=== PATIENT | male | born 1950 | race Caucasian/White ===

== ENCOUNTER → 2017-11-10 10:47 | Outpatient (CLI) | payer MEDICARE, MEDICAID, SELFPAY ==
--- NOTE | 2017-11-10 | DI.RAD.S_ITS ---
PROCEDURE: XR CHEST 2V INDICATIONS: DYSPNEA ON EXERTION TECHNIQUE: 2 views of the chest were acquired. COMPARISON: Merged With [facility], , CHEST 2 VIEW, 03/18/2010, 17:07. FINDINGS: Surgical changes and devices: None. Lungs and pleura: No right pleural effusions, no pneumothorax. Mild accentuation of interstitial markings bilaterally. There is a mass in the superior segment left lower lobe measuring 4.6 x 6.2 x 4.7 cm. Probable small left pleural effusion. Mediastinum: Mediastinal contours are normal. Heart size is normal. Aortic calcifications. Bones and chest wall: No suspicious bony abnormalities. Soft tissues appear unremarkable. IMPRESSION: 1. Large mass left lower lobe, suspect for malignancy. Probable small left pleural effusion. Recommend contrast enhanced CT chest. 2. Mild, chronic interstitial lung disease. Dictated by: Vitaly Key M.D. on 11/10/2017 at 11:36 Approved by: Vitaly Key M.D. on 11/10/2017 at 11:39
== END ==
PROVIDERS: PCP Family Medicine; Visit Provider Family Medicine
DX: R06.09 Other forms of dyspnea (principal); R91.8 Other nonspecific abnormal finding of lung field; J84.9 Interstitial pulmonary disease, unspecified
CPT/HCPCS: 71046

== ENCOUNTER → 2017-11-15 11:09 | Outpatient (CLI) | payer MEDICARE, MEDICAID, SELFPAY ==
--- NOTE | 2017-11-15 | DI.CT.S_ITS ---
PROCEDURE: CT CHEST W CON INDICATIONS: LEFT LOWER LUNG MASS TECHNIQUE: After the administration of intravenous contrast, 5 mm thick sections acquired from the pulmonary apices to the posterior costophrenic angles. 7 mm thick coronal and sagittal MIP reformats were acquired. For radiation dose reduction, the following was used: automated exposure control, adjustment of mA and/or kV according to patient size. COMPARISON: [facility], CT, KIDNEY/ URETER/BLADDER, 09/03/2005, 8:22. [facility], CR, CHEST 2 VIEW, 03/18/2010, 17:07. [facility], CR, XR CHEST 2V, 11/10/2017, 10:36. FINDINGS: Image quality: Excellent. Lungs and pleura: There is a spiculated 5.6 x 4.6 x 5.2 cm mass within the left lower lobe. Multiple satellite pulmonary nodules are present surrounding this lesion. There is a small left low-density pleural effusion. Compressive atelectasis is present at the left lung base. Mediastinum: Heart size is normal. No pericardial effusion. No mediastinal or hilar adenopathy by size criteria. Thoracic aorta and central pulmonary arteries are normal in size. Scattered atheromatous calcifications are present within the aortic arch. Esophagus is normal in caliber. No hiatal hernia. Bones and chest wall: No suspicious bony lesions there is moderate anterior wedging at T12. No recent priors are available to determine the acuity of this finding. No axillary or supraclavicular adenopathy by size criteria. Thyroid gland is unremarkable. Abdomen: Visualized upper abdominal solid organs appear normal. Upper abdominal bowel loops are normal in caliber. IMPRESSION: 1. Large left lower lobe pulmonary mass which corresponds with the plain film findings on the study dated 11/10/17. Differential considerations include neoplasm and pneumonia. If clinically indicated, this lesion may be amenable to percutaneous CT-guided biopsy; however given the deep location, this lesion is high risk for pneumothorax or hemoptysis. 2. Small low density left pleural effusion. 3. No mediastinal or hilar adenopathy to suggest teetee metastasis. Dictated by: Cassandra Zelaya M.D. on 11/15/2017 at 14:40 Approved by: Cassandra Zelaya M.D. on 11/15/2017 at 14:48
== END ==
PROVIDERS: PCP Family Medicine; Visit Provider Family Medicine
DX: R91.8 Other nonspecific abnormal finding of lung field (principal); J90 Pleural effusion, not elsewhere classified
CPT/HCPCS: 36415; 71260; 82565; 84520; Q9967

== ENCOUNTER → 2017-11-15 11:26 | Outpatient (CLI) | payer MEDICARE, MEDICAID, SELFPAY ==
[2017-11-15 11:56] LABS: BUN Creatinine Ratio 26.3 (6-22); Blood Urea Nitrogen 21 mg/dL (9-20); Estimated Glomerular Filt Rate > 60.0 mL/min (>60)
== END ==
PROVIDERS: PCP Family Medicine; Visit Provider Family Medicine
DX: R22.2 Localized swelling, mass and lump, trunk (principal)
CPT/HCPCS: 36415; 82565; 84520

== ENCOUNTER → 2017-11-22 08:01 | Outpatient (CLI) | payer MEDICARE, MEDICAID, SELFPAY ==
--- NOTE | 2017-11-22 | DI.US.S_ITS ---
PROCEDURE: US ABD AORTA ANEURYSM SCREEN INDICATIONS: SCREENING TECHNIQUE: Real time scanning was performed of the aorta and iliac arteries, with image documentation. COMPARISON: None. FINDINGS: Aorta: Proximal aortic diameter measures 1.5 cm. Mid-aorta measures 1.4 cm. Distal aortic diameter is 1.1 cm. Iliac arteries: Right common iliac artery measures 0.9 cm. Left common iliac artery measures 0.8 cm. IMPRESSION: No aortic aneurysm Dictated by: Vitaly Key M.D. on 11/22/2017 at 9:38 Approved by: Vitaly Key M.D. on 11/22/2017 at 9:39
[2017-11-22 08:25] LABS: Platelet Count 226 X10^3/uL (150-400)
[2017-11-22 08:32] LABS: INR 1.2 (0.9-1.3)
[2017-11-22 08:37] LABS: BUN Creatinine Ratio 17.8 (6-22); Blood Urea Nitrogen 16 mg/dL (9-20); Estimated Glomerular Filt Rate > 60.0 mL/min (>60)
== END ==
PROVIDERS: PCP Family Medicine; Visit Provider Family Medicine
DX: Z13.6 Encounter for screening for cardiovascular disorders (principal); R91.8 Other nonspecific abnormal finding of lung field
CPT/HCPCS: 36415; 76706; 82565; 84520; 85049; 85610

== ENCOUNTER 2017-11-29 10:18 | Day surgery (SDC) | payer MEDICARE, MEDICAID, SELFPAY ==
[2017-11-29] VITALS (12 sets, daily range): BP systolic 111–188; BP diastolic 66–99; PULSE 92–107; RESP 16–20; TEMP 36.3–37; O2SAT 94–99; BMI 33.2
--- NOTE | 2017-11-29 | DI.CT.S_ITS ---
PROCEDURE: CT BIOPSY LUNG LT Sedation analgesia for 20 minutes. INDICATIONS: LUNG MASS TECHNIQUE: The indications, alternatives, benefits, risks, and possible complications of the procedure were communicated to the patient. Informed written consent from the patient was obtained and placed in the chart. Continuous EKG and hemodynamic monitoring was started by trained personnel. The patient was brought to the CT suite and boiler shop mechanic spiral CT imaging was performed with localization grid. The appropriate site for percutaneous access to the biopsy target was marked, was prepped and draped sterilely, and was infused with local anaesthesia. Under CT guidance, a core biopsy trocar and needle set was advanced to the biopsy target, and specimen(s) were obtained. The trocar and needle were then removed, and the patient was sent for post-procedure monitoring. COMPARISON: None. FINDINGS: Biopsy site: Left lower lobe mass Needle: 20 gauge biopsy needle with introducer trocar. Number of passes: 6 for cytology; one for C and S Medications: 1% lidocaine for local anaesthesia. 50 mcg IV Fentanyl and 1.0 mg Versed for conscious sedation for 20 minutes (see nursing record). Complications: None. IMPRESSION: Successful CT-guided biopsy of left lower lobe mass. Histopathology and culture and sensitivity pending. No immediate pneumothorax by postbiopsy CT imaging. Two-hour chest x-ray pending. Dictated by: Vitaly Key M.D. on 11/29/2017 at 12:19 Approved by: Vitaly Key M.D. on 11/29/2017 at 12:23
--- NOTE | 2017-11-29 | PATH_ITS ---
[facility] Accession Number: [id number] . 01 Material submitted: . L LUNG TISS . 01 Clinical history: . NEEDLE BX, PROB 1 DEGREE LUNG CA . 02 Diagnosis: Left Lung, Needle Core Biopsies: Squamous cell carcinoma, moderately differentiated. MRV/12/01/2017 . 02 Comment: PD-L1 immunohistochemical studies will be ordered, and results issued in an addendum. . As part of routine clinical quality manager, Dr. Payan has reviewed this case and agrees with the above diagnosis. The finding of squamous cell carcinoma was discussed with Dr. Mora by Dr. Luke Ramos on 12/01/2017 at 3:40 p.m. . 02 Electronically signed: . Luke Ramos MD, PhD, Pathologist NPI- [id number] . 01 Gross description: . Received one formalin-filled container labeled with the patient's name and designated lung tissue L needle core are multiple 0.1 cm in diameter burris-brown cylindrical shaped portions of tissue, which range in length from 0.1 to 0.4 cm. Contents of container are filtered, wrapped and entirely submitted in one cassette. ([facility]:[id number]) /[facility] . 02 Pathologist provided ICD-10: C34.92 . 02 CPT . 370392 Performed at: 01 [facility] [address], [place], [place] [id number] MD Milton Roland MD Phone: [phone] Performed at: 02 [facility] [address] [place], [place] [id number] MD Flavio Meza MD Phone: [phone]
--- NOTE | 2017-11-29 13:06 | SUR.PHASEII ---
Pt denies pain or sob. Resting calmly in bed, call light within reach.
--- NOTE | 2017-11-29 13:28 | SUR.PHASEII ---
PT C/O 4/10 PAIN AT INSERTION SITE AT 1315. BANDAID OBSERVED TO BE C/D/I. PT DENIED ANY SOB. PT VITAL SIGNS STABLE, O2 SAT 95%. BILATERAL LUNGS AUSCULATED TO BE CLEAR. REPOSITIONED PT FROM LAYING SUPINE TO SITTING UP. RECHECKED WITH PT AT THIS TIME AND PT STATES PAIN IS NOW ONLY A DULL ACHE AT INSERTION SITE AND RATING IT 2/10 AT INSERTION SITE. PT ALERT AND TALKING TO RN AT THIS TIME. CALL LIGHT GIVEN TO PT AND BED IN LOWEST POSITION.
--- NOTE | 2017-11-29 13:37 | SUR.PHASEII ---
NOTIFIED DR. MAE, RADIOLOGIST OF PT RECENT C/O PAIN AT INSERTION SITE. PER RADIOLOGIST, THIS COMPLAINT IS NORMAL AND WILL BE SORE AT INSERTION SITE FOR THE NEXT FEW DAYS. NO NEW ORDERS RECEIVED.
--- NOTE | 2017-11-29 14:00 | DI.RAD.S_ITS ---
PROCEDURE: XR CHEST 1V INDICATIONS: POSTR LUNG BIOPSY TECHNIQUE: One view of the chest was acquired. COMPARISON: [facility], CR, XR CHEST 2V, 11/10/2017, 10:36. FINDINGS: Surgical changes and devices: None. Lungs and pleura: No pleural effusions or pneumothorax. Mass in the left midlung field appears unchanged. Left pleural effusion is smaller. No pneumothorax post lung biopsy. Mediastinum: Mediastinal contours appear normal. Heart size is normal. Bones and chest wall: No suspicious bony lesions. Overlying soft tissues appear unremarkable. IMPRESSION: No change in size or appearance of the left lung mass post needle core biopsy. No pneumothorax. Dictated by: Vitaly Key M.D. on 11/29/2017 at 14:41 Approved by: Vitaly Key M.D. on 11/29/2017 at 14:42
[2017-11-29] MEDS: fentaNYL 100 MCG/2 ML INJ 50 MCG IV (15:53)
[2017-11-29] MEDS: MIDAZOLAM 5 MG/ML VIAL 1 MG IV (15:53)
== END 2017-11-29 14:17 | disposition home or self-care (01) ==
PROVIDERS: PCP Family Medicine; Visit Provider Family Medicine
PROC: BB24ZZZ Computerized Tomography (CT Scan) of Bilateral Lungs (ICD-10-PCS; CPT 32408; principal; 2017-11-29 11:00)
DX: C34.92 Malignant neoplasm of unspecified part of left bronchus or lung (principal)
CPT/HCPCS: 32405; 71045; 77012; 87070; 87075; 87205; 88305; J2250; J3010

== ENCOUNTER 2017-12-06 15:01 | Day surgery (SDC) | payer MEDICARE, MEDICAID, SELFPAY ==
--- NOTE | 2017-12-06 | PATH_ITS ---
[facility] Accession Number: [id number] . 01 Material submitted: . PART A: COLON POLYP AT 20 CM PART B: COLON POLYP AT 25 CM PART C: COLON POLYP AT 35 CM PART D: COLON POLYP AT 120 CM PART E: COLON POLYP AT 130 PER VIAL PART F: COLON POLYP AT 160 CM PART G: COLON POLYP AT 80 CM PART H: COLON POLYP AT 50 CM PART I: PRIMARY RECTAL MASS 16-10 CM . 02 Diagnosis: A. Colon, Polyp at 20 cm, Biopsy: Tubulovillous adenoma. No evidence of malignancy or high grade dysplasia. . B. Colon, Polyp at 25 cm, Biopsy: High-grade dysplasia arising in a background of tubulovillous adenoma. No definite evidence of malignancy. . C. Colon, Polyp at 35 cm, Biopsy: Multiple fragments of tubular adenoma. . D. Colon, Polyp at 120 cm, Biopsy: Tubular adenoma. . E. Colon, Polyp at 130 cm, Biopsy: Tubulovillous adenoma. No evidence of malignancy or high-grade dysplasia. . F. Colon, Polyp at 160 cm, Biopsy: Tubular adenomas. . G. Colon, Polyp at 80 cm, Biopsy: Tubular adenoma. . H. Colon, Polyp at 50 cm, Biopsy: Tubular adenoma. . I. Rectum, Mass at 16-10 cm, Biopsy: Invasive adenocarcinoma, moderately differentiated, arising in a background of high-grade dysplasia. No loss of mismatch repair protein expression. See comment. JRL/12/10/2017 . 02 Comment: B,I. As part of routine machined parts quality inspector, Dr. Ramos also reviewed parts B and I and agrees with the diagnoses. Dr. Payan called Dr. Head to discuss the results on 12/10/2017. . 02 Electronically signed: . Arely Payan MD, Pathologist NPI- [id number] . 01 Gross description: . Received nine formalin-filled containers each labeled with the patient's name. . A. In a container labeled polyp at 20 cm are three 0.3 to 1.0 cm portions of tissue. The two largest fragments are sectioned, and all fragments are totally submitted in cassettes A1 and A2. B. In a container labeled colon polyp at 25 cm are multiple less than 0.1 to 0.6 cm portions of tissue, which are filtered, wrapped and entirely submitted in cassette B. C. In a container labeled colon polyp at 35 cm are four fragments of tissue and/or debris, which range in size from less than 0.1 cm to 0.6 cm. The specimen is filtered and entirely submitted in cassette C. D. In a container labeled polyp at 120 cm, the specimen consists of two less than 0.1 to 0.4 cm portions of tissue. Entirely submitted in cassette D. E. In a container labeled polyp at 130 cm, source confirmed per client, are two 0.2 to 0.5 cm portions of tissue. The largest fragment is bisected and all fragments are totally submitted in cassette E. F. In a container labeled colon polyp at 160 cm are three fragments of tissue and/or debris, which range in size from 0.4 to 0.6 cm. The two largest fragments are bisected and all fragments are totally submitted in cassette F. G. In a container labeled colon polyps at 80 cm, the specimen consists of a 0.5 cm portion of tissue, which is entirely submitted in cassette G. H. In a container labeled polyp at 50 cm, the specimen consists of a 0.2 cm portion of tissue. Entirely submitted in cassette H. I. In a container labeled primary rectal mass 16-10 cm are four 0.2 to 0.4 cm portions of tissue. Entirely submitted in cassette I. ([facility]:[id number]) /[facility] . 02 Microscopic: . IMMUNOHISTOCHEMISTRY TESTING FOR MISMATCH REPAIR PROTEINS: . MLH1: Intact nuclear expression. MSH2: Intact nuclear expression. MSH6: Intact nuclear expression. PMS2: Intact nuclear expression. Background nonneoplastic tissue/internal control with intact nuclear expression. . . INTERPRETATION: No loss of nuclear expression of MMR proteins: low probability of microsatellite instability-high (MSI-H)* . . * There are exceptions to the above IHC interpretations. These results should not be considered in isolation, and clinical correlation with genetic counseling is recommended to assess the need for germline testing. . . * This test was developed and its performance characteristics determined by [facility]. It has not been cleared or approved by the U.S. Food and Drug Administration. The FDA has determined that such clearance or approval is not necessary. This test is used for clinical purposes. It should not be regarded as investigational or for research. . 02 Pathologist provided ICD-10: C20, D12.6 . 02 CPT . 659324, 561539, 322644, 566393, 824017, 164261, 661154, 756599, 372439, R74676, F91552 Performed at: 01 [facility] [address] [id number] MD Milton Roland MD Phone: [phone] Performed at: 02 [facility] [address] [place], [place] [id number] MD Flavio Meza MD Phone: [phone]
--- NOTE | 2017-12-06 12:11 | PM.PREOP ---
Pre-operative Note Interval Note Pre-op Check: Yes History & Physical Reviewed by Physician and Yes Exam Performed Changes: No H&P completed within 30 days and has changed as indicated here:: Patient is a very pleasant 67-year-old male who reports bloating and gas for several months. When he has a bad day he goes to the bathroom 6-7 times when he has a good day he has 1 or 2 normal bowel movements in general he complains of some fatigue and weakness with slight weight change but he denies fever chills or sweats or loss of appetite he does have some shortness of breath with exertion and better at rest but this isn't does not new. The patient reports he has explosive diarrhea then it goes to a normal most normal stool. He drinks tap water and has not been drinking water from streams or lakes or any untreated well water. He reports he had a case of what he considers food poisoning approximately 2-3 months ago with severe cramping and diarrhea and that is when all of these symptoms started. He has not had a stool sample yet sent and has never had a colonoscopy and reports his physician has recommended a colonoscopy. ASA Class (for procedural sedation): II
--- NOTE | 2017-12-06 12:12 | P.OP.ENDO_ITS ---
Operative Date/Time/Diagnoses Date of procedure: 12/06/17 Time of procedure: 15:47 Pre-op diagnosis: Diarrhea and screening colonoscopy-no prior history of colonoscopy Post-op diagnosis: other (1. Rectal mass from 10-16cm from anal verge. 2. Colon polyps at multiple sites ( 20,25,35,120,130,160,80,50 cm) 3. Ascending/sigmoid diverticulosis. ) Procedure & Clinicians Indications: Diarrhea and blood in stool Lung mass c/w squamous cell cancer, moderately differentiated. Surgeon: Shant Head Procedure Notes SCOAP/Timeout: yes Procedure in detail: PLEASE NOTE THIS IS A -22 MODIFIER CASE DUE TO OVER 1 hour 48 MINUTES PROCEDURE TIME, OVER 8 POLYPS SNARED and LARGE CIRCUMFERENTIAL RECTAL MASS REQUIRING MULTIPLE SPECIMEN BIOPSIES. %100 more complex than standard colonoscopy with snare biopsy. After informed consent was obtained including the risks of infection bleeding perforation missed lesion and the signs and symptoms of perforation including increasing abdominal pain malaise nausea vomiting fever chills patient was taken to the endoscopy suite and given fentanyl and Versed. Safety time-out was completed. After adequate sedation rectal exam was performed showing no obvious mass lesion and a well lubricated colonoscope was placed into the anus and at approximately 8-10 cm I was met immediately with a circumferential fungating mass. The mass showed some evidence of bleeding and she go gentle insufflation showed there was in fact approximately a 20% area to 2 at transverse the mass which I was able to easily pass the scope beyond the the mass. Due to the ability to pass easily pass the scope I continued and was then immediately met with several approximately 1 cm pedunculated polyps., these polyps were found at multiple locations which we listed in the specimen list. Hot snare was utilized to remove polyps at 20 cm, 25 cm, 35 cm. I then advanced the scope and found extensive diverticulosis at approximately 50-70 cm in the ascending and sigmoid colon. I was then met with pedunculated polyps at 120 cm, and 130 cm, 160 cm and these were removed. The cecum was identified with the Crohn's foot and ileocecal valve. Pictures were taken of most of the polyps as well as the pros foot of the cecum. The prep was poor due to the partial obstructing nature of the rectal mass. I then spent over 50 min on withdrawal irrigating removing irrigation with a total of 3 L of irrigation and removal of stool total of which was 1 L of stool in 2 L of irrigation. Further specimens were removed at 80 cm and 50 cm with snare and either Jumbo forceps. Continued removal showed multiple smaller polyps some of which were added to the prior specimen areas as they were also found at the same exact levels and adding further specimen levels offered no further clinical significance. All snare areas showed mild bleeding which halted and no further hemorrhage was seen. We then pulled back to the rectal region where the primary rectal mass could be seen using the Jumbo forceps 3 large specimens were removed using multiple bites of the Jumbo forceps with each pass and these were all placed in the single jar 9. Specimen. There was no significant bleeding seen the scope could easily be passed through the the mass. Retroflexion showed no evidence of rectal mass below the primary tumor. I then removed the scope and completed the colonoscopy. Scope withdrawal time: 50 minutes Sedation 108 min Findings: diverticulosis, polyp and possible cancer (Circumferential rectal lesion, fungating at 10-16cm from anal verge and multiple polyps) Complications: none Recommendations: Other recommendation (Await pathology, full plan with discussion with oncologist. May not be surgical candidate if responds to chemo/ xrt. ) Plan for aftercare: Follow up with me in 1-2 weeks Follow up with Dr. Mora Follow up with Oncology for full plan. May need neoadjuavant chemo/XRT then restaging and full treatment options depending on his prognosis of his lung mass. Full staging of his rectal mass has not yet been peformed and pathology is needed. If he is not a CHEMO/XRT candidate then laparoscopic colostomy is an option or metal stenting can be performed. CEA levels. Disposition: PACU
[2017-12-06 15:30] VITALS: BP 160/78; PULSE 107; RESP 12; TEMP 36.3; O2SAT 94; BMI 33.9
[2017-12-06] MEDS: MIDAZOLAM 5 MG/5 ML VIAL 14 MG IV (16:30)
[2017-12-06] MEDS: fentaNYL 250 MCG/5 ML INJ 300 MCG IV (16:30)
[2017-12-06] MEDS: LACTATED RINGERS 1,000 ML 42 ML IV (16:42)
--- NOTE | 2017-12-06 16:53 | SUR.OPER ---
Patient increasingly agitated and diaphoretic with progress of colonoscopy, vitals within levels of baseline. Requested anesthesia care. Dr. Valenzuela arrived at 1640, IV came out (intact) of right hand with patient agitation and diaphoresis, restarted within 3 minutes into right hand. See anesthesia record for further care.
[2017-12-06 17:50] VITALS: BP 144/63; PULSE 96; RESP 18; TEMP 36.7; O2SAT 98
[2017-12-06 17:55] VITALS: BP 168/79; PULSE 93; RESP 20; O2SAT 96
[2017-12-06 18:00] VITALS: PULSE 92; RESP 20; O2SAT 96
[2017-12-06 18:05] VITALS: BP 167/74; PULSE 92; RESP 20; TEMP 36.3; O2SAT 95
[2017-12-06 18:15] VITALS: BP 157/80; PULSE 90; RESP 20; O2SAT 96
--- NOTE | 2017-12-06 18:29 | SUR.PHASEII ---
Patient gave okay to talk to son and girl friend post operatively. Dr alonso did come to the bedside and took a good amount of time to discuss findings and possible treatments prior to leaving the department.
== END 2017-12-06 18:50 | disposition home or self-care (01) ==
PROVIDERS: PCP Family Medicine; Visit Provider Surgery
PROC: 0DJD8ZZ Inspection of Lower Intestinal Tract, Via Natural or Artificial Opening Endoscopic (ICD-10-PCS; CPT 45378; principal; 2017-12-06 16:00)
DX: C20 Malignant neoplasm of rectum (principal); K57.30 Diverticulosis of large intestine without perforation or abscess without bleeding; C34.92 Malignant neoplasm of unspecified part of left bronchus or lung; I10 Essential (primary) hypertension; F17.210 Nicotine dependence, cigarettes, uncomplicated; D12.6 Benign neoplasm of colon, unspecified
CPT/HCPCS: 45385; 45380; 99152; 99153; J2250; J2704; J3010

== ENCOUNTER → 2017-12-14 14:49 | Outpatient (CLI) | payer MEDICARE, MEDICAID, SELFPAY ==
[2017-12-14 15:13] LABS: Add Manual Diff / Slide Review NO; Basophils Percent Auto 1.2 % (0-2); Eosinophils Percent Auto 1.2 % (2-4); Hematocrit 43.9 % (41-53); Hemoglobin 14.9 g/dL (13.5-17.5); Lymphocytes Percent Auto 15.2 % (25-40); Mean Corpuscular Hemoglobin 26.3 PG (26-34); Mean Corpuscular Volume 77.4 fL (80-100); Monocytes Percent Auto 5.4 % (3-14); Neutrophils Absolute Auto 9400 /uL (3000-5900); Platelet Count 260 X10^3/uL (150-400); Red Blood Cell Count 5.67 X10^6/uL (4.5-5.9); White Blood Cell Count 12.2 X10^3/uL (4.5-11.0)
[2017-12-14 15:31] LABS: Alanine Aminotransferase 17 IU/L (21-72); Albumin 4.2 g/dL (3.5-5.0); Albumin Globulin Ratio 1.5 (1.0-2.8); Alkaline Phosphatase 103 U/L (38-126); Aspartate Aminotransferase 16 IU/L (17-59); Blood Urea Nitrogen 17 mg/dL (9-20); Calcium 9.3 mg/dL (8.4-10.2); Carbon Dioxide 30 mmol/L (22-32); Chloride 97 mmol/L (98-107); Estimated Glomerular Filt Rate > 60.0 mL/min (>60); Globulin 2.8 g/dL (1.7-4.1); Glucose 167 mg/dL (80-110); HEMOLYSIS < 15 (0-50); Potassium 4.2 mmol/L (3.4-5.1); Sodium 140 mmol/L (137-145)
[2017-12-14 16:02] LABS: Carcinoembryonic Antigen 10.4 ng/mL (0.1-3.0)
== END ==
PROVIDERS: PCP Family Medicine; Visit Provider Internal Medicine Hematology & Oncology
DX: R91.8 Other nonspecific abnormal finding of lung field (principal)
CPT/HCPCS: 36415; 80053; 82378; 85025

== ENCOUNTER → 2017-12-15 11:19 | Outpatient (CLI) | payer MEDICARE, MEDICAID, SELFPAY ==
--- NOTE | 2017-12-15 11:22 | DI.MRI.S_ITS ---
PROCEDURE: MR HEAD/BRAIN WO/W CON INDICATIONS: LUNG MASS/COLON MASS TECHNIQUE: Noncontrast axial T1 spin echo, axial T2 fast spin echo, sagittal and axial FLAIR, coronal T2 fast spin echo, axial gradient echo, axial diffusion and ADC through the brain. After the administration of contrast, axial and coronal 3D VIBE or T1 spin echo with fat saturation through the brain. COMPARISON: None. FINDINGS: Image quality: Excellent. CSF Spaces: Basal cisterns are patent. No extra-axial fluid collections. Ventricles are normal in size and shape. Brain: No midline shift. No intracranial bleeds or masses. No abnormal intracranial enhancement. The brainstem appears normal. Diffusion-weighted images demonstrate no acute ischemic insults. Minimal foci of increased T2 signal in the subcortical and periventricular white matter. Normal intravascular flow voids are present. Skull and face: Calvarial marrow is normal in signal. Orbits appear normal. Sinuses: Sinuses and mastoids appear clear. IMPRESSION: No MRI evidence of metastatic disease. Minimal chronic benign ischemic change. Dictated by: Corky Greco M.D. on 12/15/2017 at 15:47 Approved by: Corky Greco M.D. on 12/15/2017 at 15:52
== END ==
PROVIDERS: PCP Family Medicine; Visit Provider Internal Medicine Hematology & Oncology
DX: R91.8 Other nonspecific abnormal finding of lung field (principal); K63.9 Disease of intestine, unspecified; C34.90 Malignant neoplasm of unspecified part of unspecified bronchus or lung
CPT/HCPCS: 70553; A9579

== ENCOUNTER → 2017-12-16 10:28 | Outpatient (CLI) | payer MEDICARE, MEDICAID, SELFPAY | PROVIDERS: PCP Family Medicine; Visit Provider Family Medicine | DX: C20 Malignant neoplasm of rectum (principal); Z53.9 Procedure and treatment not carried out, unspecified reason ==

== ENCOUNTER → 2017-12-23 11:13 | Outpatient (CLI) | payer MEDICARE, MEDICAID, SELFPAY ==
--- NOTE | 2017-12-23 | DI.CT.S_ITS ---
PROCEDURE: CT ABDOMEN PELVIS W CON INDICATIONS: RECTAL CANCER. Lung mass TECHNIQUE: After the administration of oral and intravenous contrast, 5 mm thick sections acquired from the diaphragms to the symphysis. 5 mm thick coronal and sagittal reformats were performed. For radiation dose reduction, the following was used: automated exposure control, adjustment of mA and/or kV according to patient size. COMPARISON: [facility], [place], US ABD AORTA ANEURYSM SCREEN, 11/22/2017, 8:42. [facility], CT, KIDNEY/ URETER/BLADDER, 09/03/2005, 8:22. [facility], [place], PET NECK TO MID THIGH, 12/22/2017, 14:04. FINDINGS: Image quality: Excellent. ABDOMEN: Lung bases: Trace effusion is present in the left base. Solid organs: Liver is normal in size. Hepatic steatosis is present. There is a 6 mm low attenuation focus within the mid right hepatic lobe on series 2 image 14. No hypermetabolic activity is identified on current PET scan. Gallbladder is unremarkable. Biliary system is non-dilated. Pancreas enhances normally. Spleen is normal in size and enhancement. Bilateral adrenal gland thickening and nodularity are present without hypermetabolic activity.. Kidneys are normal in size and enhancement, without hydronephrosis. Low attenuation bilateral renal foci are present consistent with cysts. Punctate nonobstructing inferior left renal pole calculus is noted. Peritoneum and bowel: Stomach, small bowel, and colon loops are normal in caliber and wall thickness. Scattered diverticula are present without associated inflammatory change. It is noted that there was increased metabolic activity within the cecum on PET scan. No discrete masses identified. It does appear to correspond to a nonspecific area of thickening. No free fluid or air. There is asymmetric thickening at the rectum, consistent with known neoplasm. No perirectal adenopathy is identified. Nodes and vessels: No retroperitoneal or mesenteric adenopathy. Aorta and inferior vena cava are normal in caliber. Miscellaneous: No ventral hernias. Hiatal hernia is present. PELVIS: Genitourinary: Bladder wall thickness is normal. Miscellaneous: No inguinal hernias or adenopathy. Bones: No suspicious bony lesions. No vertebral body compression fractures. IMPRESSION: 1. Hypermetabolic activity and asymmetric thickening of the rectum consistent with known neoplasm. 2. No discrete masses identified within the cecum corresponding to area of hypermetabolic activity. However, it does appear to correspond to a nonspecific area of thickening. Colonoscopy is recommended for further evaluation, as etiologies considered indeterminate on the basis of this exam and neoplasm cannot be excluded. 3. Subcentimeter focus of low attenuation within the liver as above. No hypermetabolic activity is identified on PET. This could represent a small cyst. Continued interval followup of this region is recommended to to small size and possible low sensitivity of detection on PET. 4. Bilateral adrenal gland nodularity as above without hypermetabolic activity. Dictated by: Jaz Sarmiento M.D. on 12/23/2017 at 16:03 Approved by: Jaz Sarmiento M.D. on 12/23/2017 at 16:16
== END ==
PROVIDERS: PCP Family Medicine; Visit Provider Family Medicine
DX: C20 Malignant neoplasm of rectum (principal); R91.1 Solitary pulmonary nodule; K76.0 Fatty (change of) liver, not elsewhere classified
CPT/HCPCS: 74177

== ENCOUNTER 2017-12-24 11:48 | Day surgery (SDC) | payer MEDICARE, MEDICAID, SELFPAY ==
[2017-12-15 07:27] VITALS: BMI 33.7
[2017-12-24] VITALS (11 sets, daily range): BP systolic 119–152; BP diastolic 66–77; PULSE 95–103; RESP 15–21; TEMP 36.1–36.8; O2SAT 93–97; BMI 32.5
--- NOTE | 2017-12-24 | DI.RAD.S_ITS ---
PROCEDURE: XR CHEST 1V INDICATIONS: Port placement, possible pneumothorax TECHNIQUE: One view of the chest was acquired. COMPARISON: Located Within [facility], CR, XR CHEST 1V, 11/29/2017, 13:24. Located Within [facility], CR, XR CHEST 2V, 11/10/2017, 10:36. Located Within [facility], CR, CHEST 2 VIEW, 03/18/2010, 17:07. FINDINGS: Surgical changes and devices: Port-A-Cath placed from a right-sided approach, with tip in normal position and no sign of pneumothorax. Lungs and pleura: No pleural effusions. Lungs are abnormal with a chronic interstitial prominence and a lung mass at the left lower lobe, superimposed on the middle third of the lung parenchyma on the frontal projection.. Mediastinum: Mediastinal contours appear normal. Heart size is normal. Bones and chest wall: No suspicious bony lesions. Overlying soft tissues appear unremarkable. IMPRESSION: No pneumothorax after Port-A-Cath placement from right sided approach, with tip in the distal SVC. Stable appearance of left lung mass. Chronic interstitial prominence likely reflects prior smoking history. Dictated by: Trace Medrano M.D. on 12/24/2017 at 15:51 Approved by: Trace Medrano M.D. on 12/24/2017 at 15:52
[2017-12-24] MEDS: LACTATED RINGERS 1,000 ML 42 ML IV (12:36)
--- NOTE | 2017-12-24 12:55 | PM.HP.1 ---
History of Present Illness Date Patient Seen: 12/24/17 Time Patient Seen: 12:55 Chief complaint: [id number] PORTACATH PLACEMENT Narrative: 67-year-old male recently diagnosed with concurrent primary tumors including squamous cell carcinoma of the lung and adenocarcinoma of the rectum who presents now requiring long-term IV access to facilitate chemotherapy. Currently he denies any significant chest pain or shortness of breath. No significant rectal bleeding. Bowel habits remains stable. He has been seen by both the radiation oncology and medical oncology services with plans for the above interventions. Patient History Medical History Hx of nephrolithotomy with removal of calculi (Acute) Fatigue (Acute) Hypertension (Acute) Obesity (Acute) Rectal adenocarcinoma (Acute) Rectal mass (Acute) Sleep apnea (Acute) 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) Weakness (Acute) Surgical History Hx of colonoscopy with polypectomy (Acute) Family & Social History Family History: Reviewed 12/24/17 by Ector Dominguez MD Social History: household members significant other Tobacco & Substance use: Smoking Status Current every day smoker alcohol intake current Meds Home Medications Medication Instructions Recorded Confirmed Type inhaler,assist devices,access MISC 12/09/17 12/09/17 History lisinopril 10 1 tab PO DAILY 12/09/17 12/24/17 History mg-hydrochlorothiazide 12.5 mg tablet Allergies Allergy/AdvReac Type Severity Reaction Status Date / Time Iodinated Contrast- Oral and Allergy Severe hives, Verified 12/15/17 07:47 IV Dye difficultly breathing Review of Systems Review of Systems All systems reviewed & are unremarkable except as noted in HPI and below Exam Vital Signs (past 8 hours): - 12/24/17 12:25 Temperature 98.3 F Pulse Rate 103 H Respiratory Rate 20 Blood Pressure 152/71 H Pulse Oximetry 97 Oxygen Delivery Method Room Air Narrative Exam Narrative: Well-nourished well-developed mildly obese male in no acute distress. Alert oriented x3. Sclera nonicteric Neck is supple Regular rate and rhythm. No wheezes Abdomen is soft, nondistended, nontender, no masses Extremities show no clubbing, cyanosis, or edema Rectal examination is deferred in light of recent endoscopy Objective Labs Labs: Patient has had full metastatic evaluation with normal MRI of the brain. PET scan shows mild hypermetabolic activity of the adrenal glands and activity in the cecum of unclear etiology. No obvious skeletal metastases. Assessment & Plan Plan: Assessment/Plan Narrative: 67-year-old male with rectal cancer and squamous cell carcinoma of the lung requiring long-term IV access to facilitate neoadjuvant chemotherapy. I have discussed placement of a tunneled Port-A-Cath device. Technical details of the procedure were explained. Risks, benefits, alternatives were discussed. Risks including but not limited to anesthesia, bleeding, hematoma, seroma, infection, pain, scar, pneumothorax, hemothorax, need for chest tube, poor wound healing, catheter malfunction, catheter embolization, catheter thrombosis, need for revision, or need for further surgery were explained in detail. All questions were answered to his satisfaction, and he voiced understanding. Consent was placed on the chart. We will proceed as above.
--- NOTE | 2017-12-24 12:59 | PM.PREOP ---
Pre-operative Note Interval Note Pre-op Check: Yes History & Physical Reviewed by Physician, Yes Exam Performed and Yes History & Physical exam performed today by Physician Changes: No H&P completed within 30 days and has changed as indicated here:: Patient seen and examined today. History physical examination documented and placed on the chart. Proceed with Port-A-Cath insertion today as planned.
[2017-12-24] MEDS: ALBUTEROL 2.5 MG/3 ML NEB (ADULT) INH (13:04)
[2017-12-24] MEDS: CEFAZOLIN 2 GM/100 ML FROZ.PIGGY IV (13:38)
[2017-12-24] MEDS: SODIUM CHLORIDE 0.9% FLUSH 10 ML IV (14:10)
[2017-12-24] MEDS: LIDOCAINE 1% 30 ML INJ INJ (14:12)
[2017-12-24] MEDS: LACTATED RINGERS 1,000 ML 100 ML IV (14:24)
--- NOTE | 2017-12-24 15:11 | P.OP_ITS ---
Operative Date/Time/Diagnoses Date of procedure: 12/24/17 Time of procedure: 15:03 Pre-op diagnosis: Squamous cell carcinoma of the left lung and adenocarcinoma of the rectum requiring long-term IV access for neoadjuvant chemotherapy Post-op diagnosis: same Procedure & Clinicians Procedure: Placement of right subclavian vein tunneled 8 [place]orean central venous catheter port device Same procedure as scheduled: Yes Indications: 67-year-old male recently diagnosed with concurrent squamous cell carcinoma of the left lung and adenocarcinoma of the rectum requiring neoadjuvant chemotherapy. Long-term IV access is necessary to facilitate treatment. Port-A-Cath placement is recommended. Surgeon: Ector Dominguez Click Yes if Unassisted: Yes Anesthesia Type: General Operative Notes Findings: 1. Right subclavian vein tunneled 8 Ecu[place]orean port device with tip in distal superior vena cava by fluoroscopic examination 2. No evidence of leakage with aspiration and flushing of the port device 3. Catheter easily aspirated and flushed with both saline and heparin at the conclusion of the case Closure Type: primary Specimen(s): none sent Implants & Drains: Eight Ecuadorean central venous per our port device placed via right subclavian approach Applied: implant(s) (Port device as above) Estimated Blood Loss (mL): 10 Blood products transfused: none Procedure in detail: After obtaining informed consent the patient was brought to the operating room placed supine on the table. After satisfactory induction of anesthesia the chest and neck were prepped and draped in usual sterile fashion. Arms were tucked to the side and all pressure points were padded appropriately. A shoulder roll was also placed. A SCOAP time-out was performed per standard protocol. Patient was placed in Trendelenburg position. Local anesthesia was achieved with 1% plain lidocaine in the right infraclavicular region. Introducer needle was placed deep to the right clavicle percutaneously in the right subclavian vein accessed on the 2nd attempt. Guidewire was threaded distally. Fluoroscopic examination showed the guidewire to be in good position in the right heart. Needle was removed. Patient was returned to supine position. Stab incision was created with 15 scalpel blade at the guidewire insertion site. Transverse skin incision was created with 15 scalpel blade several cm below the guidewire insertion site for distance of approximately 3 cm. Bovie was used to achieve hemostasis and carried the dissection down through the subcutaneous tissue to the anterior chest wall along the pectoralis fascia. Blunt dissection using the surgeon's finger was employed to create a subcutaneous pocket just large enough to accommodate the port device. Catheter was attached to the port using the locking mechanism and noted to flush with saline easily. Port was accessed with a Harris needle. Port was placed in the subcutaneous pocket and secured with interrupted 2 0 Prolene suture to the pectoralis fascia. Catheter was brought through the subcutaneous tissue using the tunneling device to exit at the guidewire insertion site. Under fluoroscopic examination the catheter was brought into position and length was estimated. Catheter was cut at approximately 20 cm length. Under direct fluoroscopic visualization the venous dilator and sheath were placed via sterile Seldinger technique over the guidewire into the central venous system. Dilator and wire were removed as a single unit. Catheter was then thread distally through the sheath and the sheath was removed. Catheter tip initially showed a kink in the proximal superior vena cava. After some manipulation and flushing with saline the catheter was noted to take a normal gentle curving course from the port into the distal superior vena cava just above the atrial junction. Catheter was noted to aspirate and flush easily after accessing it with the Harris needle. Wound was irrigated with copious amounts of sterile saline solution and hemostasis verified. Subcutaneous tissue was reapproximated with interrupted 3 0 Vicryl suture. Skin was closed with 4 0 Monocryl running subcuticular stitch. Dermal adhesive was placed on the skin for dressing. Anesthesia was reversed and patient extubated in the operating room. He was taken recovery in stable condition. Postoperative chest x -ray showed the catheter to be in excellent position with no evidence of pneumothorax. Complications: none Condition: stable Disposition: PACU Plan for aftercare: 1. Discharge home 2. Follow up with Oncology as scheduled to begin therapy 3. Follow up in surgery clinic in 1 month
[2017-12-24] MEDS: fentaNYL 100 MCG/2 ML INJ 50 MCG IV ×2 (15:15→15:22)
[2017-12-24] MEDS: OXYCODONE/ACETAMINOPHEN 5/325 TABLET 2 TAB PO (15:32)
== END 2017-12-24 16:35 | disposition home or self-care (01) ==
PROVIDERS: Surgery; PCP Family Medicine; Visit Provider Surgery
PROC: (CPT 36561; principal; 2017-12-24 14:00)
DX: C20 Malignant neoplasm of rectum (principal); C34.90 Malignant neoplasm of unspecified part of unspecified bronchus or lung; Z45.2 Encounter for adjustment and management of vascular access device; I10 Essential (primary) hypertension; E66.9 Obesity, unspecified; G47.33 Obstructive sleep apnea (adult) (pediatric); F17.210 Nicotine dependence, cigarettes, uncomplicated
CPT/HCPCS: 36561; 71045; C1788; J0690; J1100; J1644; J2250; J2405; J2704; J3010; J7613

== ENCOUNTER → 2018-01-07 08:47 | Outpatient (CLI) | payer MEDICARE, MEDICAID, SELFPAY ==
--- NOTE | 2018-01-14 10:29 | PM.PFT.1 ---
Pulmonary Function Test Referral & Results Date Patient Seen: 01/07/18 Requesting provider: Dudley Mora Indication: Dyspnea Results: The spirometry demonstrates an FVC of 2.50 L which is 59% of predicted. The FEV1 was measured at 1.29 L which is 41% of predicted. The FEV1/FVC ratio was 52 which is 69% of predicted. Following the administration of bronchodilator there was 20% improvement in FEV1 and a 66% improvement in FEF 25-75%. Lung volumes show an SVC of 2.85 L which is 66% of predicted. The diffusing capacity was measured at 20.02 which is 67% of predicted. No hemoglobin value was provided, so no correction for potential anemia could be made, if appropriate. The maximum voluntary ventilation was reduced Interpretation: This study demonstrates moderately severe obstructive lung disease with evidence of benefit following bronchodilator specially in small airway flow based on improvement in FEF 25-75% as well as the improvement in FEV1 There is also moderate restrictive lung disease There is reduction in diffusing capacity suggesting an element of disease at the capillary alveolar level as well This is altogether consistent with diagnosis of COPD Clinical correlation suggested
== END ==
PROVIDERS: PCP Family Medicine; Visit Provider Family Medicine
DX: C34.92 Malignant neoplasm of unspecified part of left bronchus or lung (principal); J44.9 Chronic obstructive pulmonary disease, unspecified; R06.00 Dyspnea, unspecified
CPT/HCPCS: 94010; 94060; 94726; 94729

== ENCOUNTER 2018-03-12 20:40 | Inpatient (IN) | payer MEDICARE, MEDICAID, SELFPAY ==
--- NOTE | 2018-03-12 20:45 | ED.OVERDOSE ---
HPI - Overdose General Chief Complaint: Chest Pain Stated Complaint: Dizzy, Chest Pain, ETOH Time Seen by Provider: 03/12/18 20:44 Source: patient, EMS and police Limitations: no limitations History of Present Illness HPI Narrative: 67-year-old male Former smoker and daily drinker, presents has involuntary patient with [employer] police for evaluation of psychiatric disease. This 67-year-old male has terminal lung cancer and recently had a partial lobectomy at an outside hospital. His health has been in decline and he is been told moving forward his cancer is not treatable. The the precipitating event today occurred when his girlfriend called his ex- and told her she wished his son would kill himself a so her son could come back. It should be known that his girlfriend's son just committed suicide about 2 weeks ago. This made him quite upset and when he confronted her there was an altercation and police were involved. He became quite upset and apparently trash the house, in doing so he exacerbated his chronic pain in his left lateral flank and anterior chest. He has had this pain for quite some time but it is usually under control, his thoracic surgeons tell him that it is nerve pain associated with his underlying cancer. He told [place] police that he wished to and that he had consumed about a 0.5 gal of liquor on top of multiple pills, he does not necessarily know the pills but thinks they were Ativan. He states he did this in an attempt to kill himself. He was not suicidal prior to his cancer diagnosis. He does not have access to a firearm. He has never been depressed before. He does not have a therapist her psychologist. He denies any prior psychiatric admissions Related Data Home Medications Medication Instructions Recorded Confirmed inhaler,assist devices,access MISC 12/09/17 12/09/17 lisinopril 10 1 tab PO DAILY 12/09/17 12/27/17 mg-hydrochlorothiazide 12.5 mg tablet lorazepam [Ativan] 1 mg PO BEDTIME PRN 01/06/18 03/13/18 albuterol sulfate [Ventolin HFA] 1 puff INHALATION Q4-6H 02/24/18 02/24/18 docusate sodium 100 mg PO BID 02/24/18 03/13/18 gabapentin 100 mg PO TID 02/24/18 02/24/18 hydrochlorothiazide 25 mg PO DAILY 03/13/18 03/13/18 lisinopril 10 mg PO DAILY 03/13/18 03/13/18 ondansetron 4 mg PO QID PRN 03/13/18 03/13/18 oxycodone 2.5 - 10 ml PO Q4HR PRN 03/13/18 03/13/18 Previous Rx's Medication Instructions Recorded oxycodone 10 mg PO Q4-6H PRN #60 tab 02/24/18 zolpidem [Ambien] 5 mg PO BEDTIME PRN #14 tab 02/24/18 Allergies Allergy/AdvReac Type Severity Reaction Status Date / Time Iodinated Contrast- Oral and Allergy Severe hives, Verified 12/15/17 07:47 IV Dye difficultly breathing Review of Systems Review of Systems All systems reviewed & are unremarkable except as noted in HPI and below Constitutional Denies chills, Denies fever(s), Denies lethargy and Denies weakness Eyes Denies change in vision, Denies eye discharge, Denies irritation and Denies loss of vision ENT Ears, Nose, Mouth, and Throat: Denies change in voice, Denies neck pain and Denies sore throat Cardiovascular Reports chest pain, Denies irregular heart rhythm, Denies lightheadedness, Denies palpitations, Denies dyspnea, Denies dyspnea on exertion and Denies orthopnea Respiratory Denies cough, Denies dyspnea, Denies dyspnea on exertion and Denies wheezing Gastrointestinal Gastrointestinal: Denies abdominal pain, Denies change in bowel habits, Denies diarrhea, Denies nausea and Denies vomiting Genitourinary Denies hematuria, Denies flank pain, Denies urinary incontinence and Denies urinary urgency Musculoskeletal Denies neck pain Integumentary/Breasts Denies pruritus, Denies erythema, Denies rash and Denies wounds Neurologic Denies confusion, Denies loss of vision and Denies weakness Psychiatric Reports anxiety, Denies confusion, Denies depression, Denies homicidal ideation and Reports suicidal ideation Endocrine Denies palpitations Hematologic/Lymphatic Denies easy bruising Allergic/Immunologic Denies wheezing PFSH Medical History Hx of nephrolithotomy with removal of calculi (Acute) Fatigue (Acute) Hypertension (Acute) Obesity (Acute) Rectal adenocarcinoma (Acute) Rectal mass (Acute) Sleep apnea (Acute) 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) Weakness (Acute) Surgical History Hx of colonoscopy with polypectomy (Acute) Family History Brother Cancer Social History marital status: unmarried,living together household members: significant other Smoking Status: Former smoker alcohol intake: current Exam Narrative Exam Narrative: GENERAL: 67-year-old male is in significant distress, visibly upset, and in pain complaining of left anterior chest pain HEAD: Atraumatic. Normocephalic. No temporal or scalp tenderness. EYES: Pupils equal round and reactive. Extraocular motions intact. No scleral icterus. No injection or drainage. ENT: Nose without bleeding, purulent drainage or septal hematoma. Throat without erythema, tonsillar hypertrophy or exudate. Uvula midline. Airway patent. NECK: Trachea midline. No JVD or lymphadenopathy. Supple, nontender, no meningeal signs. CARDIOVASCULAR: Regular rate and rhythm without murmurs, gallops, or rubs. Reproducible left anterior chest pain. Incisions from lobectomy are scabbed over appearing to be healing well, clean, dry and intact RESPIRATORY: Clear to auscultation. Breath sounds equal bilaterally. No wheezes, rales, or rhonchi. GASTROINTESTINAL: Abdomen soft, non-tender, nondistended. No hepato-splenomegaly, or palpable masses. No guarding. EXTREMITIES: No clubbing, cyanosis, or edema. No joint tenderness, effusion, or edema noted. BACK: Nontender without deformity or crepitance. No flank tenderness. NEURO: AOx3. SKIN: No rash or erythema. PSYCH: tearful, upset, states he wants to because of his terrible life ahead of him Initial Vital Signs Initial Vital Signs: Vital Signs Temperature 98.9 F 03/12/18 21:00 Pulse Rate 91 H 03/12/18 21:00 Respiratory Rate 18 03/12/18 21:00 Blood Pressure 147/54 H 03/12/18 21:00 Pulse Oximetry 100 03/12/18 21:00 Course Orders Ordered: ED Orders 03/12/18 20:44 Urine Drug Screen, Rapid Stat 03/12/18 21:15 Acetaminophen Stat Complete Blood Count AUTO DIFF Stat Comprehensive Metabolic Panel Stat Ethanol (ETOH) Stat Salicylate Stat Thyroid Stimulating Hormone Stat 03/12/18 22:02 CT head/brain wo con Stat 03/12/18 23:41 CT chest abd pel w con Stat Ondansetron HCl (Zofran) 4 mg IV Q4HR PRN PRN Reason: Nausea And Vomiting Last Admin: 03/13/18 00:01 Dose: 4 mg Discontinued Medications Diphenhydramine HCl (Benadryl) 25 mg IV NOW ONE Stop: 03/13/18 00:25 Last Admin: 03/13/18 00:41 Dose: 25 mg Hydromorphone HCl (Dilaudid) 1 mg IV NOW ONE Stop: 03/12/18 23:42 Last Admin: 03/12/18 23:59 Dose: 1 mg Famotidine (Pepcid) 20 mg in 50 mls @ 200 mls/hr IV NOW ONE Stop: 03/13/18 00:38 Last Infusion: 03/13/18 01:02 Dose: 0 mls/hr Admin: 03/13/18 00:41 Dose: 200 mls/hr Sodium Chloride (Normal Saline 0.9%) 1,000 mls @ 1,000 mls/hr IV BOLUS ONE Stop: 03/13/18 02:53 Last Admin: 03/13/18 01:55 Dose: 1,000 mls/hr Methylprednisolone (Solu-Medrol 125 Mg Vial) 125 mg IV NOW ONE Stop: 03/13/18 00:25 Last Admin: 03/13/18 00:41 Dose: 125 mg Vital Signs - 8 hr 03/12/18 21:00 03/12/18 22:30 03/13/18 01:26 Temperature 98.9 F Pulse Rate 91 H 91 H 76 Respiratory Rate 18 16 15 Blood Pressure 147/54 H Blood Pressure [Right Arm] 148/57 H 122/45 L Pulse Oximetry 100 100 99 03/13/18 03:30 Temperature Pulse Rate 82 Respiratory Rate Blood Pressure Blood Pressure [Right Arm] 112/44 L Pulse Oximetry 100 MDM - Overdose Lab Data Attestation: I reviewed the patient's lab results. Result diagrams: 03/12/18 21:15 03/12/18 21:15 Lab Results 03/12/18 03/12/18 03/12/18 Range/Units 21:15 21:15 21:15 WBC 10.7 (4.5-11.0) X10^3/uL RBC 4.85 (4.5-5.9) X10^6/uL Hgb 12.7 L (13.5-17.5) g/dL Hct 37.9 L (41-53) % MCV 78.1 L (80-100) fL MCH 26.1 (26-34) PG MCHC 33.4 (30-36) % RDW 14.2 (11.6-14.8) % Plt Count 284 (150-400) X10^3/uL Neut % (Auto) 76.2 H (50-75) % Lymph % (Auto) 16.5 L (25-40) % [place] % (Auto) 6.0 (3-14) % Eos % (Auto) 0.6 L (2-4) % Baso % (Auto) 0.7 (0-2) % Neut # (Auto) 8100 H (2402-0730) /uL Sodium 140 (137-145) mmol/L Potassium 4.4 (3.4-5.1) mmol/L Chloride 97 L (98-107) mmol/L Carbon Dioxide 30 (22-32) mmol/L BUN 16 (9-20) mg/dL Creatinine 0.80 (0.66-1.25) mg/dL Estimated GFR > 60.0 (>60) mL/min BUN/Creatinine Ratio 20.0 (6-22) Glucose 120 H (80-110) mg/dL Calcium 9.6 (8.4-10.2) mg/dL Total Bilirubin 0.8 (0.2-1.3) mg/dL AST 20 (17-59) IU/L ALT 29 (21-72) IU/L Alkaline Phosphatase 120 (38-126) U/L Total Protein 7.1 (6.3-8.2) g/dL Albumin 4.2 (3.5-5.0) g/dL Globulin 2.9 (1.7-4.1) g/dL Albumin/Globulin Ratio 1.4 (1.0-2.8) TSH 3.05 (0.47-4.68) uIU/mL Salicylates < 1.0 (<20) mg/dL Acetaminophen < 10 L (10-30) ug/mL Ethyl Alcohol < 10 mg/dL Point of Care Testing Glucose POC 104 ABG Data Attestation: I personally reviewed and interpreted this ABG as follows: ECG Data Attestation: I personally reviewed and interpreted this ECG as follows: MDM Narrative Medical decision making narrative: 67-year-old male with terminal cancer diagnosis presents with suicidal ideation. Patient had after [place] by local police for evaluation by mental health but he cannot be medically cleared in the emergency department given the presence of a small pneumothorax noted on imaging though this is likely an expected sequela of his lobectomy he needs hospitalization to trend his pneumothorax prior to being medically cleared.. He is not hypoxic and has no shortness of breath. Discharge Plan Departure Patient Disposition: Admitted As Inpatient Clinical Impression: Suicidal ideation, Rectal cancer, Cancer of left lung, Pneumothorax Admit Date/Time: 03/13/18 03:44 Admit Provider: Maegan So
[2018-03-12 21:00] VITALS: BP 147/54; PULSE 91; RESP 18; TEMP 37.2; O2SAT 100; BMI 30.4
[2018-03-12 21:26] LABS: Add Manual Diff / Slide Review NO; Basophils Percent Auto 0.7 % (0-2); Eosinophils Percent Auto 0.6 % (2-4); Hematocrit 37.9 % (41-53); Hemoglobin 12.7 g/dL (13.5-17.5); Lymphocytes Percent Auto 16.5 % (25-40); Mean Corpuscular HGB Conc 33.4 % (30-36); Mean Corpuscular Hemoglobin 26.1 PG (26-34); Mean Corpuscular Volume 78.1 fL (80-100); Neutrophils Absolute Auto 8100 /uL (3000-5900); Neutrophils Percent Auto 76.2 % (50-75); Platelet Count 284 X10^3/uL (150-400); Red Blood Cell Count 4.85 X10^6/uL (4.5-5.9); Red Cell Distribution Width 14.2 % (11.6-14.8); White Blood Cell Count 10.7 X10^3/uL (4.5-11.0)
[2018-03-12 21:30] LABS: Acetaminophen < 10 ug/mL (10-30); Alanine Aminotransferase 29 IU/L (21-72); Albumin 4.2 g/dL (3.5-5.0); Albumin Globulin Ratio 1.4 (1.0-2.8); Alkaline Phosphatase 120 U/L (38-126); Aspartate Aminotransferase 20 IU/L (17-59); Bilirubin Total 0.8 mg/dL (0.2-1.3); Blood Urea Nitrogen 16 mg/dL (9-20); Calcium 9.6 mg/dL (8.4-10.2); Carbon Dioxide 30 mmol/L (22-32); Chloride 97 mmol/L (98-107); Estimated Glomerular Filt Rate > 60.0 mL/min (>60); Ethanol (ETOH) < 10 mg/dL; Globulin 2.9 g/dL (1.7-4.1); Glucose 120 mg/dL (80-110); HEMOLYSIS < 15 (0-50); Potassium 4.4 mmol/L (3.4-5.1); Sodium 140 mmol/L (137-145); Total Protein 7.1 g/dL (6.3-8.2)
[2018-03-12 21:31] LABS: Salicylate < 1.0 mg/dL (<20)
--- NOTE | 2018-03-12 22:02 | DI.CT.S_ITS ---
PROCEDURE: CT HEAD/BRAIN WO CON INDICATIONS: trauma TECHNIQUE: Noncontrast 4.5 mm thick angled axial sections acquired from the foramen magnum to the vertex, with coronal and sagittal reformats. For radiation dose reduction, the following was used: automated exposure control, adjustment of mA and/or kV according to patient size. COMPARISON: [facility], MR, MR HEAD/BRAIN WO/W CON, 12/15/2017, 11:33. FINDINGS: Image quality: Excellent. CSF spaces: Basal cisterns are patent. No extra-axial fluid collections. The ventricles are symmetric in size and shape. Brain: No intracranial bleeds or masses. There is cerebral volume loss for age, with resultant ventricular and sulcal prominence. There are periventricular and deep white matter chronic small vessel ischemic changes. There is intracranial internal carotid artery atherosclerosis. There is incidental note of low-lying cerebellar tonsils, consistent with congenital variation. Skull and face: Calvarium and visualized facial bones appear intact, without suspicious lesions. Sinuses: Visualized sinuses demonstrate mild scattered pansinus mucosal thickening. IMPRESSION: 1. No acute intracranial process. 2. Mild atrophy and chronic microvascular ischemic changes. Dictated by: Jaz Sarmiento M.D. on 03/13/2018 at 7:49 Approved by: Jaz Sarmiento M.D. on 03/13/2018 at 7:52
[2018-03-12 22:06] LABS: Thyroid Stimulating Hormone 3.05 uIU/mL (0.47-4.68)
[2018-03-12 22:30] VITALS: BP 148/57; PULSE 91; RESP 16; O2SAT 100
--- NOTE | 2018-03-12 23:37 | PC.NURSE ---
Hx of lung cancer and colorectal cancer. Pt states he is terminal. Recently had half of his left lung removed surgically. States he has severe nerve pain in the left rib area since the surgery.
--- NOTE | 2018-03-12 23:41 | DI.CT.S_ITS ---
PROCEDURE: CT CHEST ABD PEL W CON INDICATIONS: severe L chest/abdomen pain, recent lobectomy TECHNIQUE: After the administration of intravenous contrast, 5 mm thick sections acquired from the lung apices to the symphysis. 2.5 mm thick coronal and sagittal reformats were acquired. Additional 7 mm thick coronal maximum intensity projection (MIP) reformats acquired through the lungs. Optional 10-minute delayed imaging may be performed from the kidneys to the bladder. For radiation dose reduction, the following was used: automated exposure control, adjustment of mA and/or kV according to patient size. COMPARISON: [facility], [place], PET NECK TO MID THIGH, 12/22/2017, 14:04. [facility], CT, KIDNEY/ URETER/BLADDER, 09/03/2005, 8:22. [facility], CR, XR CHEST 1V, 03/13/2018, 6:04. [facility], CT, CT ABDOMEN PELVIS W CON, 12/23/2017, 12:58. FINDINGS: Image quality: Motion is present, limiting areas of fine detail evaluation. CHEST: Lungs: Postsurgical left hemithorax partial lobectomy changes are present. Minimal anterior left pneumothorax. Minimal dependent changes and pleural thickening are noted within the left base. Mediastinum: No mediastinal hematomas. Heart size is normal. No pericardial effusion. Thoracic aorta and pulmonary arteries demonstrate normal size and enhancement. No mediastinal or hilar adenopathy. Esophagus is normal in caliber. Mild hiatal hernia. Chest wall: No rib fractures. No subcutaneous emphysema. No axillary or supraclavicular adenopathy. Thyroid gland is unremarkable. ABDOMEN: Solid organs: Liver and spleen are mildly enlarged. Hepatic steatosis is present. Hepatic cyst is unchanged. Gallbladder is unremarkable. Biliary system is non-dilated. Pancreas enhances normally. No adrenal masses. Both kidneys enhance normally, without hydronephrosis. Bilateral low attenuation renal foci are present. The largest is identified on the right measuring 21 mm with a small focus of rim calcification. This is unchanged compared to 12/23/17. There is no hypermetabolic activity on PET scan on 12/22/17. Peritoneum and bowel: No free fluid or air. Unenhanced bowel loops demonstrate normal wall thickness and caliber. Scattered colonic diverticula are present. Nodes and vessels: No retroperitoneal or mesenteric adenopathy. Aorta and inferior vena cava are normal in size and enhancement. Miscellaneous: Fat-containing ventral hernia is stable. PELVIS: Genitourinary: Bladder wall thickness is normal. Miscellaneous: No inguinal hernias or adenopathy. Bones: Pelvic ring and hip joints appear intact. Old T12 compression deformity is present. IMPRESSION: 1. Postsurgical left lobectomy changes with minimal anterior left pneumothorax is noted. No midline shift. 2. Dependent changes and trace effusion within the left base. 3. Mild hepatosplenomegaly. 4. Diverticulosis. . Dictated by: Jaz Sarmiento M.D. on 03/13/2018 at 7:58 Approved by: Jaz Sarmiento M.D. on 03/13/2018 at 8:08
[2018-03-12] MEDS: HYDROMORPHONE 1 MG INJ IV (23:59)
[2018-03-13] VITALS (7 sets, daily range): BP systolic 112–127; BP diastolic 44–63; PULSE 76–95; RESP 14–20; TEMP 36.1–36.9; O2SAT 93–100; BMI 30.4
[2018-03-13] MEDS: ONDANSETRON 4 MG/2 ML INJ IV (00:01)
[2018-03-13] MEDS: methylPREDNISolone 125 MG/2 ML VIAL IV (00:41)
[2018-03-13] MEDS: diphenhydrAMINE 50 MG/ML VIAL 25 MG IV (00:41)
[2018-03-13] MEDS: FAMOTIDINE 20 MG/50 ML PIGGYBACK 200 MG IV (00:41)
[2018-03-13] MEDS: SODIUM CHLORIDE 0.9% 1,000 ML 1000 ML IV (01:55)
[2018-03-13 04:42] LABS: Bacteria Urine Many (>30); Culture Indicated Urine Specimen Cultured; RBC Urine 1-5/HPF (0-5/HPF); WBC Urine 1-5/HPF (0-5/HPF)
--- NOTE | 2018-03-13 06:17 | PC.NURSE ---
Modeling And Simulation Analyst Note: 0500: Arrived from ER via stretcher, to room 106. Pt is drowsy, arousable and alert when awake. Saline lock in place in rt AC. Pt has poor balance but is able to stand with one person assist. He was able to get up from stretcher and sit on bed. He has healing scar on lt back/flank from Thoracotomy about one month ago. He states he feels pain in the lt lower chest where the lobectomy was performed. Pt has a powerport in rt upper chest that is not accessed. He gives accurate information on his history, becomes easily emotional and sad, and cries.
[2018-03-13] MEDS: SODIUM CHLORIDE 0.9% 1,000 ML 125 ML IV (06:30)
[2018-03-13] MEDS: HYDROMORPHONE 2 MG INJ 1 MG IV ×2 (07:37→20:11)
[2018-03-13 09:28] LABS: Add Manual Diff / Slide Review NO; Basophils Percent Auto 0.4 % (0-2); Eosinophils Percent Auto 0.1 % (2-4); Hematocrit 37.8 % (41-53); Hemoglobin 12.4 g/dL (13.5-17.5); Mean Corpuscular HGB Conc 32.8 % (30-36); Mean Corpuscular Hemoglobin 25.6 PG (26-34); Mean Corpuscular Volume 77.9 fL (80-100); Neutrophils Absolute Auto 5300 /uL (3000-5900); Neutrophils Percent Auto 87.5 % (50-75); Platelet Count 264 X10^3/uL (150-400); Red Blood Cell Count 4.85 X10^6/uL (4.5-5.9); Red Cell Distribution Width 14.1 % (11.6-14.8)
[2018-03-13 09:39] LABS: Alanine Aminotransferase 25 IU/L (21-72); Albumin 3.8 g/dL (3.5-5.0); Albumin Globulin Ratio 1.4 (1.0-2.8); Alkaline Phosphatase 108 U/L (38-126); Aspartate Aminotransferase 17 IU/L (17-59); Bilirubin Total 0.7 mg/dL (0.2-1.3); Blood Urea Nitrogen 14 mg/dL (9-20); Carbon Dioxide 31 mmol/L (22-32); Chloride 97 mmol/L (98-107); Estimated Glomerular Filt Rate > 60.0 mL/min (>60); Globulin 2.8 g/dL (1.7-4.1); Glucose 158 mg/dL (80-110); HEMOLYSIS < 15 (0-50); Potassium 4.8 mmol/L (3.4-5.1); Sodium 138 mmol/L (137-145); Total Protein 6.6 g/dL (6.3-8.2)
--- NOTE | 2018-03-13 10:00 | DI.RAD.S_ITS ---
PROCEDURE: XR CHEST 1V INDICATIONS: recheck PTX TECHNIQUE: One view of the chest was acquired. COMPARISON: [facility], CR, XR CHEST 1V, 12/24/2017, 15:08. [facility], CT, CT CHEST ABD PEL W CON, 03/13/2018, 1:26. FINDINGS: Surgical changes and devices: Right Port-A-Cath is present with distal tip projecting over the mid SVC. Lungs and pleura: There is increased pulmonary vascularity. Trace left effusion is present. Previous trace left apical pneumothorax is not well-visualized. Mediastinum: Mediastinal contours appear normal. Heart size is normal. Bones and chest wall: No suspicious bony lesions. Overlying soft tissues appear unremarkable. IMPRESSION: Increased vascularity and mild left effusion suggestive of edema. Previous trace left apical pneumothorax is not well-visualized. Dictated by: Jaz Sarmiento M.D. on 03/13/2018 at 8:21 Approved by: Jaz Sarmiento M.D. on 03/13/2018 at 8:23
--- NOTE | 2018-03-13 13:57 | PC.NURSE ---
pt alert and oriented- has ivf infusing per right peripheral iv which is now ordered to be saline locked- medicated x 1 for pain with iv dilaudid. Have checked with pt prior to allowing any visitors or info given- he made a code with his son, Eliezer and explicitly declined to have any information given to or see MUNDO OCHOA -this was relayed to this person upon her arrival to ICU- tolerating regular diet, intermittently tearful- voiding only once per shift
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
[2018-03-13 14:15] LABS: Urine Amphetamines Positive (Negative); Urine Barbiturates Negative (Negative); Urine Benzodiazepines Positive (Negative); Urine Cocaine Negative (Negative); Urine MDMA Negative (Negative); Urine Methadone Negative (Negative); Urine Methamphetamines Positive (Negative); Urine Morphine/Opi cutoff 2000 Negative (Negative); Urine Oxycodone Positive (Negative); Urine Phencyclidine Negative (Negative); Urine Tetrahydrocannabinol Negative (Negative); Urine Tricyclic Antidepressant Negative (Negative)
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
[2018-03-14] VITALS (7 sets, daily range): BP systolic 116–144; BP diastolic 44–68; PULSE 75–87; RESP 16–18; TEMP 35.8–36.9; O2SAT 93–98
[2018-03-14] MEDS: HYDROMORPHONE 2 MG INJ 1 MG IV ×2 (01:22→05:26)
[2018-03-14] MEDS: SODIUM CHLORIDE 0.9% FLUSH 10 ML IV ×2 (01:24→08:29)
[2018-03-14 05:34] LABS: Add Manual Diff / Slide Review NO; Basophils Percent Auto 0.7 % (0-2); Eosinophils Percent Auto 0.3 % (2-4); Hematocrit 37.6 % (41-53); Hemoglobin 12.1 g/dL (13.5-17.5); Lymphocytes Percent Auto 18.5 % (25-40); Mean Corpuscular HGB Conc 32.3 % (30-36); Mean Corpuscular Hemoglobin 25.4 PG (26-34); Mean Corpuscular Volume 78.8 fL (80-100); Monocytes Percent Auto 5.5 % (3-14); Neutrophils Absolute Auto 7200 /uL (3000-5900); Platelet Count 252 X10^3/uL (150-400); Red Blood Cell Count 4.77 X10^6/uL (4.5-5.9); Red Cell Distribution Width 14.2 % (11.6-14.8); White Blood Cell Count 9.6 X10^3/uL (4.5-11.0)
[2018-03-14 05:37] LABS: Ammonia (NH3) < 9.0 umol/L (9-30)
[2018-03-14 05:40] LABS: Alanine Aminotransferase 19 IU/L (21-72); Albumin 3.7 g/dL (3.5-5.0); Albumin Globulin Ratio 1.4 (1.0-2.8); Alkaline Phosphatase 93 U/L (38-126); Aspartate Aminotransferase 15 IU/L (17-59); Bilirubin Total 0.6 mg/dL (0.2-1.3); Blood Urea Nitrogen 21 mg/dL (9-20); Calcium 9.2 mg/dL (8.4-10.2); Carbon Dioxide 28 mmol/L (22-32); Chloride 99 mmol/L (98-107); Estimated Glomerular Filt Rate > 60.0 mL/min (>60); Globulin 2.7 g/dL (1.7-4.1); Glucose 141 mg/dL (80-110); HEMOLYSIS < 15 (0-50); Potassium 4.4 mmol/L (3.4-5.1); Sodium 138 mmol/L (137-145); Total Protein 6.4 g/dL (6.3-8.2)
[2018-03-14] MEDS: PANTOPRAZOLE 40 MG VIAL IV (08:27)
[2018-03-14] MEDS: LISINOPRIL 10 MG TABLET PO (08:27)
[2018-03-14] MEDS: OXYCODONE IR 5 MG TABLET PO ×4 (08:28→23:26)
--- NOTE | 2018-03-14 10:51 | CM.DPC ---
SNOW REMOVAL/PLOWING Note: Reviewed chart. Patient admitted to [facility] on 03-13-18 for psychiatric evaluation. Per previous notes patient with suicidal ideation upon arrival. Patient newly diagnosed this year with renal and lung CA. Patient appears to be having difficulty coping with diagnosis. Patient has active substance abuse history specifically (methamphetamine). Patient also with alcohol history and reports that he drinks 1 shot per night to go to bed. SNOW REMOVAL/PLOWING met with patient this AM. [facility] [place] without psychiatric coverage. Therefore, SNOW REMOVAL/PLOWING discussed next safest plan for patient. Patient alert and oriented during interview. Patient confirms that he still feels like hurting myself but does not specify plan. Patient became emotional during interview. Patient reports feeling overwhelmed with all that has happened to him in the last year. Patient reports that he does believe that he carries diagnosis of mental illness specifically PTSD but has never been treated for it or any other mental illness. Patient in agreement that short stay at inpatient psychiatric/behavioral health facility will be helpful. Patient hopes to clear my mind. Patient provided SNOW REMOVAL/PLOWING with permission to contact inpatient facilities to check on bed availability. Patient alert, oriented, and cooperative with care. Placed call to [email or web address] # [phone] spoke with Randi. She requests that records be faxed to [phone]. Requested information faxed. P: Anticipate d/c to inpatient psychiatric facility for medication management and stabilization. SUSIE Angel Discharge Planning/Care Management CM Discharge Assessment Start: 03/13/18 14:46 Freq: Status: Active Protocol: Document 03/13/18 14:47 GAVIN (Rec: 03/13/18 14:50 GAVIN [id number]) Discharge Planning Assessment Assigned Global Vp Creative + Content Marketing SUSIE Mancuso DPREJI/Assigned Designee Name Ronald Gonzales, son and pt's request for primary contact Contact Information [phone] Advance Directives? No History Provided By Patient Prior Living Arrangements Apartment/Condo Household Members significant other Type of transporation used prior to Relies on Others admit Comment Inpt MH unit if it can be secured. If not, safe outpt plan. Barriers to Discharge Yes Review Status In Process Document 03/14/18 10:40 KJS (Rec: 03/14/18 10:40 KJS [id number]) Discharge Planning Assessment Assigned Global Vp Creative + Content Marketing SUSIE Mancuso DPOA/Assigned Designee Name Ronald Gonzales, son and pt's request for primary contact Contact Information [phone] Advance Directives? No History Provided By Patient Prior Living Arrangements Apartment/Condo Household Members significant other Type of transporation used prior to Relies on Others admit Comment Inpt MH unit if it can be secured. If not, safe outpt plan. Barriers to Discharge Yes Review Status In Process Document 03/14/18 10:51 KJS (Rec: 03/14/18 10:51 KJS [id number]) Discharge Planning Assessment Assigned Global Vp Creative [employer] Content Marketing SUSIE Mancuso DPOA/Assigned Designee Name Ronald Gonzales, son and pt's request for primary contact Contact Information [phone] Advance Directives? No History Provided By Patient Prior Living Arrangements Apartment/Condo Household Members significant other Type of transporation used prior to Relies on Others admit Comment Inpt MH unit if it can be secured. If not, safe outpt plan. Barriers to Discharge Yes Review Status In Process
[2018-03-14] MEDS: MAGNESIUM HYDROXIDE 30 ML UDC PO (12:21)
--- NOTE | 2018-03-14 14:29 | CM.DPC ---
DCP/continued: Reviewed chart. WEB MACHINE TENDER met with patient this AM patient continues to report suicidal ideation. Placed call back to [facility] to check on whether or not they have reviewed referral. They report that they are very busy and have not gotten to it yet. Therefore, WEB MACHINE TENDER placed call to [facility] to check on voluntary male beds in area. Facilities with beds include 1)[facility] [place] 2)[facility] 3)[facility]. WEB MACHINE TENDER has called and faxed to all three facilities. Awaiting response. RN and patient updated. P: Pending. Faxed clinical to all 3 facilities, awaiting response. SUSIE Angel Discharge Planning/Care Management CM Discharge Assessment Start: 03/13/18 14:46 Freq: Status: Active Protocol: Document 03/13/18 14:47 JW (Rec: 03/13/18 14:50 JW [id number]) Discharge Planning Assessment Assigned Broadband Installer SUSIE Mancuso DPOA/Assigned Designee Name aneesh Bashir and pt's request for primary contact Contact Information [phone] Advance Directives? No History Provided By Patient Prior Living Arrangements Apartment/Condo Household Members significant other Type of transporation used prior to Relies on Others admit Comment Inpt MH unit if it can be secured. If not, safe outpt plan. Barriers to Discharge Yes Review Status In Process Document 03/14/18 10:40 KJS (Rec: 03/14/18 10:40 KJS [id number]) Discharge Planning Assessment Assigned Broadband InstallerSUSIE Redd DPOA/Assigned Designee Name aneesh Bashir and pt's request for primary contact Contact Information [phone] Advance Directives? No History Provided By Patient Prior Living Arrangements Apartment/Condo Household Members significant other Type of transporation used prior to Relies on Others admit Comment Inpt MH unit if it can be secured. If not, safe outpt plan. Barriers to Discharge Yes Review Status In Process Document 03/14/18 10:51 KJS (Rec: 03/14/18 10:51 KJS [id number]) Discharge Planning Assessment Assigned Broadband InstallerSUSIE Redd DPOA/Assigned Designee Name aneesh Bashir and pt's request for primary contact Contact Information [phone] Advance Directives? No History Provided By Patient Prior Living Arrangements Apartment/Condo Household Members significant other Type of transporation used prior to Relies on Others admit Comment Inpt MH unit if it can be secured. If not, safe outpt plan. Barriers to Discharge Yes Review Status In Process
--- NOTE | 2018-03-14 14:59 | PC.NURSE ---
pt intermittently tearful with staff about his current situation- oxycodone 5mg po given x 2 this shift for c/o generalized discomfort r/t recent lung surgery- he has been cooperative with care and no attempts to hurt himself or others
--- NOTE | 2018-03-14 15:24 | CM.DPC ---
DCP/continued: Received return phone call from [facility]. They report that they are unable to accommodate this patient's needs. Per [facility] given patient's medical history they are unable to meet patient's mental health needs. [facility] and [facility] also reviewing for admit. RN updated. P:Pending. SUSIE Angel
--- NOTE | 2018-03-14 17:39 | P.PN_ITS ---
Subjective Date Patient Seen: 03/14/18 Time Patient Seen: 08:00 Interval history: Met with patient twice today early this morning at 8:00 a.m. and then again At 5:30 p.m.. Patient is feeling better today he feels he has found some positivity though he still is not sure if he is safe. He still feels that his emotions are unpredictable and he is struggling with dealing with his ex- and his current girlfriend who he does not feel are mentally stable nor always having his best interest in mind. He still is unable to contract to safety with me. He does think that he probably wants to try to treat the cancer. He still is having a significant cough with some shortness of breath that is stable on room air. He is not having fevers he has not had any rashes. He feels that his urine is now less discolored. It is more clear. He is having normal bowel movements. He does state that he did use methamphetamines on the day prior to coming in and does use it on a daily basis and he previously said he had stopped but he says he just does 1 snort every morning. Again he states that he drank alcohol but his serum blood alcohol level was negative. Twelve point review of systems is negative other than above He denies any dysuria He has been urinating more frequently She does have urgency and stool which she relates to his rectal cancer He denies chest pain His left anterior chest pain related from the lobectomy is well controlled Exam Vital Signs (past 8 hours): - 03/14/18 12:00 03/14/18 16:30 Temperature 98.3 F 98.0 F Pulse Rate 79 81 Respiratory Rate 16 16 Blood Pressure 135/58 L 135/55 L Pulse Oximetry 94 95 Oxygen Delivery Method Room Air Oxygen Flow Rate 3 Narrative Exam Narrative: Alert and oriented x3 in no apparent distress. He is sitting in the hospital bed and eating without difficulty Neck: Supple without adenopathy or thyromegaly Chest: He has decreased breath sounds left base he has diffuse rhonchi and scattered wheeze and no crackles\ No increased work of breathing. Stable on room air Cor: Regular rate and rhythm with distant S1 and S2 Extremities: No edema, pulses intact Objective Labs Result Diagrams: 03/14/18 05:16 03/14/18 05:16 Labs: Laboratory Results - last 24 hr 03/14/18 03/14/18 03/14/18 05:16 05:16 05:16 WBC 9.6 D RBC 4.77 Hgb 12.1 L Hct 37.6 L MCV 78.8 L MCH 25.4 L MCHC 32.3 RDW 14.2 Plt Count 252 Neut % (Auto) 75.0 Lymph % (Auto) 18.5 L Mobile % (Auto) 5.5 Eos % (Auto) 0.3 L Baso % (Auto) 0.7 Neut # (Auto) 7200 H Sodium 138 Potassium 4.4 Chloride 99 Carbon Dioxide 28 BUN 21 H Creatinine 0.70 Estimated GFR > 60.0 BUN/Creatinine Ratio 30.0 H Glucose 141 H Calcium 9.2 Total Bilirubin 0.6 AST 15 L ALT 19 L Alkaline Phosphatase 93 Ammonia < 9.0 L Total Protein 6.4 Albumin 3.7 Globulin 2.7 Albumin/Globulin Ratio 1.4 Assessment & Plan Plan: Assessment/Plan Narrative: 67-year-old male admitted for suicidal ideation. He does seem improved however he still is unable to contract to safety. It is unclear his underlying diagnosis but I do worry about chronic drug effect on his brain. He certainly has market situational stressors currently on going which she is struggling with coping. Plan: Social service will work at [facility] to evaluate him and will look for placement for inpatient treatment at least temporarily. I feel his behavior was erratic and I do not feel it is safe to send him home. He does not have a trustworthy support system. I worry about him continuing to use drugs as well and how this will affect of mentally as well as physically. Unfortunately our local psychiatrist is out of the office for the next week. He is currently unmedicated for psychiatric illness but is more positive today. We will continue to monitor. Assessment 2. Urine culture showing gram-negative bacilli Plan: Will treat him with Septra double strength 1 p.o. b.i.d. for 7 days. Discussed side effects and signs symptoms of concern. We will await urine cultures. Assessment 3. Squamous cell carcinoma of the lung with possible COPD exacerbation Plan: Will have RT consult. Will do incentive spirometry. He seems to be healing well from the surgery. Assessment 4. Adenocarcinoma of the rectum Plan: Will follow up with Oncology as an outpatient. Will monitor stooling related to the pain medication Assessment 5. Postoperative pain versus pain related to lung cancer stable. Plan: Will discharge continue IV Dilaudid and put him on p.o. oxycodone
--- NOTE | 2018-03-14 21:46 | PC.NURSE ---
sofía note pt with 1:1 sitter for safety. Pt less angry today, more tearful. Had several visitors and several phone calls from girlfriend Yesenia. Pt states he is trying to be more positive in his attitude. No talk of suicide today.
[2018-03-14] MEDS: TRIMETH/SULFA 160/800 (DS) TABLET 1 TAB PO (21:53)
[2018-03-15 02:49] VITALS: BP 138/58; PULSE 75; RESP 16; TEMP 36.8; O2SAT 96
[2018-03-15] MEDS: OXYCODONE IR 5 MG TABLET PO ×3 (04:32→13:15)
[2018-03-15 08:09] VITALS: BP 143/69; PULSE 85; RESP 20; TEMP 36.5; O2SAT 93
[2018-03-15] MEDS: LISINOPRIL 10 MG TABLET PO (09:02)
[2018-03-15] MEDS: TRIMETH/SULFA 160/800 (DS) TABLET 1 TAB PO (09:02)
[2018-03-15] MEDS: PANTOPRAZOLE 40 MG VIAL IV (09:02)
[2018-03-15] MEDS: SODIUM CHLORIDE 0.9% FLUSH 10 ML IV (09:02)
--- NOTE | 2018-03-15 09:31 | PM.DS.1 ---
History of Present Illness Date Patient Seen: 03/15/18 Time Patient Seen: 09:32 Chief complaint: Dizzy, Chest Pain, ETOH Narrative: See H&P Discharge Providers Date of admission: 03/13/18 03:44 Primary care physician: Dudley Mora MD Consults: 03/13/18 05:16 Consult to Entry Level Staff Accountant Routine Comment: suicidal ideation 03/13/18 13:49 Consult to Physician Routine Comment: Consulting Provider: Estrella Mcnulty Reason for consultation: suicidal ideation; lung cancer; ptsd; methamphetamine abuse Has provider been notified: No 03/13/18 17:12 Consult to Entry Level Staff Accountant Routine Comment: Discharge provider: Dudley Mora MD Discharge Date: 03/15/18 Summary Discharge Diagnosis: Suicidal ideation Rectal carcinoma Lung carcinoma History of drug abuse Hospital Course: Admitted after taking quantity of pills and alcohol in an attempt to commit suicide. He had had a hard couple of days with his significant other at home that on top of his dealing with his recent diagnosis of 2 different cancers and pending treatment. Had some treatment was done on his left chest which left some pain. All of this seemed to gather up and he tried to do himself in. Since admission he has monitored closely in the ICU remaining medically stable. Had continued to have some sense of self harm yesterday but today he insists that he no longer has those feelings and feels that he could be discharged home safely, but would be willing to spend some time in a psychiatric facility as needed prior to going home. He says he is working out with his significant other, hopes to get that a little more clear, also has his ex- who has committed a space in her home should he need it. Also has a supportive son and other family members. He has says that they have all visited at least a few times though feels well supported. Status at Discharge Cognitive/behavioral status at discharge: Improved, my sense is he is safe at this time. Still multiple situational issues however. Functional status at discharge: independent ambulation Overall status at discharge: patient is back to baseline Time Spent with Patient Greater than 30 minutes Exam Vital Signs (past 8 hours): - 03/15/18 02:49 03/15/18 08:09 Temperature 98.2 F 97.7 F Pulse Rate 75 85 Respiratory Rate 16 20 Blood Pressure 138/58 L 143/69 H Pulse Oximetry 96 93 Oxygen Delivery Method Room Air Oxygen Flow Rate 3 Narrative Exam Narrative: Healthy appearing, smiling, no acute distress provides an excellent history. HEENT unremarkable neck is benign chest is clear although distant Heart regular without murmur abdomen soft nontender nondistended normoactive bowel tones no organomegaly or mass extremities benign neurologically nonfocal. Psychologically seems stable incompetent. Objective Labs Result Diagrams: 03/14/18 05:16 03/14/18 05:16 Discharge Plan Discharge Plan Patient Disposition: Xfer Psychiatric Hosp Other facility: [facility] Transportation: [facility] Discharge Med Rec/Prescriptions Prescriptions: New sulfamethoxazole-trimethoprim 800-160 mg Tablet 1 tab PO BID Qty: 10 RF: 0 oxycodone 5 mg Tablet 5 mg PO Q4HR PRN (Reason: Pain, Moderate (4-6)) Qty: 30 RF: 0 Continue lorazepam [Ativan] 1 mg Tablet 1 mg PO BEDTIME PRN (Reason: Anxiety) RF: 0 docusate sodium 100 mg Capsule 100 mg PO BID RF: 0 albuterol sulfate [Ventolin HFA] 90 mcg/actuation Hfa Aerosol Inhaler 1 puff INHALATION Q4-6H RF: 0 zolpidem [Ambien] 5 mg Tablet 5 mg PO BEDTIME PRN (Reason: Insomnia) Qty: 14 RF: 0 oxycodone 5 mg Tablet 10 mg PO Q4-6H PRN (Reason: Pain (Scale Score 1-3)) Qty: 60 RF: 0 ondansetron 4 mg Tablet,Disintegrating 4 mg PO QID PRN (Reason: Nausea) RF: 0 lisinopril 10 mg Tablet 10 mg PO DAILY RF: 0 hydrochlorothiazide 25 mg Tablet 25 mg PO DAILY RF: 0 Follow up/Referrals: Dudley Moar MD [Primary Care Provider] - Discharge Orders: Discharge (Order); Ordered 03/15/18 Ordered By: Dudley Mora Discharge Health Status Brief summary of current health status: preparing for treatment of 2 cancers. stable otherwise Precautions: [place] Provider Discharge Instructions Diet: Diet as Tolerated Activity: as tolerated Discharge Data Primary Care Provider: Dudley Mora Attending Provider: Maegan So Admit Date/Time: 03/13/18 03:44
--- NOTE | 2018-03-15 12:37 | PC.NURSE ---
Addendum entered by Nikko Means R.N. 03/15/18 13:33: Pt transferred from bed to stretcher independently and left with [facility] staff in no acute distress. 1334. All belongings gathered and sent with patient. Transfer packet given to [facility] staff. Original Note: Addendum entered by Nikko Means R.N. 03/15/18 13:08: Received call from Davonte at [facility]. He states that pt's use of oxycodone restricts him from going to [facility] but he can offer the same services on [facility]. Called [phone] and gave report to ASIA Amato receiving patient. Original Note: Pt has remained AO x3 and pleasant. Denies SI at this time and reports feeling hopeful. He is interested in receiving treatment inpatient. Arrangements have been made to trx to [facility] in [place], [place]. Transportation set up by coordinator with ETA of 1330. Report called to nurse Roca at [facility] ([phone]). PIV removed with cath tip intact.
--- NOTE | 2018-03-15 15:05 | CM.DPNOTE ---
DCP/Continued: Reviewed chart. Received notification from MD/Dr. Mora that patient is medically stable to d/c today. PROCESS ARTIST received call from Gerda at [facility]. She was inquiring on whether or not mental health bed still needed? Notified Gerda that it was. Gerda requesting updated clinical be faxed. Faxed to [facility]. Received return phone call from Gerda indicating that they can accept. Accepting MD is Dr. Ariza. Dr. Mora aware. Non-BLS transport required because of suicidal thoughts. Met with patient and significant other/Yesenia all aware and agreeable to plan. P: Patient to transfer to [facility] [place] [id number] [facility] [place]. [id number]. SUSIE Angel
== END 2018-03-15 13:35 | DRG 880 ==
LOC: ED 03-13 03:29 → ICU 03-13 11:57
PROVIDERS: Admitting Provider Family Medicine; Emergency Provider Emergency Medicine; PCP Family Medicine; Visit Provider Family Medicine
DX: R45.851 Suicidal ideations (principal); J95.811 Postprocedural pneumothorax; C34.32 Malignant neoplasm of lower lobe, left bronchus or lung; C19 Malignant neoplasm of rectosigmoid junction; I10 Essential (primary) hypertension; F43.10 Post-traumatic stress disorder, unspecified; G89.3 Neoplasm related pain (acute) (chronic)
CPT/HCPCS: 36415; 70450; 71045; 71260; 74177; 80053; 80305; 80320; 80329; 81003; 81015; 82140; 82962; 84443; 85025; 87077; 87086; 87186; 93005; 96361; 96365; 96375; 99283; 99285; C9113; G0480; J1170; J1200; J2405; J2930; Q9967

== ENCOUNTER → 2018-08-23 08:45 | Outpatient (CLI) | payer MEDICARE, MEDICAID, SELFPAY ==
[2018-03-13 14:14] VITALS: BMI 30.4
--- NOTE | 2018-08-23 08:46 | DI.RAD.S_ITS ---
PROCEDURE: FL CATHETER PATENCY COMPARISON: None. INDICATIONS: Unable to obtain blood return. FINDINGS: The tunneled right port device is visualized with the distal tip noted in the mid superior vena cava. Contrast was able to be administered without difficulty through a syringe using hand injection by the radiologist. During real-time fluoroscopy, contrast is noted to flow readily away from the distal tip of the catheter but appears to opacify a short segment of the superior vena cava proximal to the tip and slightly distal to the tip. There are thin, curvilinear filling defects visualized during contrast administration near the tip of the catheter, suggesting presence of fibrin sheath formation. Contrast clears rapidly after injection. IMPRESSION: Patent right tunneled port catheter device with suggestion of surrounding fibrin sheath formation. Contrast clears rapidly after injection of contrast. Dictated by: Raymond García M.D. on 08/23/2018 at 10:20 Approved by: Raymond García M.D. on 08/23/2018 at 10:28
== END ==
PROVIDERS: Family Provider Family Medicine; PCP Family Medicine; Visit Provider Internal Medicine Hematology & Oncology
DX: Z45.2 Encounter for adjustment and management of vascular access device (principal); T82.898A Other specified complication of vascular prosthetic devices, implants and grafts, initial encounter; C20 Malignant neoplasm of rectum
CPT/HCPCS: 76000

== ENCOUNTER → 2018-08-25 12:42 | Outpatient (CLI) | payer MEDICARE, MEDICAID, SELFPAY ==
[2018-03-13 14:14] VITALS: BMI 30.4
--- NOTE | 2018-08-25 12:43 | DI.US.S_ITS ---
PROCEDURE: US PERIPH VENOUS UP EXTREM MANUEL INDICATIONS: r/o clot TECHNIQUE: Real-time imaging, as well as color and pulse Doppler interrogation, was performed of both upper extremity deep veins from the inferior neck to the antecubital fossa. COMPARISON: None. FINDINGS: Right: The internal jugular veins, visualized portions of the subclavian veins, axillary veins, and brachial veins are free of intraluminal thrombus. Where physically possible, the veins are normally compressible. Color and pulse Doppler demonstrate normal intraluminal flow, with expected phasicity and pulsatility. Additional scanning of the cephalic and basilic veins of the superficial system demonstrate normal compressibility, without thrombus. Left: The internal jugular veins, visualized portions of the subclavian veins, axillary veins, and brachial veins are free of intraluminal thrombus. Where physically possible, the veins are normally compressible. Color and pulse Doppler demonstrate normal intraluminal flow, with expected phasicity and pulsatility. Additional scanning of the cephalic and basilic veins of the superficial system demonstrate normal compressibility, without thrombus. IMPRESSION: No evidence of deep venous thrombosis bilaterally. Dictated by: Nikko Patrick M.D. on 08/25/2018 at 16:17 Approved by: Nikko Patrick M.D. on 08/25/2018 at 16:18
== END ==
PROVIDERS: Family Provider Family Medicine; PCP Family Medicine; Visit Provider Surgery
DX: C20 Malignant neoplasm of rectum (principal)
CPT/HCPCS: 93970

== ENCOUNTER 2018-08-27 22:01 | Emergency (ER) | payer MEDICARE, MEDICAID, SELFPAY ==
[2018-03-13 14:14] VITALS: BMI 30.4
[2018-08-27 22:02] VITALS: BP 128/54; PULSE 99; RESP 22; TEMP 36.9; O2SAT 97; BMI 30.4
--- NOTE | 2018-08-27 23:05 | ED.RECABL ---
HPI - Recheck/Abnormal Lab/Rx General Chief Complaint: Recheck/Abnormal Lab/Rx Stated Complaint: cancer patient, needs pain control Time Seen by Provider: 08/27/18 22:20 Source: patient Mode of arrival: ambulatory Limitations: no limitations History of Present Illness HPI narrative: Patient is a 68-year-old male. Has a history of lung cancer and also history of rectal cancer. Is not currently undergoing radiation but has so recently. Is a follow-up on Wednesday with his primary oncologist. He is here for lower extremity pain and tingling and tingling in his hands. The symptoms are not new however he ran out of his pain medication today. He was also home alone at the time when the symptoms seemed to get worse and he states he became anxious about this. Related Data Home Medications Medication Instructions Recorded Confirmed albuterol sulfate [Ventolin HFA] 1 puff INHALATION Q4-6H 02/24/18 08/24/18 docusate sodium 100 mg PO BID PRN 02/24/18 08/22/18 lisinopril 10 mg PO DAILY 03/13/18 08/24/18 prednisone 20 mg PO PRN PRN 04/15/18 08/24/18 Previous Rx's Medication Instructions Recorded menthol-zinc oxide [Calmoseptine] 1 applic TOPICAL TID-QID PRN #60 g 05/02/18 escitalopram 10 mg tablet 20 mg PO DAILY #60 tab 07/09/18 lorazepam [Ativan] 0.5 mg PO Q6H PRN #30 tab 08/15/18 oxycodone 20 mg PO Q4-6H PRN #90 tab 08/15/18 alprazolam [Xanax] 0.5 mg PO BID-TID PRN #30 tab 08/22/18 oxycodone 20 mg PO Q4-6H PRN #20 tab 08/27/18 Allergies Allergy/AdvReac Type Severity Reaction Status Date / Time Iodinated Contrast- Oral and Allergy Severe hives, Verified 08/27/18 22:02 IV Dye difficultly breathing Review of Systems Constitutional Denies fever(s) ENT Ears, Nose, Mouth, and Throat: Denies vertigo and Denies dizziness Cardiovascular Denies chest pain and Denies dyspnea Respiratory Denies dyspnea Musculoskeletal Reports myalgias, Denies arthralgias and Reports tingling Integumentary/Breasts Denies rash Neurologic Denies vertigo, Denies dizziness and Reports tingling Hematologic/Lymphatic Denies easy bleeding and Denies easy bruising [facility] Medical History Hx of nephrolithotomy with removal of calculi (Acute) COPD (chronic obstructive pulmonary disease) (Acute) Fatigue (Acute) Hypertension (Acute) Obesity (Acute) Port-A-Cath in place (Acute) Rectal adenocarcinoma (Acute) Rectal mass (Acute) Sleep apnea (Acute) 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) Weakness (Acute) Surgical History (Updated 08/25/18 @ 15:31 by Maggie Barakat RN) History of bronchoscopy (Acute 02/03/18) History of lung biopsy (Acute 11/29/17) Hx of colonoscopy with polypectomy (Acute) Family History Brother Cancer Social History marital status: unmarried,living together household members: significant other housing: house education level: high school Smoking Status: Former smoker alcohol intake: former substance use type: does not use Social History marital status: unmarried,living together household members: significant other housing: house education level: high school Smoking Status: Former smoker alcohol intake: former substance use type: does not use Exam Initial Vital Signs Initial Vital Signs: Vital Signs Temperature 98.4 F 08/27/18 22:02 Pulse Rate 99 H 08/27/18 22:02 Respiratory Rate 22 08/27/18 22:02 Blood Pressure 128/54 L 08/27/18 22:02 Pulse Oximetry 97 08/27/18 22:02 Resp Effort & Inspection: normal respiratory effort Cardio Rate: regular rate Skin Lesions: no lesions Rashes: no rashes Neuro General: alert, awake and oriented x3 Cognition: normal cognition Speech: speech normal Extrem General: capillary refill normal Psych Appearance: grossly normal and well kempt Course Vital Signs - 8 hr 08/27/18 22:02 08/27/18 23:11 Temperature 98.4 F Pulse Rate 99 H 94 H Respiratory Rate 22 Blood Pressure 128/54 L Pulse Oximetry 97 96 MDM - Recheck/Abnormal Lab/Rx MDM Narrative Medical decision making narrative: Had a long discussion with the patient and the family regarding his symptoms. It appears that none of his symptoms that he presents with today are new it is just that he was home alone when his symptoms seemed to spike and he became very anxious about them. He does not have any pain medication. He has a follow-up tomorrow with his oncologist. After this discussion we all decided not to pursue lab work or x-rays. Will refill his pain medication. He was given return precautions. He expressed understanding and agreement plan. Discharge Plan Departure Patient Disposition: Home Clinical Impression: Cancer related pain Discharge Date/Time: 08/27/18 23:26 Interventions: ED Discharge Assessment Last Done: 08/27/18 23:21 Instructions: Coping With Pain Related to Cancer and Chemotherapy Activity Restrictions/Additional Instructions: I will refill your pain medication today however you do need to keep your follow-up appointment on Wednesday with your oncologist. Return to the emergency department for any new or worsening symptoms Prescriptions: New oxycodone 20 mg tablet 20 mg PO Q4-6H PRN (Reason: pain) Qty: 20 RF: 0 No Action escitalopram oxalate 10 mg tablet 20 mg PO DAILY Qty: 60 RF: 2 docusate sodium 100 mg Capsule 100 mg PO BID PRN (Reason: Constipation) RF: 0 albuterol sulfate [Ventolin HFA] 90 mcg/actuation Hfa Aerosol Inhaler 1 puff INHALATION Q4-6H RF: 0 prednisone 20 mg Tablet 20 mg PO PRN PRN (Reason: Scans/Iodine intolerance) RF: 0 Calmoseptine 0.44-20.6 % Ointment 1 applic TOPICAL TID-QID PRN (Reason: hemarrhoid) Qty: 60 RF: 0 lorazepam [Ativan] 0.5 mg Tablet 0.5 mg PO Q6H PRN (Reason: Nausea And Vomiting) Qty: 30 RF: 0 oxycodone 20 mg Tablet 20 mg PO Q4-6H PRN (Reason: Pain, Severe) Qty: 90 RF: 0 alprazolam [Xanax] 0.25 mg Tablet 0.5 mg PO BID-TID PRN (Reason: anxiety and depression) Qty: 30 RF: 0 lisinopril 10 mg Tablet 10 mg PO DAILY RF: 0 Referrals: Dudley Mora MD [Primary Care Provider] -
[2018-08-27 23:11] VITALS: PULSE 94; O2SAT 96
== END 2018-08-27 23:26 | disposition home or self-care (01) ==
PROVIDERS: Emergency Provider Emergency Medicine; Family Provider Family Medicine; PCP Family Medicine
DX: G89.3 Neoplasm related pain (acute) (chronic) (principal); F45.42 Pain disorder with related psychological factors
CPT/HCPCS: 99282; 99283

== ENCOUNTER 2018-08-30 10:57 | Day surgery (SDC) | payer MEDICARE, MEDICAID, SELFPAY ==
[2018-03-13 14:14] VITALS: BMI 30.4
[2018-08-25 15:15] VITALS: BMI 31.9
[2018-08-30] VITALS (10 sets, daily range): BP systolic 102–139; BP diastolic 49–72; PULSE 88–99; RESP 11–24; TEMP 36.3–37.3; O2SAT 94–100; BMI 31.9
--- NOTE | 2018-08-30 06:00 | DI.RAD.S_ITS ---
PROCEDURE: XR CHEST 1V INDICATIONS: PORT PLACEMENT TECHNIQUE: One view of the chest was acquired. COMPARISON: [facility], , XR CHEST 1V, 03/13/2018, 6:04. FINDINGS: Surgical changes and devices: Right chest port with the tip projecting in the upper SVC. Lungs and pleura: No new consolidation. No pneumothorax. Trace left pleural effusion with adjacent atelectasis. Diffuse chronic interstitial disease/scarring Mediastinum: Mediastinal contours appear normal. Heart size is normal. Bones and chest wall: No suspicious bony lesions. Overlying soft tissues appear unremarkable. IMPRESSION: Right chest port with the tip projecting in the upper SVC. No pneumothorax. Dictated by: Nikko Patrick M.D. on 08/30/2018 at 14:32 Approved by: Nikko Patrick M.D. on 08/30/2018 at 14:34
[2018-08-30] MEDS: LACTATED RINGERS 1,000 ML 84 ML IV ×2 (11:15→13:43)
[2018-08-30] MEDS: fentaNYL 100 MCG/2 ML INJ 50 MCG IV ×4 (12:15→14:13)
--- NOTE | 2018-08-30 12:28 | PM.PREOP ---
Pre-operative Note Interval Note History & Physical reviewed/Exam performed by Physician: Yes Changes to H&P: No
[2018-08-30] MEDS: CEFAZOLIN 2 GM/100 ML FROZ.PIGGY IV (12:50)
[2018-08-30] MEDS: LIDOCAINE 1% 30 ML INJ INJ (13:15)
[2018-08-30] MEDS: BUPIVACAINE 0.25% W/ EPI (PF) 10 ML VIAL INJ (13:16)
--- NOTE | 2018-08-30 13:56 | SUR.PHASEI ---
awake and responding, dentures returned to patient.
--- NOTE | 2018-08-30 14:14 | PM.OP.1 ---
Operative Date/Time/Diagnoses Date of procedure: 08/30/18 Time of procedure: 14:14 Pre-op diagnosis: Malfunctioning port; lung and rectal cancers Post-op diagnosis: same Procedure & Clinicians Procedure: 1. Removal of port 2. Port-a-cath placement using fluoroscopic guidance 3. Ultrasound guided access of right internal jugular vein Same procedure as scheduled: Yes Indications: 68yo M with lung and rectal cancers and need for chemotherapy. He had a port placed but it is not drawing blood back. Imaging suggests a fibrin capsule; no DVT found. Benefits, alternatives, and risks including bleeding, infection, damage to nearby structures, failure of procedure, and need for other procedures including chest tubes were discussed with the patient. Patient voiced understanding and wish to proceed. This procedure has been fully reviewed with the patient and written informed consent has been obtained. Surgeon: Andreia Parekhr Click Yes if Unassisted: Yes Anesthesia Type: General Operative Notes Findings: flushes and draws readily Closure Type: primary Specimen(s): none sent Prosthetic devices, grafts, tissues, transplants, or devices: power port Estimated Blood Loss (mL): 10 Blood products transfused: none Procedure in detail: The patient was taken to the operating room and placed in the on the operating table in supine position. Anesthesia was induced without complications. The right neck and chest was prepped and draped in the usual sterile fashion. Local anesthesia was infiltrated over the existing scar. An incision was made with a 15 blade scalpel and this was carried down to the port using electrocautery. The fibrous capsule was incised and opened. The old suture were removed. Once the port and catheter were free, the port was removed and a wire passed through the catheter. This went fairly readily and was in good position on fluoro. The old catheter was removed and the dilating sheath passed. This did not pass readily at first and seemed to catch under the clavicle. It did eventually pass with gentle pressure and was passed under fluoro, making a turn down towards the heart. Once the wire and inner cannula were removed, the flushed catheter was passed and went easily but the final path was not in line with the superior vena cava and instead began to cross midline. It went easily but there is now concern for a false path in the subcutaneous tissue. The catheter and sheath were removed noting no large volume bleeding nor hematoma. Given the previous scar tissue and now aberrant path, I moved the access point to the internal jugular vein. Using ultrasound guidance, the right was accessed with an 18 gauge access needle. The guidewire was then placed through the needle and advanced under fluoroscopic guidance. Using an 11 blade scalpel, a small incision was made in the skin over the needle and the needle was removed. The catheter was then attached to the tunneling device and this was tunneled from the existing port site to the access site. The tunneling device was removed. The sheath and inner dilator were placed over the guidewire and advanced under fluoroscopic guidance. The wire was removed. The catheter was then placed in the sheath and advanced under fluoroscopic guidance until it appeared to sit near the atriocaval junction. The sheath was then removed. The catheter was then attached to the port and secured into place. Two 0-Ethibond sutures were placed through the deep subcutaneous tissues and the port sat nicely in place in the subcutaneous pocket. One last picture was taken with fluoroscopy which showed the catheter to be in good position above the atriocaval junction. The catheter was checked to ensure that it flushes and draws readily. It is heparin-locked. 3-0 vicryl was used to reapproximate the deep subcutaneous tissues in an interrupted fashion. The skin was closed using 4-0 monocryl in a running subcuticular fashion. The area was cleaned and dried. Skin glue was placed over the incision and the access site. The patient tolerated the procedure well. The patient was awakened and extubated and taken to the PACU in stable condition. All counts were correct at the end of the procedure. Complications: none Condition: stable Disposition: PACU Plan for aftercare: CXR prior to discharge.
== END 2018-08-30 14:45 | disposition home or self-care (01) ==
PROVIDERS: Family Provider Family Medicine; PCP Family Medicine; Visit Provider Surgery
PROC: (CPT 36561; principal; 2018-08-30 12:45)
DX: Z45.2 Encounter for adjustment and management of vascular access device (principal); C20 Malignant neoplasm of rectum; I10 Essential (primary) hypertension; E66.9 Obesity, unspecified; G47.30 Sleep apnea, unspecified
CPT/HCPCS: 36561; 36590; 71045; 76000; C1788; J0690; J1100; J1642; J2704; J3010

== ENCOUNTER 2018-10-12 12:21 | Emergency (ER) | payer MEDICARE, MEDICAID, SELFPAY ==
[2018-03-13 14:14] VITALS: BMI 30.4
[2018-10-12 12:28] VITALS: BP 164/58; PULSE 105; RESP 18; TEMP 36.8; O2SAT 97
--- NOTE | 2018-10-12 12:41 | ED_ITS ---
HPI - Male Genitourinary <Nicolle Gaines, DRAPERY MAKER-BC - Last Filed: 10/12/18 16:20> General Chief complaint: Urogenital-Male Stated complaint: has cancer, blood in urine Time Seen by Provider: 10/12/18 12:26 Source: patient and family Mode of arrival: ambulatory Limitations: no limitations History of Present Illness HPI Narrative: The patient is a 68-year-old male former smoker presents with his for chief complaint of hematuria that started at 6:00 a.m.. The patient is in treatment at this point time for lung cancer and rectal cancer. He complains of dysuria but no urgency or frequency. He states his urine is bright red with some bloody clots. Denies any fevers nausea vomiting diarrhea. He states he has some suprapubic cramping, which is normal for him at this point time. He s tates he was supposed to have chemo earlier this week, but it was held due to a low white blood cell count. Patient states that the blood is coming from his penis, and is not rectal Related Data Home Medications Medication Instructions Recorded Confirmed albuterol sulfate [Ventolin HFA] 1 puff INHALATION Q4-6H 02/24/18 10/12/18 docusate sodium 100 mg PO BID PRN 02/24/18 08/30/18 lisinopril 10 mg PO DAILY 03/13/18 10/12/18 prednisone 20 mg PO PRN PRN 04/15/18 08/24/18 ondansetron 4 mg PO Q8H PRN 10/10/18 10/12/18 doxepin 25 mg PO BEDTIME 10/12/18 10/12/18 lorazepam 0.5 mg PO BID PRN 10/12/18 10/12/18 Previous Rx's Medication Instructions Recorded Calmoseptine 1 applic TOPICAL TID-QID PRN #60 g 05/02/18 escitalopram 10 mg tablet 20 mg PO DAILY #60 tab 07/09/18 alprazolam [Xanax] 0.5 mg PO BID-TID PRN #30 tab 08/22/18 lidocaine-prilocaine 2.5 g TOPICAL PRN PRN #30 g 09/22/18 oxycodone 20 mg PO Q3H PRN #112 tab 10/03/18 prochlorperazine maleate 10 mg PO Q6H PRN #120 tab 10/10/18 Allergies Allergy/AdvReac Type Severity Reaction Status Date / Time Iodinated Contrast- Oral and Allergy Severe hives, Verified 10/12/18 12:31 IV Dye difficultly breathing paclitaxel Allergy Severe Difficulty Verified 10/12/18 12:31 Breathing Review of Systems <NISHANT Griffin - Last Filed: 10/12/18 16:20> Review of Systems GENERAL: Denies chills, fatigue, malaise, fever, sweats. HEENT: Denies sinus pain, ear pain, sore throat, difficulty swallowing, dizziness. RESPIRATORY: Denies dyspnea, cough, wheezing, hemoptysis, sputum. CARDIOVASCULAR: Denies chest pain, palpitations, orthopnea, edema, GASTROINTESTINAL: Denies nausea, vomiting, abdominal pain, diarrhea, constipation, melena. : See HPI MUSCULOSKELETAL: denies weakness, joint pain, or bony pain SKIN: Denies rash, skin lesions, or other NEUROLOGIC: Denies weakness, headache, numbness, change in speech, confusion, seizures, incoordination. PSYCHIATRIC: No concerning psychosocial issues. 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) Weakness (Acute) Surgical History (Updated 10/10/18 @ 09:43 by Mary Rust MD) History of bronchoscopy (Acute 02/03/18) History of lung biopsy (Acute 11/29/17) Hx of colonoscopy with polypectomy (Acute) Family History Brother Cancer Social History marital status: unmarried,living together household members: significant other housing: house education level: high school Smoking Status: Former smoker alcohol intake: former substance use type: does not use Social History marital status: unmarried,living together household members: significant other housing: house education level: high school Smoking Status: Former smoker alcohol intake: former substance use type: does not use Exam <MEI GriffinP-BC - Last Filed: 10/12/18 16:20> Narrative Exam Narrative: GENERAL: Chronically ill-appearing elderly male in no acute distress HEAD: Atraumatic. Normocephalic. No temporal or scalp tenderness. EYES: Pupils equal round and reactive. Extraocular motions intact. No scleral icterus. No injection or drainage. ENT: Nose without bleeding, purulent drainage or septal hematoma. Throat without erythema, tonsillar hypertrophy or exudate. Uvula midline. Airway patent. NECK: Trachea midline. No JVD or lymphadenopathy. Supple, nontender, no meningeal signs. CARDIOVASCULAR: Regular rate and rhythm RESPIRATORY: Clear to auscultation. Breath sounds equal bilaterally. No wheezes, rales, or rhonchi. No cough. No increased respiratory effort. No accessory muscle use. GASTROINTESTINAL: Abdomen soft, non-tender, nondistended. No hepato- splenomegaly, or palpable masses. No guarding. Active bowel sounds all 4 quadrants. EXTREMITIES: No clubbing, cyanosis, or edema. No joint tenderness, effusion, or edema noted. BACK: Nontender without deformity or crepitance. No flank tenderness. NEURO: AOx3. Stable gait. Using all extremities equally. SKIN: No rash or erythema. Initial Vital Signs Initial Vital Signs: Vital Signs Temperature 98.2 F 10/12/18 12:28 Pulse Rate 105 H 10/12/18 12:28 Respiratory Rate 18 10/12/18 12:28 Blood Pressure 164/58 H 10/12/18 12:28 Pulse Oximetry 97 10/12/18 12:28 <Dora Sauer DO - Last Filed: 10/13/18 08:08> Initial Vital Signs Initial Vital Signs: Vital Signs Temperature 98.2 F 10/12/18 12:28 Pulse Rate 105 H 10/12/18 12:28 Respiratory Rate 18 10/12/18 12:28 Blood Pressure 164/58 H 10/12/18 12:28 Pulse Oximetry 97 10/12/18 12:28 Course <NISHANT Griffin - Last Filed: 10/12/18 16:20> Orders Ordered: Discontinued Medications Sodium Chloride (Normal Saline 0.9%) 1,000 mls @ 250 mls/hr IV BOLUS ONE Stop: 10/12/18 17:01 Last Infusion: 10/12/18 16:15 Dose: 0 mls/hr Admin: 10/12/18 13:25 Dose: 250 mls/hr Vital Signs - 8 hr 10/12/18 12:28 10/12/18 13:00 10/12/18 13:30 Temperature 98.2 F Pulse Rate 105 H 86 79 Respiratory Rate 18 Blood Pressure 164/58 H Blood Pressure [Right Arm] 135/56 L 128/54 L Pulse Oximetry 97 94 94 10/12/18 16:09 Temperature Pulse Rate Respiratory Rate Blood Pressure Blood Pressure [Right Arm] 136/56 L Pulse Oximetry <Dora Sauer DO - Last Filed: 10/13/18 08:08> Orders Ordered: Discontinued Medications Sodium Chloride (Normal Saline 0.9%) 1,000 mls @ 250 mls/hr IV BOLUS ONE Stop: 10/12/18 17:01 Last Infusion: 10/12/18 16:15 Dose: 0 mls/hr Admin: 10/12/18 13:25 Dose: 250 mls/hr Vital Signs - 8 hr 10/12/18 12:28 10/12/18 13:00 10/12/18 13:30 Temperature 98.2 F Pulse Rate 105 H 86 79 Respiratory Rate 18 Blood Pressure 164/58 H Blood Pressure [Right Arm] 135/56 L 128/54 L Pulse Oximetry 97 94 94 10/12/18 16:09 Temperature Pulse Rate Respiratory Rate Blood Pressure Blood Pressure [Right Arm] 136/56 L Pulse Oximetry MDM - Male Genitourinary <NISHANT Griffin - Last Filed: 10/12/18 16:20> Lab Data Result diagrams: 10/12/18 12:55 10/12/18 12:55 Lab Results 10/12/18 10/12/18 10/12/18 Range/Units 12:55 12:55 12:55 WBC 1.5 L* (4.5-11.0) X10^3/uL RBC 2.84 L (4.5-5.9) X10^6/uL Hgb 8.2 L (13.5-17.5) g/dL Hct 23.2 L (41-53) % MCV 81.7 (80-100) fL MCH 28.9 (26-34) PG MCHC 35.4 (30-36) % RDW 14.6 (11.6-14.8) % Plt Count 61 L (150-400) X10^3/uL Neut % (Auto) Not Reportable Lymph % (Auto) Not Reportable [place] % (Auto) Not Reportable Eos % (Auto) Not Reportable Baso % (Auto) Not Reportable Lymph # (Auto) Not Reportable [place] # (Auto) Not Reportable Baso # (Auto) Not Reportable Total Counted 50 Seg Neutrophils % 58.0 (38-70) % Band Neutrophils % 2.0 L (3-7) % Lymphocytes % (Manual) 32.0 (25-45) % Atypical Lymphs % 6.0 H ( - 0) % Eosinophils % (Manual) 2.0 (2-4) % Neutrophils # (Manual) 900 L (9777-3386) /uL RBC Morphology Normal morphology Sodium 132 L (137-145) mmol/L Potassium 4.2 (3.4-5.1) mmol/L Chloride 97 L (98-107) mmol/L Carbon Dioxide 29 (22-32) mmol/L BUN 15 (9-20) mg/dL Creatinine 0.60 L (0.66-1.25) mg/dL Estimated GFR > 60.0 (>60) mL/min BUN/Creatinine Ratio 25.0 H (6-22) Glucose 134 H (80-110) mg/dL Lactate (0.7-2.1) mmol/L Calcium 8.7 (8.4-10.2) mg/dL Total Bilirubin 1.0 (0.2-1.3) mg/dL AST 20 (17-59) IU/L ALT 29 (21-72) IU/L Alkaline Phosphatase 124 (38-126) U/L Total Protein 6.3 (6.3-8.2) g/dL Albumin 3.7 (3.5-5.0) g/dL Globulin 2.6 (1.7-4.1) g/dL Albumin/Globulin Ratio 1.4 (1.0-2.8) Procalcitonin 0.08 (<0.5) ng/mL Urine Color Urine Appearance Urine pH (4.5-8.0) Ur Specific [place] (1.000-1.035) Urine Protein (Negative) Urine Glucose (UA) (Negative) g/dL Urine Ketones (NEGATIVE) Urine Occult Blood (Negative) Urine Nitrate (Negative) Urine Bilirubin (NEGATIVE) Urine Urobilinogen (0.2) E.U./dL Ur Leukocyte Esterase (NEGATIVE) Urine RBC (0-5/HPF) Urine WBC (0-5/HPF) Urine Bacteria (None) Ur Culture Indicated? Blood Type Antibody Screen 10/12/18 10/12/18 10/12/18 Range/Units 12:55 12:55 14:58 WBC (4.5-11.0) X10^3/uL RBC (4.5-5.9) X10^6/uL Hgb (13.5-17.5) g/dL Hct (41-53) % MCV (80-100) fL MCH (26-34) PG MCHC (30-36) % RDW (11.6-14.8) % Plt Count (150-400) X10^3/uL Neut % (Auto) Lymph % (Auto) [place] % (Auto) Eos % (Auto) Baso % (Auto) Lymph # (Auto) [place] # (Auto) Baso # (Auto) Total Counted Seg Neutrophils % (38-70) % Band Neutrophils % (3-7) % Lymphocytes % (Manual) (25-45) % Atypical Lymphs % ( - 0) % Eosinophils % (Manual) (2-4) % Neutrophils # (Manual) (1247-0279) /uL RBC Morphology Sodium (137-145) mmol/L Potassium (3.4-5.1) mmol/L Chloride (98-107) mmol/L Carbon Dioxide (22-32) mmol/L BUN (9-20) mg/dL Creatinine (0.66-1.25) mg/dL Estimated GFR (>60) mL/min BUN/Creatinine Ratio (6-22) Glucose (80-110) mg/dL Lactate 1.2 (0.7-2.1) mmol/L Calcium (8.4-10.2) mg/dL Total Bilirubin (0.2-1.3) mg/dL AST (17-59) IU/L ALT (21-72) IU/L Alkaline Phosphatase (38-126) U/L Total Protein (6.3-8.2) g/dL Albumin (3.5-5.0) g/dL Globulin (1.7-4.1) g/dL Albumin/Globulin Ratio (1.0-2.8) Procalcitonin (<0.5) ng/mL Urine Color Yellow Urine Appearance Clear Urine pH 6.5 (4.5-8.0) Ur Specific [place] 1.010 (1.000-1.035) Urine Protein Negative (Negative) Urine Glucose (UA) Negative (Negative) g/dL Urine Ketones Negative (NEGATIVE) Urine Occult Blood 1+ H (Negative) Urine Nitrate Negative (Negative) Urine Bilirubin Negative (NEGATIVE) Urine Urobilinogen 1.0 (0.2) E.U./dL Ur Leukocyte Esterase Negative (NEGATIVE) Urine RBC None seen (0-5/HPF) Urine WBC None seen (0-5/HPF) Urine Bacteria None seen (None) Ur Culture Indicated? Culture not indicate Blood Type B Positive Antibody Screen Negative MDM Narrative Medical decision making narrative: The patient is a 68-year-old male with cancer diagnosis who presents with a chief complaint of hematuria. His kidney function labs are within normal limits, his WBC is low, correlating with his lab work 2 days ago. Of note is platelets have decreased significantly to 61. This could b e a cause of his hematuria at home. On his urinalysis here in the emergency department he only had 1+ blood which was microscopic. He does not have any abnormal symptoms at this point time. He states his hematuria is much improved since earlier today. I did speak with the patient's heme Onc physician, Dr Rust who does not request any further evaluation at this point time. I discussed the patient's lab work, as well as his drop in platelets. We discussed his symptoms and his urinalysis results. Given the patient's immunocompromised status, I did order blood cultures as well as urine cultures. He remained afebrile and hemodynamically stable throughout his stay in the emergency department. Dr. Rust would like the patient to follow up in his clinic tomorrow for repeat lab work. Dr Rust discussed that the patient should be evaluated emergency department if he notes a sudden increase/recurrence in bleeding and that the patient should go to emergency department with platelets available. I discussed this at length with the patient and his . They are accordance with plan of care. They have no questions or concerns upon discharge and state understanding of all return precautions including acute concerns such as fever, recurrent significant hematuria etc. They plan on outpatient follow-up tomorrow <Dora Sauer, DO - Last Filed: 10/13/18 08:08> Lab Data Lab Results 10/12/18 10/12/18 10/12/18 Range/Units 12:55 12:55 12:55 WBC 1.5 L* (4.5-11.0) X10^3/uL RBC 2.84 L (4.5-5.9) X10^6/uL Hgb 8.2 L (13.5-17.5) g/dL Hct 23.2 L (41-53) % MCV 81.7 (80-100) fL MCH 28.9 (26-34) PG MCHC 35.4 (30-36) % RDW 14.6 (11.6-14.8) % Plt Count 61 L (150-400) X10^3/uL Neut % (Auto) Not Reportable Lymph % (Auto) Not Reportable [place] % (Auto) Not Reportable Eos % (Auto) Not Reportable Baso % (Auto) Not Reportable Lymph # (Auto) Not Reportable [place] # (Auto) Not Reportable Baso # (Auto) Not Reportable Total Counted 50 Seg Neutrophils % 58.0 (38-70) % Band Neutrophils % 2.0 L (3-7) % Lymphocytes % (Manual) 32.0 (25-45) % Atypical Lymphs % 6.0 H ( - 0) % Eosinophils % (Manual) 2.0 (2-4) % Neutrophils # (Manual) 900 L (1202-5096) /uL RBC Morphology Normal morphology Sodium 132 L (137-145) mmol/L Potassium 4.2 (3.4-5.1) mmol/L Chloride 97 L (98-107) mmol/L Carbon Dioxide 29 (22-32) mmol/L BUN 15 (9-20) mg/dL Creatinine 0.60 L (0.66-1.25) mg/dL Estimated GFR > 60.0 (>60) mL/min BUN/Creatinine Ratio 25.0 H (6-22) Glucose 134 H (80-110) mg/dL Lactate (0.7-2.1) mmol/L Calcium 8.7 (8.4-10.2) mg/dL Total Bilirubin 1.0 (0.2-1.3) mg/dL AST 20 (17-59) IU/L ALT 29 (21-72) IU/L Alkaline Phosphatase 124 (38-126) U/L Total Protein 6.3 (6.3-8.2) g/dL Albumin 3.7 (3.5-5.0) g/dL Globulin 2.6 (1.7-4.1) g/dL Albumin/Globulin Ratio 1.4 (1.0-2.8) Procalcitonin 0.08 (<0.5) ng/mL Urine Color Urine Appearance Urine pH (4.5-8.0) Ur Specific [place] (1.000-1.035) Urine Protein (Negative) Urine Glucose (UA) (Negative) g/dL Urine Ketones (NEGATIVE) Urine Occult Blood (Negative) Urine Nitrate (Negative) Urine Bilirubin (NEGATIVE) Urine Urobilinogen (0.2) E.U./dL Ur Leukocyte Esterase (NEGATIVE) Urine RBC (0-5/HPF) Urine WBC (0-5/HPF) Urine Bacteria (None) Ur Culture Indicated? Blood Type Antibody Screen 10/12/18 10/12/18 10/12/18 Range/Units 12:55 12:55 14:58 WBC (4.5-11.0) X10^3/uL RBC (4.5-5.9) X10^6/uL Hgb (13.5-17.5) g/dL Hct (41-53) % MCV (80-100) fL MCH (26-34) PG MCHC (30-36) % RDW (11.6-14.8) % Plt Count (150-400) X10^3/uL Neut % (Auto) Lymph % (Auto) [place] % (Auto) Eos % (Auto) Baso % (Auto) Lymph # (Auto) [place] # (Auto) Baso # (Auto) Total Counted Seg Neutrophils % (38-70) % Band Neutrophils % (3-7) % Lymphocytes % (Manual) (25-45) % Atypical Lymphs % ( - 0) % Eosinophils % (Manual) (2-4) % Neutrophils # (Manual) (7804-4106) /uL RBC Morphology Sodium (137-145) mmol/L Potassium (3.4-5.1) mmol/L Chloride (98-107) mmol/L Carbon Dioxide (22-32) mmol/L BUN (9-20) mg/dL Creatinine (0.66-1.25) mg/dL Estimated GFR (>60) mL/min BUN/Creatinine Ratio (6-22) Glucose (80-110) mg/dL Lactate 1.2 (0.7-2.1) mmol/L Calcium (8.4-10.2) mg/dL Total Bilirubin (0.2-1.3) mg/dL AST (17-59) IU/L ALT (21-72) IU/L Alkaline Phosphatase (38-126) U/L Total Protein (6.3-8.2) g/dL Albumin (3.5-5.0) g/dL Globulin (1.7-4.1) g/dL Albumin/Globulin Ratio (1.0-2.8) Procalcitonin (<0.5) ng/mL Urine Color Yellow Urine Appearance Clear Urine pH 6.5 (4.5-8.0) Ur Specific [place] 1.010 (1.000-1.035) Urine Protein Negative (Negative) Urine Glucose (UA) Negative (Negative) g/dL Urine Ketones Negative (NEGATIVE) Urine Occult Blood 1+ H (Negative) Urine Nitrate Negative (Negative) Urine Bilirubin Negative (NEGATIVE) Urine Urobilinogen 1.0 (0.2) E.U./dL Ur Leukocyte Esterase Negative (NEGATIVE) Urine RBC None seen (0-5/HPF) Urine WBC None seen (0-5/HPF) Urine Bacteria None seen (None) Ur Culture Indicated? Culture not indicate Blood Type B Positive Antibody Screen Negative Discharge Plan Departure Patient Disposition: Home Clinical Impression: Hematuria Qualifiers: Hematuria type: asymptomatic microscopic Qualified Code(s): R31.21 - Asymptomatic microscopic hematuria Anemia Qualifiers: Anemia type: unspecified type Qualified Code(s): D64.9 - Anemia, unspecified Discharge Date/Time: 10/12/18 16:19 Interventions: ED Discharge Assessment Last Done: 10/12/18 16:19 Instructions: DI for Hematuria Activity Restrictions/Additional Instructions: I spoke with Dr. Rust today regarding your symptoms and lab work. It is likely that your bleeding is due to her low platelet count. Please follow up with him tomorrow. Please monitor for recurrent bleeding, dizziness lightheadedness or any acute concerns. Please come back to the emergency department or be seen at an emergency department for any acute concerns. Prescriptions: No Action escitalopram oxalate 10 mg tablet 20 mg PO DAILY Qty: 60 RF: 2 doxepin 25 mg capsule 25 mg PO BEDTIME RF: 0 lorazepam 0.5 mg tablet 0.5 mg PO BID PRN (Reason: Nausea And Vomiting) RF: 0 docusate sodium 100 mg Capsule 100 mg PO BID PRN (Reason: Constipation) RF: 0 albuterol sulfate [Ventolin HFA] 90 mcg/actuation Hfa Aerosol Inhaler 1 puff INHALATION Q4-6H RF: 0 prednisone 20 mg Tablet 20 mg PO PRN PRN (Reason: Scans/Iodine intolerance) RF: 0 Calmoseptine 0.44-20.6 % Ointment 1 applic TOPICAL TID-QID PRN (Reason: hemarrhoid) Qty: 60 RF: 0 alprazolam [Xanax] 0.25 mg Tablet 0.5 mg PO BID-TID PRN (Reason: anxiety and depression) Qty: 30 RF: 0 lidocaine-prilocaine 2.5-2.5 % Cream 2.5 g topical PRN PRN (Reason: lung cancer, rectal cancer) Qty: 30 RF: 1 oxycodone 20 mg Tablet 20 mg PO Q3H PRN (Reason: RECTAL CANCER) Qty: 112 RF: 0 ondansetron 4 mg Tablet,Disintegrating 4 mg PO Q8H PRN (Reason: Nausea) RF: 0 prochlorperazine maleate 10 mg Tablet 10 mg PO Q6H PRN (Reason: nausea vomiting) Qty: 120 RF: 0 lisinopril 10 mg Tablet 10 mg PO DAILY RF: 0 Referrals: Dudley Mora MD [Primary Care Provider] - <Dora Sauer DO - Last Filed: 10/13/18 08:08> Cosign ED Attending Saulature Attestation: I was immediately available in the department for consultation. Documentation has been reviewed. I agree with assessment and plan.
[2018-10-12 13:00] VITALS: BP 135/56; PULSE 86; O2SAT 94
--- NOTE | 2018-10-12 13:12 | PC.NURSE ---
Spoke with pt's earlier this morning, approx 9am. Pt's reports pt is having bright, red blood in his urine and passing clots. Pt's reports a significant amount. Pt does not have a previous hx of hematuria. Pt is not running a fever. Reports increased pain and cramping to abdominal area. Instructed pt to been evaluated in ER r/t to new finding. Pt's verbalizes understanding and agreeable.
[2018-10-12 13:15] LABS: Hematocrit 23.2 % (41-53); Hemoglobin 8.2 g/dL (13.5-17.5); Mean Corpuscular HGB Conc 35.4 % (30-36); Mean Corpuscular Hemoglobin 28.9 PG (26-34); Mean Corpuscular Volume 81.7 fL (80-100); Platelet Count 61 X10^3/uL (150-400); Red Blood Cell Count 2.84 X10^6/uL (4.5-5.9); Red Cell Distribution Width 14.6 % (11.6-14.8)
[2018-10-12 13:17] LABS: Add Manual Diff / Slide Review YES; White Blood Cell Count 1.5 X10^3/uL (4.5-11.0)
[2018-10-12 13:18] LABS: Lactate (Lactic Acid) 1.2 mmol/L (0.7-2.1)
[2018-10-12 13:19] LABS: Alanine Aminotransferase 29 IU/L (21-72); Albumin 3.7 g/dL (3.5-5.0); Albumin Globulin Ratio 1.4 (1.0-2.8); Alkaline Phosphatase 124 U/L (38-126); Aspartate Aminotransferase 20 IU/L (17-59); Blood Urea Nitrogen 15 mg/dL (9-20); Calcium 8.7 mg/dL (8.4-10.2); Carbon Dioxide 29 mmol/L (22-32); Chloride 97 mmol/L (98-107); Estimated Glomerular Filt Rate > 60.0 mL/min (>60); Globulin 2.6 g/dL (1.7-4.1); Glucose 134 mg/dL (80-110); HEMOLYSIS < 15 (0-50); Potassium 4.2 mmol/L (3.4-5.1); Sodium 132 mmol/L (137-145); Total Protein 6.3 g/dL (6.3-8.2)
[2018-10-12] MEDS: SODIUM CHLORIDE 0.9% 1,000 ML 250 ML IV (13:25)
[2018-10-12 13:30] VITALS: BP 128/54; PULSE 79; O2SAT 94
[2018-10-12 13:48] LABS: Procalcitonin 0.08 ng/mL (<0.5)
[2018-10-12 14:25] LABS: Neutrophils Absolute Manual 900 /uL (3000-5900); Total Cells Counted 50
[2018-10-12 14:28] LABS: RBC Morphology Normal Morphology
[2018-10-12 15:04] LABS: Bacteria Urine None Seen; RBC Urine None Seen (0-5/HPF); WBC Urine None Seen (0-5/HPF)
[2018-10-12 15:07] LABS: Appearance Urine UA CLEAR; Bilirubin Urine UA NEGATIVE (NEGATIVE); Color Urine UA YELLOW; Glucose Urine UA NEGATIVE (Negative); Ketones Urine UA NEGATIVE (NEGATIVE); Leukocyte Esterase Urine UA NEGATIVE (NEGATIVE); Nitrite Urine UA NEGATIVE (Negative); Occult Blood Urine UA 1+ (Negative); Protein Urine UA NEGATIVE (Negative); pH Urine UA 6.5 (4.5-8.0)
[2018-10-12 16:09] VITALS: BP 136/56
== END 2018-10-12 16:19 | disposition home or self-care (01) ==
PROVIDERS: Emergency Provider Nurse Practitioner Family; Family Provider Family Medicine; PCP Family Medicine
DX: R31.21 Asymptomatic microscopic hematuria (principal); D64.9 Anemia, unspecified; C34.92 Malignant neoplasm of unspecified part of left bronchus or lung; C20 Malignant neoplasm of rectum
CPT/HCPCS: 36415; 36591; 51798; 80053; 81001; 83605; 84145; 85025; 86850; 86900; 86901; 87040; 96360; 96361; 99283

== ENCOUNTER → 2018-11-09 11:07 | Outpatient (CLI) | payer MEDICARE, MEDICAID, SELFPAY ==
[2018-03-13 14:14] VITALS: BMI 30.4
--- NOTE | 2018-11-09 | DI.RAD.S_ITS ---
PROCEDURE: XR KUB INDICATIONS: HEMATURIA/HX OF KIDNEY STONES TECHNIQUE: One view of the abdomen acquired. COMPARISON: [facility], CT, CT CHEST ABD PEL W CON, 03/13/2018, 1:26. FINDINGS: Surgical changes and devices: None. Bowel: Bowel gas pattern is normal. Soft tissues: No definite abdominal calcifications visualized to suggest renal or ureteral calculi. Bones: No suspicious bony lesions. IMPRESSION: No acute intra-abdominal findings. No suspicious calcifications to suggest nephrolithiasis or ureterolithiasis. Dictated by: Cassandra Zelaya M.D. on 11/09/2018 at 14:31 Approved by: Cassandra Zelaya M.D. on 11/09/2018 at 14:33
== END ==
PROVIDERS: PCP Student in an Organized Health Care Education/Training Program; Visit Provider Student in an Organized Health Care Education/Training Program
DX: R31.9 Hematuria, unspecified (principal); Z87.442 Personal history of urinary calculi
CPT/HCPCS: 74018

== ENCOUNTER → 2018-12-16 10:48 | Outpatient (CLI) | payer MEDICARE, MEDICAID, SELFPAY ==
[2018-03-13 14:14] VITALS: BMI 30.4
--- NOTE | 2018-12-16 | DI.CT.S_ITS ---
PROCEDURE: CT ABDOMEN PELVIS WO/W CON INDICATIONS: Gross hematuria TECHNIQUE: Optional 5 mm thick noncontrast images acquired from the diaphragm to the symphysis pubis. After the administration of intravenous contrast, 5 mm thick images acquired from the diaphragm to the symphysis pubis after a 10-minute delay. 2 mm thick coronal and sagittal reformats were then performed of the kidneys and ureters. For radiation dose reduction, the following was used: automated exposure control, adjustment of mA and/or kV according to patient size. COMPARISON: [facility], CT, CT CHEST ABDOMEN PELVIS WITH CONTRAST, 12/05/2018, 14:10. FINDINGS: Image quality: Excellent. Lung bases: Lung bases are clear. Heart size is normal. Urinary system: Both kidneys are normal in size, without hydronephrosis or nephrolithiasis on pre-contrast images. No perinephric fat stranding. There is normal bilateral renal enhancement. Renal calyces appear normal in morphology when filled with contrast. Opacified portions of both ureters demonstrate normal caliber. Bladder wall thickness is normal. No calcified bladder stones. Other solid organs: Liver is normal in size and enhancement. Gallbladder appears normal. Biliary system is non dilated. Pancreas enhances normally. Spleen is normal in size and enhancement. No adrenal nodules. Peritoneum and bowel: Bowel loops demonstrate normal wall thickness and caliber. No free fluid or air. There is generalized colonic obstipation. Nodes and vessels: No retroperitoneal or mesenteric adenopathy by size criteria. Aorta and inferior vena cava are normal in size. Abdominal wall: No ventral hernias. Pelvis: No pathologic free pelvic fluid. No inguinal hernias or adenopathy. Bones: No suspicious bony lesions. No vertebral body compression fractures. IMPRESSION: Generalize colonic obstipation. No urinary tract stone or mass lesion is identified. A source of hematuria is not found. Dictated by: Trace Medrano M.D. on 12/16/2018 at 14:28 Approved by: Trace Medrano M.D. on 12/16/2018 at 14:35
[2018-12-16 11:41] LABS: BUN Creatinine Ratio 25.7 (6-22); Blood Urea Nitrogen 18 mg/dL (9-20); Estimated Glomerular Filt Rate > 60.0 mL/min (>60)
== END ==
PROVIDERS: Family Provider Student in an Organized Health Care Education/Training Program; PCP Student in an Organized Health Care Education/Training Program; Visit Provider Physician Assistant
DX: R31.0 Gross hematuria (principal); K59.00 Constipation, unspecified
CPT/HCPCS: 36415; 74178; 82565; 84520; Q9967

== ENCOUNTER 2019-04-06 20:50 | Emergency (ER) | payer MEDICARE, MEDICAID, SELFPAY ==
[2018-03-13 14:14] VITALS: BMI 30.4
[2019-04-06 20:55] VITALS: BP 153/66; PULSE 90; RESP 15; TEMP 37; O2SAT 97; BMI 33.7
[2019-04-06] MEDS: LIDOCAINE 1% (PF) 2 ML (21:31)
[2019-04-06 21:40] LABS: Add Manual Diff / Slide Review NO; Basophils Absolute Auto 0 /uL (0-100); Basophils Percent Auto 0.8 % (0-2); Eosinophils Absolute Auto 0 /uL (0-450); Eosinophils Percent Auto 0.8 % (2-4); Hematocrit 37.1 % (41-53); Hemoglobin 12.5 g/dL (13.5-17.5); Lymphocytes Absolute Auto 1000 /uL (1100-4500); Lymphocytes Percent Auto 18.3 % (25-40); Mean Corpuscular HGB Conc 33.8 % (30-36); Mean Corpuscular Hemoglobin 28.4 PG (26-34); Mean Corpuscular Volume 83.9 fL (80-100); Monocytes Absolute Auto 400 /uL (0-900); Monocytes Percent Auto 6.7 % (3-14); Neutrophils Absolute Auto 3900 /uL (1500-7000); Neutrophils Percent Auto 73.4 % (50-75); Platelet Count 188 X10^3/uL (150-400); Red Blood Cell Count 4.42 X10^6/uL (4.5-5.9); Red Cell Distribution Width 15.3 % (11.6-14.8); White Blood Cell Count 5.3 X10^3/uL (4.5-11.0)
[2019-04-06 21:43] LABS: Prothrombin Time 11.4 SECONDS (10.1-12.7)
[2019-04-06 21:47] LABS: Alanine Aminotransferase 18 IU/L (<50); Albumin 4.1 g/dL (3.5-5.0); Albumin Globulin Ratio 1.7 (1.0-2.8); Alkaline Phosphatase 115 U/L (38-126); Aspartate Aminotransferase 19 IU/L (17-59); Bilirubin Total 0.8 mg/dL (0.2-1.3); Blood Urea Nitrogen 21 mg/dL (9-20); Calcium 8.9 mg/dL (8.4-10.2); Carbon Dioxide 28 mmol/L (22-32); Chloride 103 mmol/L (98-107); Estimated Glomerular Filt Rate > 60.0 mL/min (>60); Globulin 2.4 g/dL (1.7-4.1); Glucose 109 mg/dL (80-110); HEMOLYSIS < 15 (0-50); Potassium 4.2 mmol/L (3.4-5.1); Sodium 138 mmol/L (137-145); Total Protein 6.5 g/dL (6.3-8.2)
[2019-04-06 21:58] LABS: PTT Partial Thromboplastin Tim 80 SECONDS (26.4-36.2)
--- NOTE | 2019-04-06 22:18 | PC.NURSE ---
Pt reports having colostomy placed about 1 month ago, has diagnosis of rectal cancer. starting today having increased in pain in rectum and a new aching pain in area between testicles and anus. reports having multiple episodes of bowel movements from rectum mostly consisting of blood in small amounts each episode, reports frequency increasing. reports increase in dizziness.
--- NOTE | 2019-04-06 22:42 | ED.GIBLEED ---
HPI - GI Bleed General Chief complaint: GI Bleed Stated complaint: rectal bleeding Time Seen by Provider: 04/06/19 21:27 Source: patient Mode of arrival: Ambulatory Limitations: no limitations History of Present Illness HPI Narrative: 68-year-old male with a history of lung cancer. Also has a history of colon cancer. Has a colostomy in place. Has not currently undergoing any chemotherapy radiation. He has done this in completed. He is waiting for follow-up visit with the surgeons to discuss removal of the tumor down near his rectum. The colostomy was placed but greater than 1 month ago. He states that over the past 24 hours or so he has had some pain in his rectum. He states he feels like he needs to go and have a bowel movement. He has not passed anything through his rectum since his colostomy was placed. Has not passed even any mucus through his rectum. He states that he gets quite a bit of discomfort. Feels like he has to have a bowel movement. Goes and strains has a lot of discomfort in that has passed some blood clots. He called his oncologist who told him to come to the emergency department for evaluation. Related Data Home Medications Medication Instructions Recorded Confirmed albuterol sulfate [Ventolin HFA] 1 puff INHALATION Q4-6H 02/24/18 02/13/19 docusate sodium 100 mg PO BID PRN 02/24/18 02/13/19 lisinopril 10 mg PO DAILY 03/13/18 02/13/19 prednisone 20 mg PO PRN PRN 04/15/18 02/13/19 doxepin 25 mg PO BEDTIME 10/12/18 02/13/19 Previous Rx's Medication Instructions Recorded Calmoseptine 1 applic TOPICAL TID-QID PRN #60 g 05/02/18 alprazolam [Xanax] 0.5 mg PO BID-TID PRN #30 tab 08/22/18 lidocaine-prilocaine 2.5 g TOPICAL PRN PRN #30 g 09/22/18 prochlorperazine maleate 10 mg PO Q6H PRN #120 tab 10/10/18 levofloxacin [Levaquin] 500 mg PO DAILY #10 tab 10/17/18 escitalopram oxalate 10 mg tablet 20 mg PO DAILY #60 tab 12/09/18 lorazepam 0.5 mg PO BID PRN #60 tab 03/20/19 oxycodone-acetaminophen [Endocet] 1 tab PO Q6H PRN 30 Days tab 04/03/19 Allergies Allergy/AdvReac Type Severity Reaction Status Date / Time Iodinated Contrast Media Allergy Severe hives, Verified 04/06/19 20:55 [Iodinated Contrast- Oral difficultly and IV Dye] breathing paclitaxel Allergy Severe Difficulty Verified 04/06/19 20:55 Breathing Review of Systems Constitutional Constitutional: Denies fever(s) Cardiovascular Cardiovascular: Denies chest pain and Denies dyspnea Respiratory Respiratory: Denies dyspnea Gastrointestinal Gastrointestinal: Denies abdominal pain Comments: Rectal bleeding Genitourinary Genitourinary: Denies dysuria Musculoskeletal Musculoskeletal: Denies myalgias and Denies arthralgias Integumentary/Breasts Skin/Breast: Denies rash Neurologic Neurologic: Denies behavioral changes Psychiatric Psychiatric: Denies behavioral changes Hematologic/Lymphatic Hematologic/Lymphatic: Denies easy bleeding and Denies easy bruising 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) Weakness (Acute) Surgical History (Updated 11/21/18 @ 14:47 by Mary Rust MD) History of bronchoscopy (Acute 02/03/18) History of lung biopsy (Acute 11/29/17) Hx of colonoscopy with polypectomy (Acute) Social History marital status: unmarried,living together household members: significant other housing: house education level: high school Smoking Status: Former smoker alcohol intake: former substance use type: does not use Smoking Status: Former smoker alcohol intake frequency: holidays/special occasions only Substance Use Type: does not use Exam Initial Vital Signs Initial Vital Signs: Vital Signs Temperature 98.6 F 04/06/19 20:55 Pulse Rate 90 04/06/19 20:55 Respiratory Rate 15 04/06/19 20:55 Blood Pressure 153/66 H 04/06/19 20:55 Pulse Oximetry 97 04/06/19 20:55 Const General: cooperative, comfortable, well developed and well groomed Orientation: alert and awake HENMT Head: normal to inspection and normocephalic Resp Effort & Inspection: normal respiratory effort Cardio Rate: regular rate GI Inspection: non-distended Palpation: soft Other: Colostomy in place. On rectal exam there is no hemorrhoids both internal external felt. Was grossly heme-positive. Skin Lesions: no lesions Rashes: no rashes Neuro General: alert and awake Cognition: normal cognition Speech: speech normal Extrem General: normal to inspection and capillary refill normal Course Orders Ordered: ED Orders 04/06/19 21:12 Complete Blood Count AUTO DIFF Stat Comprehensive Metabolic Panel Stat Partial Thromboplastin Time Stat Prothrombin Time INR Stat 04/06/19 21:17 EKG-12 Lead Stat 04/06/19 23:10 EKG-12 Lead Stat Discontinued Medications Lidocaine HCl (Xylocaine 1%) 1 ml SUBCUT NOW ONE Stop: 04/06/19 21:13 Last Admin: 04/06/19 21:31 Dose: Not Given Documented by: LEONORA Oxycodone/Acetaminophen (Endocet 5/325 Prepack) 1 bottle MISC SEEINSTR ONE Stop: 04/06/19 23:25 Last Admin: 04/06/19 23:34 Dose: 1 bottle Documented by: YVONNE Vital Signs Vital signs: Vital Signs - 8 hr 04/06/19 20:55 04/06/19 23:09 Temperature 98.6 F Pulse Rate 90 90 Respiratory Rate 15 Blood Pressure 153/66 H Blood Pressure [Right Arm] 179/69 H Pulse Oximetry 97 96 MDM - GI Bleed Lab Data Attestation: I reviewed the patient's lab results. Result diagrams: 04/06/19 21:12 04/06/19 21:12 Labs: Lab Results 04/06/19 04/06/19 04/06/19 Range/Units 21:12 21:12 21:12 WBC 5.3 (4.5-11.0) X10^3/uL RBC 4.42 L (4.5-5.9) X10^6/uL Hgb 12.5 L (13.5-17.5) g/dL Hct 37.1 L (41-53) % MCV 83.9 (80-100) fL MCH 28.4 (26-34) PG MCHC 33.8 (30-36) % RDW 15.3 H (11.6-14.8) % Plt Count 188 (150-400) X10^3/uL Neut % (Auto) 73.4 (50-75) % Lymph % (Auto) 18.3 L (25-40) % [place] % (Auto) 6.7 (3-14) % Eos % (Auto) 0.8 L (2-4) % Baso % (Auto) 0.8 (0-2) % Neut # (Auto) 3900 (3728-9984) /uL Lymph # (Auto) 1000 L (8953-4823) /uL [place] # (Auto) 400 (0-900) /uL Eos # (Auto) 0 (0-450) /uL Baso # (Auto) 0 (0-100) /uL PT 11.4 (10.1-12.7) SECONDS INR 1.0 (0.9-1.3) APTT 80 H* (26.4-36.2) SECONDS Sodium 138 (137-145) mmol/L Potassium 4.2 (3.4-5.1) mmol/L Chloride 103 (98-107) mmol/L Carbon Dioxide 28 (22-32) mmol/L BUN 21 H (9-20) mg/dL Creatinine 0.70 (0.66-1.25) mg/dL Estimated GFR > 60.0 (>60) mL/min BUN/Creatinine Ratio 30.0 H (6-22) Glucose 109 (80-110) mg/dL Calcium 8.9 (8.4-10.2) mg/dL Total Bilirubin 0.8 (0.2-1.3) mg/dL AST 19 (17-59) IU/L ALT 18 (<50) IU/L Alkaline Phosphatase 115 (38-126) U/L Total Protein 6.5 (6.3-8.2) g/dL Albumin 4.1 (3.5-5.0) g/dL Globulin 2.4 (1.7-4.1) g/dL Albumin/Globulin Ratio 1.7 (1.0-2.8) Point of Care Testing Stool Occult Blood Positive ECG Data Attestation: I personally reviewed and interpreted this ECG as follows: Prior ECG tracings: not available for review Interpretation: Sinus rhythm Normal axis Normal QRS Normal QTC No ST T wave changes Repeat EKG Unchanged from prior Sinus rhythm Ventricular rate 87 Normal QRS Normal QTC No ST T wave changes MDM Narrative Medical decision making narrative: Patient's vital signs are unremarkable. Labs unremarkable. No need for transfusion. No hemorrhoids noted on the exam. Does have grossly positive blood on rectal exam. I do suspect that the bleeding is secondary from the tumor that is in this area. He is not having any bleeding from the stoma of his colostomy. EKG was unremarkable. After discussion with the patient decision be to send home without any further imaging studies. After the patient was discharged he felt like he needed to have a bowel movement. He states that he went to the restroom and was straining quite a bit and had quite a bit of discomfort. When he stood up he became very lightheaded. Became unsteady on his feet. He was brought back in the exam room or repeat EKG was performed. This was unremarkable. IA again had another long discussion with the patient and his who is at bedside regarding his symptoms. I feel that obtaining a CT scan today for further evaluation would not yield any new information that would change our ultimate disposition. I informed him that even if it did show that the tumor was enlarging the surgeons would most likely stated to have him contact the office tomorrow for a follow-up as an outpatient. I do suspect that he became lightheaded and dizzy because of the straining. He is not currently on any pain medication. He states that he does have a new prescription however they cannot fill it until Wednesday. Will send home with a prepack. He was informed that he needs to use these medications sparingly. He expressed understanding and agreement. We discussed return precautions. Discharge Plan Departure Patient Disposition: Home Clinical Impression: Rectal cancer, Rectal bleed Discharge Date/Time: 04/06/19 23:42 Activity Restrictions/Additional Instructions: I recommend that tomorrow you contact your surgeon to discuss the symptoms that you are having. Continue all of your medications as directed. Return to the emergency department for any new or worsening symptoms Prescriptions: No Action escitalopram oxalate 10 mg tablet 20 mg PO DAILY Qty: 60 RF: 2 doxepin 25 mg capsule 25 mg PO BEDTIME RF: 0 docusate sodium 100 mg Capsule 100 mg PO BID PRN (Reason: Constipation) RF: 0 albuterol sulfate [Ventolin HFA] 90 mcg/actuation Hfa Aerosol Inhaler 1 puff INHALATION Q4-6H RF: 0 prednisone 20 mg Tablet 20 mg PO PRN PRN (Reason: Scans/Iodine intolerance) RF: 0 Calmoseptine 0.44-20.6 % Ointment 1 applic TOPICAL TID-QID PRN (Reason: hemarrhoid) Qty: 60 RF: 0 alprazolam [Xanax] 0.25 mg Tablet 0.5 mg PO BID-TID PRN (Reason: anxiety and depression) Qty: 30 RF: 0 lidocaine-prilocaine 2.5-2.5 % Cream 2.5 g topical PRN PRN (Reason: lung cancer, rectal cancer) Qty: 30 RF: 1 prochlorperazine maleate 10 mg Tablet 10 mg PO Q6H PRN (Reason: nausea vomiting) Qty: 120 RF: 0 levofloxacin [Levaquin] 500 mg Tablet 500 mg PO DAILY Qty: 10 RF: 0 lorazepam 0.5 mg tablet 0.5 mg PO BID PRN (Reason: Nausea And Vomiting) Qty: 60 RF: 0 oxycodone-acetaminophen [Endocet] 10-325 mg Tablet 1 tab PO Q6H PRN (Reason: rectal pain) 30 Days RF: 0 lisinopril 10 mg Tablet 10 mg PO DAILY RF: 0 Referrals: Judith Eagle MD [Primary Care Provider] -
--- NOTE | 2019-04-06 23:08 | PC.NURSE ---
Had discussed d/c paperwork with pt. Pt then ambulated to bathroom, in bathroom for about 5 minutes, when came out, was increasingly dizzy and stated felt had large amount of blood. Rechecked by BP and was elevated, Getting repeat ekg at this time. Pt was diaphoretic at this time.
[2019-04-06 23:09] VITALS: BP 179/69; PULSE 90; O2SAT 96
[2019-04-06] MEDS: OXYCODONE/APAP 5/325 PREPACK 1 BOTTLE MISC (23:34)
== END 2019-04-06 23:42 | disposition home or self-care (01) ==
PROVIDERS: Emergency Provider Emergency Medicine; Family Provider Student in an Organized Health Care Education/Training Program; PCP Student in an Organized Health Care Education/Training Program
DX: C20 Malignant neoplasm of rectum (principal); K62.5 Hemorrhage of anus and rectum; I10 Essential (primary) hypertension
CPT/HCPCS: 36415; 80053; 82272; 85025; 85610; 85730; 93005; 93010; 99284; J1642

== ENCOUNTER → 2019-04-17 10:13 | Outpatient (CLI) | payer MEDICARE, MEDICAID, SELFPAY ==
[2018-03-13 14:14] VITALS: BMI 30.4
--- NOTE | 2019-04-17 10:23 | DIET.PN ---
Dietary Progress Note Assessment: 68y M c recal cancer here as surgeon will not perform surgery to remove tumor unless pt loses wt. Pt had colostomy placed 01/24/19 instead of tumor removal r/t too much stool in colon- takes miralax and drinks water-bms are thicker than peanut butter still. HT: 5'8 WT: 225# UBW: 250s prior to lung procedure, in 30s and 40s 180# BMI: 34.2 obese Pt is motivated to lose weight in order to have surgery as would like colostomy reversed. Pt is a grazer and does not have a set routine as he is retired and suffers from some depression r/t dx, admits to eating out of boredom. Pt intake is high in refined carbs (crackers, pretzels) and simple sugars (cola, juice, candy) and lacks regular physical activity as he does not leave the home often. Pt has partial, needs dentures so does not eat tough meats. Affordable meals are important- $300 in EBT benefits for food budget. Usual day: wakes 4-6am takes meds c water grabs pretzels, chips (salty/crunchy) or banana goes back to sleep until around noon 1 cup coffee c sugar, V8 juice, apple juice/cranberry juice, 1-2 Cokes per day grazes Sn: crackers c cream cheese and olives, hot dogs, candy-lemon heads, Dinner: meat c vegetable as a meal, pasta, chicken, hamburger, rice Physical Activity: walks with a cane r/t balance is off went on one walk this week, is trying to start routine. Nutrition Diagnosis: overweight r/t undesirable food choices aeb pt consumes mostly refined carbohydrates in form of chips, crackers, juice and cola, BMI 34.2, relies on frequent snacking instead of composing meals. Interventions: 1. To increase motivation for change, pt and spouse will post inspirational quotes around house, namely on vanity, refrigerator, kitchen cupboards, and front door to the effect of, This work is getting me closer to getting off this colostomy bag. 2. To reduce calories and added sugar, pt will eliminate juice and full calorie susie, using sugar-free flavor drops in water instead. To stay compliant in this large change, pt allowed sugar in 1 cup coffee and a few lemon drops each day. 3. To accelerate weight loss and support overall health, pt will take 10 minute walk or stationary bike ride after each eating occasion, this may have added benefit of reducing mindless snacking. 4. To ensure adequate protein and a balanced plate, pt will eat peanut butter, eggs, or canned tuna with any carbohydrate foods (pretzel/cracker). These are cost effective and healthier protein options than currently consuming (hot dogs, cheese). 5. Pt is free to eat as many fruits and vegetables as he wants throughout the day as long as they have no added sugar. EER: 2,000 kcal, 80g PRO, 2L fluids Monitoring/Evaluations: pt will schedule f/u if need of additional support
== END ==
PROVIDERS: PCP Student in an Organized Health Care Education/Training Program; Visit Provider Student in an Organized Health Care Education/Training Program
DX: C20 Malignant neoplasm of rectum (principal); E66.9 Obesity, unspecified; Z68.34 Body mass index [BMI] 34.0-34.9, adult; Z71.3 Dietary counseling and surveillance
CPT/HCPCS: 97802

== ENCOUNTER 2019-05-01 11:37 | Emergency (ER) | payer MEDICARE, MEDICAID, SELFPAY ==
[2018-03-13 14:14] VITALS: BMI 30.4
[2019-05-01 12:02] VITALS: BP 150/67; PULSE 68; RESP 16; TEMP 36.7; O2SAT 97
--- NOTE | 2019-05-01 12:27 | ED.ABDPAIN ---
HPI - Abdominal Pain General Chief Complaint: Abdominal Pain Stated Complaint: Rectal Bleeding Time Seen by Provider: 05/01/19 12:09 Source: patient Mode of arrival: Ambulatory Limitations: no limitations History of Present Illness HPI narrative: Patient is a 68-year-old male with known lung cancer and rectal cancer presenting with rectal bleeding. He actually has a colostomy which has formed stool in it and no blood however he states that he passes 6-7 bright red clots per rectum ongoing since at least April 06. He says it has progressively gotten worse over the past few days. He says that he does have pain into his rectum. Apparently he is supposed to have a tumor removed at [facility] however they will not do this until he loses weight. Gets dizzy lightheaded and short of breath with walking. However this does not seem to be knee will it might be a little bit worse. He says due to the cancers is he often feels weak tired and short of breath with exertion. He denies any chest pain. Related Data Home Medications Medication Instructions Recorded Confirmed albuterol sulfate [Ventolin HFA] 1 - 2 puff INHALATION Q4-6H 02/24/18 05/01/19 docusate sodium 100 mg PO BID PRN 02/24/18 02/13/19 lisinopril 10 mg PO DAILY 03/13/18 02/13/19 prednisone 20 mg PO PRN PRN 04/15/18 05/01/19 doxepin 25 mg PO BEDTIME 10/12/18 02/13/19 escitalopram oxalate 20 mg PO DAILY 05/01/19 05/01/19 Previous Rx's Medication Instructions Recorded Calmoseptine 1 applic TOPICAL TID-QID PRN #60 g 05/02/18 alprazolam [Xanax] 0.5 mg PO BID-TID PRN #30 tab 08/22/18 lidocaine-prilocaine 2.5 g TOPICAL PRN PRN #30 g 09/22/18 prochlorperazine maleate 10 mg PO Q6H PRN #120 tab 10/10/18 lorazepam 0.5 mg PO BID PRN #60 tab 03/20/19 oxycodone-acetaminophen [Endocet] 1 tab PO Q6H PRN 30 Days tab 04/03/19 Allergies Allergy/AdvReac Type Severity Reaction Status Date / Time Iodinated Contrast Media Allergy Severe hives, Verified 04/06/19 20:55 [Iodinated Contrast- Oral difficultly and IV Dye] breathing paclitaxel Allergy Severe Difficulty Verified 04/06/19 20:55 Breathing Review of Systems Review of Systems ROS Unobtainable: All systems reviewed & are unremarkable except as noted in HPI and below Constitutional Constitutional: Denies chills, Denies fever(s), Denies lethargy and Denies weakness Cardiovascular Cardiovascular: Denies chest pain, Denies chest pain at rest and Reports dyspnea on exertion Respiratory Respiratory: Denies cough, Reports dyspnea on exertion and Denies wheezing Gastrointestinal Gastrointestinal: Reports as per HPI Genitourinary Genitourinary: Denies hematuria, Denies flank pain, Denies urinary incontinence and Denies urinary urgency Musculoskeletal Musculoskeletal: Denies back pain, Denies muscle weakness, Denies numbness and Denies tingling Integumentary/Breasts Skin/Breast: Denies pruritus, Denies erythema, Denies rash and Denies wounds Neurologic Neurologic: Denies confusion, Denies numbness, Denies tingling and Denies weakness Psychiatric Psychiatric: Denies anxiety, Denies confusion, Denies depression, Denies homicidal ideation and Denies suicidal ideation Allergic/Immunologic Allergic/Immunologic: Denies wheezing 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) Weakness (Acute) Surgical History History of bronchoscopy (Acute 02/03/18) History of lung biopsy (Acute 11/29/17) Hx of colonoscopy with polypectomy (Acute) Family History Brother Cancer Social History marital status: unmarried,living together household members: significant other housing: house education level: high school Smoking Status: Former smoker alcohol intake: former substance use type: does not use Smoking Status: Former smoker alcohol intake frequency: holidays/special occasions only Substance Use Type: does not use Exam Initial Vital Signs Initial Vital Signs: Vital Signs Temperature 98.1 F 05/01/19 12:02 Pulse Rate 68 05/01/19 12:02 Respiratory Rate 16 05/01/19 12:02 Blood Pressure 150/67 H 05/01/19 12:02 Pulse Oximetry 97 05/01/19 12:02 GENERAL: Alert well-appearing male HEENT: Head atraumatic,EOMI, pupils reactive, face symmetric, moist mucous membranes CARDIOVASCULAR: Regular rate and rhythm without murmurs, rubs or gallops. Port noted in right upper chest RESPIRATORY: Breath sounds equal bilaterally, no wheezes rales or rhonchi. Speaks full sentences without difficulty ABDOMEN: Soft, nontender. Normoactive bowel sounds all 4 quadrants. No guarding or rebound. They brought an samples of the blood clots. EXTREMITIES: Normal range of motion, no clubbing or edema. Neurovascularly intact NEUROLOGICAL: Alert and oriented x4.Normal gait and speech. Cranial nerves II through XII grossly intact. SKIN: Warm, dry, no laceration, no petechiae, no rashes or lesions. Course Orders Ordered: ED Orders 05/01/19 13:18 CT abdomen pelvis w con Stat 05/01/19 13:30 Complete Blood Count AUTO DIFF Stat Comprehensive Metabolic Panel Stat Partial Thromboplastin Time Stat Prothrombin Time INR Stat Type and Screen Stat Discontinued Medications Diphenhydramine HCl (Benadryl) 25 mg IV NOW ONE Stop: 05/01/19 14:00 Last Admin: 05/01/19 14:07 Dose: 25 mg Documented by: XANDERONELara Heparin Sodium (Porcine) (Heparin Flush (Port)) 500 unit IV PRN PRN PRN Reason: Flush Heparin Sodium (Porcine) (Heparin Flush (Port)) 500 unit IV PRN PRN PRN Reason: Flush Last Admin: 05/01/19 17:11 Dose: 500 unit Documented by: LAINA Sodium Chloride (Normal Saline 0.9%) 1,000 mls @ 150 mls/hr IV CONT KISHORE Last Infusion: 05/01/19 17:16 Dose: 0 mls/hr Documented by: Admin: 01/13/20 13:20 Dose: 150 mls/hr Documented by: LYNDSEY Methylprednisolone (Solu-Medrol 125 Mg Vial) 125 mg IV NOW ONE Stop: 05/01/19 14:00 Last Admin: 05/01/19 14:07 Dose: 125 mg Documented by: JENNI Consultations Consultation #1: Dr. Colvin at [facility] updated patient's symptoms test results has reviewed CT himself. At this time bleeding is likely from tumor or radiation. Time: 16:39 Vital Signs Vital signs: Vital Signs - 8 hr 05/01/19 12:02 05/01/19 13:00 05/01/19 14:04 Temperature 98.1 F Pulse Rate 68 82 76 Respiratory Rate 16 16 17 Blood Pressure 150/67 H Blood Pressure [Left Arm] 154/62 H 134/53 L Pulse Oximetry 97 96 95 05/01/19 16:05 Temperature Pulse Rate 85 Respiratory Rate 19 Blood Pressure Blood Pressure [Left Arm] 137/70 Pulse Oximetry 93 MDM - Abdominal Pain Lab Data Attestation: I reviewed the patient's lab results. Result diagrams: 05/01/19 13:30 05/01/19 13:30 Labs: Lab Results 05/01/19 05/01/19 05/01/19 Range/Units 13:30 13:30 13:30 WBC 6.0 (4.5-11.0) X10^3/uL RBC 4.93 (4.5-5.9) X10^6/uL Hgb 14.0 (13.5-17.5) g/dL Hct 41.5 (41-53) % MCV 84.2 (80-100) fL MCH 28.4 (26-34) PG MCHC 33.7 (30-36) % RDW 14.5 (11.6-14.8) % Plt Count 192 (150-400) X10^3/uL Neut % (Auto) 75.1 H (50-75) % Lymph % (Auto) 17.4 L (25-40) % [place] % (Auto) 6.6 (3-14) % Eos % (Auto) 0.5 L (2-4) % Baso % (Auto) 0.4 (0-2) % Neut # (Auto) 4500 (0803-1324) /uL Lymph # (Auto) 1000 L (5192-2285) /uL [place] # (Auto) 400 (0-900) /uL Eos # (Auto) 0 (0-450) /uL Baso # (Auto) 0 (0-100) /uL PT 11.3 (10.1-12.7) SECONDS INR 1.0 (0.9-1.3) APTT 32 D (26.4-36.2) SECONDS Sodium 138 (137-145) mmol/L Potassium 5.0 (3.4-5.1) mmol/L Chloride 99 (98-107) mmol/L Carbon Dioxide 31 (22-32) mmol/L BUN 17 (9-20) mg/dL Creatinine 0.70 (0.66-1.25) mg/dL Estimated GFR > 60.0 (>60) mL/min BUN/Creatinine Ratio 24.3 H (6-22) Glucose 101 (80-110) mg/dL Calcium 9.4 (8.4-10.2) mg/dL Total Bilirubin 0.8 (0.2-1.3) mg/dL AST 23 (17-59) IU/L ALT 20 (<50) IU/L Alkaline Phosphatase 129 H (38-126) U/L Total Protein 7.1 (6.3-8.2) g/dL Albumin 4.4 (3.5-5.0) g/dL Globulin 2.7 (1.7-4.1) g/dL Albumin/Globulin Ratio 1.6 (1.0-2.8) Blood Type Antibody Screen 05/01/19 Range/Units 13:30 WBC (4.5-11.0) X10^3/uL RBC (4.5-5.9) X10^6/uL Hgb (13.5-17.5) g/dL Hct (41-53) % MCV (80-100) fL MCH (26-34) PG MCHC (30-36) % RDW (11.6-14.8) % Plt Count (150-400) X10^3/uL Neut % (Auto) (50-75) % Lymph % (Auto) (25-40) % [place] % (Auto) (3-14) % Eos % (Auto) (2-4) % Baso % (Auto) (0-2) % Neut # (Auto) (4731-6709) /uL Lymph # (Auto) (2820-1541) /uL [place] # (Auto) (0-900) /uL Eos # (Auto) (0-450) /uL Baso # (Auto) (0-100) /uL PT (10.1-12.7) SECONDS INR (0.9-1.3) APTT (26.4-36.2) SECONDS Sodium (137-145) mmol/L Potassium (3.4-5.1) mmol/L Chloride (98-107) mmol/L Carbon Dioxide (22-32) mmol/L BUN (9-20) mg/dL Creatinine (0.66-1.25) mg/dL Estimated GFR (>60) mL/min BUN/Creatinine Ratio (6-22) Glucose (80-110) mg/dL Calcium (8.4-10.2) mg/dL Total Bilirubin (0.2-1.3) mg/dL AST (17-59) IU/L ALT (<50) IU/L Alkaline Phosphatase (38-126) U/L Total Protein (6.3-8.2) g/dL Albumin (3.5-5.0) g/dL Globulin (1.7-4.1) g/dL Albumin/Globulin Ratio (1.0-2.8) Blood Type B Positive Antibody Screen Negative Imaging Data CT scan - abdomen/pelvis: Radiologist's Impression: PROCEDURE: CT ABDOMEN PELVIS W CON INDICATIONS: rectal bleeding with known rectal cancer and colostomy TECHNIQUE: After the administration of intravenous contrast, 5 mm thick sections acquired from the diaphragm to the symphysis. 5 mm coronal and sagittal reformats were acquired. For radiation dose reduction, the following was used: automated exposure control, adjustment of mA and/or kV according to patient size. COMPARISON: [facility], [place], PET NECK TO MID THIGH, 12/22/2017, 14:04. [facility], CT, CT CHEST ABD PEL W CON, 03/13/2018, 1:26. [facility], CT, CT PELVIS WITH CONTRAST, 05/13/2018, 12:52. Outside Film, CT, CT CHEST ABDOMEN PELVIS WITH CONTRAST, 08/01/2018, 14:08. [facility], CT, CT ABDOMEN PELVIS WO/W CON, 12/16/2018, 12:25. [facility], CT, CT ABDOMEN PELVIS W CON, 12/23/2017, 12:58. Outside Film, CT, CT CHEST ABDOMEN PELVIS WITH CONTRAST, 12/05/2018, 14:10. FINDINGS: Image quality: Excellent. ABDOMEN: Lung bases: There is left lower lobectomy. Lung bases are clear. Heart size is normal. There is a small hiatal hernia. Mild concentric thickening at gastroesophageal junction. Solid organs: Liver is normal in size and enhancement. Gallbladder is normal. Biliary system is non dilated. Pancreas enhances normally. Spleen is mildly enlarged measuring 13.8 cm in length. No adrenal nodules. Kidneys demonstrate normal size and enhancement, without hydronephrosis. Peritoneum and bowel: There is mild eccentric thickening in the right anterolateral rectal wall. There is a colostomy. There are scattered colonic diverticula. No CT findings to suggest acute diverticulitis. Bowel loops demonstrate normal wall thickness and caliber. No free fluid or air. Nodes and vessels: No retroperitoneal or mesenteric adenopathy by size criteria. Aorta and inferior vena cava are normal in size. Moderate atherosclerosis. Miscellaneous: Small fat-containing umbilical hernia. PELVIS: Genitourinary: Bladder wall thickness is normal. Miscellaneous: No inguinal hernias or adenopathy. Bones: No suspicious bony lesions. No vertebral body compression fractures. IMPRESSION: 1. Mild residual eccentric thickening in the rectal wall. 2. Diverticulosis without diverticulitis. 3. There is a colostomy. No evidence for colonic or small bowel obstruction. 4. Hepatic steatosis. 5. Mild splenomegaly. 6. Mild concentric thickening of the GE junction. Dictated by: Meenakshi Perdomo M.D. on 05/01/2019 at 15:11 MDM Narrative Medical decision making narrative: Patient is hemodynamically stable hemoglobin hematocrit within normal limits he has had no excessive rectal bleeding while in the emergency department after speaking with surgery who is very familiar with him he is expected to have some blood clots he will follow up outpatient, he is expected to have surgery on the of this month. Discharge Plan Departure Patient Disposition: Home Clinical Impression: Rectal cancer Discharge Date/Time: 05/01/19 17:16 Instructions: DI for Rectal Bleeding Activity Restrictions/Additional Instructions: *You have been diagnosed with rectal bleeding *What to do: Bleeding is likely from tumor or radiation. Her doctor at [facility] has been notified of your symptoms. At this time they will contact you to schedule follow-up appointment. Blood work is overall reassuring *Continue to take medications as directed *Follow up with your primary care provider in 2-3 days *Return to ER if you should have increasing dizziness lightheadedness passing out or any new, worsening or concerning symptoms Prescriptions: No Action doxepin 25 mg capsule 25 mg PO BEDTIME RF: 0 docusate sodium 100 mg Capsule 100 mg PO BID PRN (Reason: Constipation) RF: 0 albuterol sulfate [Ventolin HFA] 90 mcg/actuation Hfa Aerosol Inhaler 1 - 2 puff INHALATION Q4-6H RF: 0 prednisone 20 mg Tablet 20 mg PO PRN PRN (Reason: Scans/Iodine intolerance) RF: 0 Calmoseptine 0.44-20.6 % Ointment 1 applic TOPICAL TID-QID PRN (Reason: hemarrhoid) Qty: 60 RF: 0 alprazolam [Xanax] 0.25 mg Tablet 0.5 mg PO BID-TID PRN (Reason: anxiety and depression) Qty: 30 RF: 0 lidocaine-prilocaine 2.5-2.5 % Cream 2.5 g topical PRN PRN (Reason: lung cancer, rectal cancer) Qty: 30 RF: 1 prochlorperazine maleate 10 mg Tablet 10 mg PO Q6H PRN (Reason: nausea vomiting) Qty: 120 RF: 0 lorazepam 0.5 mg tablet 0.5 mg PO BID PRN (Reason: Nausea And Vomiting) Qty: 60 RF: 0 oxycodone-acetaminophen [Endocet] 10-325 mg Tablet 1 tab PO Q6H PRN (Reason: rectal pain) 30 Days RF: 0 lisinopril 10 mg Tablet 10 mg PO DAILY RF: 0 escitalopram oxalate 10 mg tablet 20 mg PO DAILY RF: 0 Referrals: Judith Eagle MD [Primary Care Provider] -
[2019-05-01 13:00] VITALS: BP 154/62; PULSE 82; RESP 16; O2SAT 96
--- NOTE | 2019-05-01 13:18 | DI.CT.S_ITS ---
PROCEDURE: CT ABDOMEN PELVIS W CON INDICATIONS: rectal bleeding with known rectal cancer and colostomy TECHNIQUE: After the administration of intravenous contrast, 5 mm thick sections acquired from the diaphragm to the symphysis. 5 mm coronal and sagittal reformats were acquired. For radiation dose reduction, the following was used: automated exposure control, adjustment of mA and/or kV according to patient size. COMPARISON: [facility], [place], PET NECK TO MID THIGH, 12/22/2017, 14:04. [facility], CT, CT CHEST ABD PEL W CON, 03/13/2018, 1:26. [facility], CT, CT PELVIS WITH CONTRAST, 05/13/2018, 12:52. Outside Film, CT, CT CHEST ABDOMEN PELVIS WITH CONTRAST, 08/01/2018, 14:08. [facility], CT, CT ABDOMEN PELVIS WO/W CON, 12/16/2018, 12:25. [facility], CT, CT ABDOMEN PELVIS W CON, 12/23/2017, 12:58. Outside Film, CT, CT CHEST ABDOMEN PELVIS WITH CONTRAST, 12/05/2018, 14:10. FINDINGS: Image quality: Excellent. ABDOMEN: Lung bases: There is left lower lobectomy. Lung bases are clear. Heart size is normal. There is a small hiatal hernia. Mild concentric thickening at gastroesophageal junction. Solid organs: Liver is normal in size and enhancement. Gallbladder is normal. Biliary system is non dilated. Pancreas enhances normally. Spleen is mildly enlarged measuring 13.8 cm in length. No adrenal nodules. Kidneys demonstrate normal size and enhancement, without hydronephrosis. Peritoneum and bowel: There is mild eccentric thickening in the right anterolateral rectal wall. There is a colostomy. There are scattered colonic diverticula. No CT findings to suggest acute diverticulitis. Bowel loops demonstrate normal wall thickness and caliber. No free fluid or air. Nodes and vessels: No retroperitoneal or mesenteric adenopathy by size criteria. Aorta and inferior vena cava are normal in size. Moderate atherosclerosis. Miscellaneous: Small fat-containing umbilical hernia. PELVIS: Genitourinary: Bladder wall thickness is normal. Miscellaneous: No inguinal hernias or adenopathy. Bones: No suspicious bony lesions. No vertebral body compression fractures. IMPRESSION: 1. Mild residual eccentric thickening in the rectal wall. 2. Diverticulosis without diverticulitis. 3. There is a colostomy. No evidence for colonic or small bowel obstruction. 4. Hepatic steatosis. 5. Mild splenomegaly. 6. Mild concentric thickening of the GE junction. Dictated by: Meenakshi Perdomo M.D. on 05/01/2019 at 15:11 Approved by: Meenakshi Perdomo M.D. on 05/01/2019 at 15:34
[2019-05-01] MEDS: SODIUM CHLORIDE 0.9% 1,000 ML 150 ML IV (13:20)
[2019-05-01 13:45] LABS: Add Manual Diff / Slide Review NO; Basophils Absolute Auto 0 /uL (0-100); Basophils Percent Auto 0.4 % (0-2); Eosinophils Absolute Auto 0 /uL (0-450); Eosinophils Percent Auto 0.5 % (2-4); Hematocrit 41.5 % (41-53); Lymphocytes Absolute Auto 1000 /uL (1100-4500); Lymphocytes Percent Auto 17.4 % (25-40); Mean Corpuscular HGB Conc 33.7 % (30-36); Mean Corpuscular Hemoglobin 28.4 PG (26-34); Mean Corpuscular Volume 84.2 fL (80-100); Monocytes Absolute Auto 400 /uL (0-900); Monocytes Percent Auto 6.6 % (3-14); Neutrophils Absolute Auto 4500 /uL (1500-7000); Neutrophils Percent Auto 75.1 % (50-75); Platelet Count 192 X10^3/uL (150-400); Prothrombin Time 11.3 SECONDS (10.1-12.7); Red Blood Cell Count 4.93 X10^6/uL (4.5-5.9); Red Cell Distribution Width 14.5 % (11.6-14.8)
[2019-05-01 13:48] LABS: PTT Partial Thromboplastin Tim 32 SECONDS (26.4-36.2)
[2019-05-01 13:51] LABS: Alanine Aminotransferase 20 IU/L (<50); Albumin 4.4 g/dL (3.5-5.0); Albumin Globulin Ratio 1.6 (1.0-2.8); Alkaline Phosphatase 129 U/L (38-126); Aspartate Aminotransferase 23 IU/L (17-59); BUN Creatinine Ratio 24.3 (6-22); Bilirubin Total 0.8 mg/dL (0.2-1.3); Blood Urea Nitrogen 17 mg/dL (9-20); Calcium 9.4 mg/dL (8.4-10.2); Carbon Dioxide 31 mmol/L (22-32); Chloride 99 mmol/L (98-107); Estimated Glomerular Filt Rate > 60.0 mL/min (>60); Globulin 2.7 g/dL (1.7-4.1); Glucose 101 mg/dL (80-110); HEMOLYSIS < 15 (0-50); Sodium 138 mmol/L (137-145); Total Protein 7.1 g/dL (6.3-8.2)
[2019-05-01 14:04] VITALS: BP 134/53; PULSE 76; RESP 17; O2SAT 95
[2019-05-01] MEDS: methylPREDNISolone 125 MG/2 ML VIAL IV (14:07)
[2019-05-01] MEDS: diphenhydrAMINE 50 MG/ML VIAL 25 MG IV (14:07)
[2019-05-01 16:05] VITALS: BP 137/70; PULSE 85; RESP 19; O2SAT 93
== END 2019-05-01 17:16 | disposition home or self-care (01) ==
PROVIDERS: Emergency Provider Emergency Medicine; Family Provider Student in an Organized Health Care Education/Training Program; PCP Student in an Organized Health Care Education/Training Program
DX: K62.5 Hemorrhage of anus and rectum (principal); C20 Malignant neoplasm of rectum; R06.00 Dyspnea, unspecified
CPT/HCPCS: 36415; 74177; 80053; 85025; 85610; 85730; 86850; 86900; 86901; 96361; 96374; 96375; 99284; J1200; J1642; J2930; Q9967

== ENCOUNTER → 2019-05-25 12:55 | Outpatient (CLI) | payer MEDICARE, MEDICAID, SELFPAY ==
[2018-03-13 14:14] VITALS: BMI 30.4
--- NOTE | 2019-05-25 12:57 | DI.CT.S_ITS ---
PROCEDURE: CT CHEST WO CON INDICATIONS: LUNG CANCER, NOW HEMOPTYSIS TECHNIQUE: Noncontrast 5 mm thick sections acquired from the pulmonary apices to the posterior costophrenic angles. 1 mm lung window, 5 mm thick coronal and sagittal and 7 mm axial MIP reformats were then acquired. For radiation dose reduction, the following was used: automated exposure control, adjustment of mA and/or kV according to patient size. COMPARISON: [facility], CT, CT ABDOMEN PELVIS W CON, 05/01/2019, 14:48. [facility], CT, CT ABDOMEN PELVIS WO/W CON, 12/16/2018, 12:25. [facility], CT, CT CHEST ABD PEL W CON, 03/13/2018, 1:26. Outside Film, CT, CT CHEST ABDOMEN PELVIS WITH CONTRAST, 08/01/2018, 14:08. Outside Film, CT, CT CHEST ABDOMEN PELVIS WITH CONTRAST, 12/05/2018, 14:10. FINDINGS: Image quality: Excellent. Lungs and pleura: Postsurgical changes related to prior left lower lobectomy. Associated scarring calcification present in the medial left hemithorax image 41/4. No acute consolidation. Upper lobe predominant centrilobular emphysema No pleural effusions or pneumothorax. 3 mm right upper lobe pulmonary nodule seen on image 109/3 may be new, technically indeterminate. 1 mm pulmonary nodule seen on image 139 series 3 appears unchanged Airway thickening in keeping with nonspecific bronchitis and/or reactive airways disease. Mediastinum: Heart size is normal. Coronary artery calcifications are present. No pericardial effusion. No mediastinal adenopathy by size criteria. Thoracic aorta and central pulmonary arteries are normal in size. Esophagus is normal in caliber. No hiatal hernia. Bones and chest wall: No suspicious bony lesions. No vertebral body compression fractures. No axillary or supraclavicular adenopathy by size criteria. Thyroid gland negative. Abdomen: Visualized upper abdominal solid organs and bowel loops appear normal in the absence of contrast. Diffuse osteopenia, spondylosis and possible multilevel thoracic endplate syndesmophyte formation. Unchanged mild anterior wedging of T12. IMPRESSION: Nonspecific 3 mm right upper lobe pulmonary nodule. This finding may be new, although slice registration artifact is a consideration. Recommend continued surveillance to this finding on subsequent studies. Elsewhere, no specific evidence for active metastatic disease Additional chronic and incidental findings as above. Dictated by: Nikko Patrick M.D. on 05/25/2019 at 14:02 Approved by: Nikko Patrick M.D. on 05/25/2019 at 14:31
== END ==
PROVIDERS: Family Provider Student in an Organized Health Care Education/Training Program; PCP Student in an Organized Health Care Education/Training Program; Referring Provider Internal Medicine Hematology & Oncology; Visit Provider Internal Medicine Hematology & Oncology
DX: C34.92 Malignant neoplasm of unspecified part of left bronchus or lung (principal); C20 Malignant neoplasm of rectum; R04.2 Hemoptysis; R91.1 Solitary pulmonary nodule; J43.2 Centrilobular emphysema; I25.10 Atherosclerotic heart disease of native coronary artery without angina pectoris
CPT/HCPCS: 71250

== ENCOUNTER 2019-06-07 15:27 | Observation (INO) | payer MEDICARE, MEDICAID, SELFPAY ==
[2018-03-13 14:14] VITALS: BMI 30.4
[2019-06-07] VITALS (9 sets, daily range): BP systolic 136–219; BP diastolic 54–100; PULSE 77–97; RESP 12–20; TEMP 36.9–37.1; O2SAT 88–100; BMI 34.3
--- NOTE | 2019-06-07 15:43 | DI.CT.S_ITS ---
PROCEDURE: CT HEAD/BRAIN WO CON INDICATIONS: severe dizziness, vomiting, metstatic lung CA, met? TECHNIQUE: Noncontrast 4.5 mm thick angled axial sections acquired from the foramen magnum to the vertex, with coronal and sagittal reformats. For radiation dose reduction, the following was used: automated exposure control, adjustment of mA and/or kV according to patient size. COMPARISON: [facility], CT, CT HEAD/BRAIN WO CON, 03/12/2018, 22:08. FINDINGS: Image quality: Excellent. CSF spaces: Basal cisterns are patent. No extra-axial fluid collections. The ventricles are symmetric in size and shape. Brain: No intracranial bleeds or masses. There is cerebral volume loss for age, with resultant ventricular and sulcal prominence. There are periventricular and deep white matter chronic small vessel ischemic changes. There is intracranial internal carotid artery and vertebral artery atherosclerosis. Skull and face: Calvarium and visualized facial bones appear intact, without suspicious lesions. Sinuses: Visualized sinuses and mastoids are clear. IMPRESSION: No acute intracranial disease process. Dictated by: Kendy Shipley MD, PhD on 06/07/2019 at 16:07 Approved by: Kendy Shipley MD, PhD on 06/07/2019 at 16:10
[2019-06-07] MEDS: LIDOCAINE 1% (PF) 2 ML (15:48)
--- NOTE | 2019-06-07 15:51 | ED.DIZZY ---
HPI - Dizziness <Andrew Hunter - Last Filed: 06/08/19 08:54> General Chief Complaint: Dizziness Stated Complaint: vertigo, n/v Time Seen by Provider: 06/07/19 15:30 Source: EMS Mode of arrival: EMS Limitations: no limitations History of Present Illness HPI Narrative: 68 former smoker with history of metastatic colorectal and lung cancer (currently not taking any chemo or radiation) presents with a chief complaint of approximately 12 hours of rather sudden onset profound dizziness with any change in position or motion of his head. He has had vomiting with these intense episodes. He denies any focal neurologic findings such as numbness, tingling or weakness. He denies any recent falls or injuries. He has had no recent illness including runny nose, nasal congestion, sneezing or cough. He denies any ear pain or drainage. He is very unsteady on his feet. His dizziness improves with eyes closed. MD complaint: dizziness Onset (ago): hour(s) Timing: sudden onset Description: room spinning, off-balance and difficulty walking History of similar episodes: No History of trauma: No Severity: moderate Relieving factors: remaining still Exacerbating factors: movement Associated symptoms: ataxia Related Data Home Medications Medication Instructions Recorded Confirmed albuterol sulfate [Ventolin HFA] 1 - 2 puff INHALATION Q4-6H 02/24/18 06/07/19 docusate sodium 100 mg PO BID PRN 02/24/18 06/07/19 lisinopril 10 mg PO DAILY 03/13/18 06/07/19 polyethylene glycol 3350 [Miralax] 17 g PO BID 06/07/19 06/07/19 Previous Rx's Medication Instructions Recorded prochlorperazine maleate 10 mg PO Q6H PRN #120 tab 10/10/18 lorazepam 0.5 mg PO BID PRN #60 tab 05/04/19 oxycodone 10 mg PO Q6H PRN #120 tab 05/22/19 escitalopram oxalate 20 mg tablet 20 mg PO DAILY #30 tab 06/06/19 trazodone 50 mg tablet See Rx Instructions PO BEDTIME PRN 06/06/19 #30 tab Allergies Allergy/AdvReac Type Severity Reaction Status Date / Time Iodinated Contrast Media Allergy Severe hives, Verified 06/07/19 15:44 [Iodinated Contrast- Oral difficultly and IV Dye] breathing paclitaxel Allergy Severe Difficulty Verified 06/07/19 15:44 Breathing Review of Systems <Andrew Hunter DO - Last Filed: 06/08/19 08:54> Constitutional Constitutional: Denies chills, Denies fatigue, Denies fever(s), Denies frequent falls, Denies lethargy and Denies weakness Eyes Eyes: Denies change in vision, Denies eye discharge, Denies irritation and Denies loss of vision ENT Ears, Nose, Mouth, and Throat: Denies change in voice, Reports dizziness, Denies neck pain, Denies sore throat and Denies throat swelling Cardiovascular Cardiovascular: Denies chest pain, Denies irregular heart rhythm, Denies lightheadedness, Denies palpitations, Denies dyspnea, Denies dyspnea on exertion and Denies orthopnea Respiratory Respiratory: Denies cough, Denies dyspnea, Denies dyspnea on exertion and Denies wheezing Gastrointestinal Gastrointestinal: Denies abdominal pain, Denies change in bowel habits, Denies diarrhea, Reports nausea and Reports vomiting Genitourinary Genitourinary: Denies hematuria, Denies flank pain, Denies urinary incontinence and Denies urinary urgency Musculoskeletal Musculoskeletal: Denies back pain, Denies muscle weakness, Denies neck pain, Denies numbness and Denies tingling Integumentary/Breasts Skin/Breast: Denies pruritus, Denies erythema, Denies rash and Denies wounds Neurologic Neurologic: Denies behavioral changes, Denies confusion, Reports dizziness, Denies frequent falls, Denies loss of vision, Denies numbness, Denies tingling and Denies weakness Psychiatric Psychiatric: Denies anxiety, Denies behavioral changes, Denies confusion, Denies depression, Denies homicidal ideation and Denies suicidal ideation Endocrine Endocrine: Denies fatigue, Denies flushing and Denies palpitations Hematologic/Lymphatic Hematologic/Lymphatic: Denies easy bruising Allergic/Immunologic Allergic/Immunologic: Denies urticaria, Denies throat swelling and Denies wheezing Patient History <Andrew Hunter DO - Last Filed: 06/08/19 08:54> Medical History COPD (chronic obstructive pulmonary disease) (Acute) Fatigue (Acute) Hx of nephrolithotomy with removal of calculi (Acute) Hypertension (Acute) Obesity (Acute) Port-A-Cath in place (Acute) Rectal adenocarcinoma (Acute) Rectal mass (Acute) Sleep apnea (Acute) 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) Weakness (Acute) Surgical History History of bronchoscopy (Acute 02/03/18) History of lung biopsy (Acute 11/29/17) Hx of colonoscopy with polypectomy (Acute) Family History Brother Cancer Social History marital status: unmarried,living together household members: significant other and caregiver housing: house education level: high school Smoking Status: Former smoker alcohol intake: former substance use type: does not use Smoking Status: Former smoker alcohol intake frequency: holidays/special occasions only Substance Use Type: does not use Exam <Andrew Hunter DO - Last Filed: 06/08/19 08:54> Narrative Exam Narrative: GENERAL: [] year old patient appears stated age. Well-nourished, well-developed patient, in mild distress. HEAD: Atraumatic. Normocephalic. EYES: Pupils equal round and reactive. Extraocular motions intact. No scleral icterus. No injection or drainage. ENT: Nose without bleeding, purulent drainage. Throat without erythema, tonsillar hypertrophy or exudate. Airway patent. NECK: Trachea midline. Non tender CARDIOVASCULAR: Regular rate and rhythm without murmurs, gallops, or rubs. RESPIRATORY: Clear to auscultation. Breath sounds equal bilaterally. No wheezes, rales, or rhonchi. GASTROINTESTINAL: Abdomen soft, non-tender, nondistended. EXTREMITIES: No edema or joint tenderness. BACK: Nontender without deformity or crepitance. No flank tenderness. NEURO: AOx3. SKIN: No rash or erythema of visible areas Initial Vital Signs Initial Vital Signs: Vital Signs Temperature 98.4 F 06/07/19 15:25 Pulse Rate 97 H 06/07/19 15:25 Respiratory Rate 18 06/07/19 15:25 Blood Pressure 219/100 H 06/07/19 15:25 Pulse Oximetry 100 06/07/19 15:25 <Garry Marcial DO - Last Filed: 06/07/19 22:42> Initial Vital Signs Initial Vital Signs: Vital Signs Temperature 98.4 F 06/07/19 15:25 Pulse Rate 97 H 06/07/19 15:25 Respiratory Rate 18 06/07/19 15:25 Blood Pressure 219/100 H 06/07/19 15:25 Pulse Oximetry 100 06/07/19 15:25 Course <Andrew AdameDO estrada - Last Filed: 06/08/19 08:54> Course Course Narrative: patient now here and states that he had R sided stroke symptoms 2-3 days ago. Orders Ordered: ED Orders 06/08/19 06:28 Basic Metabolic Panel Stat Complete Blood Count AUTO DIFF Stat Morphine Sulfate (Morphine) 1 mg IV Q2HR PRN PRN Reason: Pain, Moderate (4-6) Morphine Sulfate (Morphine) 2 mg IV Q2HR PRN PRN Reason: Pain, Moderate (4-6) Ondansetron HCl (Zofran) 4 mg IV Q4HR PRN PRN Reason: Nausea And Vomiting Oxycodone HCl (Percolone) 10 mg PO Q4HR PRN PRN Reason: Pain, Severe (7-10) Last Admin: 06/08/19 00:57 Dose: 10 mg Documented by: MARLON Trazodone HCl (Desyrel) 0 mg PO BEDTIME PRN PRN Reason: sleep Last Admin: 06/08/19 00:58 Dose: 50 mg Documented by: MARLON Discontinued Medications Diphenhydramine HCl (Benadryl) 25 mg IV NOW ONE Stop: 06/07/19 19:34 Last Admin: 06/07/19 19:52 Dose: 25 mg Documented by: MMCFARL Sodium Chloride (Normal Saline 0.9%) 500 mls @ 1,000 mls/hr IV BOLUS ONE Stop: 06/07/19 16:12 Last Infusion: 06/07/19 17:19 Dose: 0 mls/hr Documented by: Admin: 06/07/19 15:59 Dose: 500 mls/hr Documented by: LYNDSYE Sodium Chloride (Normal Saline 0.9%) 1,000 mls @ 100 mls/hr IV BOLUS ONE Stop: 06/08/19 04:18 Last Infusion: 06/07/19 21:30 Dose: 100 mls/hr Documented by: Admin: 06/07/19 18:25 Dose: 100 mls/hr Documented by: LYNDSEY Lorazepam (Ativan) 0.5 mg IV NOW ONE Stop: 06/07/19 18:20 Last Admin: 06/07/19 18:54 Dose: 0.5 mg Documented by: LYNDSEY Meclizine HCl (Antivert) 25 mg PO NOW ONE Stop: 06/07/19 15:47 Last Admin: 06/07/19 15:59 Dose: 25 mg Documented by: LYNDSEY Methylprednisolone (Solu-Medrol 125 Mg Vial) 125 mg IV NOW ONE Stop: 06/07/19 19:34 Last Admin: 06/07/19 19:52 Dose: 125 mg Documented by: MADDIE Ondansetron HCl (Zofran) 4 mg IV NOW ONE Stop: 06/07/19 16:26 Last Admin: 06/07/19 16:31 Dose: Not Given Documented by: LYNDSEY Ondansetron HCl (Zofran) 4 mg IV Q4HR PRN PRN Reason: Nausea And Vomiting Last Admin: 06/07/19 16:30 Dose: 4 mg Documented by: LYNDSEY Vital Signs Vital signs: Vital Signs - 8 hr 06/07/19 15:25 06/07/19 15:50 06/07/19 16:13 Temperature 98.4 F Pulse Rate 88 77 Pulse Rate [Left] 97 H Respiratory Rate 18 18 18 Blood Pressure [Left Arm] 219/100 H 179/87 H Pulse Oximetry 100 99 88 L 06/07/19 17:19 06/07/19 18:49 06/07/19 19:37 Temperature Pulse Rate 78 85 81 Pulse Rate [Left] Respiratory Rate 18 16 12 Blood Pressure [Left Arm] 151/69 H 161/72 H 161/71 H Pulse Oximetry 99 96 96 06/07/19 21:00 Temperature Pulse Rate 85 Pulse Rate [Left] Respiratory Rate 16 Blood Pressure [Left Arm] 176/76 H Pulse Oximetry 96 <Garry Marcial DO - Last Filed: 06/07/19 22:42> Orders Ordered: ED Orders 06/08/19 06:28 Basic Metabolic Panel Stat Complete Blood Count AUTO DIFF Stat Morphine Sulfate (Morphine) 1 mg IV Q2HR PRN PRN Reason: Pain, Moderate (4-6) Morphine Sulfate (Morphine) 2 mg IV Q2HR PRN PRN Reason: Pain, Moderate (4-6) Ondansetron HCl (Zofran) 4 mg IV Q4HR PRN PRN Reason: Nausea And Vomiting Oxycodone HCl (Percolone) 10 mg PO Q4HR PRN PRN Reason: Pain, Severe (7-10) Last Admin: 06/08/19 00:57 Dose: 10 mg Documented by: MARLON Trazodone HCl (Desyrel) 0 mg PO BEDTIME PRN PRN Reason: sleep Last Admin: 06/08/19 00:58 Dose: 50 mg Documented by: MARLON Discontinued Medications Diphenhydramine HCl (Benadryl) 25 mg IV NOW ONE Stop: 06/07/19 19:34 Last Admin: 06/07/19 19:52 Dose: 25 mg Documented by: MADDIE Sodium Chloride (Normal Saline 0.9%) 500 mls @ 1,000 mls/hr IV BOLUS ONE Stop: 06/07/19 16:12 Last Infusion: 06/07/19 17:19 Dose: 0 mls/hr Documented by: Admin: 06/07/19 15:59 Dose: 500 mls/hr Documented by: LYNDSEY Sodium Chloride (Normal Saline 0.9%) 1,000 mls @ 100 mls/hr IV BOLUS ONE Stop: 06/08/19 04:18 Last Infusion: 06/07/19 21:30 Dose: 100 mls/hr Documented by: Admin: 06/07/19 18:25 Dose: 100 mls/hr Documented by: LYNDSEY Lorazepam (Ativan) 0.5 mg IV NOW ONE Stop: 06/07/19 18:20 Last Admin: 06/07/19 18:54 Dose: 0.5 mg Documented by: LYNDSEY Meclizine HCl (Antivert) 25 mg PO NOW ONE Stop: 06/07/19 15:47 Last Admin: 06/07/19 15:59 Dose: 25 mg Documented by: LYNDSEY Methylprednisolone (Solu-Medrol 125 Mg Vial) 125 mg IV NOW ONE Stop: 06/07/19 19:34 Last Admin: 06/07/19 19:52 Dose: 125 mg Documented by: MADDIE Ondansetron HCl (Zofran) 4 mg IV NOW ONE Stop: 06/07/19 16:26 Last Admin: 06/07/19 16:31 Dose: Not Given Documented by: LYNDSEY Ondansetron HCl (Zofran) 4 mg IV Q4HR PRN PRN Reason: Nausea And Vomiting Last Admin: 06/07/19 16:30 Dose: 4 mg Documented by: LYNDSEY Vital Signs Vital signs: Vital Signs - 8 hr 06/07/19 15:25 06/07/19 15:50 06/07/19 16:13 Temperature 98.4 F Pulse Rate 88 77 Pulse Rate [Left] 97 H Respiratory Rate 18 18 18 Blood Pressure [Left Arm] 219/100 H 179/87 H Pulse Oximetry 100 99 88 L 06/07/19 17:19 06/07/19 18:49 06/07/19 19:37 Temperature Pulse Rate 78 85 81 Pulse Rate [Left] Respiratory Rate 18 16 12 Blood Pressure [Left Arm] 151/69 H 161/72 H 161/71 H Pulse Oximetry 99 96 96 06/07/19 21:00 Temperature Pulse Rate 85 Pulse Rate [Left] Respiratory Rate 16 Blood Pressure [Left Arm] 176/76 H Pulse Oximetry 96 MDM - Dizziness <Andrew Hunter, - Last Filed: 06/08/19 08:54> Lab Data Result diagrams: 06/08/19 06:28 06/08/19 06:28 Labs: Lab Results 06/07/19 06/07/19 Range/Units 16:10 16:10 WBC 6.8 (4.5-11.0) X10^3/uL RBC 4.77 (4.5-5.9) X10^6/uL Hgb 13.7 (13.5-17.5) g/dL Hct 39.7 L (41-53) % MCV 83.1 (80-100) fL MCH 28.6 (26-34) PG MCHC 34.5 (30-36) % RDW 13.5 (11.6-14.8) % Plt Count 161 (150-400) X10^3/uL Neut % (Auto) 88.3 H (50-75) % Lymph % (Auto) 7.2 L (25-40) % [place] % (Auto) 4.0 (3-14) % Eos % (Auto) 0.2 L (2-4) % Baso % (Auto) 0.3 (0-2) % Neut # (Auto) 6000 (1206-8855) /uL Lymph # (Auto) 500 L (2855-2080) /uL [place] # (Auto) 300 (0-900) /uL Eos # (Auto) 0 (0-450) /uL Baso # (Auto) 0 (0-100) /uL Sodium 134 L (137-145) mmol/L Potassium 4.2 (3.4-5.1) mmol/L Chloride 100 (98-107) mmol/L Carbon Dioxide 24 (22-32) mmol/L BUN 17 (9-20) mg/dL Creatinine 0.60 L (0.66-1.25) mg/dL Estimated GFR > 60.0 (>60) mL/min BUN/Creatinine Ratio 28.3 H (6-22) Glucose 148 H (80-110) mg/dL Calcium 9.1 (8.4-10.2) mg/dL <Garry Marcial, DO - Last Filed: 06/07/19 22:42> Lab Data Labs: Lab Results 06/07/19 06/07/19 Range/Units 16:10 16:10 WBC 6.8 (4.5-11.0) X10^3/uL RBC 4.77 (4.5-5.9) X10^6/uL Hgb 13.7 (13.5-17.5) g/dL Hct 39.7 L (41-53) % MCV 83.1 (80-100) fL MCH 28.6 (26-34) PG MCHC 34.5 (30-36) % RDW 13.5 (11.6-14.8) % Plt Count 161 (150-400) X10^3/uL Neut % (Auto) 88.3 H (50-75) % Lymph % (Auto) 7.2 L (25-40) % [place] % (Auto) 4.0 (3-14) % Eos % (Auto) 0.2 L (2-4) % Baso % (Auto) 0.3 (0-2) % Neut # (Auto) 6000 (9120-1852) /uL Lymph # (Auto) 500 L (1040-8421) /uL [place] # (Auto) 300 (0-900) /uL Eos # (Auto) 0 (0-450) /uL Baso # (Auto) 0 (0-100) /uL Sodium 134 L (137-145) mmol/L Potassium 4.2 (3.4-5.1) mmol/L Chloride 100 (98-107) mmol/L Carbon Dioxide 24 (22-32) mmol/L BUN 17 (9-20) mg/dL Creatinine 0.60 L (0.66-1.25) mg/dL Estimated GFR > 60.0 (>60) mL/min BUN/Creatinine Ratio 28.3 H (6-22) Glucose 148 H (80-110) mg/dL Calcium 9.1 (8.4-10.2) mg/dL Imaging Data CTA - brain/neck: Radiologist's Impression: [address] [address] [address] Scan Report Signed Patient: Eric Gonzales OMR#: [id number] : [id number]:[id number] Age/Sex: 68 / MDate of Service: 06/07/19 Loc: ED Accession Number: [id number] Procedure: CT angio head and neck Ordering Provider: Andrew Hunter D.O. PROCEDURE: CT ANGIO HEAD AND NECK INDICATIONS: dizzy, vomiting TECHNIQUE: Pre-contrast 4.5 mm thick sections acquired from the foramen magnum to the vertex. After the administration of intravenous contrast, 1 mm thick sections acquired from the aortic arch through the [place] of [place]. Post-contrast 4.5 mm thick sections then re-acquired from the foramen magnum to the vertex. 3-dimensional tqtfcft-dhihybvib-gijpeibegc (MIP) and/or volume rendering reformats were acquired of the central intracranial vasculature and neck separately. COMPARISON: [facility], CT, CT HEAD/BRAIN WO CON, 06/07/2019, 15:43. FINDINGS: Image quality: Excellent. BRAIN: CSF spaces: Ventricles are normal in size and shape. Basal cisterns are patent. No extra-axial fluid collections. Brain: No midline shift. No intracranial bleeds or masses. Srivastava-white matter interface appears intact. Age related volume loss and mild small vessel ischemic change. Skull and face: Calvarium and facial bones appear intact, without suspicious lesions. Orbits appear normal. Sinuses: Sinuses and mastoids are clear. HEAD CT ANGIOGRAPHY: Anterior circulation: Intracranial internal carotid arteries are normal in size and flow. The flow within the paired anterior cerebral arteries is normal and symmetric. The flow within the middle cerebral arteries is normal and symmetric. The anterior communicating artery is seen. No aneurysms are seen. Posterior circulation: Visualized portions of the vertebral arteries demonstrate normal caliber, and join to form a normal appearing basilar artery. Flow within the posterior cerebral arteries is normal and symmetric. No aneurysms are seen. NECK CT ANGIOGRAPHY: Carotid system: The great vessels demonstrate a normal variant anatomy as they arise from the aortic arch, in which the left vertebral artery arises as a vessel off the aortic arch.. The origins of the common carotid arteries appear patent. The common carotid arteries demonstrate normal caliber and courses. The bifurcation regions are both widely patent. The internal carotid arteries demonstrate normal calibers and courses. Posterior circulation: The origins of the vertebral arteries both appear widely patent. The more superior extracranial portions of both vertebral arteries also demonstrate normal courses and calibers. They join to form a normal appearing basilar artery. Soft tissues: Visualized neck soft tissues demonstrate no suspicious abnormalities. Bones: No suspicious bony lesions. Visualized cervical spine appears normally aligned. IMPRESSION: 1. Age related volume loss and mild small vessel ischemic change. 2. No evidence acute stroke, hemorrhage, or mass. 3. Unremarkable CT head. No evidence of stenosis, occlusion, aneurysm, or focal filling defect. 4. Left vertebral artery arises off the aortic arch. 5. Otherwise unremarkable CT and neck. No significant internal carotid artery stenotic disease. Any quantitative measurements of stenosis were performed using NASCET criteria. Dictated by: Hossein Stewart M.D. on 06/07/2019 at 20:37 Approved by: Hossein Stewart M.D. on 06/07/2019 at 20:4 MDM Narrative Medical decision making narrative: Dr marcial: Received turned over from Dr. Hunter. Patient's history and physical. CTA of the head neck shows no acute pathology. Dr. Hunter already discussed the case with Dr. So who is on-call for the patient's primary provider about admitting. The plan was to obtain the CTA and if there were no acute issues to admit the patient for further evaluation and treatment. I did discuss the case with Dr. So who will admit. Holding orders placed. The Care transition to admitting team at time of admission. I did discuss the CT result with the patient. He is still having vertigo symptoms with movement. We will proceed with admission. Discharge Plan Departure Patient Disposition: Admitted as Observation Clinical Impression: Transient ischemic attack, acute, Dizziness Discharge Date/Time: 06/07/19 21:32 Referrals: Judith Eagle MD [Primary Care Provider] - Admit Date/Time: 06/07/19 21:16 Admit Provider: Judith Eagle
[2019-06-07] MEDS: MECLIZINE HCL 12.5 MG TABLET 25 MG PO (15:59)
[2019-06-07] MEDS: SODIUM CHLORIDE 0.9% 500 ML IV (15:59)
[2019-06-07 16:15] LABS: Add Manual Diff / Slide Review NO; Basophils Absolute Auto 0 /uL (0-100); Basophils Percent Auto 0.3 % (0-2); Eosinophils Absolute Auto 0 /uL (0-450); Eosinophils Percent Auto 0.2 % (2-4); Hematocrit 39.7 % (41-53); Hemoglobin 13.7 g/dL (13.5-17.5); Lymphocytes Absolute Auto 500 /uL (1100-4500); Lymphocytes Percent Auto 7.2 % (25-40); Mean Corpuscular HGB Conc 34.5 % (30-36); Mean Corpuscular Hemoglobin 28.6 PG (26-34); Mean Corpuscular Volume 83.1 fL (80-100); Monocytes Absolute Auto 300 /uL (0-900); Neutrophils Absolute Auto 6000 /uL (1500-7000); Neutrophils Percent Auto 88.3 % (50-75); Platelet Count 161 X10^3/uL (150-400); Red Blood Cell Count 4.77 X10^6/uL (4.5-5.9); Red Cell Distribution Width 13.5 % (11.6-14.8); White Blood Cell Count 6.8 X10^3/uL (4.5-11.0)
[2019-06-07 16:28] LABS: BUN Creatinine Ratio 28.3 (6-22); Blood Urea Nitrogen 17 mg/dL (9-20); Calcium 9.1 mg/dL (8.4-10.2); Carbon Dioxide 24 mmol/L (22-32); Chloride 100 mmol/L (98-107); Estimated Glomerular Filt Rate > 60.0 mL/min (>60); Glucose 148 mg/dL (80-110); HEMOLYSIS < 15 (0-50); Potassium 4.2 mmol/L (3.4-5.1); Sodium 134 mmol/L (137-145)
[2019-06-07] MEDS: ONDANSETRON 4 MG/2 ML INJ IV (16:30)
[2019-06-07] MEDS: SODIUM CHLORIDE 0.9% 1,000 ML 100 ML IV (18:25)
[2019-06-07] MEDS: LORazepam 2 MG/ML INJ 0.5 MG IV (18:54)
--- NOTE | 2019-06-07 19:49 | DI.CT.S_ITS ---
PROCEDURE: CT ANGIO HEAD AND NECK INDICATIONS: dizzy, vomiting TECHNIQUE: Pre-contrast 4.5 mm thick sections acquired from the foramen magnum to the vertex. After the administration of intravenous contrast, 1 mm thick sections acquired from the aortic arch through the [place] of [place]. Post-contrast 4.5 mm thick sections then re-acquired from the foramen magnum to the vertex. 3-dimensional pedrgbw-etvdiauox-cugudnspqk (MIP) and/or volume rendering reformats were acquired of the central intracranial vasculature and neck separately. COMPARISON: [facility], CT, CT HEAD/BRAIN WO CON, 06/07/2019, 15:43. FINDINGS: Image quality: Excellent. BRAIN: CSF spaces: Ventricles are normal in size and shape. Basal cisterns are patent. No extra-axial fluid collections. Brain: No midline shift. No intracranial bleeds or masses. Srivastava-white matter interface appears intact. Age related volume loss and mild small vessel ischemic change. Skull and face: Calvarium and facial bones appear intact, without suspicious lesions. Orbits appear normal. Sinuses: Sinuses and mastoids are clear. HEAD CT ANGIOGRAPHY: Anterior circulation: Intracranial internal carotid arteries are normal in size and flow. The flow within the paired anterior cerebral arteries is normal and symmetric. The flow within the middle cerebral arteries is normal and symmetric. The anterior communicating artery is seen. No aneurysms are seen. Posterior circulation: Visualized portions of the vertebral arteries demonstrate normal caliber, and join to form a normal appearing basilar artery. Flow within the posterior cerebral arteries is normal and symmetric. No aneurysms are seen. NECK CT ANGIOGRAPHY: Carotid system: The great vessels demonstrate a normal variant anatomy as they arise from the aortic arch, in which the left vertebral artery arises as a vessel off the aortic arch.. The origins of the common carotid arteries appear patent. The common carotid arteries demonstrate normal caliber and courses. The bifurcation regions are both widely patent. The internal carotid arteries demonstrate normal calibers and courses. Posterior circulation: The origins of the vertebral arteries both appear widely patent. The more superior extracranial portions of both vertebral arteries also demonstrate normal courses and calibers. They join to form a normal appearing basilar artery. Soft tissues: Visualized neck soft tissues demonstrate no suspicious abnormalities. Bones: No suspicious bony lesions. Visualized cervical spine appears normally aligned. IMPRESSION: 1. Age related volume loss and mild small vessel ischemic change. 2. No evidence acute stroke, hemorrhage, or mass. 3. Unremarkable CT head. No evidence of stenosis, occlusion, aneurysm, or focal filling defect. 4. Left vertebral artery arises off the aortic arch. 5. Otherwise unremarkable CT and neck. No significant internal carotid artery stenotic disease. Any quantitative measurements of stenosis were performed using NASCET criteria. Dictated by: Hossein Stewart M.D. on 06/07/2019 at 20:37 Approved by: Hossein Stewart M.D. on 06/07/2019 at 20:43
[2019-06-07] MEDS: diphenhydrAMINE 50 MG/ML VIAL 25 MG IV (19:52)
[2019-06-07] MEDS: methylPREDNISolone 125 MG/2 ML VIAL IV (19:52)
--- NOTE | 2019-06-07 22:01 | PC.ADMIT ---
[email or web address] [address] [place] [address] Admission Note: The patient,Eric Gonzales,68 y/o, was given written information regarding hospital policies, unit procedures and contact persons. Patient's smoking status: Former smoker. Vital Signs - 8 hr 06/07/19 15:25 06/07/19 15:50 06/07/19 16:13 Temperature 98.4 F Pulse Rate 88 77 Pulse Rate [Left] 97 H Respiratory Rate 18 18 18 Blood Pressure Blood Pressure [Left Arm] 219/100 H 179/87 H Pulse Oximetry 100 99 88 L 06/07/19 17:19 06/07/19 18:49 06/07/19 19:37 Temperature Pulse Rate 78 85 81 Pulse Rate [Left] Respiratory Rate 18 16 12 Blood Pressure Blood Pressure [Left Arm] 151/69 H 161/72 H 161/71 H Pulse Oximetry 99 96 96 06/07/19 21:00 06/07/19 21:52 Temperature 98.7 F Pulse Rate 85 95 H Pulse Rate [Left] Respiratory Rate 16 20 Blood Pressure 160/80 H Blood Pressure [Left Arm] 176/76 H Pulse Oximetry 96 96 Patient up from ED via stretcher. Patient was able to get off the stretcher and ambulate to bed. Port access in ED. Patient A&O, calm and cooperative.
--- NOTE | 2019-06-08 | DI.US.S_ITS ---
PROCEDURE: US CAROTID DOPPLER BI INDICATIONS: TIA TECHNIQUE: Color and pulse Doppler interrogation was performed of both carotid systems, with image documentation and velocity measurements. COMPARISON: [facility], MR, MR HEAD/BRAIN WO/W CON, 12/15/2017, 11:33. FINDINGS: Stenosis calculations are based on SRU (Society of Radiologists in Ultrasound) criteria. Right side: Brachial blood pressure: n.a. Common carotid artery peak systolic velocity: 67 cm/sec. Internal carotid artery peak systolic velocity: 90 cm/sec. Internal carotid artery end diastolic velocity: 20 cm/sec. External carotid artery peak systolic velocity: 168 cm/sec. ICA/CCA peak systolic ratio: 1.4. Srivastava scale imaging description: Mild [place] Percent internal carotid artery stenosis: Less than 50%. Vertebral artery: Flow direction is antegrade. Left side: Brachial blood pressure: n.a. Common carotid artery peak systolic velocity: 89 cm/sec. Internal carotid artery peak systolic velocity: 98 cm/sec. Internal carotid artery end diastolic velocity: 27 cm/sec. External carotid artery peak systolic velocity: 126 cm/sec. ICA/CCA peak systolic ratio: 1.0. Srivastava scale imaging description: Moderate [place] Percent internal carotid artery stenosis: Less than 50%. Vertebral artery: Flow direction is antegrade. IMPRESSION: Less than 50% internal carotid artery stenosis bilaterally. Dictated by: Meenakshi Perdomo M.D. on 06/08/2019 at 14:33 Approved by: Meenakshi Perdomo M.D. on 06/08/2019 at 14:36
[2019-06-08] MEDS: OXYCODONE IR 10 MG TABLET PO ×4 (00:57→22:36)
[2019-06-08] MEDS: TRAZODONE 50 MG TABLET PO (00:58)
[2019-06-08 05:35] VITALS: BP 140/73; PULSE 102; RESP 15; TEMP 36.3; O2SAT 92
--- NOTE | 2019-06-08 06:07 | PC.NURSE ---
102 weight is a verbal ER weight
[2019-06-08 06:57] LABS: Add Manual Diff / Slide Review NO; Basophils Absolute Auto 0 /uL (0-100); Basophils Percent Auto 0.2 % (0-2); Eosinophils Absolute Auto 0 /uL (0-450); Eosinophils Percent Auto 0.1 % (2-4); Hematocrit 42.9 % (41-53); Hemoglobin 14.3 g/dL (13.5-17.5); Lymphocytes Absolute Auto 300 /uL (1100-4500); Lymphocytes Percent Auto 5.1 % (25-40); Mean Corpuscular HGB Conc 33.3 % (30-36); Mean Corpuscular Hemoglobin 28.1 PG (26-34); Mean Corpuscular Volume 84.5 fL (80-100); Monocytes Absolute Auto 0 /uL (0-900); Monocytes Percent Auto 0.7 % (3-14); Neutrophils Absolute Auto 5800 /uL (1500-7000); Neutrophils Percent Auto 93.9 % (50-75); Platelet Count 193 X10^3/uL (150-400); Red Blood Cell Count 5.08 X10^6/uL (4.5-5.9); Red Cell Distribution Width 13.6 % (11.6-14.8); White Blood Cell Count 6.2 X10^3/uL (4.5-11.0)
[2019-06-08 07:08] LABS: Blood Urea Nitrogen 14 mg/dL (9-20); Calcium 9.3 mg/dL (8.4-10.2); Carbon Dioxide 27 mmol/L (22-32); Chloride 103 mmol/L (98-107); Estimated Glomerular Filt Rate > 60.0 mL/min (>60); Glucose 179 mg/dL (80-110); HEMOLYSIS < 15 (0-50); Potassium 4.4 mmol/L (3.4-5.1); Sodium 138 mmol/L (137-145)
[2019-06-08 08:00] VITALS: BP 131/80; PULSE 99; RESP 18; TEMP 36.9; O2SAT 94
--- NOTE | 2019-06-08 08:17 | PM.HP.1 ---
History of Present Illness History of Present Illness Date Patient Seen: 06/08/19 Time Patient Seen: 08:17 Chief complaint: vertigo, n/v Narrative: 68 year old male with rectal cancer and squamous cell carcinoma of the left lung is admitted for observation from the ED secondary to profound dizziness x 12 hours, sudden onset. Symptoms started while he was standing in his kitchen. Prior to that, he had right-sided numbness x3 days. Was feeling unsteady on his feet. Numbness has since resolved. Associated left sided headache and vomiting. Denies weakness. No recent falls or injuries. No recent illnesses. Dizziness improves when his eyes are closed. Reports similar episode approximately 18 months ago after he was first diagnosed with rectal cancer. Vital signs admission to the ED included temperature of 98.4?, pulse 97, respirations 18, blood pressure 219/100 O2 saturation 100% on air. Repeat blood pressure 176/76. Lab including BMP and CBC significant for slightly low hematocrit 39.7 and a slightly low sodium at 1:[address] head and CTA head/neck was negative. 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. 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) Weakness (Acute) Surgical History History of bronchoscopy (Acute 02/03/18) History of lung biopsy (Acute 11/29/17) Hx of colonoscopy with polypectomy (Acute) Family & Social History Family History Brother Cancer Social History: household members significant other,caregiver Prior Living Arrangements House Safety & Behavioral: Feels Safe in Current Yes Environment Been Physically Hurt or No Threatened By a Person Suicidal Ideation Description None Suicide Plan Description No Plan Tobacco & Substance use: Smoking Status Former smoker alcohol intake former alcohol intake frequency holiday/special occasion Substance Use Type does not use Meds Home Medications and Allergies Home Medications Medication Instructions Recorded Confirmed Type albuterol sulfate [Ventolin HFA] 1 - 2 puff INHALATION Q4-6H 02/24/18 06/07/19 History docusate sodium 100 mg PO BID PRN 02/24/18 06/07/19 History lisinopril 10 mg PO DAILY 03/13/18 06/07/19 History prochlorperazine maleate 10 mg PO Q6H PRN #120 tab 10/10/18 06/07/19 Rx lorazepam 0.5 mg PO BID PRN #60 tab 05/04/19 06/07/19 Rx oxycodone 10 mg PO Q6H PRN #120 tab 05/22/19 06/07/19 Rx escitalopram oxalate 20 mg tablet 20 mg PO DAILY #30 tab 06/06/19 06/07/19 Rx trazodone 50 mg tablet See Rx Instructions PO BEDTIME PRN 06/06/19 06/07/19 Rx #30 tab polyethylene glycol 3350 [Miralax] 17 g PO BID 06/07/19 06/07/19 History Allergies Allergy/AdvReac Type Severity Reaction Status Date / Time Iodinated Contrast Media Allergy Severe hives, Verified 06/07/19 15:44 [Iodinated Contrast- Oral difficultly and IV Dye] breathing paclitaxel Allergy Severe Difficulty Verified 06/07/19 15:44 Breathing Review of Systems Review of Systems ROS: Yes All systems reviewed with the patient and are negative except as otherwise documented Exam Vital Signs (past 8 hours): - 06/08/19 05:35 Temperature 97.4 F L Pulse Rate 102 H Respiratory Rate 15 Blood Pressure 140/73 Pulse Oximetry 92 Oxygen Delivery Method Room Air Oxygen Flow Rate 0 Narrative Exam Narrative: GENERAL: Alert and oriented, appearing stated age and in no acute distress. HEENT: Head normocephalic/atraumatic. Pupils equal, round, and reactive to light and accomodation. Extraocular muscles intact. Tympanic membranes clear. Nasal mucosa moist, septum midline. Oral mucosa moist, no lesions. Neck soft and supple, no lymphadenopathy. LUNGS: Clear to ausculation bilaterally, no wheezes, rhonchi or rales. CV: Normal S1 and S2 with regular rate and rhythm, no audible murmurs, rubs or gallops. ABDOMEN: Soft, non-tender, non-distended, no organomegaly. Colostomy bag in place, clean, dry and intact. Positive bowel sounds. EXTREMITIES: No clubbing, cyanosis, or edema. NEURO: Cranial nerves II through XII grossly intact, no focal deficits. PSYCH: Alert and oriented x 3. SKIN: No concerning lesions. Port in place, right upper chest. Objective Labs Result Diagrams: 06/08/19 06:28 06/08/19 06:28 Labs: Laboratory Results - last 24 hr 06/07/19 06/07/19 06/08/19 16:10 16:10 06:28 WBC 6.8 6.2 RBC 4.77 5.08 Hgb 13.7 14.3 Hct 39.7 L 42.9 MCV 83.1 84.5 MCH 28.6 28.1 MCHC 34.5 33.3 RDW 13.5 13.6 Plt Count 161 193 Neut % (Auto) 88.3 H 93.9 H Lymph % (Auto) 7.2 L 5.1 L [place] % (Auto) 4.0 0.7 L Eos % (Auto) 0.2 L 0.1 L Baso % (Auto) 0.3 0.2 Neut # (Auto) 6000 5800 Lymph # (Auto) 500 L 300 L [place] # (Auto) 300 0 Eos # (Auto) 0 0 Baso # (Auto) 0 0 Sodium 134 L Potassium 4.2 Chloride 100 Carbon Dioxide 24 BUN 17 Creatinine 0.60 L Estimated GFR > 60.0 BUN/Creatinine Ratio 28.3 H Glucose 148 H Calcium 9.1 06/08/19 06:28 WBC RBC Hgb Hct MCV MCH MCHC RDW Plt Count Neut % (Auto) Lymph % (Auto) [place] % (Auto) Eos % (Auto) Baso % (Auto) Neut # (Auto) Lymph # (Auto) [place] # (Auto) Eos # (Auto) Baso # (Auto) Sodium 138 Potassium 4.4 Chloride 103 Carbon Dioxide 27 BUN 14 Creatinine 0.70 Estimated GFR > 60.0 BUN/Creatinine Ratio 20.0 Glucose 179 H Calcium 9.3 Assessment & Plan Assessment & Plan narrative: Assessment 1: Transient ischemic attack, initial CT head and CTA brain/neck reassuring. High risk secondary to current rectal and lung cancers. ABDCD2 score = 6, high risk for stroke in the next 48 hours. Plan: Will continue to observe patient closely. Will complete neurovascular imaging with MR stroke protocol and carotid doppler to rule out large artery etiology. Will also get an echo to identify cardioembolic sources. Will update lipid panel as it is out of date on this patient. He is not on a statin, will start atorvastatin 20 mg PO qhs, possible increase depending on lipid panel. Will screen for diabetes. Will also start aspirin 325 mg PO qd while awaiting remainder of workup. Continue telemtry. PT/OT/ST consult. Lovenox. Telemetry. Assessment 2: Hyperlipidemia, chronic. Plan: Please see #1. Assessment 3: Hypertension, essential, chronic. Plan: Improved since admission, will continue home medications of lisinopril 10 mg p.o. q.day. Assessment 4: Chronic pelvic pain, secondary to his rectal cancer treatments. Plan: Will continue home oxycodone as needed with home bowel protocol. Assessment 5: Anxiety with depression, chronic. Plan: Will continue home escitalopram 5 mg p.o. q.day, and lorezapam 0.5 mg p.o. every 12 hours as needed for anxiety. Assessment 6: Insomnia, chronic. Plan: Will continue home trazodone. Assessment 7: Rectal cancer and squamous cell carcinoma left lung, present on admission Plan: Oncology consult in the outpatient setting. Scheduled for what sounds like a small bowel capsule endoscopy and lung biopsies next week. Will coordinate care with oncology regarding this inpatient stay. Assessment 8: Gross hematuria, history of, secondary to kidney stones. Plan: Urology consulting in the outpatient setting. Assessment 9: Obesity, BMI 34.3 Plan: Nutrition consult to discuss achieving ideal body weight. Assessment 10: History of smoking with chronic dyspnea. Plan: Continue albuterol as needed. DVT prophylaxis: Lovenox. Code: Full Quality VTE Deep Vein Thrombosis/Pulmonary Embolism Present on Admission: No
--- NOTE | 2019-06-08 09:16 | PC.NURSE ---
Addendum entered by Mag Dove R.N. 06/08/19 15:18: NEURO - pt able to sit up in dangle position w/o nausea or dizziness for mri, tsf to wc. Addendum entered by Mag Dove R.N. 06/08/19 13:13: MS/NEURO /GI - pt denies nausea, states his vision isn't as bad as yesterday, speech clear, phys therapy in and pt willing to have vestibular eval testing at bedside. Addendum entered by Mag Dove R.N. 06/08/19 10:14: NEURO/PAIN/GI - when pt awake, states able to eat some breakfast, piece gilmore, fruit, coffee, denies nausea now, colostomy with formed stool palpated, active bt, states rectal pain 7 on scale 0/10 and given 10mg po oxycodone with jello, pt raises himself up in bed and reports continued sensation of room spinning, pupils are equal but when asked if vision blurry, states no but he does see double images, such as across from bed the tv has a double image. Pt speech is clear and responses appropriate, no deficits ue/le. Original Note: AM NOTE - pt is asleep during bedside shift report, later awakens briefly for vitals, no complaints, would like to return sleep.
--- NOTE | 2019-06-08 10:13 | DI.ECHO.S_ITS ---
[facility]---------+ [facility] +---------+ : : [address] : : : : [id number] : : : : Phone: [phone]+ Echocardiogram Report + + :Name: MICHAEL RAMSEY Study Date: 06/08/2019 Height: 68 in : :[facility] Weight: 210 lb : : Gender: Male BSA: 2.1 m2 : :: 1950 Age: 68 yrs BP: 140/73 mmHg: :Reason For Study: TIA : :Ordering Physician: Samira : :Hospitalist Performed By: Abigail Jasso : :Referring: RACHID EAGLE : + + Interpretation Summary There is an echogenic structure which is elongated but tip appears to be somewhat rounded with some calcification seen attached to the ventricular surface of anterior mitral leaflets. It is small in size. It does not has independent movement. Does not appears to be typical vegetation or thrombus. However cannot rule out possibility of fibroelastoma or calcified chordae.No significant mitral valve stenosis or mitral regurgitation. Correlate clinically. There is discrete nodular thickening of the non- coronary cusp. Consider BART for further evaluation. The left ventricle is normal in size. The left ventricle is hyperdynamic. The ejection fraction is estimated to be 70-75%. The left ventricular outflow velocity with valsalva is 3.11m/s. 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 The echo findings are consistent with mild dynamic left ventricular intracavitary obstruction. The right ventricle is normal in size and function. Findings were discussed with Dr. Eagle. Procedure: A two-dimensional transthoracic echocardiogram with color flow and Doppler was performed. The study quality was technically adequate. There is no prior echocardiogram noted for this patient. The patient was in normal sinus rhythm during the exam. The heart rate ranged between 93-97 bpm during the study. Left Ventricle: The LVOT velocity is 1.46 m/s. The left ventricular outflow velocity with valsalva is 3.11m/s. The left ventricle is normal in size. There is mild concentric left ventricular hypertrophy. 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 The echo findings are consistent with mild dynamic left ventricular intracavitary obstruction. There is no thrombus. The ejection fraction is estimated to be 70-75%. The left ventricle is hyperdynamic. There are no focal wall motion abnormalities. Diastolic parameters suggest a relaxation abnormality of the left ventricle, consistent with probable normal filling pressures. Right Ventricle: The right ventricle is normal in size and function. Atria: Both atria are normal in size. There is no Doppler evidence for an interatrial shunt. Mitral Valve: There is mild mitral annular calcification. There is an echogenic structure which is elongated but tip appears to be somewhat rounded with some calcification seen attached to the ventricular surface of anterior mitral leaflets. It is small size. It does not has independent movement. Does not appears to be typical vegetation or thrombus. However cannot rule out possibility of fibroelastoma or calcified chordae. No significant mitral valve stenosis. There is trace mitral regurgitation. Aortic Valve: The aortic valve is trileaflet. The aortic valve opens well. The aortic valve is mildly calcified. There is discrete nodular thickening of the non- coronary cusp. There is no aortic valve stenosis. No aortic regurgitation is present. Tricuspid Valve: The tricuspid valve is normal in structure and function. There is a trace or physiologic amount of tricuspid regurgitation. Pulmonary artery pressures cannot be estimated because of the lack of a measurable TR jet velocity. Pulmonic Valve: The pulmonic valve is not well seen, but is grossly normal. There is trace pulmonic regurgitation. Great Vessels: The aortic root is normal size. The ascending aorta is normal in size. The IVC is of normal diameter and collapses greater than 50% with a sniff. This suggests a low right atrial pressure of 3 mm Hg. Pericardium/ Pleura There is no pericardial effusion. MMode/2D Measurements & Calculations LVIDd: 4.7 cm LVOT diam: 2.0 cm LVIDs: 2.8 cm Ao root diam: 3.1 cm FS: 40.3 % asc Aorta Diam: 2.7 cm IVSd: 1.1 cm Ao Arch Diam (Prox Trans): 2.8 cm LVPWd: 1.2 cm LV red. diameter/BSA (cm/m^2): 2.2 LV sys. diameter/BSA (cm/m^2): 1.3 LA A2 area: 15.9 cm2 RA long axis: 4.5 cm LA A4 area: 15.4 cm2 RA area: 13.7 cm2 LA length (vol): 4.5 cm RA vol: 35.3 ml LA vol: 46.5 ml RA : 16.9 ml/m2 LA vol index: 22.3 ml/m2 IVC diam: 1.2 cm RVD1 (basal): 3.7 cm RVD2 (mid): 3.1 cm TAPSE: 1.9 cm Doppler Measurements & Calculations Ao V2 max: 156.5 cm/sec LVOT Max James: 144.0 cm/sec Ao V2 mean: 111.0 cm/sec LV V1 max P.3 mmHg Ao max P.8 mmHg LV V1 VTI: 29.7 cm Ao mean P.5 mmHg PHUC(I,D): 2.8 cm2 Ao V2 VTI: 33.4 cm PHUC(V,D): 2.9 cm2 sev ratio: 0.89 PHUC indexed to BSA (cm^2/m^2): 1.3 MV E max james: 66.2 cm/sec PA V2 max: 98.0 cm/sec MV A max james: 126.0 cm/sec PA V2 mean: 72.4 cm/sec MV E/A: 0.53 PA mean P.3 mmHg Med Peak E' James: 6.2 cm/sec PA pr(Accel): 46.3 mmHg E/E' med: 10.7 PA Accel Time: 0.07 sec Lat Peak E' James: 8.5 cm/sec E/E' lat: 7.8 E/e' average: 9.2 SV(LVOT): 94.0 ml Reading Physician:03:55 PM
--- NOTE | 2019-06-08 10:44 | CM.DANOTE ---
DCP: Case received, EMR reviewed and met with patient. Introduced self and role. Was able to meet with patient and obtain information regarding baseline health, activity level, and living situation. DCP assessment completed with information currently available. Patient is a 68 year old male who admitted yesterday evening to the care of the hospitalist team. PCP: Dr. Eagle. Oncologist: Dr. Rust. Payer: confirmed: Medicare/Medicaid. Patient came to the hospital via ambulance secondary to having dizziness, to the point that it was difficult for patient to walk. Patient has historyof colorectal cancer, he has an ostomy. He also has history of lung cancer, and has had part of his lung removed. Patient has gone to various providers, [facility], as well as [facility], secondary to his complications of cancer, and surgeries. Met with patient in his room. Pleasant. Confirmed that he resides here in [place] with his life partner, Yesenia Connelly, who is also his caregiver. Patient stated that he does not drive. He does use a cane as well as walker at home. He has been able to manage his ostomy, with no problems. Patient stated that he has used [facility] in the past, and is planning on using them again after he gets out of [facility]. He mentioned that he is supposed to go to [facility] to have a biopsy done of his lungs. Patient currently sees Dr. Rust, and is familiar with SUSIE Perales. He mentioned that he would like to talk to her, for he has some information for her. Let him know that this case sealer would attempt to reach her. Left a message on Angella's phone, over at oncology. Patient is to be having echo today. Will see if he has any P.T. orders. P: DCP will continue to follow closely and be available for any resources needed before he goes home. Racheal Romero RN/[employer]
--- NOTE | 2019-06-08 10:59 | DI.MRI.S_ITS ---
PROCEDURE: MR STROKE Pre- and post-contrast brain MRI, non-contrast brain MR angiogram, pre- and postcontrast neck MR angiogram INDICATIONS: TIA TECHNIQUE: Brain: Noncontrast axial T1 spin echo, axial T2 fast spin echo, sagittal and axial FLAIR, coronal T2 fast spin echo, axial gradient echo, axial diffusion and ADC through the brain. After the administration of contrast, axial 3D VIBE of the cranial vasculature and brain. Brain MRA: Non-contrast 3-D time of flight MR angiogram, with multiple zorycmm-dqztfmsew-yonojogqfg (MIP) reformats performed. Neck MRA: Axial and sagittal TruFISP through the neck. Coronal dynamic MR angiogram during administration of contrast in the arterial and venous phases, with 3-dimenstional ftbnxvg-ugiqtsedg-gsbzvxrind (MIP) reformats constructed from subtraction images. COMPARISON: None. FINDINGS: Image quality: Excellent. BRAIN: CSF spaces: Ventricles are normal in size and shape. Basal cisterns are patent. No extra-axial fluid collections. Brain: No intracranial bleeds or mass effects. Srivastava-white matter interface is normal. Diffusion weighted images show no acute ischemic insults. Brainstem appears normal. Normal intravascular flow voids are present. No abnormal intracranial enhancement. Skull and face: Calvarial marrow signal is normal. Orbits appear normal. Sinuses: Sinuses and mastoids are clear. BRAIN MR ANGIOGRAM: Anterior circulation: Intracranial internal carotid arteries are normal in size and enhancement. The flow within the paired anterior cerebral arteries is normal and symmetric. The flow within the middle cerebral arteries is normal and symmetric. The anterior communicating artery is seen. No stenoses, occlusions, or aneurysms. Posterior circulation: The visualized portions of the vertebral arteries demonstrate normal caliber, and join to form a normal appearing basilar artery. The flow within the posterior cerebral arteries is normal and symmetric. No stenoses, occlusions, or aneurysms. NECK MR ANGIOGRAM: Carotids: Great vessels demonstrate a conventional anatomy as they arise from the aortic arch. The origins of the common carotid arteries appear patent. The calibers and courses of both common carotid arteries are normal. The bifurcation regions appear normal bilaterally. The internal carotid arteries demonstrate normal course and caliber. Posterior circulation: The origins of the vertebral arteries appear patent. More superior portions of both vertebral arteries demonstrate normal course and caliber, and join to form a normal appearing basilar artery. Miscellaneous: Subclavian arteries appear patent. Pre-contrast images through the neck show no soft tissue abnormalities. IMPRESSION: BRAIN MRI: Mild microvascular atherosclerotic change in the deep white matter of each hemisphere. No sign of acute or subacute stroke or prior stroke from the distant past. Posterior fossa structures appear normal in this patient with new onset vertigo. No skull base mass is identified. BRAIN MR ANGIOGRAM: Normal intracranial MR angiogram. NECK MR ANGIOGRAM: Normal cervical MR angiogram. Dictated by: Trace Medrano M.D. on 06/08/2019 at 16:15 Approved by: Trace Medrano M.D. on 06/08/2019 at 16:18
[2019-06-08 11:25] LABS: Cholesterol 208 mg/dL (140-199); HDL Cholesterol 33 mg/dL (40-60); LDL Cholesterol Calculated 134 mg/dL (<100); Triglycerides 204 mg/dL (35-150)
[2019-06-08 11:33] LABS: Hemoglobin A1C% w Est Avg Glu 6.1 % (4.0-6.0)
[2019-06-08] MEDS: DEXTROSE 5%-0.45% NS 1,000 ML 100 ML IV ×2 (11:49→22:35)
[2019-06-08] MEDS: ENOXAPARIN 40 MG/0.4 ML SYRINGE SUBCUT (11:56)
[2019-06-08] MEDS: ASPIRIN EC 325 MG TABLET PO (11:56)
[2019-06-08 12:00] VITALS: BP 154/75; PULSE 90; RESP 18; TEMP 36.7; O2SAT 93
[2019-06-08 12:25] LABS: Prothrombin Time 11.8 SECONDS (10.1-12.7)
[2019-06-08] MEDS: lisinopriL 10 MG TABLET PO (12:47)
--- NOTE | 2019-06-08 13:14 | SLP.IPNOTE ---
Speech therapy orders received. Attempted to see patient twice, but unable due to MD in room and later working with PT. Spoke with nursing who reports patient is not having difficulty with swallowing or speech. Will re-attempt eval tomorrow.
--- NOTE | 2019-06-08 14:09 | P.DS_ITS ---
History of Present Illness History of Present Illness Chief complaint: vertigo, n/v Narrative: 68 year old male with rectal cancer and squamous cell carcinoma of the left lung is admitted for observation from the ED secondary to profound dizziness x 12 hours, sudden onset. Symptoms started while he was standing in his kitchen. Prior to that, he had right-sided numbness x3 days. Was feeling unsteady on his feet. Numbness has since resolved. Associated left sided headache and vomiting. Denies weakness. No recent falls or injuries. No recent illnesses. Dizziness improves when his eyes are closed. Reports similar episode approximately 18 months ago after he was first diagnosed with rectal cancer. Vital signs admission to the ED included temperature of 98.4?, pulse 97, respirations 18, blood pressure 219/100 O2 saturation 100% on air. Repeat blood pressure 176/76. Lab including BMP and CBC significant for slightly low hematocrit 39.7 and a slightly low sodium at 1:[address] head and CTA h ead/neck was negative. 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 Discharge Providers Provider Date of admission: 06/07/19 21:16 Discharge Date: 06/08/19 Primary care physician: Judith Eagle MD Consults: 06/07/19 21:11 Consult to Physician Stat Comment: Consulting Provider: Judith Eagle Reason for consultation: Admission Has provider been notified: No Consult to Physician Urgent Comment: Consulting Provider: Maegan So Reason for consultation: Admission Has provider been notified: Yes 06/08/19 10:17 Consult to Occupational Therapy Evaluate & Treat Comment: Physician Instructions: Evaluate and treat Consult to Physical Therapy Evaluate & Treat Comment: Physician Instructions: Evaluate and Treat Consult to Speech Therapy Evaluate & Treat Comment: Physician Instructions: Evaluate and treat 06/08/19 10:21 Consult to Discharge Planning Routine Comment: Discharge provider: Judith Eagle MD Exam Vital Signs (past 8 hours): - 06/08/19 08:00 06/08/19 12:00 Temperature 98.5 F 98.1 F Pulse Rate 99 H 90 Respiratory Rate 18 18 Blood Pressure 131/80 154/75 H Pulse Oximetry 94 93 Oxygen Delivery Method Room Air Oxygen Flow Rate 0 Objective Labs Result Diagrams: 06/08/19 06:28 06/08/19 06:28 Labs: Laboratory Results - last 24 hr 06/07/19 06/07/19 06/08/19 16:10 16:10 06:28 WBC 6.8 6.2 RBC 4.77 5.08 Hgb 13.7 14.3 Hct 39.7 L 42.9 MCV 83.1 84.5 MCH 28.6 28.1 MCHC 34.5 33.3 RDW 13.5 13.6 Plt Count 161 193 Neut % (Auto) 88.3 H 93.9 H Lymph % (Auto) 7.2 L 5.1 L [place] % (Auto) 4.0 0.7 L Eos % (Auto) 0.2 L 0.1 L Baso % (Auto) 0.3 0.2 Neut # (Auto) 6000 5800 Lymph # (Auto) 500 L 300 L [place] # (Auto) 300 0 Eos # (Auto) 0 0 Baso # (Auto) 0 0 PT INR Sodium 134 L Potassium 4.2 Chloride 100 Carbon Dioxide 24 BUN 17 Creatinine 0.60 L Estimated GFR > 60.0 BUN/Creatinine Ratio 28.3 H Glucose 148 H Hemoglobin A1c Calcium 9.1 Triglycerides Cholesterol LDL Cholesterol, Calc HDL Cholesterol 06/08/19 06/08/19 06/08/19 06:28 06:28 06:28 WBC RBC Hgb Hct MCV MCH MCHC RDW Plt Count Neut % (Auto) Lymph % (Auto) [place] % (Auto) Eos % (Auto) Baso % (Auto) Neut # (Auto) Lymph # (Auto) [place] # (Auto) Eos # (Auto) Baso # (Auto) PT INR Sodium 138 Potassium 4.4 Chloride 103 Carbon Dioxide 27 BUN 14 Creatinine 0.70 Estimated GFR > 60.0 BUN/Creatinine Ratio 20.0 Glucose 179 H Hemoglobin A1c 6.1 H Calcium 9.3 Triglycerides 204 H Cholesterol 208 H LDL Cholesterol, Calc 134 H HDL Cholesterol 33 L 06/08/19 11:20 WBC RBC Hgb Hct MCV MCH MCHC RDW Plt Count Neut % (Auto) Lymph % (Auto) [place] % (Auto) Eos % (Auto) Baso % (Auto) Neut # (Auto) Lymph # (Auto) [place] # (Auto) Eos # (Auto) Baso # (Auto) PT 11.8 INR 1.0 Sodium Potassium Chloride Carbon Dioxide BUN Creatinine Estimated GFR BUN/Creatinine Ratio Glucose Hemoglobin A1c Calcium Triglycerides Cholesterol LDL Cholesterol, Calc HDL Cholesterol Discharge Plan Discharge orders & Medications Prescriptions: No Action trazodone 50 mg tablet See Rx Instructions PO BEDTIME PRN (Reason: sleep) Qty: 30 RF: 2 escitalopram oxalate 20 mg tablet 20 mg PO DAILY Qty: 30 RF: 1 polyethylene glycol 3350 [Miralax] 17 gram Powder In Packet 17 g PO BID RF: 0 docusate sodium 100 mg Capsule 100 mg PO BID PRN (Reason: Constipation) RF: 0 albuterol sulfate [Ventolin HFA] 90 mcg/actuation Hfa Aerosol Inhaler 1 - 2 puff INHALATION Q4-6H RF: 0 prochlorperazine maleate 10 mg Tablet 10 mg PO Q6H PRN (Reason: nausea vomiting) Qty: 120 RF: 0 lorazepam 0.5 mg tablet 0.5 mg PO BID PRN (Reason: Nausea And Vomiting) Qty: 60 RF: 0 oxycodone 10 mg Tablet 10 mg PO Q6H PRN (Reason: prn, rectal pain) Qty: 120 RF: 0 lisinopril 10 mg Tablet 10 mg PO DAILY RF: 0 Follow up/Referrals: Judith Eagle MD [Primary Care Provider] - Discharge Data Primary Care Provider: Judith Eagle Attending Provider: Judith Eagle Admit Date/Time: 06/07/19 21:16 Quality VTE Deep Vein Thrombosis/Pulmonary Embolism Present on Admission: No
--- NOTE | 2019-06-08 14:47 | PT.IIE ---
Surgical History (Last Reviewed 06/07/19 @ 19:19 by Andrew Hunter DO) History of bronchoscopy (Acute 02/03/18) History of lung biopsy (Acute 11/29/17) Hx of colonoscopy with polypectomy (Acute) Medical History (Last Reviewed 06/07/19 @ 19:19 by Andrew Hunter DO) COPD (chronic obstructive pulmonary disease) (Acute) Fatigue (Acute) Hx of nephrolithotomy with removal of calculi (Acute) Hypertension (Acute) Obesity (Acute) Port-A-Cath in place (Acute) Rectal adenocarcinoma (Acute) Rectal mass (Acute) Sleep apnea (Acute) 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) Weakness (Acute) Physical Therapy Inpatient Evaluation/Re-Eval M1 PT/OT-IP Prior Functional Status Start: 06/08/19 14:19 Freq: NEEDED Status: Active Protocol: Document 06/08/19 13:00 MB (Rec: 06/08/19 14:47 MB [id number]) Medical Review Prior Functional Status Medical History Reviewed Yes Communication Normal, pleasantly hyperverbal , occ trouble staying on task, answering direct questions Mobility and Gait Pt has colostomy, currently being treated for rectal cancer, per his report. He has a history of lung and skin cancer as well. Used a walker DISK RECORDIST, lives with girlfriend, he denies falls Activities of Daily Living and IADL's Assist as needed from girlfriend Social History Household Members significant other,caregiver Living Arrangements House Additional Social History Comment Difficult for pt to stay on task for answering questions, he reports he has all needs at home, will go ahead and make a stair goal d/t multiple trips to various facilities M2 PT-IP Current Condition Start: 06/08/19 14:19 Freq: NEEDED Status: Active Protocol: Document 06/08/19 13:00 MB (Rec: 06/08/19 14:47 MB [id number]) Physical Therapy Current Condition Current Condition Evaluation Date 06/08/19 Treatment Diagnosis Vertigo and spontaneous nystagmus, current CA Precautions Other Precautions Fall risk, pt wears glasses and has colostomy M3 PT-IP Subjective Start: 06/08/19 14:19 Freq: NEEDED Status: Active Protocol: Document 06/08/19 13:00 MB (Rec: 06/08/19 14:47 MB [id number]) Subjective Physical Therapy Visit Type Type Initial Evaluation Visit Start Time 13:00 Visit Stop Time 13:41 Total Visit Minutes 41 Number of DISK RECORDIST Visits 0 Physical Therapy Visit Comments Patient Comments Pt is in good spirits, talks about his upcoming cancer treatment for rectal cancer. Patient Goals To get his cancer treatments done Therapy Pain Assessment Pain When Pain Assessed At Rest Pain Present Pain Present Denied Pain M4 PT-IP Mobility and Gait Start: 06/08/19 14:19 Freq: NEEDED Status: Active Protocol: Document 06/08/19 13:00 MB (Rec: 06/08/19 14:47 MB [id number]) PT-Bed Mobility Assessment Rolling Type of Rolling Roll to Right,Roll to Left Supine to Sit Supine to Sit Contact Guard Assistance Sit to Supine Sit to Supine Contact Guard Assistance Scooting Scooting to Edge of Bed Minimal Assistance PT-Transfer Assessment Sit to and From Stand Sit to and from Stand Minimal Assistance Equipment Transfer Assistive Device Gait Belt Transfer Ability Level of Assist Minimal Assistance Comments Mobility Comments PT sitting in front of pt. Pt holds on to PT's thighs to stand so that PT can assess for dysmetria and ataxia. He uses PT's shoulders for support in standing. He occ has head list to the left, oscillopsia. Gait Assessment Gait Gait Assistance Required: Minimum Assistance Distance (Feet) 2 Assistive Devices Assistive Device Gait Belt Gait Deviations General Gait Pattern Ataxic Factors Limiting Gait Function Factors Limiting Gait Function Poor Balance Comments Gait Comments 2 steps forward and back x2 so that PT can assess balance, gait and ataxia. He presents with dysmetria right foot/ ataxic-type movement. PT in front of pt and pt placing his hands on PT's shoulders, PT light support at gait belt. Returned to bed to prepare for MRI. PT-Balance Assessment Sitting Balance and Reactions Static Sitting Balance Ability Fair Dynamic Sitting Balance Ability Poor Standing Balance and Reactions Static Standing Balance Ability Poor Dynamic Standing Balance Ability Poor Comments Other Balance Tests/Deviations/Treatment Pt uses feet on floor and PT's : thighs to steady himself in dynamic to static sitting. He requires B UE support on PT's shoulders for static standing. M5 PT-IP Objective Assessments Start: 06/08/19 14:19 Freq: NEEDED Status: Active Protocol: Document 06/08/19 13:00 MB (Rec: 06/08/19 14:47 MB [id number]) Orientation Orientation/Cognition Level of Alertness Alert Orientation Name,Age,Birthday,Month,Date, Year,Place,Situation Language Function Ability No Deficits Noted Safety Awareness Understands Safety Issues Comments Pt is pleasant, agreeable to many vestibular tests, occ hyperverbal and difficult to answer direct questions, talks about CA frequently, expresses hopefulness Gross Range of Motion Upper Extremity ROM Assessment Within Functional Limits Lower Extremity ROM Assessment Within Functional Limits Strength Upper Extremity Strength Assessment Right Impaired Shoulder Right Abduction 4/5 Elbow Right Flexion 4/5 Hand Right Health It Specialist weaker than the left Lower Extremity Strength Assessment Within Functional Limits Comments Strength Comments R shoulder, elbow and ent nurse is weaker than the left. Pt is right hand dominant Coordination Assessment Gross Coordination Gross Coordination Impaired Assessment Finger to Nose Test Moderate Impairment Pronation/Supination Test Minimal Impairment Foot Tapping Test Moderate Impairment Coordination Comments L sided normal. 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 Pt cannot report if he has a hearing change that is acute. He reports this is the second episode that he has had in the last month. M7 PT-IP Assessment and Plan Start: 06/08/19 14:19 Freq: NEEDED Status: Active Protocol: Document 06/08/19 13:00 MB (Rec: 06/08/19 14:47 MB [id number]) PT Summary Assessment and Plan Potential Rehabilitation Potential Fair Status of Condition at Evaluation Evolving Summary Impairments Strength,Balance,Coordination, Bed Mobility,Transfers,Gait, Activity Tolerance Assessment Summary Pt is a 74 y/o male presenting with spontaneous nystagmus that does not change direction (always right beating with torsional component) that changes speed with right and left gaze, faster with right gaze. His Head Impulse test is positive for left VOR hypofunction (and this does follow the nystagmus pattern type). Test of Skew is negative (negative central finding) and he cannot reliably report hearing change . His HINTS exam does point to peripheral dizziness; however , he does present with right- sided weakness, dysmetria, dysdiadochokinesia right hand and foot and ataxic stepping on the right foot. These findings are concerning for central problem. He also has the history of cancer in multiple locations. Pt is going for a brain MRI this afternoon. Pt will benefit from PT for balance, mobility and gait training. Prognosis is guarded given his overall medical status. Goals Bed Mobility Goal Independent Transfer Goal Independent Gait Goal Independent Gait Distance 100 Other Goals Use of RW for gait Pt will ascend and descend 3 steps with rail and superv. Days to Meet Goals 10 Frequency of Treatment Frequency Of Treatment Once a Day Treatment Plan Physical Therapy Treatment Plan Bed Mobility Training,Transfer Training,Gait Training, Therapeutic Exercise,Balance Retraining,Neuromuscular Re-ed ,Coordination Retraining Other Recommendations and Next Treatment Further balance exercises and Focus training, further gait Recommendations To Nursing Amount of Assist Needed 1 Person Assist Discharge Recommendations Other Discharge Recommendations 24 hour asst and PT at d/c. Medical presentation not yet known, waiting on MRI and he also has further CA treatment. Transportation Needs at Discharge Private Vehicle
--- NOTE | 2019-06-08 15:09 | OT.IP.TRT ---
Occupational Therapy Administrative Note M3 OT- IP Subjective and Pain Start: 06/08/19 15:04 Freq: Status: Active Protocol: Document 06/08/19 15:09 PIPER (Rec: 06/08/19 15:10 PIPER [id number]) OT- Subjective Occupational Therapy Visit Type Type Administrative Note Visit Start Time 15:00 Notes Attempted to see pt, but he is just getting ready to go to MRI. Will attempt again in AM.
[2019-06-08 16:15] VITALS: BP 151/79; PULSE 88; TEMP 36.7; O2SAT 95
[2019-06-08 20:55] VITALS: BP 133/62; PULSE 87; RESP 20; TEMP 36.7
[2019-06-08] MEDS: ATORVASTATIN 20 MG TABLET PO (22:36)
[2019-06-08] MEDS: polyethylene glycoL 3350 17 GM POWD.PACK PO (22:36)
[2019-06-09 00:25] VITALS: BP 130/58; PULSE 74; RESP 16; TEMP 36.4; O2SAT 94
[2019-06-09] MEDS: OXYCODONE IR 10 MG TABLET PO (04:58)
[2019-06-09 05:03] VITALS: BP 119/45; PULSE 81; RESP 20; TEMP 36.4; O2SAT 93
[2019-06-09 06:49] LABS: BUN Creatinine Ratio 24.3 (6-22); Blood Urea Nitrogen 17 mg/dL (9-20); Calcium 8.7 mg/dL (8.4-10.2); Carbon Dioxide 31 mmol/L (22-32); Chloride 102 mmol/L (98-107); Estimated Glomerular Filt Rate > 60.0 mL/min (>60); Glucose 127 mg/dL (80-110); HEMOLYSIS < 15 (0-50); Potassium 4.3 mmol/L (3.4-5.1); Sodium 138 mmol/L (137-145)
[2019-06-09] MEDS: DEXTROSE 5%-0.45% NS 1,000 ML 100 ML IV (06:58)
--- NOTE | 2019-06-09 07:44 | P.DS_ITS ---
History of Present Illness History of Present Illness Date Patient Seen: 06/09/19 Time Patient Seen: 07:44 Chief complaint: vertigo, n/v Narrative: 68 year old male with rectal cancer and squamous cell carcinoma of the left lung is admitted for observation from the ED secondary to profound dizziness x 12 hours, sudden onset. Symptoms started while he was standing in his kitchen. Prior to that, he had right-sided numbness x3 days. Was feeling unsteady on his feet. Numbness has since resolved. Associated left sided headache and vomiting. Denies weakness. No recent falls or injuries. No recent illnesses. Dizziness improves when his eyes are closed. Reports similar episode approximately 18 months ago after he was first diagnosed with rectal cancer. Vital signs admission to the ED included temperature of 98.4?, pulse 97, respirations 18, blood pressure 219/100 O2 saturation 100% on air. Repeat blood pressure 176/76. Lab including BMP and CBC significant for slightly low hematocrit 39.7 and a slightly low sodium at 1:[address] head and CTA head/neck was negative. Discharge Providers Provider Date of admission: 06/07/19 21:16 Discharge Date: 06/09/19 Primary care physician: Judith Eagle MD Consults: 06/07/19 21:11 Consult to Physician Stat Comment: Consulting Provider: Judith Eagle Reason for consultation: Admission Has provider been notified: No Consult to Physician Urgent Comment: Consulting Provider: Maegan So Reason for consultation: Admission Has provider been notified: Yes 06/08/19 10:17 Consult to Occupational Therapy Evaluate & Treat Comment: Physician Instructions: Evaluate and treat Consult to Physical Therapy Evaluate & Treat Comment: Physician Instructions: Evaluate and Treat Consult to Speech Therapy Evaluate & Treat Comment: Physician Instructions: Evaluate and treat 06/08/19 10:21 Consult to Discharge Planning Routine Comment: Discharge provider: Judith Eagle MD Summary Hospital Course Discharge Diagnosis: 1. Transient ischemic attack, new 2. Hyperlipidemia, chronic. 3. Hypertension, essential, chronic. 4. Chronic pelvic pain, secondary to his rectal cancer treatments. 5. Anxiety with depression, chronic. 6. Insomnia, chronic. 7. Rectal cancer and squamous cell carcinoma left lung, present on admission 8. Gross hematuria, history of, secondary to kidney stones. 9. Obesity, BMI 34.3 10. History of smoking with chronic dyspnea. Hospital Course: In the ED, initial CT head and CTA brain/neck reassuring. Fol low-up MR stroke protocol was nonrevealing. Carotid Doppler ultrasound showed stenosis of less than 50% bilaterally. Echo was abnormal for a small, elongated, echogenic structure with some calcification seen attached to the ventricular surface of anterior mitral leaflets. It did not have independent movement and was not typical for vegetation or thrombus but a fibroelastoma or calcified chordae could not be ruled out. Ejection fraction was estimated to be 70-75%. 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 Case was discussed with Dr. Zhu who read the study, he recommended a BART for further evaluation which is not available at this hospital. Other significant findings from his workup included borderline hyperlipidemia with a total cholesterol 208, HDL 33, LDL 134, triglycerides 204. He was started atorvastatin 20 mg p.o. q.h.s.. A1c also found to be in the prediabetic range at 6.1%. ABCD2 risk score 6 in this high risk patient with both rectal and lung cancer. Blood pressure was initially high in the ED but has been well controlled throughout his stay. Aspirin 305 mg p.o. q.day was started and he is on therapeutic doses of Lovenox, this will be held prior to transport in anticipation of his BART. Clinically, he reports that his right-sided weakness has improved. Vertigo continues but improves when when he closes his eyes. PT reports objective find ings of right beating torsional nystagmus and positive right-sided dysdiadochokinesia. Case has been discussed with Dr. Frankel at [facility], who has kindly agreed to accept transfer of care. Exam Vital Signs (past 8 hours): - 06/09/19 00:25 06/09/19 05:03 Temperature 97.6 F 97.6 F Pulse Rate 74 81 Respiratory Rate 16 20 Blood Pressure 130/58 L 119/45 L Pulse Oximetry 94 93 Oxygen Delivery Method Room Air Oxygen Flow Rate 0 Narrative Exam Narrative: GENERAL: Alert and oriented, appearing stated age and in no acute distress. HEENT: Head normocephalic/atraumatic. Pupils equal, round, and reactive to light and accomodation. Extraocular muscles intact. Tympanic membranes clear. Nasal mucosa moist, septum midline. Oral mucosa moist, no lesions. Neck soft and supple, no lymphadenopathy. LUNGS: Clear to ausculation bilaterally, no wheezes, rhonchi or rales. CV: Normal S1 and S2 with regular rate and rhythm, no audible murmurs, rubs or gallops. ABDOMEN: Soft, non-tender, non-distended, no organomegaly. Colostomy bag in place, clean, dry and intact. Positive bowel sounds. EXTREMITIES: No clubbing, cyanosis, or edema. NEURO: Cranial nerves II through XII grossly intact, no focal deficits. PSYCH: Alert and oriented x 3. SKIN: No concerning lesions. Port in place, right upper chest. Objective Labs Result Diagrams: 06/08/19 06:28 06/09/19 05:55 Labs: Laboratory Results - last 24 hr 06/08/19 06/08/19 06/08/19 06:28 06:28 11:20 PT 11.8 INR 1.0 Sodium Potassium Chloride Carbon Dioxide BUN Creatinine Estimated GFR BUN/Creatinine Ratio Glucose Hemoglobin A1c 6.1 H Calcium Triglycerides 204 H Cholesterol 208 H LDL Cholesterol, Calc 134 H HDL Cholesterol 33 L 06/09/19 05:55 PT INR Sodium 138 Potassium 4.3 Chloride 102 Carbon Dioxide 31 BUN 17 Creatinine 0.70 Estimated GFR > 60.0 BUN/Creatinine Ratio 24.3 H Glucose 127 H Hemoglobin A1c Calcium 8.7 Triglycerides Cholesterol LDL Cholesterol, Calc HDL Cholesterol Discharge Plan Discharge Plan Patient Disposition: [facility] Other facility: [facility] Health Status Precautions: [place] Diet/Activity/Treatments Diet: Nothing by Mouth Activity: as tolerated with assist Visit Report/Discharge Packet Instructions: DI for Dizziness-Nonvertigo Discharge Data Primary Care Provider: Judith Eagle Attending Provider: Judith Eagle Admit Date/Time: 06/07/19 21:16 Quality VTE Deep Vein Thrombosis/Pulmonary Embolism Present on Admission: No
--- NOTE | 2019-06-09 08:30 | PC.NURSE ---
Addendum entered by Deandre Rivas R.N. 06/09/19 12:49: report given to Deb at [facility]. Report given to ambulance EMT's. patient left on hospital monitor w/ ivf. VSS. Original Note: POC: PATIENT TO BE TRANSFERRED TO [facility] FOR BART PROCEDURE PER DR. GAXIOLA. HOLD ASA AND LOVENOX THIS AM. MD NOTIFIED PATIENT HAD REFUSED HIS LOVENOX LAST NIGHT. PATIENT MAY HAVE BREAKFAST AND TAKE OTHER USUAL MEDS. NPO FOR AMBULANCE RIDE, IVF AND BODY ROLLING MACHINE TENDER FOR AMBULANCE RIDE.
[2019-06-09] MEDS: lisinopriL 10 MG TABLET PO (08:39)
[2019-06-09] MEDS: ONDANSETRON 4 MG/2 ML INJ IV (08:39)
[2019-06-09] MEDS: polyethylene glycoL 3350 17 GM POWD.PACK PO (08:39)
[2019-06-09] MEDS: ESCITALOPRAM 10 MG TABLET 20 MG PO (08:39)
--- NOTE | 2019-06-09 08:44 | PT.IPTN ---
Physical Therapy Treatment Note M2 PT-IP Current Condition Start: 06/08/19 14:19 Freq: NEEDED Status: Active Protocol: Document 06/08/19 13:00 MB (Rec: 06/08/19 14:47 MB [id number]) Physical Therapy Current Condition Current Condition Evaluation Date 06/08/19 Treatment Diagnosis Vertigo and spontaneous nystagmus, current CA Precautions Other Precautions Fall risk, pt wears glasses and has colostomy M3 PT-IP Subjective Start: 06/08/19 14:19 Freq: NEEDED Status: Active Protocol: Document 06/09/19 07:45 MB (Rec: 06/09/19 08:44 MB [id number]) Subjective Physical Therapy Visit Type Type Treatment Note Visit Start Time 07:45 Visit Stop Time 08:25 Total Visit Minutes 40 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 Therapy Pain Assessment Pain When Pain Assessed At Rest Pain Present Pain Present Denied Pain M4 PT-IP Mobility and Gait Start: 06/08/19 14:19 Freq: NEEDED Status: Active Protocol: Document 06/09/19 07:45 MB (Rec: 06/09/19 08:44 MB [id number]) PT-Bed Mobility Assessment Supine to Sit Supine to Sit Standby Assistance Scooting Scooting to Edge of Bed Standby Assistance PT-Transfer Assessment Sit to and From Stand Sit to and from Stand Minimal Assistance Equipment Transfer Assistive Device Gait Belt Transfers Transfer Destination Chair Transfer Technique R side steps Transfer Ability Level of Assist Minimal Assistance Comments Mobility Comments Pt mobilizes in the bed without asst, with PT nearby, HOB increased and use of rail, supine to sitting on the right side of bed. Pt requires min A with L hand hold asst and PT using gait belt for sit to stand and to take five side steps to the right. Short steps with decreased step- length and ELIZABETH. Gait Assessment Gait Gait Assistance Required: Minimum Assistance Distance (Feet) 3 Assistive Devices Assistive Device Gait Belt Gait Deviations General Gait Pattern Ataxic,Decreased Stride Length ,Decreased Feet Clearance, Narrow Based Gait Comments Gait Comments See above M5 PT-IP Objective Assessments Start: 06/08/19 14:19 Freq: NEEDED Status: Active Protocol: Document 06/08/19 13:00 MB (Rec: 06/08/19 14:47 MB [id number]) Orientation Orientation/Cognition Level of Alertness Alert Orientation Name,Age,Birthday,Month,Date, Year,Place,Situation Language Function Ability No Deficits Noted Safety Awareness Understands Safety Issues Comments Pt is pleasant, agreeable to many vestibular tests, occ hyperverbal and difficult to answer direct questions, talks about CA frequently, expresses hopefulness Gross Range of Motion Upper Extremity ROM Assessment Within Functional Limits Lower Extremity ROM Assessment Within Functional Limits Strength Upper Extremity Strength Assessment Right Impaired Shoulder Right Abduction 4/5 Elbow Right Flexion 4/5 Hand Right Registered Client Associate weaker than the left Lower Extremity Strength Assessment Within Functional Limits Comments Strength Comments 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 Pt is right hand dominant Coordination Assessment Gross Coordination Gross Coordination Impaired Assessment Finger to Nose Test Moderate Impairment Pronation/Supination Test Minimal Impairment Foot Tapping Test Moderate Impairment Coordination Comments L sided normal. 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 Pt cannot report if he has a hearing change that is acute. He reports this is the second episode that he has had in the last month. M6 PT-IP Treatment Start: 06/08/19 14:19 Freq: NEEDED Status: Active Protocol: Document 06/09/19 07:45 MB (Rec: 06/09/19 08:44 MB [id number]) Physical Therapy Treatment Education Education Provided Precautions,Safety Brace Education Patient Other Treatments Other Treatment Performed PT re-checks HINTS exam with nsg and doctor nearby. Same findings as yesterday: right beat torsional nystagmus that does not change direction but does increase with speed with right gaze and diminishes with left gaze, positive Head Impulse Test (Head Thrust) for left sided VOR hypofunction, negative test of Skew. Pt con' t with dysmetria right UE and LE with testing. His right LE strength is normal and equal compared to the left except for very slight weakness right hamstring. M7 PT-IP Assessment and Plan Start: 06/08/19 14:19 Freq: NEEDED Status: Active Protocol: Document 06/09/19 07:45 MB (Rec: 06/09/19 08:44 MB [id number]) PT Summary Assessment and Plan Potential Rehabilitation Potential Fair Status of Condition at Evaluation Unstable Summary Impairments Strength,Balance,Coordination, Bed Mobility,Transfers,Gait, Activity Tolerance Assessment Summary MRI brain was negative and doctor reports positive ECHO and pt to transfer to [facility] for [facility]. He con't with same HINTS testing favoring peripheral problem YET has central findings of dysmetria right extremities. He requires asst for gait and has trouble with gait and worsening dizziness sxs. Pt will benefit from PT for balance, mobility and gait training. Prognosis is guarded given his overall medical status. Goals Bed Mobility Goal Independent Transfer Goal Independent Gait Goal Independent Gait Distance 100 Other Goals Use of RW for gait Pt will ascend and descend 3 steps with rail and superv. Days to Meet Goals 10 Frequency of Treatment Frequency Of Treatment Once a Day Treatment Plan Physical Therapy Treatment Plan Bed Mobility Training,Transfer Training,Gait Training, Therapeutic Exercise,Balance Retraining,Neuromuscular Re-ed ,Coordination Retraining Other Recommendations and Next Treatment Further balance exercises and Focus training, further gait Recommendations To Nursing Amount of Assist Needed 1 Person Assist Discharge Recommendations Other Discharge Recommendations Per Dr. Eagle, pt to transfer to [facility] for further work-up. Recommend ambulance transfer given imbalance, dizziness and occ nausea in setting of current condition.
[2019-06-09 09:00] VITALS: BP 147/60; PULSE 74; RESP 18; TEMP 36.8; O2SAT 90
--- NOTE | 2019-06-09 11:43 | CM.DPC ---
DCP: continued: Case received and discussed in Team Rounds. Dr. Eagle has consulted with cardiology and pt is now transferring to [facility] for higher level of specialty care. Ambulance expected here at 1220.
--- NOTE | 2019-06-09 13:36 | ST.IPSCREEN ---
Speech therapy screen completed. Patient denies any symptoms of dysphagia or difficulty with speech, language and cognition. Patient is being transferred to [facility] today. No evaluation warranted at this time. D/c speech eval orders.
== END 2019-06-09 12:50 | disposition short-term general hospital (02) ==
LOC: ED 19:56 → AC 21:17
PROVIDERS: Emergency Medicine; Admitting Provider Student in an Organized Health Care Education/Training Program; Emergency Provider Emergency Medicine; Family Provider Student in an Organized Health Care Education/Training Program; PCP Student in an Organized Health Care Education/Training Program; Referring Provider Emergency Medicine; Visit Provider Student in an Organized Health Care Education/Training Program
DX: G45.9 Transient cerebral ischemic attack, unspecified (principal); R42 Dizziness and giddiness; I10 Essential (primary) hypertension; C20 Malignant neoplasm of rectum; F41.9 Anxiety disorder, unspecified; G47.00 Insomnia, unspecified; R31.9 Hematuria, unspecified; E66.9 Obesity, unspecified; Z68.34 Body mass index [BMI] 34.0-34.9, adult; Z87.891 Personal history of nicotine dependence; R06.00 Dyspnea, unspecified; C34.90 Malignant neoplasm of unspecified part of unspecified bronchus or lung
CPT/HCPCS: 36415; 36591; 70450; 70496; 70498; 70548; 70553; 80048; 80061; 83036; 85025; 85610; 93005; 93306; 93880; 96361; 96372; 96374; 96375; 96376; 97112; 97163; 97530; 99284; G0378; J1200; J1650; J2060; J2405; J2930; Q9967

== ENCOUNTER → 2019-06-30 14:04 | Outpatient (CLI) | payer MEDICARE, MEDICAID, SELFPAY ==
[2019-06-07 21:44] VITALS: BMI 34.3
--- NOTE | 2019-06-30 14:05 | DI.CT.S_ITS ---
PROCEDURE: CT CHEST WO CON INDICATIONS: lung cancer TECHNIQUE: Noncontrast 5 mm thick sections acquired from the pulmonary apices to the posterior costophrenic angles. 1 mm lung window, 5 mm thick coronal and sagittal and 7 mm axial MIP reformats were then acquired. For radiation dose reduction, the following was used: automated exposure control, adjustment of mA and/or kV according to patient size. COMPARISON: [facility], CT, CT CHEST WO CON, 05/25/2019, 12:59. FINDINGS: Image quality: Somewhat reduced in quality by absence of intravenous contrast. Lungs and pleura: No definite acute air space opacities, but at the right lung in this patient who has undergone prior left partial pneumonectomy for lung carcinoma there is a small nodule that was identified 05/25/19 which now is centrally cavitary but has not enlarged in size (series 3 image 106). More posteriorly at the same axial level is a finding of 2 adjacent posterior radiodensities which appear to represent. areas of redundancy of vessels rather than definite new pulmonary nodules (series 3 image 105 and 106). No pleural effusions or pneumothorax. Central and peripheral airways are patent and normal in caliber on the right but on the left at the level of the mainstem bronchus there is narrowing of the airway by 2 nodular adjacent rounded masses which appear appreciably more prominent in size than on the comparison study from 05/25/19. The best comparison is series 2 image 29 from May versus series 2 image 29 from the current study. Recurrent endobronchial masses are the likely cause given the change in appearance and reduction in caliber of the airway.. Mediastinum: Heart size is normal. No pericardial effusion. No mediastinal adenopathy by size criteria. Thoracic aorta and central pulmonary arteries are normal in size. Esophagus is normal in caliber. No hiatal hernia. Bones and chest wall: No suspicious bony lesions. No vertebral body compression fractures. No axillary or supraclavicular adenopathy by size criteria. Thyroid gland is not well-seen by this noncontrast technique. Abdomen: Visualized upper abdominal solid organs and bowel loops appear normal in the absence of contrast. IMPRESSION: 1. A small right upper lobe pulmonary nodule previously identified has not enlarged but has become centrally cavitary. This is a somewhat worrisome finding but could represent response to treatment between the 2 studies (05/25/19 versus the current study). 2 adjacent small nodular radiodensities more posteriorly within the right lung appear represent redundant vessels rather than new metastatic disease. 2. At the left mainstem bronchus 2 adjacent areas of nodular soft tissue radiodensity each measuring slightly under 1 cm in dimension appear to have enlarged, visibly narrowing the airway at that site. This is a worrisome finding that may represent endobronchial tumor recurrence. Nuclear medicine PET CT would provide anatomic resolution to establish this diagnosis and could be obtained if clinically indicated. Dictated by: Trace Medrano M.D. on 06/30/2019 at 16:56 Approved by: Trace Medrano M.D. on 06/30/2019 at 17:09
== END ==
PROVIDERS: Family Provider Student in an Organized Health Care Education/Training Program; PCP Student in an Organized Health Care Education/Training Program; Referring Provider Internal Medicine Hematology & Oncology; Visit Provider Internal Medicine Hematology & Oncology
DX: C34.90 Malignant neoplasm of unspecified part of unspecified bronchus or lung (principal); C20 Malignant neoplasm of rectum; R91.8 Other nonspecific abnormal finding of lung field
CPT/HCPCS: 71250

== ENCOUNTER → 2019-07-28 09:16 | Outpatient (CLI) | payer MEDICARE, MEDICAID, SELFPAY ==
[2019-06-07 21:44] VITALS: BMI 34.3
--- NOTE | 2019-07-28 | DI.ECHO.S_ITS ---
[facility] +---------+ : : [address] [place] : : : : [id number] : : : : Phone: [phone]+ Echocardiogram Report + + :Name: MICHAEL RAMSEY Study Date: 07/28/2019 Height: 68 in : :[facility] Weight: 215 lb: : Gender: Male BSA: 2.1 m2 : :: 1950 Age: 69 yrs : :Reason For Study: OTHER RHEUMATIC MITRAL VALVE DISEASES : : Performed By: Kyle Lira : :Referring: JAYE CURTIS : + + Interpretation Summary -There is a small, round echodensity associated with the ventricular aspect of anterior mitral valve leaflet, mainly the A3 scallop. It measures about [id number] and does not have independent motion. In some views it appears to be calcification associated with the leaflet but in long axis views possibility of fibroelastoma is raised. -Overall this structure appears similar to the prior echocardiogram. Procedure: A limited 2D echocardiogram was performed to assess the mitral valve. The study quality was technically adequate. Comparison is made with the echocardiogram of 06/08/19. The patient was in normal sinus rhythm during the exam. Left Ventricle: The left ventricular ejection fraction is normal. Mitral Valve: There is a calcified structure noted in the anterior mitral valve leaflet measuring approximately 6 mm x 5 mm. Aortic Valve: The aortic valve is grossly normal. Tricuspid Valve: The tricuspid valve is normal. Pulmonic Valve: The pulmonic valve is not well seen, but is grossly normal. Electronically signed by: Jaye Curtis M.D. on Reading Physician:07/31/2019 09:43 AM
== END ==
PROVIDERS: Family Provider Student in an Organized Health Care Education/Training Program; PCP Student in an Organized Health Care Education/Training Program; Referring Provider Hospitalist; Visit Provider Hospitalist
DX: I05.8 Other rheumatic mitral valve diseases (principal)
CPT/HCPCS: 93307

== ENCOUNTER 2019-08-28 10:39 | Emergency (ER) | payer MEDICARE, MEDICAID, SELFPAY ==
[2019-06-07 21:44] VITALS: BMI 34.3
--- NOTE | 2019-08-28 10:48 | DI.RAD.S_ITS ---
PROCEDURE: XR CHEST 1V INDICATIONS: flu-like symptoms TECHNIQUE: One view of the chest was acquired. COMPARISON: [facility], CR, XR CHEST 1V, 03/13/2018, 6:04. [facility], CT, CT CHEST WO CON, 06/30/2019, 14:05. [facility], CR, XR CHEST 1V, 08/30/2018, 14:06. FINDINGS: Surgical changes and devices: Right Port-A-Cath is present with distal tip projecting over the subclavian/proximalmost SVC. It is unchanged. Lungs and pleura: There is blunting of the left costophrenic angle, there is slight appearance of hazy opacity within the left base. Increased pulmonary vascularity is present. unchanged. Mediastinum: Mediastinal contours appear normal. Heart size is normal. Bones and chest wall: No suspicious bony lesions. Overlying soft tissues appear unremarkable. IMPRESSION: Slight appearance of hazy opacity within the left base. Overall increased vascularity is present. This could represent mild effusion. Developing area of underlying pneumonia and/or atelectasis cannot be excluded. Dictated by: Jaz Sarmiento M.D. on 08/28/2019 at 11:23 Approved by: Jaz Sarmiento M.D. on 08/28/2019 at 11:39
[2019-08-28 10:53] VITALS: BP 133/78; PULSE 86; RESP 24; TEMP 36.5; O2SAT 96
[2019-08-28 11:13] LABS: HCO3 ABG 28 mmol/L (22-26); Oxygen Saturation ABG 98 % (95-100); PCO2 ABG 48.2 mmHg (35-45); PO2 ABG 106 mmHg (80-100); TCO2 ABG 29 mmol/L (21-31); pH ABG 7.37 (7.35-7.45)
[2019-08-28 11:14] LABS: Fractionated Inspired Oxygen 28
[2019-08-28 11:21] LABS: Influenza A - CEPHEID Flu A NEGATIVE (NEGATIVE); Influenza B - CEPHEID Flu B NEGATIVE (NEGATIVE)
--- NOTE | 2019-08-28 11:28 | PC.NURSE ---
Right upper chest port accessed in ONC.
[2019-08-28 11:45] LABS: Add Manual Diff / Slide Review NO; Basophils Absolute Auto 100 /uL (0-100); Eosinophils Absolute Auto 300 /uL (0-450); Eosinophils Percent Auto 3.5 % (2-4); Hematocrit 38.1 % (41-53); Hemoglobin 12.7 g/dL (13.5-17.5); Lymphocytes Absolute Auto 900 /uL (1100-4500); Lymphocytes Percent Auto 11.4 % (25-40); Mean Corpuscular HGB Conc 33.3 % (30-36); Mean Corpuscular Hemoglobin 27.9 PG (26-34); Mean Corpuscular Volume 83.7 fL (80-100); Monocytes Absolute Auto 400 /uL (0-900); Monocytes Percent Auto 5.8 % (3-14); Neutrophils Absolute Auto 5800 /uL (1500-7000); Neutrophils Percent Auto 78.3 % (50-75); Platelet Count 181 X10^3/uL (150-400); Red Blood Cell Count 4.55 X10^6/uL (4.5-5.9); Red Cell Distribution Width 14.1 % (11.6-14.8); White Blood Cell Count 7.5 X10^3/uL (4.5-11.0)
[2019-08-28 11:55] LABS: D Dimer 249 ng/mL (<230)
[2019-08-28 11:59] LABS: Lactate (Lactic Acid) 1.6 mmol/L (0.7-2.1)
[2019-08-28 12:00] LABS: Alanine Aminotransferase 17 IU/L (<50); Albumin 4.1 g/dL (3.5-5.0); Albumin Globulin Ratio 1.5 (1.0-2.8); Alkaline Phosphatase 119 U/L (38-126); Aspartate Aminotransferase 21 IU/L (17-59); BUN Creatinine Ratio 27.9 (6-22); Bilirubin Total 0.7 mg/dL (0.2-1.3); Blood Urea Nitrogen 17 mg/dL (9-20); C-Reactive Protein Quant 0.9 mg/dL (<1.0); Carbon Dioxide 28 mmol/L (22-32); Chloride 105 mmol/L (98-107); Creatine Kinase 52 U/L (55-170); Estimated Glomerular Filt Rate > 60.0 mL/min (>60); Globulin 2.7 g/dL (1.7-4.1); Glucose 119 mg/dL (80-110); HEMOLYSIS < 15 (0-50); Potassium 4.4 mmol/L (3.4-5.1); Sodium 139 mmol/L (137-145); Total Protein 6.8 g/dL (6.3-8.2)
[2019-08-28] MEDS: SODIUM CHLORIDE 0.9% 1,000 ML 125 ML IV (12:00)
[2019-08-28 12:10] LABS: NT-proBNP (BNP-Adult 18+) 116 pg/mL (<125); Troponin I < 0.012 ng/mL (0.01-0.034)
--- NOTE | 2019-08-28 12:11 | ED_ITS ---
HPI - SOB/Dyspnea General Chief Complaint: Shortness of Breath/Dyspnea Stated Complaint: sob sent from onc Time Seen by Provider: 08/28/19 11:15 Source: patient Mode of arrival: Wheelchair Limitations: no limitations History of Present Illness HPI Narrative: CC: SOB, hypoxia HPI: The patient is a 69-year-old male who was seen in his oncologist's office and sent to the emergency department for acute hypoxia. The patient has a history of lung cancer and rectal cancer and is receiving immune therapy per Dr. Rust. In the office on room air the patient's oxygen was 84%. The patient does not have home oxygen. He was complaining of short of breath. He states that he developed shortness of breath 2 weeks ago and it has gotten progressively worse. He denies being exposed to Covid. He admits to history of COPD and is a former smoker. He has had lung cancer resulting in a left lower lobectomy. The patient has been coughing productive of a clear sputum with hemoptysis. He has had chest pain with coughing.. He has had dizziness with lightheadedness but has not passed out. The patient drinks alcohol periodically but does not smoke marijuana or use any other drugs. I spoke with Dr. Rust at 12:15 p.m. who recommended that the patient be placed on high-dose steroids at least 1 milligram/kilogram. Related Data Home Medications Medication Instructions Recorded Confirmed albuterol sulfate [Ventolin HFA] 1 - 2 puff INHALATION Q4-6H 02/24/18 08/28/19 docusate sodium 100 mg PO BID PRN 02/24/18 08/28/19 lisinopril 10 mg PO DAILY 03/13/18 08/28/19 polyethylene glycol 3350 [Miralax] 17 g PO BID 06/07/19 08/28/19 Previous Rx's Medication Instructions Recorded prochlorperazine maleate 10 mg PO Q6H PRN #120 tab 10/10/18 meclizine 25 mg PO BID #60 tab 07/17/19 lorazepam 0.5 mg PO BID PRN #60 tab 08/07/19 trazodone 50 mg tablet See Rx Instructions PO BEDTIME PRN 08/08/19 #30 tab escitalopram oxalate 20 mg tablet 20 mg PO DAILY #30 tab 08/21/19 oxycodone 10 mg PO Q4H PRN #180 tab 08/28/19 prednisone 80 mg PO DAILY #12 tab 08/28/19 Allergies Allergy/AdvReac Type Severity Reaction Status Date / Time Iodinated Contrast Media Allergy Severe hives, Verified 06/07/19 15:44 [Iodinated Contrast- Oral difficultly and IV Dye] breathing paclitaxel Allergy Severe Difficulty Verified 06/07/19 15:44 Breathing Review of Systems Review of Systems Narrative: REVIEW OF SYSTEMS: CONSTITUTIONAL: The patient denies any fever but has had intermittent chills and sweats. NEUROLOGICAL: He complains that he has had a mild intermittent headache without numbness tingling paresthesias in his seizures paresis or paralysis. He has had no change in vision loss of vision or diplopia. EENT: The patient denies any nasal drainage sore throat or sinus congestion. CARDIO-PULMONARY: He complains of shortness of breath on exertion and at rest associated with a cough productive primarily of a clear sputum with hemoptysis. He has chest pain on coughing. He has had dizziness but has not passed out. GASTROINTESTINAL: The patient has a colostomy secondary to his rectal cancer. He has had no nausea vomiting hematemesis. He has not noted any melena or hematochezia in his colostomy bag. GENITAL URINARY: He denies any urinary frequency urgency or hematuria. MUSCULOSKELETAL/ RHEUMATOLOGICAL: He denies any back pain more than usual. DERMATOLOGICAL: He denies any skin rash bruising or bleeding. 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) Weakness (Acute) Surgical History History of bronchoscopy (Acute 02/03/18) History of lung biopsy (Acute 11/29/17) Hx of colonoscopy with polypectomy (Acute) Family History Brother Cancer Social History marital status: unmarried,living together household members: significant other and caregiver housing: house education level: high school Smoking Status: Former smoker alcohol intake: former substance use type: does not use Smoking Status: Former smoker alcohol intake frequency: holidays/special occasions only Substance Use Type: does not use Exam Narrative Exam Narrative: PHYSICAL EXAM: CONSTITUTIONAL: Awake, Alert, Oriented, Coherent, Cooperative in NAD. Does not appear toxic or ill. Appears to be comfortable on 2 L of nasal O2. He is very pleasant and cooperative. HEAD: AT/NC EENT: PERRL, FROM of eyes, no discharge, no nystagmus MOUTH: The patient has a mask on. NECK: Supple, no obvious JVD, Trachea is midline without stridor, no palpable LN. SPINE: Palpationof the cervical, Thoracic, Lumbar or Sacral spine reveals no gross deformity or tenderness. No CVA tenderness. THORAX: No deformity, retractions, chest wall tenderness. LUNGS: The patient's breath sounds are markedly decreased. But symmetrical. The patient has poor air movement. HEART: Normal heart tones, regular rhythm and rate without murmur. ABDOMEN: The patient has colostomy bag in the left lower quadrant. The rest of his abdomen is soft globular doughy rotund without any tenderness palpable organomegaly or mass. EXTREMITIES: The patient does not have any gross edema or calf tenderness. SKIN: No rash, bruising, petechiae or purpura. NEURO: Awake, alert, oriented, conversive, cranial nerves II-XII are symmetrical , moves all 4 extremities and is ambulatory. Initial Vital Signs Initial Vital Signs: Vital Signs Temperature 97.7 F 08/28/19 10:53 Pulse Rate 86 08/28/19 10:53 Respiratory Rate 24 08/28/19 10:53 Blood Pressure 133/78 08/28/19 10:53 Pulse Oximetry 96 08/28/19 10:53 Course Course Course Narrative: 1211: Patient's arterial blood gases reveal a pH is 7.366, a pCO2 of 48.2, PO2 of 106 on 98% on 2 L . 1259: Covid negative and lactate negative. will get CT of Chest as requested by Dr. Rust. 1353: CT scan revealed: 1. No acute consolidation or effusion. 2. Slight interval increase in size of previously identified pulmonary nodules as above. Interval progression of metastatic disease cannot be excluded. 3. There is an interval increase in the size the soft tissue densities within the left mainstem bronchus highly concerning for neoplastic disease progression. 1358: I discussed the patient with Dr. Rust: He will see the patient tomorrow in the office. He will write the prescription for home oxygen. He wants to start the patient on immune therapy he just wanted make sure that the patient did not have pneumonitis or [place] at before starting that. The patient will be discharged home. Orders Ordered: ED Orders 08/28/19 10:47 Blood Culture Stat EKG-12 Lead Stat 08/28/19 10:48 XR chest 1V Stat 08/28/19 11:04 Arterial Blood Gas Stat 08/28/19 11:26 C-Reactive Protein Quant Stat Complete Blood Count AUTO DIFF Stat Comprehensive Metabolic Panel Stat D Dimer Stat Ferritin Stat Lactate (Lactic Acid) Stat NT-proBNP (BNP-Adult 18+) Stat Procalcitonin Stat Troponin & CK Cardiac Panel Stat 08/28/19 12:55 CT chest wo con Stat Discontinued Medications Sodium Chloride (Normal Saline 0.9%) 1,000 mls @ 125 mls/hr IV CONT KISHORE Last Infusion: 08/28/19 17:07 Dose: 125 mls/hr Documented by: Admin: 08/28/19 12:00 Dose: 125 mls/hr Documented by: BRYAN Methylprednisolone (Solu-Medrol 125 Mg Vial) 125 mg IV NOW ONE Stop: 08/28/19 12:31 Last Admin: 08/28/19 13:17 Dose: 125 mg Documented by: BRYAN Vital Signs Vital signs: Vital Signs - 8 hr 08/28/19 13:03 08/28/19 14:17 08/28/19 15:05 Temperature 97.5 F L Pulse Rate 82 93 H 85 Respiratory Rate 19 21 20 Blood Pressure Blood Pressure [Left Arm] 181/79 H 172/79 H Blood Pressure [Right Arm] 199/93 H Pulse Oximetry 98 97 90 L 08/28/19 15:06 08/28/19 17:07 Temperature Pulse Rate 86 Respiratory Rate 28 H Blood Pressure 199/83 H Blood Pressure [Left Arm] Blood Pressure [Right Arm] Pulse Oximetry 90 L 96 MDM - SOB/Dyspnea Medical Records Attestation: I reviewed the patient's medical records. Lab Data Attestation: I reviewed the patient's lab results. Result diagrams: 08/28/19 11:26 08/28/19 11:26 Labs: Lab Results 08/28/19 08/28/19 08/28/19 Range/Units 10:20 11:04 11:26 WBC 7.5 (4.5-11.0) X10^3/uL RBC 4.55 (4.5-5.9) X10^6/uL Hgb 12.7 L (13.5-17.5) g/dL Hct 38.1 L (41-53) % MCV 83.7 (80-100) fL MCH 27.9 (26-34) PG MCHC 33.3 (30-36) % RDW 14.1 (11.6-14.8) % Plt Count 181 (150-400) X10^3/uL Neut % (Auto) 78.3 H (50-75) % Lymph % (Auto) 11.4 L (25-40) % [place] % (Auto) 5.8 (3-14) % Eos % (Auto) 3.5 (2-4) % Baso % (Auto) 1.0 (0-2) % Neut # (Auto) 5800 (6560-0282) /uL Lymph # (Auto) 900 L (9572-1546) /uL [place] # (Auto) 400 (0-900) /uL Eos # (Auto) 300 (0-450) /uL Baso # (Auto) 100 (0-100) /uL D-Dimer (<230) ng/mL ABG pH 7.37 (7.35-7.45) ABG pCO2 48.2 H (35-45) mmHg ABG pO2 106 H (80-100) mmHg ABG HCO3 28 H (22-26) mmol/L ABG Total CO2 29 (21-31) mmol/L ABG O2 Saturation 98 (95-100) % ABG Base Excess 2.0 (-2-2) mmol/L FiO2 28 Sodium (137-145) mmol/L Potassium (3.4-5.1) mmol/L Chloride (98-107) mmol/L Carbon Dioxide (22-32) mmol/L BUN (9-20) mg/dL Creatinine (0.66-1.25) mg/dL Estimated GFR (>60) mL/min BUN/Creatinine Ratio (6-22) Glucose (80-110) mg/dL Lactate (0.7-2.1) mmol/L Calcium (8.4-10.2) mg/dL Ferritin (18-464) ng/mL Total Bilirubin (0.2-1.3) mg/dL AST (17-59) IU/L ALT (<50) IU/L Alkaline Phosphatase (38-126) U/L Total Creatine Kinase (55-170) U/L CK-MB (CK-2) CK-MB (CK-2) Rel Index Troponin I (0.01-0.034) ng/mL C-Reactive Protein (<1.0) mg/dL NT-Pro-B Natriuret Pep (<125) pg/mL Total Protein (6.3-8.2) g/dL Albumin (3.5-5.0) g/dL Globulin (1.7-4.1) g/dL Albumin/Globulin Ratio (1.0-2.8) Procalcitonin (<0.5) ng/mL Influenza A (RT-PCR) Flu a negative (NEGATIVE) Influenza B (RT-PCR) Flu b negative (NEGATIVE) 08/28/19 08/28/19 08/28/19 Range/Units 11:26 11:26 11:26 WBC (4.5-11.0) X10^3/uL RBC (4.5-5.9) X10^6/uL Hgb (13.5-17.5) g/dL Hct (41-53) % MCV (80-100) fL MCH (26-34) PG MCHC (30-36) % RDW (11.6-14.8) % Plt Count (150-400) X10^3/uL Neut % (Auto) (50-75) % Lymph % (Auto) (25-40) % [place] % (Auto) (3-14) % Eos % (Auto) (2-4) % Baso % (Auto) (0-2) % Neut # (Auto) (2508-8386) /uL Lymph # (Auto) (9083-8994) /uL [place] # (Auto) (0-900) /uL Eos # (Auto) (0-450) /uL Baso # (Auto) (0-100) /uL D-Dimer 249 H (<230) ng/mL ABG pH (7.35-7.45) ABG pCO2 (35-45) mmHg ABG pO2 (80-100) mmHg ABG HCO3 (22-26) mmol/L ABG Total CO2 (21-31) mmol/L ABG O2 Saturation (95-100) % ABG Base Excess (-2-2) mmol/L FiO2 Sodium 139 (137-145) mmol/L Potassium 4.4 (3.4-5.1) mmol/L Chloride 105 (98-107) mmol/L Carbon Dioxide 28 (22-32) mmol/L BUN 17 (9-20) mg/dL Creatinine 0.61 L (0.66-1.25) mg/dL Estimated GFR > 60.0 (>60) mL/min BUN/Creatinine Ratio 27.9 H (6-22) Glucose 119 H (80-110) mg/dL Lactate (0.7-2.1) mmol/L Calcium 9.0 (8.4-10.2) mg/dL Ferritin 77 (18-464) ng/mL Total Bilirubin 0.7 (0.2-1.3) mg/dL AST 21 (17-59) IU/L ALT 17 (<50) IU/L Alkaline Phosphatase 119 (38-126) U/L Total Creatine Kinase 52 L (55-170) U/L CK-MB (CK-2) TNP CK-MB (CK-2) Rel Index TNP Troponin I < 0.012 (0.01-0.034) ng/mL C-Reactive Protein 0.9 (<1.0) mg/dL NT-Pro-B Natriuret Pep 116 (<125) pg/mL Total Protein 6.8 (6.3-8.2) g/dL Albumin 4.1 (3.5-5.0) g/dL Globulin 2.7 (1.7-4.1) g/dL Albumin/Globulin Ratio 1.5 (1.0-2.8) Procalcitonin < 0.05 (<0.5) ng/mL Influenza A (RT-PCR) (NEGATIVE) Influenza B (RT-PCR) (NEGATIVE) 08/28/19 Range/Units 11:26 WBC (4.5-11.0) X10^3/uL RBC (4.5-5.9) X10^6/uL Hgb (13.5-17.5) g/dL Hct (41-53) % MCV (80-100) fL MCH (26-34) PG MCHC (30-36) % RDW (11.6-14.8) % Plt Count (150-400) X10^3/uL Neut % (Auto) (50-75) % Lymph % (Auto) (25-40) % [place] % (Auto) (3-14) % Eos % (Auto) (2-4) % Baso % (Auto) (0-2) % Neut # (Auto) (4035-0806) /uL Lymph # (Auto) (2646-6895) /uL [place] # (Auto) (0-900) /uL Eos # (Auto) (0-450) /uL Baso # (Auto) (0-100) /uL D-Dimer (<230) ng/mL ABG pH (7.35-7.45) ABG pCO2 (35-45) mmHg ABG pO2 (80-100) mmHg ABG HCO3 (22-26) mmol/L ABG Total CO2 (21-31) mmol/L ABG O2 Saturation (95-100) % ABG Base Excess (-2-2) mmol/L FiO2 Sodium (137-145) mmol/L Potassium (3.4-5.1) mmol/L Chloride (98-107) mmol/L Carbon Dioxide (22-32) mmol/L BUN (9-20) mg/dL Creatinine (0.66-1.25) mg/dL Estimated GFR (>60) mL/min BUN/Creatinine Ratio (6-22) Glucose (80-110) mg/dL Lactate 1.6 (0.7-2.1) mmol/L Calcium (8.4-10.2) mg/dL Ferritin (18-464) ng/mL Total Bilirubin (0.2-1.3) mg/dL AST (17-59) IU/L ALT (<50) IU/L Alkaline Phosphatase (38-126) U/L Total Creatine Kinase (55-170) U/L CK-MB (CK-2) CK-MB (CK-2) Rel Index Troponin I (0.01-0.034) ng/mL C-Reactive Protein (<1.0) mg/dL NT-Pro-B Natriuret Pep (<125) pg/mL Total Protein (6.3-8.2) g/dL Albumin (3.5-5.0) g/dL Globulin (1.7-4.1) g/dL Albumin/Globulin Ratio (1.0-2.8) Procalcitonin (<0.5) ng/mL Influenza A (RT-PCR) (NEGATIVE) Influenza B (RT-PCR) (NEGATIVE) ECG Data Attestation: I personally reviewed and interpreted this ECG as follows: Interpretation: The patient's EKG obtained on August 27 at 11:2 12:00 a.m. reveals a sinus rhythm with a ventricular rate of 83. QRS is 102 milliseconds duration QTC is normal at 433 milliseconds axis is normal . The patient has a QS wave in lead V1 with flat to inverted T-waves there are no other acute ST segment or T-wave abnormalities noted. There is no diagnostic ST or T-wave changes to suggest acute ischemia or injury. Discharge Plan Departure Patient Disposition: Home Clinical Impression: Rectal cancer, Hemoptysis, Hypoxia, Cough Cancer of left lung Qualifiers: Lung location: unspecified part of lung Qualified Code(s): C34.92 - Malignant neoplasm of unspecified part of left bronchus or lung COPD (chronic obstructive pulmonary disease) with emphysema Qualifiers: Emphysema type: unspecified Qualified Code(s): J43.9 - Emphysema, unspecified Discharge Date/Time: 08/28/19 17:25 Instructions: DI for Chronic Obstructive Pulmonary Disease, DI for Acute Bronchitis, DI for Hypoxia Activity Restrictions/Additional Instructions: 1. Follow-up with Dr. Rust as scheduled tomorrow. He was planning to start you on immune therapy and will write you a prescription for oxygen therapy at home 2. Return to the emergency department if you develop worsening chest pain, coughing up copious blood, develop worsening shortness of breath, feel faint or passing out. If you develop a fever return to the emergency department. 3. Take your current medications as prescribed. 4 . Take the prednisone as prescribed Dr. Rust may change the doses. Prescriptions: New prednisone 20 mg tablet 80 mg PO DAILY Qty: 12 RF: 0 No Action trazodone 50 mg tablet See Rx Instructions PO BEDTIME PRN (Reason: sleep) Qty: 30 RF: 2 escitalopram oxalate 20 mg tablet 20 mg PO DAILY Qty: 30 RF: 1 polyethylene glycol 3350 [Miralax] 17 gram Powder In Packet 17 g PO BID RF: 0 docusate sodium 100 mg Capsule 100 mg PO BID PRN (Reason: Constipation) RF: 0 albuterol sulfate [Ventolin HFA] 90 mcg/actuation Hfa Aerosol Inhaler 1 - 2 puff INHALATION Q4-6H RF: 0 prochlorperazine maleate 10 mg Tablet 10 mg PO Q6H PRN (Reason: nausea vomiting) Qty: 120 RF: 0 meclizine 25 mg Tablet 25 mg PO BID Qty: 60 RF: 0 lorazepam 0.5 mg tablet 0.5 mg PO BID PRN (Reason: Nausea And Vomiting) Qty: 60 RF: 0 oxycodone 10 mg Tablet 10 mg PO Q4H PRN (Reason: PAIN) Qty: 180 RF: 0 lisinopril 10 mg Tablet 10 mg PO DAILY RF: 0 Referrals: Judith Eagle MD [Primary Care Provider] -
[2019-08-28 12:33] LABS: Ferritin 77 ng/mL (18-464)
--- NOTE | 2019-08-28 12:38 | PC.NURSE ---
patient started on immunotherapy two weeks ago. Patient reports increase SOB, RA sats 82 in ONC. Placed on 2lnc with significant improvement. Denies chest pain and denies fever.
[2019-08-28 12:48] LABS: Procalcitonin < 0.05 ng/mL (<0.5)
--- NOTE | 2019-08-28 12:55 | DI.CT.S_ITS ---
PROCEDURE: CT CHEST WO CON INDICATIONS: hypoxia, lung cancer on immune therapy hypoxic r/o pneumoni TECHNIQUE: Noncontrast 5 mm thick sections acquired from the pulmonary apices to the posterior costophrenic angles. 1 mm lung window, 5 mm thick coronal and sagittal and 7 mm axial MIP reformats were then acquired. For radiation dose reduction, the following was used: automated exposure control, adjustment of mA and/or kV according to patient size. COMPARISON: [facility], CT, CT CHEST WO CON, 06/30/2019, 14:05. FINDINGS: Image quality: Excellent. Lungs and pleura: No acute air space opacities. No pleural effusions or pneumothorax. Central and peripheral airways are patent and normal in caliber. The previously identified pulmonary nodules are again noted. Two nodules demonstrate interval increase in size: posterior right upper lobe series 3 image 108 measures 8 mm compared to 5 mm, right upper lobe series 3 image 115 measures 5 mm compared to 3 mm, on prior exam. No new nodules are identified. In addition, the areas of soft tissue density extending into the right mainstem bronchus have also increased in size with the larger focus measuring 26 mm AP by 26 mm transverse compared to 18 mm AP by 16 mm transverse. Mediastinum: Heart size is normal. No pericardial effusion. No mediastinal adenopathy by size criteria. Thoracic aorta and central pulmonary arteries are normal in size. Esophagus is normal in caliber. No hiatal hernia. Bones and chest wall: No suspicious bony lesions. No vertebral body compression fractures. No axillary or supraclavicular adenopathy by size criteria. Thyroid gland is unremarkable. Abdomen: Visualized upper abdominal solid organs and bowel loops appear normal in the absence of contrast. IMPRESSION: 1. No acute consolidation or effusion. 2. Slight interval increase in size of previously identified pulmonary nodules as above. Interval progression of metastatic disease cannot be excluded. 2. Interval increase in size of soft tissue densities within the left mainstem bronchus highly concerning for neoplastic disease progression. Dictated by: Jaz Sarmiento M.D. on 08/28/2019 at 13:14 Approved by: Jaz Sarmiento M.D. on 08/28/2019 at 13:25
[2019-08-28 13:03] VITALS: BP 181/79; PULSE 82; RESP 19; O2SAT 98
[2019-08-28] MEDS: methylPREDNISolone 125 MG/2 ML VIAL IV (13:17)
[2019-08-28 14:17] VITALS: BP 172/79; PULSE 93; RESP 21; O2SAT 97
[2019-08-28 15:05] VITALS: BP 199/93; PULSE 85; RESP 20; TEMP 36.4; O2SAT 90
[2019-08-28 15:06] VITALS: O2SAT 90
--- NOTE | 2019-08-28 15:08 | PC.NURSE ---
Removed oxygen to see how patient felt and what oxygen levels did. Patient dropped down to 89% off oxygen at rest. Patient states his breathing feels some increase in SOB. Placed back on 2l NC
[2019-08-28 17:07] VITALS: BP 199/83; PULSE 86; RESP 28; O2SAT 96
== END 2019-08-28 17:25 | disposition home or self-care (01) ==
PROVIDERS: Emergency Provider Emergency Medicine; Family Provider Student in an Organized Health Care Education/Training Program; PCP Student in an Organized Health Care Education/Training Program
DX: R09.02 Hypoxemia (principal); R04.2 Hemoptysis; C34.32 Malignant neoplasm of lower lobe, left bronchus or lung; C20 Malignant neoplasm of rectum; J43.9 Emphysema, unspecified; R07.9 Chest pain, unspecified; R68.89 Other general symptoms and signs
CPT/HCPCS: 36415; 36591; 36600; 71045; 71250; 80053; 82550; 82728; 82805; 83605; 83880; 84145; 84484; 85025; 85379; 86140; 87040; 87502; 87635; 93005; 96361; 96374; 99214; 99284; 99285; J1642; J2930

== ENCOUNTER 2019-09-14 14:04 | Emergency (ER) | payer MEDICARE, MEDICAID, SELFPAY ==
[2019-06-07 21:44] VITALS: BMI 34.3
[2019-09-14] VITALS (9 sets, daily range): BP systolic 132–166; BP diastolic 63–76; PULSE 71–104; RESP 15–26; TEMP 36.6; O2SAT 91–99; BMI 33.4
--- NOTE | 2019-09-14 14:38 | DI.RAD.S_ITS ---
PROCEDURE: XR CHEST 1V INDICATIONS: shortness of breath TECHNIQUE: One view of the chest was acquired. COMPARISON: [facility], CR, XR CHEST 1V, 08/28/2019, 11:06. FINDINGS: Surgical changes and devices: Right chest wall Port-A-Cath tip is in SVC. Lungs and pleura: There is interval development of large left pleural effusion with atelectasis of left lung and mediastinum shift to the left. Emphysematous changes in the right lung is seen. No gross pneumothorax. No right-sided pleural effusion. Mediastinum: Mediastinal contours appear normal. Heart size is normal. Bones and chest wall: No suspicious bony lesions. Overlying soft tissues appear unremarkable. IMPRESSION: Interval development of large left pleural effusion with left lung atelectasis and mediastinal shift to the left. No gross pneumothorax. Right lung is clear. Dictated by: Justus Bishop M.D. on 09/14/2019 at 15:21 Approved by: Justus Bishop M.D. on 09/14/2019 at 15:23
[2019-09-14 14:46] LABS: Add Manual Diff / Slide Review NO; Basophils Absolute Auto 100 /uL (0-100); Basophils Percent Auto 0.4 % (0-2); Eosinophils Absolute Auto 0 /uL (0-450); Eosinophils Percent Auto 0.2 % (2-4); Hematocrit 41.3 % (41-53); Lymphocytes Absolute Auto 600 /uL (1100-4500); Lymphocytes Percent Auto 4.8 % (25-40); Mean Corpuscular Hemoglobin 27.8 PG (26-34); Mean Corpuscular Volume 81.7 fL (80-100); Monocytes Absolute Auto 700 /uL (0-900); Monocytes Percent Auto 5.7 % (3-14); Neutrophils Absolute Auto 11700 /uL (1500-7000); Neutrophils Percent Auto 88.9 % (50-75); Platelet Count 287 X10^3/uL (150-400); Red Blood Cell Count 5.05 X10^6/uL (4.5-5.9); White Blood Cell Count 13.2 X10^3/uL (4.5-11.0)
[2019-09-14 14:57] LABS: Alanine Aminotransferase 14 IU/L (<50); Albumin 4.2 g/dL (3.5-5.0); Albumin Globulin Ratio 1.3 (1.0-2.8); Alkaline Phosphatase 131 U/L (38-126); Aspartate Aminotransferase 17 IU/L (17-59); BUN Creatinine Ratio 25.9 (6-22); Bilirubin Total 0.9 mg/dL (0.2-1.3); Blood Urea Nitrogen 14 mg/dL (9-20); Calcium 9.6 mg/dL (8.4-10.2); Carbon Dioxide 30 mmol/L (22-32); Chloride 92 mmol/L (98-107); Estimated Glomerular Filt Rate > 60.0 mL/min (>60); Globulin 3.2 g/dL (1.7-4.1); Glucose 159 mg/dL (80-110); HEMOLYSIS < 15 (0-50); Potassium 4.5 mmol/L (3.4-5.1); Sodium 132 mmol/L (137-145); Total Protein 7.4 g/dL (6.3-8.2)
--- NOTE | 2019-09-14 15:25 | ED.SOB ---
HPI - SOB/Dyspnea <Vishnu Reyes MD - Last Filed: 09/15/19 07:58> General Chief Complaint: Shortness of Breath/Dyspnea Stated Complaint: SOB Time Seen by Provider: 09/14/19 15:23 Source: patient and family Mode of arrival: Ambulatory Limitations: no limitations History of Present Illness HPI Narrative: CC: SOB HPI: The patient is a 69-year-old male with a history of lung cancer for which she is on immunotherapy and a history of rectal colonic cancer for which she has received radiation therapy and chemotherapy and has a colostomy. He states that he has been sick for the past week developing a progressively hoarse voice with laryngitis but without sore throat. He has been short of breath during this time. His shortness of breath has become progressively worse. He has had some mild dyspnea on exertion and the laryngitis has gotten worse over the last 3 days. He denies any significant chest pain. He has had a cough that has been productive of a whitish yellow sputum without any blood. He admits to history of COPD and hypertension but denies a history of diabetes mellitus stroke congestive heart failure myocardial infarction or asthma. He is a former smoker. He drinks alcohol socially but does not use any marijuana or drugs. He denies any recent fall or injury. His shortness of breath has become progressively worse as has his laryngitis. He is normally on 3 L of oxygen at home. Related Data Home Medications Medication Instructions Recorded Confirmed albuterol sulfate [Ventolin HFA] 1 - 2 puff INHALATION Q4-6H 02/24/18 09/01/19 docusate sodium 100 mg PO BID PRN 02/24/18 09/01/19 lisinopril 10 mg PO DAILY 03/13/18 09/01/19 polyethylene glycol 3350 [Miralax] 17 g PO BID 06/07/19 09/01/19 Previous Rx's Medication Instructions Recorded prochlorperazine maleate 10 mg PO Q6H PRN #120 tab 10/10/18 meclizine 25 mg PO BID #60 tab 07/17/19 lorazepam 0.5 mg PO BID PRN #60 tab 08/07/19 escitalopram oxalate 20 mg tablet 20 mg PO DAILY #30 tab 08/21/19 oxycodone 10 mg PO Q4H PRN #180 tab 08/28/19 prednisone 80 mg PO DAILY #12 tab 08/28/19 trazodone 50 mg tablet See Rx Instructions PO BEDTIME PRN 09/07/19 #30 tab Allergies Allergy/AdvReac Type Severity Reaction Status Date / Time Iodinated Contrast Media Allergy Severe hives, Verified 09/01/19 09:46 [Iodinated Contrast- Oral difficultly and IV Dye] breathing paclitaxel Allergy Severe Difficulty Verified 09/01/19 09:46 Breathing Review of Systems <Vishnu Reyes MD - Last Filed: 09/15/19 07:58> Review of Systems Narrative: REVIEW OF SYSTEMS: CONSTITUTIONAL: The patient has had no fever or chills but complains of sweats. NEUROLOGICAL: He has had a mild headache without numbness tingling paresthesias anesthesia is paresis or paralysis. EENT: He denies any significant nasal drainage sinus congestion sore throat dysphagia but has had a progressively worsening hoarse voice and laryngitis. CARDIO-PULMONARY: He denies any chest pain but has had a cough with shortness of breath productive of a yellow whitish sputum without hemoptysis. He has had no palpitations or dizziness. On exertion he has had some shortness of breath but does not seem to be worse than usual. HEMOTOLOGICAL: He denies any bleeding abnormalities or bruising. GASTROINTESTINAL: He has had no abdominal pain diarrhea or vomiting but has had nausea. His bowel movements have been normal. GENITAL URINARY: He denies any urinary symptoms. MUSCULOSKELETAL/ RHEUMATOLOGICAL: He has had no significant back pain Patient History <Vishnu Reyes MD - Last Filed: 09/15/19 07:58> Social History marital status: unmarried,living together household members: significant other and caregiver housing: house education level: high school Smoking Status: Former smoker alcohol intake: former substance use type: does not use Smoking Status: Former smoker alcohol intake frequency: 0-2 drinks per day Alcohol type: hard liquor Substance Use Type: does not use Exam <Vishnu Reyes MD - Last Filed: 09/15/19 07:58> Narrative Exam Narrative: PHYSICAL EXAM: CONSTITUTIONAL: Awake, Alert, Oriented, Coherent, Cooperative in NAD. Does not appear toxic or ill. The patient appears to be tachypneic and talks with a horse laryngitis. HEAD: AT/NC EENT: PERRL, FROM of eyes, no discharge, no nystagmus MOUTH:Oral mucosa is moist and pink, posterior pharynx is without erythema or exudate. NECK: Supple, no obvious JVD, Trachea is midline without stridor, no palpable LN. SPINE: Palpationof the cervical, Thoracic, Lumbar or Sacral spine reveals no gross deformity or tenderness. No CVA tenderness. THORAX: No deformity, retractions, chest wall tenderness. LUNGS: Markedly decreased breath sounds. The patient's breath sounds on the left are decreased in comparison to the right. The patient has dullness on the left side to percussion. HEART: Normal heart tones, regular rhythm and rate without murmur. ABDOMEN: Soft, non-tender, without guarding, rebound, rigidity or palpable mass. The patient has a colostomy in the left lower quadrant. EXTREMITIES: No edema, deformity, tenderness or cyanosis. SKIN: No rash, bruising, petechiae or purpura. NEURO: Awake, alert, oriented, conversive, cranial nerves II-XII are symmetrical , moves all 4 extremities and is ambulatory. Initial Vital Signs Initial Vital Signs: Vital Signs Temperature 97.8 F 09/14/19 14:17 Pulse Rate 104 H 09/14/19 14:17 Respiratory Rate 25 H 09/14/19 14:17 Blood Pressure 138/67 09/14/19 14:17 Pulse Oximetry 91 09/14/19 14:17 <Akira Farias MD - Last Filed: 09/15/19 01:18> Initial Vital Signs Initial Vital Signs: Vital Signs Temperature 97.8 F 09/14/19 14:17 Pulse Rate 104 H 09/14/19 14:17 Respiratory Rate 25 H 09/14/19 14:17 Blood Pressure 138/67 09/14/19 14:17 Pulse Oximetry 91 09/14/19 14:17 Course <Vishnu Reyes MD - Last Filed: 09/15/19 07:58> Course Course Narrative: 1547: The patient primarily is complaining of shortness of breath and a hoarse voice. This has developed over the last week prior to admission. His chest x-ray at this time reveals interval development of a large left pleural effusion with left lung atelectasis and mediastinal shift to the left. There is no gross pneumothorax right lung is clear. The patient states that he has had recurrence of his lung cancer and is currently receiving immune therapy. He has a colostomy of for rectal colon cancer. He has received radiation therapy and chemotherapy for his of rectal cancer. 0: The patient's chest x-ray was reviewed with Dr. Lopez. The patient has a very large left pleural effusion. His mediastinum is deviating to the left as does his trachea. The patient has a cut off in the left main bronchi. The question is does the patient have atelectasis or large pleural effusion on the left side. A CT scan was obtained before admitting the patient. 1836: CT scan of the patient's chest reveals: 1. Collapse of the left lower lobe secondary to obstruction of the left lower lobe bronchus. An endobronchial mass is suspected in the left lower lobe. 2. Left upper lobe and lingular pneumonia or pneumonitis. 3. Small left free a fusion. 4. Enlargement of a prevascular lymph nodes suspicious for metastasis. 5. Stable small right upper lobe lung nodules. 6. Mild chronic compression fracture of T12. call into Dr. Lopez. 1849: I discussed with Dr. Lopez the CT findings. He states that [facility] does not have the capabilities of doing a bronchoscopy and a stenting of the bronchus if necessary. The patient will need to be transferred to an institution that has the capability. The patient states that he sees Dr. Rust as his oncologist. He states that he had a left lower lobectomy performed by Dr. Rutledge at [facility]. The question is whether not the patient had a complete left lower lobectomy or did he have else segmentectomy. Report was given to Dr. Farias. 2022: I discussed the patient with the transfer center nurse and the accepting physician Dr. Chavez. The patient has been accepted at [facility] and will be going to a general medical floor on telemetry. The transfer nurse was going to call back with a head and room number. Arrangements will be made for the patient to be transferred. Orders Ordered: Discontinued Medications Hydromorphone HCl (Dilaudid) 1 mg IV NOW ONE Stop: 09/15/19 00:13 Last Admin: 09/15/19 00:20 Dose: 1 mg Documented by: LEONORA Levofloxacin (Levaquin) 750 mg in 150 mls @ 100 mls/hr IV NOW ONE Stop: 09/14/19 20:09 Last Infusion: 09/14/19 20:46 Dose: 0 mls/hr Documented by: Admin: 09/14/19 19:05 Dose: 100 mls/hr Documented by: HOLLY Methylprednisolone (Solu-Medrol 125 Mg Vial) 125 mg IV NOW ONE Stop: 09/14/19 15:55 Last Admin: 09/14/19 16:39 Dose: 125 mg Documented by: HUMBLE Morphine Sulfate (Morphine) 4 mg IV NOW ONE Stop: 09/14/19 20:42 Last Admin: 09/14/19 20:46 Dose: 4 mg Documented by: LEONORA Ondansetron HCl (Zofran) 4 mg IV NOW ONE Stop: 09/14/19 19:11 Last Admin: 09/14/19 19:11 Dose: 4 mg Documented by: HOLLY Ondansetron HCl (Zofran) 4 mg IV NOW ONE Stop: 09/14/19 22:25 Last Admin: 09/14/19 22:28 Dose: 4 mg Documented by: HOLLY Vital Signs Vital signs: Vital Signs - 8 hr 09/14/19 18:04 09/14/19 19:50 09/14/19 21:21 Pulse Rate 71 97 H 100 H Respiratory Rate 15 18 23 Blood Pressure [Right Arm] 132/76 166/76 H 151/63 H Pulse Oximetry 96 96 96 09/14/19 21:50 09/14/19 23:19 Pulse Rate 100 H 104 H Respiratory Rate 20 26 H Blood Pressure [Right Arm] 153/70 H 141/72 H Pulse Oximetry 95 96 <Akira Farias MD - Last Filed: 09/15/19 01:18> Course Course Narrative: The patient was seen and evaluated initially by Dr. Reyes. Transfer was arranged to [facility]. The patient was here after change of shift. I saw the patient briefly, assuring his comfort and stability prior to discharge. He was given Dilaudid for rectal pain. His vitals have been stable, he has been alert and oriented and otherwise comfortable up through the time of transfer. Orders Ordered: Discontinued Medications Hydromorphone HCl (Dilaudid) 1 mg IV NOW ONE Stop: 09/15/19 00:13 Last Admin: 05/29/20 00:20 Dose: 1 mg Documented by: LEONORA Levofloxacin (Levaquin) 750 mg in 150 mls @ 100 mls/hr IV NOW ONE Stop: 09/14/19 20:09 Last Infusion: 09/14/19 20:46 Dose: 0 mls/hr Documented by: Admin: 09/14/19 19:05 Dose: 100 mls/hr Documented by: HOLLY Methylprednisolone (Solu-Medrol 125 Mg Vial) 125 mg IV NOW ONE Stop: 09/14/19 15:55 Last Admin: 09/14/19 16:39 Dose: 125 mg Documented by: HUMBLE Morphine Sulfate (Morphine) 4 mg IV NOW ONE Stop: 09/14/19 20:42 Last Admin: 09/14/19 20:46 Dose: 4 mg Documented by: LEONORA Ondansetron HCl (Zofran) 4 mg IV NOW ONE Stop: 09/14/19 19:11 Last Admin: 09/14/19 19:11 Dose: 4 mg Documented by: HOLLY Ondansetron HCl (Zofran) 4 mg IV NOW ONE Stop: 09/14/19 22:25 Last Admin: 09/14/19 22:28 Dose: 4 mg Documented by: HOLLY Vital Signs Vital signs: Vital Signs - 8 hr 09/14/19 18:04 09/14/19 19:50 09/14/19 21:21 Pulse Rate 71 97 H 100 H Respiratory Rate 15 18 23 Blood Pressure [Right Arm] 132/76 166/76 H 151/63 H Pulse Oximetry 96 96 96 09/14/19 21:50 09/14/19 23:19 Pulse Rate 100 H 104 H Respiratory Rate 20 26 H Blood Pressure [Right Arm] 153/70 H 141/72 H Pulse Oximetry 95 96 MDM - SOB/Dyspnea <Vishnu Reyes MD - Last Filed: 09/15/19 07:58> Medical Records Attestation: I reviewed the patient's medical records. Lab Data Attestation: I reviewed the patient's lab results. Result diagrams: 09/14/19 14:34 09/14/19 14:34 Labs: Lab Results 09/14/19 09/14/19 09/14/19 Range/Units 14:34 14:34 14:34 WBC 13.2 H (4.5-11.0) X10^3/uL RBC 5.05 (4.5-5.9) X10^6/uL Hgb 14.0 (13.5-17.5) g/dL Hct 41.3 (41-53) % MCV 81.7 (80-100) fL MCH 27.8 (26-34) PG MCHC 34.0 (30-36) % RDW 14.0 (11.6-14.8) % Plt Count 287 (150-400) X10^3/uL Neut % (Auto) 88.9 H (50-75) % Lymph % (Auto) 4.8 L (25-40) % [place] % (Auto) 5.7 (3-14) % Eos % (Auto) 0.2 L (2-4) % Baso % (Auto) 0.4 (0-2) % Neut # (Auto) 45245 H (6352-7928) /uL Lymph # (Auto) 600 L (7335-5710) /uL [place] # (Auto) 700 (0-900) /uL Eos # (Auto) 0 (0-450) /uL Baso # (Auto) 100 (0-100) /uL D-Dimer (<230) ng/mL ABG pH (7.35-7.45) ABG pCO2 (35-45) mmHg ABG pO2 (80-100) mmHg ABG HCO3 (22-26) mmol/L ABG Total CO2 (21-31) mmol/L ABG O2 Saturation (95-100) % ABG Base Excess (-2-2) mmol/L FiO2 Sodium 132 L (137-145) mmol/L Potassium 4.5 (3.4-5.1) mmol/L Chloride 92 L (98-107) mmol/L Carbon Dioxide 30 (22-32) mmol/L BUN 14 (9-20) mg/dL Creatinine 0.54 L (0.66-1.25) mg/dL Estimated GFR > 60.0 (>60) mL/min BUN/Creatinine Ratio 25.9 H (6-22) Glucose 159 H (80-110) mg/dL Lactate 1.0 (0.7-2.1) mmol/L Calcium 9.6 (8.4-10.2) mg/dL Total Bilirubin 0.9 (0.2-1.3) mg/dL AST 17 (17-59) IU/L ALT 14 (<50) IU/L Alkaline Phosphatase 131 H (38-126) U/L Total Creatine Kinase (55-170) U/L CK-MB (CK-2) CK-MB (CK-2) Rel Index Troponin I (0.01-0.034) ng/mL NT-Pro-B Natriuret Pep (<125) pg/mL Total Protein 7.4 (6.3-8.2) g/dL Albumin 4.2 (3.5-5.0) g/dL Globulin 3.2 (1.7-4.1) g/dL Albumin/Globulin Ratio 1.3 (1.0-2.8) COVID-19 PCR 09/14/19 09/14/19 09/14/19 Range/Units 14:34 14:34 16:32 WBC (4.5-11.0) X10^3/uL RBC (4.5-5.9) X10^6/uL Hgb (13.5-17.5) g/dL Hct (41-53) % MCV (80-100) fL MCH (26-34) PG MCHC (30-36) % RDW (11.6-14.8) % Plt Count (150-400) X10^3/uL Neut % (Auto) (50-75) % Lymph % (Auto) (25-40) % [place] % (Auto) (3-14) % Eos % (Auto) (2-4) % Baso % (Auto) (0-2) % Neut # (Auto) (4230-9306) /uL Lymph # (Auto) (5390-8231) /uL [place] # (Auto) (0-900) /uL Eos # (Auto) (0-450) /uL Baso # (Auto) (0-100) /uL D-Dimer 312 H (<230) ng/mL ABG pH 7.44 (7.35-7.45) ABG pCO2 46.2 H (35-45) mmHg ABG pO2 92 (80-100) mmHg ABG HCO3 31 H (22-26) mmol/L ABG Total CO2 32 H (21-31) mmol/L ABG O2 Saturation 97 (95-100) % ABG Base Excess 7.0 H (-2-2) mmol/L FiO2 3 Sodium (137-145) mmol/L Potassium (3.4-5.1) mmol/L Chloride (98-107) mmol/L Carbon Dioxide (22-32) mmol/L BUN (9-20) mg/dL Creatinine (0.66-1.25) mg/dL Estimated GFR (>60) mL/min BUN/Creatinine Ratio (6-22) Glucose (80-110) mg/dL Lactate (0.7-2.1) mmol/L Calcium (8.4-10.2) mg/dL Total Bilirubin (0.2-1.3) mg/dL AST (17-59) IU/L ALT (<50) IU/L Alkaline Phosphatase (38-126) U/L Total Creatine Kinase 21 L (55-170) U/L CK-MB (CK-2) TNP CK-MB (CK-2) Rel Index TNP Troponin I < 0.012 (0.01-0.034) ng/mL NT-Pro-B Natriuret Pep 141 H (<125) pg/mL Total Protein (6.3-8.2) g/dL Albumin (3.5-5.0) g/dL Globulin (1.7-4.1) g/dL Albumin/Globulin Ratio (1.0-2.8) COVID-19 PCR 09/14/19 09/14/19 Range/Units 20:20 20:20 WBC (4.5-11.0) X10^3/uL RBC (4.5-5.9) X10^6/uL Hgb (13.5-17.5) g/dL Hct (41-53) % MCV (80-100) fL MCH (26-34) PG MCHC (30-36) % RDW (11.6-14.8) % Plt Count (150-400) X10^3/uL Neut % (Auto) (50-75) % Lymph % (Auto) (25-40) % [place] % (Auto) (3-14) % Eos % (Auto) (2-4) % Baso % (Auto) (0-2) % Neut # (Auto) (9081-4825) /uL Lymph # (Auto) (9934-7621) /uL [place] # (Auto) (0-900) /uL Eos # (Auto) (0-450) /uL Baso # (Auto) (0-100) /uL D-Dimer (<230) ng/mL ABG pH (7.35-7.45) ABG pCO2 (35-45) mmHg ABG pO2 (80-100) mmHg ABG HCO3 (22-26) mmol/L ABG Total CO2 (21-31) mmol/L ABG O2 Saturation (95-100) % ABG Base Excess (-2-2) mmol/L FiO2 Sodium (137-145) mmol/L Potassium (3.4-5.1) mmol/L Chloride (98-107) mmol/L Carbon Dioxide (22-32) mmol/L BUN (9-20) mg/dL Creatinine (0.66-1.25) mg/dL Estimated GFR (>60) mL/min BUN/Creatinine Ratio (6-22) Glucose (80-110) mg/dL Lactate (0.7-2.1) mmol/L Calcium (8.4-10.2) mg/dL Total Bilirubin (0.2-1.3) mg/dL AST (17-59) IU/L ALT (<50) IU/L Alkaline Phosphatase (38-126) U/L Total Creatine Kinase (55-170) U/L CK-MB (CK-2) CK-MB (CK-2) Rel Index Troponin I (0.01-0.034) ng/mL NT-Pro-B Natriuret Pep (<125) pg/mL Total Protein (6.3-8.2) g/dL Albumin (3.5-5.0) g/dL Globulin (1.7-4.1) g/dL Albumin/Globulin Ratio (1.0-2.8) COVID-19 PCR Cancelled Negative ABG Data ABG results: The patient's blood gases revealed that on 3 L of nasal O2 the patient's pH is 7.436 pCO2 is 46.2 PO2 is 92 bicarb is 31.1 total CO2 is 32 oxygen saturation is 97% hematocrit is 41% hemoglobin is 13.9. The patient is on 3 liters/minute per nasal cannula. Attestation: I personally reviewed and interpreted this ABG as follows: ECG Data Attestation: I personally reviewed and interpreted this ECG as follows: Interpretation: The patient's EKG obtained at 14:1 8:17 a.m. reveals a ventricular rate of 97 with normal sinus rhythm. Intervals are normal QTC is prolonged at 490 milliseconds axis is normal. The patient has no acute diagnostic ST segment changes. There is no signs of ischemia or infarct. <Akira Farias MD - Last Filed: 09/15/19 01:18> Lab Data Labs: Lab Results 09/14/19 09/14/19 09/14/19 Range/Units 14:34 14:34 14:34 WBC 13.2 H (4.5-11.0) X10^3/uL RBC 5.05 (4.5-5.9) X10^6/uL Hgb 14.0 (13.5-17.5) g/dL Hct 41.3 (41-53) % MCV 81.7 (80-100) fL MCH 27.8 (26-34) PG MCHC 34.0 (30-36) % RDW 14.0 (11.6-14.8) % Plt Count 287 (150-400) X10^3/uL Neut % (Auto) 88.9 H (50-75) % Lymph % (Auto) 4.8 L (25-40) % [place] % (Auto) 5.7 (3-14) % Eos % (Auto) 0.2 L (2-4) % Baso % (Auto) 0.4 (0-2) % Neut # (Auto) 54232 H (4940-0447) /uL Lymph # (Auto) 600 L (7941-2626) /uL [place] # (Auto) 700 (0-900) /uL Eos # (Auto) 0 (0-450) /uL Baso # (Auto) 100 (0-100) /uL D-Dimer (<230) ng/mL ABG pH (7.35-7.45) ABG pCO2 (35-45) mmHg ABG pO2 (80-100) mmHg ABG HCO3 (22-26) mmol/L ABG Total CO2 (21-31) mmol/L ABG O2 Saturation (95-100) % ABG Base Excess (-2-2) mmol/L FiO2 Sodium 132 L (137-145) mmol/L Potassium 4.5 (3.4-5.1) mmol/L Chloride 92 L (98-107) mmol/L Carbon Dioxide 30 (22-32) mmol/L BUN 14 (9-20) mg/dL Creatinine 0.54 L (0.66-1.25) mg/dL Estimated GFR > 60.0 (>60) mL/min BUN/Creatinine Ratio 25.9 H (6-22) Glucose 159 H (80-110) mg/dL Lactate 1.0 (0.7-2.1) mmol/L Calcium 9.6 (8.4-10.2) mg/dL Total Bilirubin 0.9 (0.2-1.3) mg/dL AST 17 (17-59) IU/L ALT 14 (<50) IU/L Alkaline Phosphatase 131 H (38-126) U/L Total Creatine Kinase (55-170) U/L CK-MB (CK-2) CK-MB (CK-2) Rel Index Troponin I (0.01-0.034) ng/mL NT-Pro-B Natriuret Pep (<125) pg/mL Total Protein 7.4 (6.3-8.2) g/dL Albumin 4.2 (3.5-5.0) g/dL Globulin 3.2 (1.7-4.1) g/dL Albumin/Globulin Ratio 1.3 (1.0-2.8) COVID-19 PCR 09/14/19 09/14/19 09/14/19 Range/Units 14:34 14:34 16:32 WBC (4.5-11.0) X10^3/uL RBC (4.5-5.9) X10^6/uL Hgb (13.5-17.5) g/dL Hct (41-53) % MCV (80-100) fL MCH (26-34) PG MCHC (30-36) % RDW (11.6-14.8) % Plt Count (150-400) X10^3/uL Neut % (Auto) (50-75) % Lymph % (Auto) (25-40) % [place] % (Auto) (3-14) % Eos % (Auto) (2-4) % Baso % (Auto) (0-2) % Neut # (Auto) (2872-3550) /uL Lymph # (Auto) (6904-2790) /uL [place] # (Auto) (0-900) /uL Eos # (Auto) (0-450) /uL Baso # (Auto) (0-100) /uL D-Dimer 312 H (<230) ng/mL ABG pH 7.44 (7.35-7.45) ABG pCO2 46.2 H (35-45) mmHg ABG pO2 92 (80-100) mmHg ABG HCO3 31 H (22-26) mmol/L ABG Total CO2 32 H (21-31) mmol/L ABG O2 Saturation 97 (95-100) % ABG Base Excess 7.0 H (-2-2) mmol/L FiO2 3 Sodium (137-145) mmol/L Potassium (3.4-5.1) mmol/L Chloride (98-107) mmol/L Carbon Dioxide (22-32) mmol/L BUN (9-20) mg/dL Creatinine (0.66-1.25) mg/dL Estimated GFR (>60) mL/min BUN/Creatinine Ratio (6-22) Glucose (80-110) mg/dL Lactate (0.7-2.1) mmol/L Calcium (8.4-10.2) mg/dL Total Bilirubin (0.2-1.3) mg/dL AST (17-59) IU/L ALT (<50) IU/L Alkaline Phosphatase (38-126) U/L Total Creatine Kinase 21 L (55-170) U/L CK-MB (CK-2) TNP CK-MB (CK-2) Rel Index TNP Troponin I < 0.012 (0.01-0.034) ng/mL NT-Pro-B Natriuret Pep 141 H (<125) pg/mL Total Protein (6.3-8.2) g/dL Albumin (3.5-5.0) g/dL Globulin (1.7-4.1) g/dL Albumin/Globulin Ratio (1.0-2.8) COVID-19 PCR 09/14/19 09/14/19 Range/Units 20:20 20:20 WBC (4.5-11.0) X10^3/uL RBC (4.5-5.9) X10^6/uL Hgb (13.5-17.5) g/dL Hct (41-53) % MCV (80-100) fL MCH (26-34) PG MCHC (30-36) % RDW (11.6-14.8) % Plt Count (150-400) X10^3/uL Neut % (Auto) (50-75) % Lymph % (Auto) (25-40) % [place] % (Auto) (3-14) % Eos % (Auto) (2-4) % Baso % (Auto) (0-2) % Neut # (Auto) (1887-0181) /uL Lymph # (Auto) (9167-0634) /uL [place] # (Auto) (0-900) /uL Eos # (Auto) (0-450) /uL Baso # (Auto) (0-100) /uL D-Dimer (<230) ng/mL ABG pH (7.35-7.45) ABG pCO2 (35-45) mmHg ABG pO2 (80-100) mmHg ABG HCO3 (22-26) mmol/L ABG Total CO2 (21-31) mmol/L ABG O2 Saturation (95-100) % ABG Base Excess (-2-2) mmol/L FiO2 Sodium (137-145) mmol/L Potassium (3.4-5.1) mmol/L Chloride (98-107) mmol/L Carbon Dioxide (22-32) mmol/L BUN (9-20) mg/dL Creatinine (0.66-1.25) mg/dL Estimated GFR (>60) mL/min BUN/Creatinine Ratio (6-22) Glucose (80-110) mg/dL Lactate (0.7-2.1) mmol/L Calcium (8.4-10.2) mg/dL Total Bilirubin (0.2-1.3) mg/dL AST (17-59) IU/L ALT (<50) IU/L Alkaline Phosphatase (38-126) U/L Total Creatine Kinase (55-170) U/L CK-MB (CK-2) CK-MB (CK-2) Rel Index Troponin I (0.01-0.034) ng/mL NT-Pro-B Natriuret Pep (<125) pg/mL Total Protein (6.3-8.2) g/dL Albumin (3.5-5.0) g/dL Globulin (1.7-4.1) g/dL Albumin/Globulin Ratio (1.0-2.8) COVID-19 PCR Cancelled Negative Discharge Plan Departure [facility] Clinical Impression: Rectal cancer, Acute dyspnea, Laryngitis, Pleural effusion, Lingular pneumonia, Collapse of left lung Cancer of left lung Qualifiers: Lung location: unspecified part of lung Qualified Code(s): C34.92 - Malignant neoplasm of unspecified part of left bronchus or lung Discharge Date/Time: 09/15/19 01:15 Prescriptions: No Action escitalopram oxalate 20 mg tablet 20 mg PO DAILY Qty: 30 RF: 1 trazodone 50 mg tablet See Rx Instructions PO BEDTIME PRN (Reason: sleep) Qty: 30 RF: 2 polyethylene glycol 3350 [Miralax] 17 gram Powder In Packet 17 g PO BID RF: 0 docusate sodium 100 mg Capsule 100 mg PO BID PRN (Reason: Constipation) RF: 0 albuterol sulfate [Ventolin HFA] 90 mcg/actuation Hfa Aerosol Inhaler 1 - 2 puff INHALATION Q4-6H RF: 0 prochlorperazine maleate 10 mg Tablet 10 mg PO Q6H PRN (Reason: nausea vomiting) Qty: 120 RF: 0 meclizine 25 mg Tablet 25 mg PO BID Qty: 60 RF: 0 lorazepam 0.5 mg tablet 0.5 mg PO BID PRN (Reason: Nausea And Vomiting) Qty: 60 RF: 0 oxycodone 10 mg Tablet 10 mg PO Q4H PRN (Reason: PAIN) Qty: 180 RF: 0 lisinopril 10 mg Tablet 10 mg PO DAILY RF: 0 prednisone 20 mg tablet 80 mg PO DAILY Qty: 12 RF: 0 Referrals: Judith Eagle MD [Primary Care Provider] -
[2019-09-14 15:45] LABS: Creatine Kinase 21 U/L (55-170)
--- NOTE | 2019-09-14 15:54 | DI.CT.S_ITS ---
PROCEDURE: CT CHEST WO CON INDICATIONS: SOB, Lung cancer, massive left pleural effusion TECHNIQUE: Noncontrast 5 mm thick sections acquired from the pulmonary apices to the posterior costophrenic angles. 1 mm lung window, 5 mm thick coronal and sagittal and 7 mm axial MIP reformats were then acquired. For radiation dose reduction, the following was used: automated exposure control, adjustment of mA and/or kV according to patient size. COMPARISON: Outside Film, CT, CT CHEST ABDOMEN PELVIS WITH CONTRAST, 12/05/2018, 14:10. [facility], CT, CT CHEST WO CON, 05/25/2019, 12:59. [facility], CT, CT CHEST WO CON, 06/30/2019, 14:05. [facility], CR, XR CHEST 1V, 09/14/2019, 15:01. [facility], CT, CT CHEST WO CON, 08/28/2019, 12:50. [facility], CR, XR CHEST 1V, 08/28/2019, 11:06. FINDINGS: Image quality: Excellent. Lungs and pleura: Severe volume loss in the left hemithorax causing leftward mediastinal shift, new since the last CT. There is left lower lobe atelectasis, likely secondary to obstruction of the left lower lobe bronchus. There appears to be an endobronchial mass, which has progressive enlarged in the area of the left lower lobe bronchus, measuring 2.3 x 2.8 cm. There is small left pleural effusion. There is infiltrate in left upper lobe and lingula, consistent with pneumonia or pneumonitis. A couple of 5-6 mm right upper lobe nodule are stable. Mediastinum: Heart size is normal. No pericardial effusion. There is a 1.2 cm prevascular lymph node, enlarged since last CT, consistent with metastasis. Thoracic aorta and central pulmonary arteries are normal in size. Esophagus is normal in caliber. No hiatal hernia. Bones and chest wall: No suspicious bony lesions. Mild chronic compression deformity of T12 vertebral body. No axillary or supraclavicular adenopathy by size criteria. Thyroid gland is normal. Abdomen: Visualized upper abdominal solid organs and bowel loops appear normal in the absence of contrast. IMPRESSION: 1. Collapse of the left lower lobe secondary to obstruction of the left lower lobe bronchus. An endobronchial mass is suspected in the left lower lobe. 2. Left upper lobe and lingular pneumonia or pneumonitis. 3. Small left free effusion. 4. Enlargement of a prevascular lymph node suspicious for metastasis. 5. Stable small right upper lobe lung nodules. 6. Mild chronic compression fracture of T12. Dictated by: Meenakshi Perdomo M.D. on 09/14/2019 at 16:08 Approved by: Meenakshi Perdomo M.D. on 09/14/2019 at 16:24
[2019-09-14 15:58] LABS: NT-proBNP (BNP-Adult 18+) 141 pg/mL (<125); Troponin I < 0.012 ng/mL (0.01-0.034)
[2019-09-14 16:21] LABS: D Dimer 312 ng/mL (<230)
[2019-09-14] MEDS: methylPREDNISolone 125 MG/2 ML VIAL IV (16:39)
[2019-09-14 17:55] LABS: pH ABG 7.44 (7.35-7.45)
[2019-09-14 17:56] LABS: Fractionated Inspired Oxygen 3; Oxygen Saturation ABG 97 % (95-100); PCO2 ABG 46.2 mmHg (35-45); PO2 ABG 92 mmHg (80-100)
[2019-09-14 17:57] LABS: HCO3 ABG 31 mmol/L (22-26); TCO2 ABG 32 mmol/L (21-31)
[2019-09-14] MEDS: levoFLOXacin 750 MG/150 ML PIGGYBACK 100 MG IV (19:05)
[2019-09-14] MEDS: ONDANSETRON 4 MG/2 ML INJ IV ×2 (19:11→22:28)
[2019-09-14] MEDS: MORPHINE 4 MG/ML INJ IV (20:46)
[2019-09-14 21:23] LABS: COVID19 -Nasal RAPID Negative (Negative)
[2019-09-15] MEDS: HYDROMORPHONE 1 MG INJ IV (00:20)
== END 2019-09-15 01:15 | disposition short-term general hospital (02) ==
PROVIDERS: Emergency Provider Emergency Medicine; Family Provider Student in an Organized Health Care Education/Training Program; PCP Student in an Organized Health Care Education/Training Program
DX: J98.19 Other pulmonary collapse (principal); R06.00 Dyspnea, unspecified; J90 Pleural effusion, not elsewhere classified; J18.8 Other pneumonia, unspecified organism; J04.0 Acute laryngitis; C34.92 Malignant neoplasm of unspecified part of left bronchus or lung; I10 Essential (primary) hypertension; J44.9 Chronic obstructive pulmonary disease, unspecified
CPT/HCPCS: 36415; 36600; 71045; 71250; 80053; 82550; 82805; 83605; 83880; 84484; 85025; 85379; 87635; 93005; 93010; 96365; 96366; 96375; 96376; 99285; J1170; J1956; J2270; J2405; J2930

== ENCOUNTER → 2019-12-12 09:02 | Outpatient (CLI) | payer MEDICARE, MEDICAID, SELFPAY ==
[2019-06-07 21:44] VITALS: BMI 34.3
--- NOTE | 2019-12-12 | DI.CT.S_ITS ---
PROCEDURE: CT CHEST WO CON INDICATIONS: MALIGNANT NEOPLASM OF UNKNOWN LOCATION TECHNIQUE: Noncontrast 5 mm thick sections acquired from the pulmonary apices to the posterior costophrenic angles. 1 mm lung window, 5 mm thick coronal and sagittal and 7 mm axial MIP reformats were then acquired. For radiation dose reduction, the following was used: automated exposure control, adjustment of mA and/or kV according to patient size. COMPARISON: Outside Film, CT, CT CHEST WITH CONTRAST, 09/18/2019, 9:23. [facility], CT, CT CHEST WO CON, 08/28/2019, 12:50. Outside Film, NM, PET NECK TO MID THIGH, 07/12/2019, 15:17. [facility], CT, CT CHEST WO CON, 09/14/2019, 15:58. FINDINGS: Image quality: Excellent. Lungs and pleura: There is volume loss in the left hemithorax reticular nodular infiltrates seen on the last exam in the left hemithorax has significantly improved. Mild residual infiltrate is seen in the left lower lobe. There are multiple sub cm nodules in the left lower lobe, some are new and some are more solid in appearance. Because of presence of significant reticulonodular infiltrates in the left lower lobe on the last exam, some nodules seen on the current examination may be obscured on the last exam. There are multiple nodules in right upper lobe. A 1.1 cm spiculated nodule in the left lower lobe (series 3, image 101) has shown interval enlargement (previously 0.9 cm). A 4 mm subpleural nodule in the right upper lobe (series 3, image 87) previously measured 2 mm. There is a 0.7 x 1.0 cm nodule in the anterior right upper lobe (series 3, image 95), previously 0.6 x 0.9 cm.). A 6 mm spiculated cavitary nodule appears unchanged. Mediastinum: The posterior mediastinal mass described on the last exam is no longer visualized. No enlarged mediastinal lymph nodes are present on the current exam. A 6 x 8 mm lymph node adjacent to the ascending aorta previously measured 0.8 x 1.3 cm. Heart size is normal. No pericardial effusion. No mediastinal adenopathy by size criteria. Thoracic aorta and central pulmonary arteries are normal in size. Esophagus is normal in caliber. No hiatal hernia. Bones and chest wall: No suspicious bony lesions. No vertebral body compression fractures. No axillary or supraclavicular adenopathy by size criteria. Thyroid gland is unremarkable. There is a Port-A-Cath in the right anterior chest. Abdomen: There is a 2 cm right adrenal nodule, unchanged. IMPRESSION: 1. Volume loss in the left hemithorax, likely secondary to postsurgical change. There is interval near resolution of reticulonodular infiltrates in left lung, predominantly involving the left lower lobe. There are multiple small subcentimeter subpleural nodules in left lung, some are new and some are more solid in appearance compared to the last exam. 2. Interval enlargement of several spiculated nodules in right lung suspicious for neoplasm, either synchronous primary lung cancer or metastatic disease. 3. Interval resolution of mediastinal lymphadenopathy. 4. Stable 2 cm right adrenal nodule. Dictated by: Meenakshi Perdomo M.D. on 12/12/2019 at 12:43 Approved by: Meenakshi Perdomo M.D. on 12/12/2019 at 14:10
== END ==
PROVIDERS: Family Provider Student in an Organized Health Care Education/Training Program; PCP Student in an Organized Health Care Education/Training Program; Referring Provider Internal Medicine Pulmonary Disease; Visit Provider Internal Medicine Pulmonary Disease
DX: C34.32 Malignant neoplasm of lower lobe, left bronchus or lung (principal); R91.8 Other nonspecific abnormal finding of lung field; E27.9 Disorder of adrenal gland, unspecified; Z95.828 Presence of other vascular implants and grafts
CPT/HCPCS: 71250

== ENCOUNTER → 2019-12-17 08:14 | Outpatient (CLI) | payer MEDICARE, MEDICAID, SELFPAY ==
[2019-06-07 21:44] VITALS: BMI 34.3
[2019-12-19 01:41] LABS: COVID19 Sendout Not Detected (Not Detected)
== END ==
PROVIDERS: Family Provider Student in an Organized Health Care Education/Training Program; PCP Student in an Organized Health Care Education/Training Program; Visit Provider Physician Assistant
DX: Z11.59 Encounter for screening for other viral diseases (principal)
CPT/HCPCS: 87635

== ENCOUNTER → 2020-01-13 13:41 | Outpatient (CLI) | payer MEDICARE, MEDICAID, SELFPAY ==
[2019-06-07 21:44] VITALS: BMI 34.3
[2020-01-15 09:09] LABS: COVID19 Sendout Not Detected (Not Detect)
== END ==
PROVIDERS: Family Provider Student in an Organized Health Care Education/Training Program; PCP Student in an Organized Health Care Education/Training Program; Visit Provider Nurse Practitioner
DX: Z11.59 Encounter for screening for other viral diseases (principal)
CPT/HCPCS: 87635

== ENCOUNTER → 2020-01-23 13:56 | Outpatient (CLI) | payer MEDICARE, MEDICAID, SELFPAY ==
[2019-06-07 21:44] VITALS: BMI 34.3
[2020-01-24 20:01] LABS: COVID19 Sendout Not Detected (Not Detect)
== END ==
PROVIDERS: Family Provider Student in an Organized Health Care Education/Training Program; PCP Student in an Organized Health Care Education/Training Program; Visit Provider Physician Assistant
DX: Z11.59 Encounter for screening for other viral diseases (principal)
CPT/HCPCS: 87635

== ENCOUNTER → 2020-02-07 08:41 | Outpatient (CLI) | payer MEDICARE, MEDICAID, SELFPAY ==
[2019-06-07 21:44] VITALS: BMI 34.3
--- NOTE | 2020-02-07 08:43 | DI.RAD.S_ITS ---
PROCEDURE: [place] CATHETER PATENCY COMPARISON: [facility], , [place] CATHETER PATENCY, 08/23/2018, 8:54. INDICATIONS: port not flushing FINDINGS: Right chest port is noted with the tip projecting in the upper SVC. No definite leakage of contrast material from the catheter is identified. The entire course of the catheter appears contrast opacified however no definite contrast materials is seen exiting from the tip of the catheter . There is contrast material tracking proximally along the course of the catheter in keeping with fibrin sheath. There is greater than expected pressure to contrast material injection IMPRESSION: Fibrin sheath at the tip of the right chest port catheter. Dictated by: Nikko Patrick M.D. on 02/07/2020 at 10:37 Approved by: Nikko Patrick M.D. on 02/07/2020 at 11:29
== END ==
PROVIDERS: Family Provider Student in an Organized Health Care Education/Training Program; PCP Student in an Organized Health Care Education/Training Program; Referring Provider Student in an Organized Health Care Education/Training Program; Visit Provider Internal Medicine Hematology & Oncology
DX: T82.594A Other mechanical complication of infusion catheter, initial encounter (principal); C34.32 Malignant neoplasm of lower lobe, left bronchus or lung
CPT/HCPCS: 76000

== ENCOUNTER → 2020-03-18 11:06 | Outpatient (CLI) | payer MEDICARE, MEDICAID, SELFPAY ==
[2019-06-07 21:44] VITALS: BMI 34.3
[2020-03-18 13:30] LABS: COVID19 -Nasal RAPID Negative (Negative)
== END ==
PROVIDERS: Family Provider Student in an Organized Health Care Education/Training Program; PCP Student in an Organized Health Care Education/Training Program; Visit Provider Surgery
DX: Z01.812 Encounter for preprocedural laboratory examination (principal); Z11.59 Encounter for screening for other viral diseases
CPT/HCPCS: 87635; C9803

== ENCOUNTER 2020-03-19 13:23 | Day surgery (SDC) | payer MEDICARE, MEDICAID, SELFPAY ==
[2019-06-07 21:44] VITALS: BMI 34.3
[2020-03-19] VITALS (8 sets, daily range): BP systolic 145–168; BP diastolic 62–79; PULSE 80–90; RESP 10–18; TEMP 36.1–37.1; O2SAT 98–100; BMI 32.3
--- NOTE | 2020-03-19 | DI.RAD.S_ITS ---
PROCEDURE: XR CHEST 1V INDICATIONS: PORT O CATH PLACEMENT TECHNIQUE: One view of the chest was acquired. COMPARISON: [facility], CT, CT CHEST WO CON, 12/12/2019, 9:07. Outside Film, CR, XR CHEST 2 VIEWS, 09/16/2019, 11:28. [facility], CT, CT CHEST WO CON, 09/14/2019, 15:58. [facility], CR, XR CHEST 1V, 09/14/2019, 15:01. FINDINGS: Surgical changes and devices: A left-sided chest port is seen, with the tip seen overlying the mid aspect of the superior vena cava, 4-5 cm above the cavoatrial junction. Lungs and pleura: Diffuse interstitial prominence is seen. There is a small left-sided pleural effusion. No large pneumothorax is seen on this semiupright study. Volume loss is seen on the left side. Mediastinum: The cardiac contours are within normal limits. The aorta demonstrates calcification and tortuosity. Bones and chest wall: No suspicious bony lesions. Age-appropriate bony degenerative changes are seen. Overlying soft tissues appear unremarkable. IMPRESSION: The tip of the left-sided chest port overlies the mid aspect of the superior vena cava. Diffuse interstitial prominence is seen. Pulmonary edema is suspected. Small left-sided pleural effusion. Dictated by: Matt Jiménez M.D. on 03/19/2020 at 16:56 Approved by: Matt Jiménez M.D. on 03/19/2020 at 17:00
[2020-03-19] MEDS: LACTATED RINGERS 1,000 ML 100 ML IV ×3 (14:12→18:06)
[2020-03-19] MEDS: ACETAMINOPHEN 325 MG TABLET 975 MG PO (14:14)
--- NOTE | 2020-03-19 16:00 | PM.PREOP ---
Pre-operative Note COVID-19 COVID-19 status: Negative Interval Note History & Physical reviewed/Exam performed by Physician: Yes Changes to H&P: No
[2020-03-19] MEDS: CEFAZOLIN VIAL 3 GM in SODIUM CHLORIDE 0.9% 100 ML 200 ML IV (16:14)
--- NOTE | 2020-03-19 16:35 | SUR.OPER ---
Supine on padded OR bed, head on gel donut, arm padded and tucked at side, legs uncrossed, safety belt at thigh.
[2020-03-19] MEDS: BUPIVACAINE 0.25% (PF) VIAL 30 ML INJ (16:41)
[2020-03-19] MEDS: HEPARIN 5,000 UNIT, SODIUM CHLORIDE 0.9% 50 ML IV (16:47)
[2020-03-19] MEDS: OXYCODONE IR 5 MG TABLET 10 MG PO (17:46)
--- NOTE | 2020-03-19 17:47 | P.OP_ITS ---
Operative Date/Time/Diagnoses Date of procedure: 03/19/20 Time of procedure: 17:47 Pre-op diagnosis: Metastatic rectal cancer Post-op diagnosis: same Procedure & Clinicians Procedure: Port-A-Cath removal and Port-A-Cath placement Same procedure as scheduled: Yes Indications: 69-year-old male with metastatic rectal cancer with plans to underg o palliative chemotherapy. He has a nonfunctioning Port-A-Cath in the right chest Surgeon: Sebastián Farley Click Yes if Unassisted: Yes Anesthesia Type: General Operative Notes Findings: Right Port-A-Cath removed intact. Left Port-A-Cath imaging demonstra merrick no evidence of pneumothorax and tip of the catheter lies within the SVC on my review of the CXR Specimen(s): none sent Estimated Blood Loss (mL): 20 Procedure in detail: Patient was brought to the operating room placed supine on table. Bilateral lower extremity compressive devices were applied. General anesthesia was induced and he was intubated with an LMA. He was then prepped and draped in usual sterile fashion. Time-out was performed ensure the correct patient procedure necessary equipment within the operating room. He received 2 g of Ancef prior to incision. The right Port-A-Cath was removed. Incision was made through the prior scar the subcutaneous tissues were divided the port was dissected out. The site of catheter entrance was ligated with figure-eight fashion 3-0 Vicryl suture as the catheter was removed. Inspection demonstrated that the port and associated catheter were intact. The wound was irrigated hemostasis was achieved in the subcutaneous tissue was closed with Vicryl skin with Monocryl followed by Dermabond. Under ultrasound guidance the left internal jugular vein was accessed under direct visualization. The guidewire was then threaded through the needle. Its placement was then confirmed using fluoroscopy. The dilator was then placed over the guidewire. The catheter was then inserted through the sheath. Placement was again confirmed with fluoroscopy. A subcutaneous pocket was made in the left chest wall. The tunneler device was used to move the catheter from the neck to the chest pocket. The port was attached after it was primed with heparined saline. The port was tested to ensure that it flushed easily and had good blood return. The port was then secured to the underlying fascia using interupted 0 Prolene suture. Hemostasis was achieved. The wound was irrigated with sterile saline. The subcutaneous tissues were reapproximated with the 3 0 Vicryl and then skin closed with 4-0 Monocryl. The skin was sealed with Dermabond. Patient tolerated procedure well. The sponge and instrument count at the end operation was correct. Patient emerged from general anesthesia was extubated and taken to the postoperative care unit in stable condition removal Complications: none Post-operative Condition: stable Disposition: same day surgery
== END 2020-03-19 18:21 | disposition home or self-care (01) ==
PROVIDERS: Family Provider Student in an Organized Health Care Education/Training Program; PCP Student in an Organized Health Care Education/Training Program; Referring Provider Surgery; Visit Provider Surgery
PROC: (CPT 36561; principal; 2020-03-19 13:45)
DX: C20 Malignant neoplasm of rectum (principal); Z45.2 Encounter for adjustment and management of vascular access device; C78.02 Secondary malignant neoplasm of left lung; J44.9 Chronic obstructive pulmonary disease, unspecified; I10 Essential (primary) hypertension; E66.9 Obesity, unspecified
CPT/HCPCS: 36561; 36590; 71045; 82962; C1788; J0690; J1100; J1644; J2704; J3010

== ENCOUNTER → 2020-05-15 10:24 | Outpatient (CLI) | payer MEDICARE, MEDICAID, SELFPAY ==
[2019-06-07 21:44] VITALS: BMI 34.3
--- NOTE | 2020-05-15 11:26 | DI.CT.S_ITS ---
PROCEDURE: CT CHEST ABD PEL W CON INDICATIONS: metastatic colon cancer TECHNIQUE: After the administration of oral and intravenous contrast, 5 mm thick sections acquired from the lung apices to the symphysis. 5 mm coronal and sagittal reformats were performed, with additional 7 mm coronal MIP reformats through the lungs. For radiation dose reduction, the following was used: automated exposure control, adjustment of mA and/or kV according to patient size. COMPARISON: [facility], CT, CT ABDOMEN PELVIS W CON, 05/01/2019, 14:48. [facility], NM, NM PET CT FUSION SKULL 2 THIGH, 03/13/2020, 17:44. [facility], CT, CT CHEST WO CON, 12/12/2019, 9:07. [facility], CT, CT CHEST ABD PEL W CON, 03/13/2018, 1:26. FINDINGS: Image quality: Excellent. CHEST: Lungs and pleura: No acute airspace opacities. No pleural effusions or pneumothorax. Central and peripheral airways appear patent and normal in caliber. Left lobectomy changes are noted. Multiple bilateral pulmonary nodules are identified. There are felt to be similar versus minimally decreased in size compared to 03/13/2020. Decrease in size ranges from 1-2 mm and some may be artifactual apparent decrease in size secondary to technique differences between current CT chest exam and prior comparison which is a CT-PET exam. Mediastinum: Heart size is normal. No pericardial effusion. No mediastinal or hilar adenopathy by size criteria. Thoracic aorta and central pulmonary arteries are normal in size. Esophagus is normal in caliber. No hiatal hernia. Chest wall: No axillary or supraclavicular adenopathy by size criteria. Thyroid gland is unremarkable . ABDOMEN: Solid organs: Liver is enlarged with steatosis. There is a low-attenuation focus within the medial midportion seen on series 2, image 52, unchanged. Gallbladder is contracted but grossly unremarkable. Biliary system is non dilated. Pancreas enhances normally. Spleen is mildly enlarged. Unchanged right adrenal nodularity. Kidneys demonstrate normal size and enhancement, without hydronephrosis. Right renal cyst is present. 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 Peritoneum and bowel: Bowel loops are nonobstructive. There is a persistent appearance of circumferential rectal thickening. No free fluid or air. Diverting loop colostomy in the left lower quadrant is present. Nodes and vessels: No retroperitoneal or mesenteric adenopathy by size criteria. Aorta and inferior vena cava are normal in size. Miscellaneous: Fat containing ventral hernia is present. PELVIS: Genitourinary: Bladder wall thickness is normal. Miscellaneous: No inguinal hernias or adenopathy. Bones: No suspicious bony lesions. No vertebral body compression fractures. IMPRESSION: 1. Multiple bilateral pulmonary nodules felt to be similar size and number versus minimally decreased in size as discussed above. 2. Hepatosplenomegaly. 3. Unchanged right adrenal nodularity. 4. Unchanged appearance of circumferential rectal thickening. 5. No adenopathy. Dictated by: Jaz Sarmiento M.D. on 05/15/2020 at 14:59 Approved by: Jaz Sarmiento M.D. on 05/15/2020 at 15:39
== END ==
PROVIDERS: Family Provider Student in an Organized Health Care Education/Training Program; PCP Student in an Organized Health Care Education/Training Program; Referring Provider Internal Medicine Hematology & Oncology; Visit Provider Internal Medicine Hematology & Oncology
DX: C34.32 Malignant neoplasm of lower lobe, left bronchus or lung (principal); C20 Malignant neoplasm of rectum; R91.8 Other nonspecific abnormal finding of lung field; K76.0 Fatty (change of) liver, not elsewhere classified; R16.2 Hepatomegaly with splenomegaly, not elsewhere classified
CPT/HCPCS: 71260; 74177; Q9967

== ENCOUNTER → 2020-06-13 15:39 | Outpatient (CLI) | payer MEDICARE, MEDICAID, SELFPAY ==
[2019-06-07 21:44] VITALS: BMI 34.3
--- NOTE | 2020-06-13 15:46 | DI.MRI.S_ITS ---
PROCEDURE: MR HEAD/BRAIN WO/W CON INDICATIONS: lung caner, colon cancer, now disorientation and double vision TECHNIQUE: Noncontrast axial T1 spin echo, axial T2 fast spin echo, sagittal and axial FLAIR, coronal T2 fast spin echo, axial gradient echo, axial diffusion and ADC through the brain. After the administration of contrast, axial and coronal T1 spin echo with fat saturation through the brain. COMPARISON: [facility], , MR HEAD/BRAIN WO/W CON, 12/15/2017, 11:33. FINDINGS: Image quality: Excellent. CSF spaces: Basal cisterns are patent. No extra-axial fluid collections. Ventricles are normal in size and shape. Brain: No midline shift. No intracranial bleeds or masses. No abnormal intracranial enhancement. There is cerebral volume loss for age. There is mild periventricular white matter chronic small vessel ischemic change. The brainstem appears normal. Diffusion-weighted images demonstrate no acute ischemic insults. No chronic ischemic insults. Normal intravascular flow voids are present. Skull and face: Calvarial marrow is normal in signal. Orbits appear normal. Sinuses: Sinuses and mastoids appear clear. IMPRESSION: 1. Age-related volume loss and mild small vessel ischemic change. 2. No evidence acute stroke, hemorrhage, or mass. Dictated by: Hossein Stewart M.D. on 06/13/2020 at 16:57 Approved by: Hossein Stewart M.D. on 06/13/2020 at 16:58
== END ==
PROVIDERS: Family Provider Student in an Organized Health Care Education/Training Program; PCP Student in an Organized Health Care Education/Training Program; Referring Provider Internal Medicine Hematology & Oncology; Visit Provider Internal Medicine Hematology & Oncology
DX: R41.0 Disorientation, unspecified (principal); H53.2 Diplopia; C20 Malignant neoplasm of rectum; C34.92 Malignant neoplasm of unspecified part of left bronchus or lung
CPT/HCPCS: 70553

== ENCOUNTER → 2020-07-11 10:59 | Outpatient (CLI) | payer MEDICARE, MEDICAID, SELFPAY ==
[2019-06-07 21:44] VITALS: BMI 34.3
--- NOTE | 2020-07-11 11:50 | DI.CT.S_ITS ---
PROCEDURE: CT CHEST ABD PEL W CON INDICATIONS: lung cancer, rectal cancer TECHNIQUE: After the administration of oral and intravenous contrast, 5 mm thick sections acquired from the lung apices to the symphysis. 5 mm coronal and sagittal reformats were performed, with additional 7 mm coronal MIP reformats through the lungs. For radiation dose reduction, the following was used: automated exposure control, adjustment of mA and/or kV according to patient size. COMPARISON: [facility], CT, CT CHEST ABD PEL W CON, 05/15/2020, 11:38. FINDINGS: Image quality: Excellent. CHEST: Scattered subsegmental atelectasis and/or scarring. No focal consolidation. Numerous bilateral pulmonary nodules have increased in size, for example in the posterior left lung on image 123/3, 9 x 9 mm nodule previously 8 x 5 mm. Additional subpleural nodule in the left lung on image 134/3 measures 1.0 x 0.9 cm, previously 7 x 7 mm. In the right subpleural lung on image 104/3, 7 x 8 mm nodule previously measured 5 x 6 mm. Incidentally noted upper lobe predominant centrilobular emphysema. No pleural effusions or pneumothorax. Central and peripheral airways appear patent and normal in caliber. Mediastinum: Heart size is normal. Coronary artery calcifications are present. No pericardial effusion. No mediastinal or hilar adenopathy by size criteria. Thoracic aorta and central pulmonary arteries are normal in size. Scattered vascular calcifications incidentally noted in the aorta. Esophagus is normal in caliber. No hiatal hernia. Chest wall: No axillary or supraclavicular adenopathy by size criteria. Thyroid is grossly unremarkable ABDOMEN: Subcentimeter nonspecific hepatic hypodensities are grossly unchanged. Gallbladder contracted otherwise unremarkable . Biliary system is non dilated. Pancreas enhances normally. Spleen is enlarged. No adrenal nodules. No hydronephrosis. Presumed right renal cyst on image 71/2 with mural calcification. Left colostomy is incidentally noted. There is diffuse stool without specific evidence of bowel obstruction. No free fluid or air. Nodes and vessels: No retroperitoneal or mesenteric adenopathy by size criteria. Aorta and inferior vena cava are normal in size. Miscellaneous: No ventral hernias. PELVIS: Genitourinary: Bladder wall thickness is normal. Miscellaneous: No inguinal hernias or adenopathy. Bones: Diffuse osteopenia. Discogenic changes and facet arthropathy. Ankylosis of both sacroiliac joints. No suspicious bone lesion identified. IMPRESSION: Interval progression in multiple bilateral pulmonary nodule since 05/15/20 in keeping with active metastatic disease. No specific evidence of active metastatic disease in the abdomen or pelvis. Coronary artery disease Emphysema Splenomegaly Additional chronic and incidental findings as above. Dictated by: Nikko Patrick M.D. on 07/11/2020 at 17:05 Approved by: Nikko Patrick M.D. on 07/11/2020 at 17:18
== END ==
PROVIDERS: Family Provider Student in an Organized Health Care Education/Training Program; PCP Student in an Organized Health Care Education/Training Program; Referring Provider Internal Medicine Hematology & Oncology; Visit Provider Internal Medicine Hematology & Oncology
DX: C20 Malignant neoplasm of rectum (principal); C34.32 Malignant neoplasm of lower lobe, left bronchus or lung; C78.01 Secondary malignant neoplasm of right lung; J43.2 Centrilobular emphysema; I25.10 Atherosclerotic heart disease of native coronary artery without angina pectoris; R16.1 Splenomegaly, not elsewhere classified
CPT/HCPCS: 71260; 74177; Q9967

== ENCOUNTER → 2020-07-31 08:51 | Outpatient (CLI) | payer MEDICARE, MEDICAID, SELFPAY ==
[2019-06-07 21:44] VITALS: BMI 34.3
--- NOTE | 2020-07-31 08:52 | DI.CT.S_ITS ---
PROCEDURE: CT CHEST ABD PEL W CON INDICATIONS: lung cancer, rectal cancer TECHNIQUE: After the administration of oral and intravenous contrast, 5 mm thick sections acquired from the lung apices to the symphysis. 5 mm coronal and sagittal reformats were performed, with additional 7 mm coronal MIP reformats through the lungs. For radiation dose reduction, the following was used: automated exposure control, adjustment of mA and/or kV according to patient size. COMPARISON: , versus Outside Film, CT, CT CHEST ABDOMEN PELVIS WITH CONTRAST, 08/02/19. 19, 14:08[facility], CT, CT CHEST ABD PEL W CON, 07/11/2020, 11:49. FINDINGS: CHEST: Lungs: There is upper lobe predominant centrilobular emphysema. No acute consolidation pleural effusion or pneumothorax. There is redemonstration of multiple subcentimeter bilateral pulmonary nodules, which are all unchanged since 07/11/20, for example 1.7 x 0.7 cm nodule seen in the left lung base image 233/3. 8 mm pulmonary nodule seen in the superior segment of the right lower lobe on image 174/3. 1.1 cm nodule seen in the left upper lobe subpleural region on image 158/3. Airway thickening in keeping with nonspecific bronchitis and/or reactive airways disease. Mediastinum: Heart size is normal. Coronary artery calcifications are present. No pericardial effusion. Chest nodes: Normal. Thyroid is grossly unremarkable Aorta: Normal. Pulmonary arteries: Normal. Esophagus: Normal.. ABDOMEN: Solid organs: Unchanged sub cm hypodensity seen within the liver on image 60/2. Gallbladder: Negative. Bile ducts: Normal Pancreas: Normal Spleen: Enlarged measuring 14.6 cm in the cephalocaudal dimension. Adrenal glands: Normal Kidneys: No hydronephrosis. There is a 1.2 cm right renal cyst with mural calcification, unchanged. Peritoneum and bowel: Left sided colostomy. No bowel obstruction identified. However large amount of stool is present throughout the colon. Stomach: Normal No free fluid or air. Abdominal nodes: Normal Aorta and IVC: Normal in size. Ventral wall: Fat containing periumbilical hernia. PELVIS: Bladder: Normal. Inguinal: Normal Pelvic nodes: Normal Spondylytic changes and facet arthropathy. Unchanged T12 vertebral body compression fracture, mild. Areas of decreased bone mineralization involving the 9th right side of the vertebral body could be related to decreased bone mineralization rather than lytic metastasis given the unchanged appearance. IMPRESSION: Overall grossly unchanged appearance of multiple bilateral pulmonary nodules since 07/11/20. Elsewhere, grossly stable examination . Additional chronic and incidental findings as above. Dictated by: Nikko Patrick M.D. on 07/31/2020 at 10:42 Approved by: Nikko Patrick M.D. on 07/31/2020 at 11:01
== END ==
PROVIDERS: Family Provider Student in an Organized Health Care Education/Training Program; PCP Student in an Organized Health Care Education/Training Program; Referring Provider Internal Medicine Hematology & Oncology; Visit Provider Internal Medicine Hematology & Oncology
DX: C34.32 Malignant neoplasm of lower lobe, left bronchus or lung (principal); C20 Malignant neoplasm of rectum; R91.8 Other nonspecific abnormal finding of lung field
CPT/HCPCS: 71260; 74177; Q9967

== ENCOUNTER → 2020-10-14 10:42 | Outpatient (CLI) | payer MEDICARE, MEDICAID, SELFPAY ==
[2019-06-07 21:44] VITALS: BMI 34.3
--- NOTE | 2020-10-14 10:43 | DI.US.S_ITS ---
PROCEDURE: US PERIPH VENOUS LOW EXTREM RT INDICATIONS: right leg swelling TECHNIQUE: Real-time imaging, as well as color and pulse Doppler interrogation, were performed of the lower extremity deep veins from the inguinal ligament to the popliteal fossa. COMPARISON: None. FINDINGS: The common femoral, femoral and popliteal veins are normally compressible, and free of intraluminal thrombus. Color and pulse Doppler demonstrate normal phasic intraluminal flow. There is normal augmentation response to distal compression maneuver. IMPRESSION: No evidence of deep venous thrombosis, right lower extremity Dictated by: Mike Cat M.D. on 10/14/2020 at 10:02 Approved by: Mike Cat M.D. on 10/14/2020 at 10:03
== END ==
PROVIDERS: Family Provider Student in an Organized Health Care Education/Training Program; PCP Student in an Organized Health Care Education/Training Program; Referring Provider Internal Medicine Hematology & Oncology; Visit Provider Internal Medicine Hematology & Oncology
DX: M79.89 Other specified soft tissue disorders (principal); C34.92 Malignant neoplasm of unspecified part of left bronchus or lung; C20 Malignant neoplasm of rectum
CPT/HCPCS: 93971

== ENCOUNTER 2020-10-28 18:22 | Emergency (ER) | payer MEDICARE, MEDICAID, SELFPAY ==
[2019-06-07 21:44] VITALS: BMI 34.3
[2020-10-28 18:26] VITALS: BP 133/63; PULSE 108; RESP 24; TEMP 37.4; O2SAT 93
--- NOTE | 2020-10-28 18:32 | DI.RAD.S_ITS ---
PROCEDURE: XR CHEST 1V INDICATIONS: suspected sepsis TECHNIQUE: One view of the chest was acquired. COMPARISON: [facility], CT, CT CHEST ABD PEL W CON, 07/31/2020, 9:59. [facility], CR, XR CHEST 1V, 03/19/2020, 17:38. [facility], CR, XR CHEST 1V, 09/14/2019, 15:01. FINDINGS: Surgical changes and devices: Left-sided port with the catheter tip projecting at the middle 3rd of the SVC. Lungs and pleura: Patchy mild airspace opacity in the left lung. No pleural effusions or pneumothorax. Mediastinum: Mediastinal contours appear normal. Heart size is normal. Bones and chest wall: No suspicious bony lesions. Overlying soft tissues appear unremarkable. IMPRESSION: Patchy airspace opacity in the left lung. These could represent the pulmonary nodule seen on prior CT. Pneumonia could have a similar appearance. Dictated by: Alo Mckay M.D. on 10/28/2020 at 18:59 Approved by: Alo Mckay M.D. on 10/28/2020 at 19:00
[2020-10-28] MEDS: SODIUM CHLORIDE 0.9% 1,000 ML 1000 ML IV (19:00)
[2020-10-28 19:20] VITALS: BP 119/58; PULSE 101; RESP 20; O2SAT 100
[2020-10-28 19:26] LABS: Add Manual Diff / Slide Review NO; Basophils Absolute Auto 0 /uL (0-100); Basophils Percent Auto 0.4 % (0-2); Eosinophils Absolute Auto 0 /uL (0-450); Eosinophils Percent Auto 0.4 % (2-4); Hematocrit 30.2 % (41-53); Hemoglobin 10.2 g/dL (13.5-17.5); Lymphocytes Absolute Auto 600 /uL (1100-4500); Lymphocytes Percent Auto 9.9 % (25-40); Mean Corpuscular HGB Conc 33.9 % (30-36); Mean Corpuscular Hemoglobin 31.6 PG (26-34); Mean Corpuscular Volume 93.3 fL (80-100); Monocytes Absolute Auto 500 /uL (0-900); Neutrophils Absolute Auto 4600 /uL (1500-7000); Neutrophils Percent Auto 80.3 % (50-75); Platelet Count 117 X10^3/uL (150-400); Red Blood Cell Count 3.24 X10^6/uL (4.5-5.9); Red Cell Distribution Width 16.2 % (11.6-14.8); White Blood Cell Count 5.7 X10^3/uL (4.5-11.0)
[2020-10-28 19:30] VITALS: BP 117/55; PULSE 97; RESP 18; O2SAT 100
[2020-10-28] MEDS: LIDOCAINE 1% (PF) 2 ML SUBCUT (19:36)
[2020-10-28 19:43] LABS: Alanine Aminotransferase 16 IU/L (<50); Albumin 2.9 g/dL (3.5-5.0); Albumin Globulin Ratio 1.1 (1.0-2.8); Alkaline Phosphatase 160 U/L (38-126); Aspartate Aminotransferase 25 IU/L (17-59); BUN Creatinine Ratio 13.8 (6-22); Bilirubin Total 0.7 mg/dL (0.2-1.3); Blood Urea Nitrogen 8 mg/dL (9-20); Calcium 8.4 mg/dL (8.4-10.2); Carbon Dioxide 30 mmol/L (22-32); Chloride 97 mmol/L (98-107); Estimated Glomerular Filt Rate > 60.0 mL/min (>60); Globulin 2.6 g/dL (1.7-4.1); Glucose 101 mg/dL (80-110); HEMOLYSIS < 15 (0-50); Lactate (Lactic Acid) 1.7 mmol/L (0.7-2.1); Lipase 28 U/L (23-300); Potassium 4.1 mmol/L (3.4-5.1); Sodium 131 mmol/L (137-145); Total Protein 5.5 g/dL (6.3-8.2)
--- NOTE | 2020-10-28 19:54 | PC.NURSE ---
Patient refusing second set of blood cultures, educated on why we would need a second site but pt still refusing. Reported to Dr Hunter
[2020-10-28 20:00] VITALS: BP 141/61; PULSE 96; RESP 14; O2SAT 100
[2020-10-28 20:30] VITALS: BP 136/62; PULSE 97; RESP 15; O2SAT 94
--- NOTE | 2020-10-28 20:36 | ED.SKABFB ---
HPI - Skin/Abscess/Foreign Bdy General Chief complaint: Skin/Abscess/Foreign Body Stated complaint: SWELLING AND REDNESS OF LEGS CANCER PATIENT Time Seen by Provider: 10/28/20 18:36 Source: patient Mode of arrival: Ambulatory Related Data Home Medications Medication Instructions Recorded Confirmed albuterol sulfate 90 mcg/actuation 1 - 2 puff INHALATION Q4-6H 02/24/18 09/02/20 aerosol inhaler (Ventolin HFA) docusate sodium 100 mg capsule 100 mg PO BID PRN 02/24/18 09/02/20 lisinopril 10 mg tablet 10 mg PO DAILY 03/13/18 09/02/20 polyethylene glycol 3350 17 gram 17 g PO BID 06/07/19 09/02/20 oral powder packet (Miralax) prednisone 20 mg tablet 80 mg PO PRN PRN 12/18/19 08/08/20 oxygen 2 L al the time 2 l INTRANASAL 12/19/19 03/13/20 atorvastatin 20 mg tablet 20 mg PO BEDTIME 03/19/20 09/02/20 furosemide 20 mg tablet (Lasix) 20 mg PO DAILY 08/08/20 08/08/20 potassium chloride 10 mEq 10 meq PO DAILY 08/08/20 09/02/20 tablet,extended release Previous Rx's Medication Instructions Recorded prochlorperazine maleate 10 mg 10 mg PO Q6H PRN #120 tab 10/10/18 tablet fluorouracil 2.5 gram/50 mL See Protocol IV NOW #1 device 03/07/20 intravenous solution fluorouracil 2.5 gram/50 mL See Protocol IV NOW #1 device 03/25/20 intravenous solution oxycodone 10 mg tablet 10 mg PO Q4H PRN #180 tab 04/03/20 fluorouracil 2.5 gram/50 mL See Protocol IV NOW #1 device 04/08/20 intravenous solution fluorouracil 2.5 gram/50 mL See Protocol IV NOW #1 device 04/08/20 intravenous solution diphenhydramine HCl 25 mg capsule 50 mg PO PREOP #1 cap 05/13/20 (Benadryl) fluorouracil 2.5 gram/50 mL See Protocol IV NOW #1 device 05/13/20 intravenous solution fluorouracil 2.5 gram/50 mL See Protocol IV NOW #1 device 06/17/20 intravenous solution escitalopram oxalate 20 mg tablet 20 mg PO DAILY #30 tab 06/27/20 trazodone 100 mg tablet 100 mg PO BEDTIME PRN #30 tab 06/27/20 fluorouracil 2.5 gram/50 mL See Protocol IV NOW #1 device 07/18/20 intravenous solution prednisone 50 mg tablet 50 mg PO PREOP #3 tab 07/24/20 fluorouracil 2.5 gram/50 mL See Protocol IV NOW #1 device 08/08/20 intravenous solution fluorouracil 2.5 gram/50 mL See Protocol IV NOW 1 Days #1 09/02/20 intravenous solution device fluorouracil 2.5 gram/50 mL See Protocol IV NOW 1 Days #1 09/23/20 intravenous solution device naloxone 4 mg/actuation nasal 1 spray INTRANASAL Q3M #1 ea 09/23/20 spray (Narcan) lidocaine-prilocaine 2.5 %-2.5 % 1 applic TOPICAL PRN PRN #30 g 10/14/20 topical cream lorazepam 0.5 mg tablet 0.5 mg PO BID PRN #60 tab 10/28/20 oxycodone 10 mg tablet 10 - 20 mg PO Q4H PRN #200 tab 10/28/20 Allergies Allergy/AdvReac Type Severity Reaction Status Date / Time Iodinated Contrast Media Allergy Severe hives, Verified 03/19/20 13:58 [Iodinated Contrast- Oral difficultly and IV Dye] breathing paclitaxel Allergy Severe Difficulty Verified 03/19/20 13:58 Breathing Patient History Medical History (Updated 04/08/20 @ 09:00 by Mary Rust MD) COPD (chronic obstructive pulmonary disease) Fatigue History of kidney stones Hx of nephrolithotomy with removal of calculi Hypertension Obesity Port-A-Cath in place Rectal adenocarcinoma Rectal mass Sleep apnea Spine anomaly Squamous cell carcinoma lung Weakness Surgical History (Updated 04/08/20 @ 09:00 by Mary Rust MD) H/O colectomy History of bronchoscopy (02/03/18) History of knee replacement procedure of left knee History of knee replacement procedure of right knee History of lung biopsy (11/29/17) Hx of colonoscopy with polypectomy S/P lobectomy of lung Status post Mariano procedure Status post partial removal of lung Family History Brother Cancer Social History marital status: unmarried,living together household members: significant other and caregiver housing: house education level: high school Smoking Status: Former smoker alcohol intake: current substance use type: does not use Smoking Status: Former smoker alcohol intake frequency: 3 or more drinks per day Alcohol type: hard liquor Substance Use Type: does not use Exam Initial Vital Signs Initial Vital Signs: Vital Signs Temperature 99.3 F 10/28/20 18:26 Pulse Rate 108 H 10/28/20 18:26 Respiratory Rate 24 10/28/20 18:26 Blood Pressure 133/63 10/28/20 18:26 Pulse Oximetry 93 10/28/20 18:26 Course Orders Ordered: ED Orders 10/28/20 18:32 XR chest 1V Stat Blood Culture Stat EKG-12 Lead Stat RT Consult Eval and Treat Now 10/28/20 19:15 Complete Blood Count AUTO DIFF Stat Comprehensive Metabolic Panel Stat Lactate (Lactic Acid) Stat Lipase Stat Procalcitonin Stat 10/28/20 19:52 COVID19 - ADMIT ([employer]GER swab/PCR) Stat Discontinued Medications Sodium Chloride (Normal Saline 0.9%) 1,000 mls @ 1,000 mls/hr IV BOLUS ONE Stop: 10/28/20 19:31 Last Infusion: 10/28/20 20:23 Dose: 0 mls/hr Documented by: Admin: 10/28/20 19:00 Dose: 1,000 mls/hr Documented by: EMMA Lidocaine HCl (Lidocaine 1% (Pf)) 2 ml SUBCUT NOW ONE Stop: 10/28/20 18:48 Last Admin: 10/28/20 19:36 Dose: 2 ml Documented by: EMMA Oxycodone HCl (Oxycodone Ir 5 Mg Tablet) 20 mg PO NOW ONE Stop: 10/28/20 20:36 Vital Signs Vital signs: Vital Signs - 8 hr 10/28/20 18:26 10/28/20 19:20 10/28/20 19:30 Temperature 99.3 F Pulse Rate 108 H 101 H 97 H Respiratory Rate 24 20 18 Blood Pressure 133/63 119/58 L 117/55 L Pulse Oximetry 93 100 100 MDM - Skin/Abscess/Foreign Bdy Lab Data Result diagrams: 10/28/20 19:15 10/28/20 19:15 Labs: Lab Results 10/28/20 10/28/20 10/28/20 Range/Units 19:15 19:15 19:15 WBC 5.7 (4.5-11.0) X10^3/uL RBC 3.24 L (4.5-5.9) X10^6/uL Hgb 10.2 L (13.5-17.5) g/dL Hct 30.2 L (41-53) % MCV 93.3 (80-100) fL MCH 31.6 (26-34) PG MCHC 33.9 (30-36) % RDW 16.2 H (11.6-14.8) % Plt Count 117 L (150-400) X10^3/uL Neut % (Auto) 80.3 H (50-75) % Lymph % (Auto) 9.9 L (25-40) % Camp % (Auto) 9.0 (3-14) % Eos % (Auto) 0.4 L (2-4) % Baso % (Auto) 0.4 (0-2) % Neut # (Auto) 4600 (6333-1542) /uL Lymph # (Auto) 600 L (7868-9787) /uL Camp # (Auto) 500 (0-900) /uL Eos # (Auto) 0 (0-450) /uL Baso # (Auto) 0 (0-100) /uL Sodium 131 L (137-145) mmol/L Potassium 4.1 (3.4-5.1) mmol/L Chloride 97 L (98-107) mmol/L Carbon Dioxide 30 (22-32) mmol/L BUN 8 L (9-20) mg/dL Creatinine 0.58 L (0.66-1.25) mg/dL Estimated GFR > 60.0 (>60) mL/min BUN/Creatinine Ratio 13.8 (6-22) Glucose 101 (80-110) mg/dL Lactate 1.7 (0.7-2.1) mmol/L Calcium 8.4 (8.4-10.2) mg/dL Total Bilirubin 0.7 (0.2-1.3) mg/dL AST 25 (17-59) IU/L ALT 16 (<50) IU/L Alkaline Phosphatase 160 H (38-126) U/L Total Protein 5.5 L (6.3-8.2) g/dL Albumin 2.9 L (3.5-5.0) g/dL Globulin 2.6 (1.7-4.1) g/dL Albumin/Globulin Ratio 1.1 (1.0-2.8) Lipase 28 (23-300) U/L Procalcitonin 0.10 (<0.5) ng/mL Discharge Plan Departure Prescriptions: No Action oxygen 2 L al the time 2 l intranasal RF: 0 escitalopram oxalate 20 mg tablet 20 mg PO DAILY Qty: 30 RF: 5 trazodone 100 mg tablet 100 mg PO BEDTIME PRN (Reason: sleep) Qty: 30 RF: 5 polyethylene glycol 3350 [Miralax] 17 gram Powder In Packet 17 g PO BID RF: 0 atorvastatin 20 mg tablet 20 mg PO BEDTIME RF: 0 docusate sodium 100 mg Capsule 100 mg PO BID PRN (Reason: Constipation) RF: 0 albuterol sulfate [Ventolin HFA] 90 mcg/actuation Hfa Aerosol Inhaler 1 - 2 puff INHALATION Q4-6H RF: 0 prochlorperazine maleate 10 mg Tablet 10 mg PO Q6H PRN (Reason: nausea vomiting) Qty: 120 RF: 0 prednisone 20 mg tablet 80 mg PO PRN PRN (Reason: Allergic Reaction) RF: 0 fluorouracil 2.5 gram/50 mL Solution See Protocol mg IV NOW Qty: 1 RF: 0 fluorouracil 2.5 gram/50 mL Solution See Protocol mg IV NOW Qty: 1 RF: 0 oxycodone 10 mg Tablet 10 mg PO Q4H PRN (Reason: PAIN) Qty: 180 RF: 0 fluorouracil 2.5 gram/50 mL Solution See Protocol mg IV NOW Qty: 1 RF: 0 fluorouracil 2.5 gram/50 mL Solution See Protocol mg IV NOW Qty: 1 RF: 0 fluorouracil 2.5 gram/50 mL Solution See Protocol mg IV NOW Qty: 1 RF: 0 diphenhydramine HCl [Benadryl] 25 mg Capsule 50 mg PO PREOP Qty: 1 RF: 0 fluorouracil 2.5 gram/50 mL Solution See Protocol mg IV NOW Qty: 1 RF: 0 fluorouracil 2.5 gram/50 mL Solution See Protocol mg IV NOW Qty: 1 RF: 0 prednisone 50 mg Tablet 50 mg PO PREOP Qty: 3 RF: 0 potassium chloride 10 mEq Tablet Extended Release 10 meq PO DAILY RF: 0 furosemide [Lasix] 20 mg Tablet 20 mg PO DAILY RF: 0 fluorouracil 2.5 gram/50 mL Solution See Protocol mg IV NOW Qty: 1 RF: 0 fluorouracil 2.5 gram/50 mL Solution See Protocol mg IV NOW 1 Days Qty: 1 RF: 0 fluorouracil 2.5 gram/50 mL Solution See Protocol mg IV NOW 1 Days Qty: 1 RF: 0 Narcan 4 mg/actuation [place],Non-Aerosol 1 spray INTRANASAL Q3M Qty: 1 RF: 0 lidocaine-prilocaine 2.5-2.5 % Cream 1 applic topical PRN PRN (Reason: pain) Qty: 30 RF: 1 lorazepam 0.5 mg Tablet 0.5 mg PO BID PRN (Reason: Nausea And Vomiting) Qty: 60 RF: 0 oxycodone 10 mg Tablet 10 - 20 mg PO Q4H PRN (Reason: Pain, Severe) Qty: 200 RF: 0 lisinopril 10 mg Tablet 10 mg PO DAILY RF: 0 Referrals: Judith Eagle MD [Primary Care Provider] -
[2020-10-28] MEDS: OXYCODONE IR 5 MG TABLET 20 MG PO (20:41)
[2020-10-28 21:15] LABS: COVID19 - ADMIT (NP swab/PCR) Negative (Negative)
== END 2020-10-28 22:25 | disposition left against medical advice (07) ==
PROVIDERS: Emergency Provider Emergency Medicine; Family Provider Student in an Organized Health Care Education/Training Program; PCP Student in an Organized Health Care Education/Training Program
DX: M79.605 Pain in left leg (principal); M79.604 Pain in right leg; Z20.822 Contact with and (suspected) exposure to COVID-19
CPT/HCPCS: 36415; 71045; 80053; 83605; 83690; 84145; 85025; 87040; 87635; 99284; C9803; J1642

== ENCOUNTER → 2020-12-09 11:46 | Outpatient (CLI) | payer MEDICARE, MEDICAID, SELFPAY ==
[2019-06-07 21:44] VITALS: BMI 34.3
--- NOTE | 2020-12-09 11:47 | DI.MRI.S_ITS ---
PROCEDURE: MR HEAD/BRAIN WO/W CON INDICATIONS: metastatic lung and rectal cancer, now with left sided BAJWA TECHNIQUE: Noncontrast axial T1 spin echo, axial T2 fast spin echo, sagittal and axial FLAIR, coronal T2 fast spin echo, axial gradient echo, axial diffusion and ADC through the brain. After the administration of contrast, axial and coronal T1 spin echo with fat saturation through the brain. COMPARISON: [facility], MR, MR STROKE, 06/08/2019, 15:11. [facility], MR, MR HEAD/BRAIN WO/W CON, 06/13/2020, 16:00. FINDINGS: Image quality: Excellent. CSF spaces: Basal cisterns are patent. No extra-axial fluid collections. Ventricles are normal in size and shape. Brain: No midline shift. No intracranial bleeds or masses. No abnormal intracranial enhancement. There is cerebral volume loss for age. There is periventricular white matter chronic small vessel ischemic change. The brainstem appears normal. Diffusion-weighted images demonstrate no acute ischemic insults. No chronic ischemic insults. Normal intravascular flow voids are present. Skull and face: Calvarial marrow is normal in signal. Orbits appear normal. Sinuses: Sinuses and mastoids appear clear. IMPRESSION: 1. No acute intracranial process. No visualized metastatic disease. 2. Mild to moderate atrophy and chronic microvascular ischemic changes. Dictated by: Jaz Sarmiento M.D. on 12/09/2020 at 14:28 Approved by: Jaz Sarmiento M.D. on 12/09/2020 at 14:30
== END ==
PROVIDERS: Family Provider Student in an Organized Health Care Education/Training Program; PCP Student in an Organized Health Care Education/Training Program; Referring Provider Internal Medicine Hematology & Oncology; Visit Provider Internal Medicine Hematology & Oncology
DX: C34.92 Malignant neoplasm of unspecified part of left bronchus or lung (principal); C20 Malignant neoplasm of rectum; R51.9 Headache, unspecified
CPT/HCPCS: 70553

== ENCOUNTER → 2021-02-21 09:36 | Outpatient (CLI) | payer MEDICARE, MEDICAID, SELFPAY ==
[2019-06-07 21:44] VITALS: BMI 34.3
--- NOTE | 2021-02-21 09:37 | DI.CT.S_ITS ---
PROCEDURE: CT CHEST WO CON INDICATIONS: lung and colon cancer with hemoptysis TECHNIQUE: Noncontrast 5 mm thick sections acquired from the pulmonary apices to the posterior costophrenic angles. 1 mm lung window, 5 mm thick coronal and sagittal and 7 mm axial MIP reformats were then acquired. For radiation dose reduction, the following was used: automated exposure control, adjustment of mA and/or kV according to patient size. COMPARISON: [facility], CT, CT CHEST WO CON, 12/12/2019, 9:07. FINDINGS: Image quality: Excellent. Lungs and pleura: Diffuse centrilobular emphysematous changes. Multiple solid masses and cavitary lesions are seen, compatible with progression of the patient's neoplastic process. The largest solid mass is seen in the left lung, measuring 2.2 x 4.4 x 2.1 cm (series 3, image 127). The largest cavitary lesion is seen in the right lower lobe, measuring 2.1 x 2.1 cm. No pleural effusions or pneumothorax. Central and peripheral airways are patent and normal in caliber. Mediastinum: Heart size is normal. No pericardial effusion. No mediastinal adenopathy by size criteria. Thoracic aorta and central pulmonary arteries are normal in size. A left aide catheter seen with tip at the brachiocephalic SVC junction. Esophagus is normal in caliber. Small hiatal hernia. Bones and chest wall: No suspicious bony lesions. No vertebral body compression fractures. Bridging anterior syndesmophytes are seen. No axillary or supraclavicular adenopathy by size criteria. Thyroid gland demonstrates homogeneous attenuation. Abdomen: Enlargement of spleen, measuring 16 cm in AP dimension. Nodules within the right adrenal gland, concerning for metastatic disease. IMPRESSION: 1. Interval progression of the patient's neoplastic disease as detailed above. 2. Nodules within the right adrenal gland, concerning for metastatic disease. 3. Splenomegaly. Dictated by: Rosales Mariscal M.D. on 02/21/2021 at 10:22 Approved by: Rosales Mariscal M.D. on 02/21/2021 at 10:32
== END ==
PROVIDERS: Family Provider Student in an Organized Health Care Education/Training Program; PCP Student in an Organized Health Care Education/Training Program; Referring Provider Internal Medicine Hematology & Oncology; Visit Provider Internal Medicine Hematology & Oncology
DX: C34.92 Malignant neoplasm of unspecified part of left bronchus or lung (principal); C34.31 Malignant neoplasm of lower lobe, right bronchus or lung; C20 Malignant neoplasm of rectum; R04.2 Hemoptysis; R16.1 Splenomegaly, not elsewhere classified; E27.9 Disorder of adrenal gland, unspecified; K44.9 Diaphragmatic hernia without obstruction or gangrene; Z95.828 Presence of other vascular implants and grafts
CPT/HCPCS: 71250

== ENCOUNTER → 2021-02-27 11:13 | Outpatient (CLI) | payer MEDICARE, MEDICAID, SELFPAY ==
[2019-06-07 21:44] VITALS: BMI 34.3
--- NOTE | 2021-02-27 12:17 | DI.CT.S_ITS ---
PROCEDURE: CT CHEST ABD PEL W CON INDICATIONS: rectal cancer, lung cancer TECHNIQUE: After the administration of oral and intravenous contrast, axial sections acquired from the supraclavicular neck to the pubic symphysis. Coronal and sagittal reformats were performed. For radiation dose reduction, the following was used: automated exposure control, adjustment of mA and/or kV according to patient size. COMPARISON:[facility], [place], [place] PET CT FUSION SKULL 2 THIGH, 12/11/2020, 8:33. [facility], CT, CT CHEST ABD PEL W CON, 07/31/2020, 9:59. FINDINGS: Image quality: Excellent. CHEST: Lungs and Airways: Interval increase in size and confluence of several left lower lobe cavitary lung nodules which also now involves left lower lobe airways. There is overall new volume loss in the left lower lobe. 2 left lateral upper lobe pleural based nodules have considerably increased in size, the larger measuring 2.7 cm in diameter, previously 1.1 cm. Posterior right upper lobe lung nodule has increased in size measuring 1.3 cm, previously 0.7 cm. Medial right lower lobe lung nodule measures 2.2 cm, previously 0.9 cm. Findings are superimposed on a background of moderate centrilobular emphysema. Pleura: No pneumothorax or pleural effusions. Heart: Heart size is normal. Moderate coronary artery calcification. No pericardial effusion. Thoracic Vessels: The aorta and pulmonary arteries demonstrate normal size. Mediastinum and Mary: No enlarged lymph nodes. Esophagus: No wall thickening. No hiatal hernia. Lower Neck: No enlarged lymph nodes. Thyroid: Within normal limits. Axillae: No enlarged lymph nodes. Chest Wall: Left chest MediPort. The tip terminates at the brachiocephalic SVC confluence. ABDOMEN: Liver: New vague 1.5 cm hypodensity in segment III and a 1.3 cm hypodensity in segment VII. Gallbladder: Decompressed. Biliary ducts: Nondilated. Pancreas: Normal. Spleen: Increasing splenomegaly, now measuring 16.9 cm in craniocaudal dimension and 16.8 cm in AP dimension. Adrenal Glands: Right adrenal body nodule increased in size measuring 1.6 cm, previously 1.1 cm. No left adrenal mass. Kidneys and Ureters: 1.7 cm mildly complicated right renal cortical cyst. Kidneys are otherwise normal. No hydronephrosis. No hydroureter. Stomach and Bowel: Loop colostomy in the left lower quadrant. Increased amount of solid stool present within the redundant colon. Mild wall thickening of the rectosigmoid, similar compared to the prior study. Peritoneum: No abnormal intraperitoneal fluid. No free air. Ventral Wall: Fat containing umbilical hernia. Abdominal Nodes: No retroperitoneal or mesenteric adenopathy by size criteria. Vessels: Aorta and inferior vena cava are normal in size. Moderate abdominal aortic atherosclerotic calcification. PELVIS: Pelvic Organs: Unremarkable. Bladder: Unremarkable. Pelvic Nodes: No enlarged lymph nodes. Miscellaneous: No inguinal hernias are seen. Bones: Diffuse demineralization. Ankylosis of the mid and lower thoracic spine, mild, chronic appearing T12 compression fracture. Ankylosis of both sacroiliac joints. No suspicious bone lesion. IMPRESSION: 1. Worsening of bilateral metastatic disease in the lungs. 2. Development of subtle liver lesions. 3. Increased size of right adrenal nodules suspicious for metastatic disease. Dictated by: Fabby Norris M.D. on 02/27/2021 at 14:18 Approved by: Fabby Norris M.D. on 02/27/2021 at 14:49
== END ==
PROVIDERS: Family Provider Student in an Organized Health Care Education/Training Program; PCP Student in an Organized Health Care Education/Training Program; Referring Provider Internal Medicine Hematology & Oncology; Visit Provider Internal Medicine Hematology & Oncology
DX: C20 Malignant neoplasm of rectum (principal); C34.32 Malignant neoplasm of lower lobe, left bronchus or lung; C78.01 Secondary malignant neoplasm of right lung; E27.9 Disorder of adrenal gland, unspecified; K76.9 Liver disease, unspecified; J43.2 Centrilobular emphysema; I25.10 Atherosclerotic heart disease of native coronary artery without angina pectoris; Z95.828 Presence of other vascular implants and grafts; Z93.3 Colostomy status
CPT/HCPCS: 71260; 74177

== ENCOUNTER → 2021-04-30 12:05 | Outpatient (CLI) | payer MEDICARE, MEDICAID, SELFPAY ==
[2019-06-07 21:44] VITALS: BMI 34.3
--- NOTE | 2021-04-30 12:07 | DI.MRI.S_ITS ---
PROCEDURE: MR PELIS WO/W CON INDICATIONS: rectal cancer TECHNIQUE: Coronal HASTE, sagittal T2 FSE, axial T1 FSE, axial and coronal nonbreath-hold T2 FSE. Axial dynamic VIBE during administration of contrast. Post-contrast axial and coronal VIBE/2-D FLASH with fat saturation from the iliac crests to the symphysis. Optional diffusion weighted imaging and ADC may be performed. COMPARISON: [facility], CT, CT CHEST ABDOMEN PELVIS WITH CONTRAST, 12/05/2018, 14:10. [place], [place], [place] PET CT FUSION SKULL 2 THIGH, 12/11/2020, 8:33. FINDINGS: Image quality: Excellent. Rectum: There is mild circumferential wall thickening and mild T2 hyperintensity of the submucosa of the rectum throughout its entire length. There is a short segment about 9 cm from the anal verge where the serosal surface is not well seen, and there is transmural enhancement and spiculation of perirectal fat. The rectum is tethered to the right pelvic sidewall by an adjacent focus of enhancing T2 hypointense tissue measuring 1.3 x 1.1 x 1.6 cm. This was not present on the prior PET-CT as an FDG avid focus. Additionally, just cranial to this area along the posterior wall of the rectum, there is a polypoid intraluminal lesion measuring roughly 1.4 cm in length demonstrating enhancement and restricted diffusion. No intramural extension. There is a small enhancing nodule along the posterior mesorectal fascia at the level of S5. Other bowel and peritoneum: Left lower quadrant diverting colostomy. No pathologic free pelvic fluid. More proximal colon and small bowel loops are normal in caliber. Bones: Marrow is normal in overall signal. IMPRESSION: 1. Short segment of circumferential scarring and chronic tethering to the right in the mid proximal rectum. This configuration did not demonstrate significant FDG avidity on recent PET scan. Focal nodular enhancement of right and posterior pelvic sidewall, however is suspicious. 2. Possible intraluminal proximal rectal wall enhancing nodule just proximal to the area of scarring. 3. No adenopathy. Dictated by: Fabby Norris M.D. on 04/30/2021 at 16:38 Approved by: Fabby Norris M.D. on 04/30/2021 at 17:13
--- NOTE | 2021-04-30 12:39 | DI.CT.S_ITS ---
PROCEDURE: CT CHEST ABD PEL W CON INDICATIONS: lung cancer, rectal ca TECHNIQUE: After the administration of oral and intravenous contrast, axial sections acquired from the supraclavicular neck to the pubic symphysis. Coronal and sagittal reformats were performed. For radiation dose reduction, the following was used: automated exposure control, adjustment of mA and/or kV according to patient size. COMPARISON:[place], [place] PET CT FUSION SKULL 2 THIGH, 03/13/2020, 17:44. [facility], CT, CT CHEST WO CON, 02/21/2021, 9:46. [facility], CT, CT CHEST ABD PEL W CON, 07/31/2020, 9:59. [facility], CT, CT CHEST ABD PEL W CON, 07/11/2020, 11:49. [place], [place], [place] PET CT FUSION SKULL 2 THIGH, 12/11/2020, 8:33. [facility], CT, CT CHEST ABD PEL W CON, 02/27/2021, 12:24. FINDINGS: Image quality: Excellent. CHEST: Lower Neck: No enlarged lymph nodes. Thyroid: Within normal limits. Axillae: No enlarged lymph nodes. Chest Wall: Gynecomastia. Lungs and Airways: There are multiple lung masses/nodules bilaterally. Reference lesions are listed in the following Lesion 1: The largest mass is in the left lower lobe measuring 2.7 x 6.2 cm (series 3, image 200), unchanged in size. Lesion 2: There is a 2.1 x 2.9 cm subpleural mass in the posterior left upper lobe (series 3, image 117), unchanged in size. Lesions 3: A 1.6 x 1.3 cm cavitary lesion in lateral aspect of the right upper lobe (series 3, image 99) appears more solid but demonstrates no interval enlargement. Lesion 4: A 1.4 x 1.5 cm spiculated mass in the right lower lobe (series 3, image 113) is unchanged. There is [id number] emphysema. No acute pulmonary opacities. Pleura: Pleural thickening and trace pleural effusion in the left hemithorax. No pneumothorax. Heart: Heart size is normal. No pericardial effusion. There is moderate coronary artery calcification. Thoracic Vessels: The aorta small pulmonary arteries demonstrate normal size. Mediastinum and Mary: No enlarged lymph nodes. Small mediastinal lymph nodes are unchanged. Esophagus: No wall thickening. Small hiatal hernia. ABDOMEN: Liver: Normal size. Multiple low-density masses are present compatible with metastases. Reference lesions are listed in the following Lesion 1: 2 cm; series 2, image 56; segment 3; previously 1.5 cm. Lesion 2: 1.5 cm; series 2, image 59; segment 5; new. Lesion 3: 2 cm; series 2, image 52; segment 7; previously 1.3 cm. Gallbladder: Gallbladder is contracted. Biliary ducts: Unremarkable. Pancreas: Unremarkable. Spleen: Enlarged measuring 17.3 cm in length. There is a vague 1.1 cm mass in spleen (series 2, image 61). Adrenal Glands: There is a 1.8 cm right adrenal nodule, slightly enlarged; previously 1.6 cm. Left adrenal thickening without discrete mass. Kidneys and Ureters: Unremarkable. Stomach and Bowel: Stomach, small bowel loops, and colon are normal in caliber. Postsurgical changes related to a colostomy. Mild thickening of sigmoid colon and rectum. Peritoneum: Small amount of free fluid is present. Precervical soft tissue thickening is unchanged. No free air. Ventral Wall: Small fat containing umbilical hernia. Abdominal Nodes: No retroperitoneal or mesenteric adenopathy by size criteria. Vessels: Aorta and inferior vena cava are normal in size. Severe atherosclerosis. There is moderate distal abdominal aortic stenosis. PELVIS: Pelvic Organs: Unremarkable. Bladder: Unremarkable. Pelvic Nodes: No enlarged lymph nodes. Miscellaneous: No inguinal hernias are seen. Bones: There is diffuse osteopenia. Mild chronic compression deformity of T12 is unchanged. Ankylosis of SI joints bilaterally. IMPRESSION: 1. Multiple pulmonary masses/nodules, consistent with metastases. Although lung lesions are overall stable in size, several previously cavitary lesions are more solid in appearance on the current exam. 2. Worsening of hepatic metastases. Liver lesions are increased both in number and size. 3. Splenomegaly. There is a low-density nodule in spleen suspicious for metastasis. 4. Slight enlargement of right adrenal nodule suspicious for metastasis. 5. Mild thickening of distal sigmoid colon and rectum. Dictated by: Meenakshi Perdomo M.D. on 04/30/2021 at 13:36 Approved by: Meenakshi Perdomo M.D. on 05/01/2021 at 10:03
== END ==
PROVIDERS: Family Provider Student in an Organized Health Care Education/Training Program; PCP Student in an Organized Health Care Education/Training Program; Referring Provider Internal Medicine Hematology & Oncology; Visit Provider Internal Medicine Hematology & Oncology
DX: C20 Malignant neoplasm of rectum (principal); C34.92 Malignant neoplasm of unspecified part of left bronchus or lung; C78.7 Secondary malignant neoplasm of liver and intrahepatic bile duct; R16.1 Splenomegaly, not elsewhere classified; E27.9 Disorder of adrenal gland, unspecified
CPT/HCPCS: 71260; 72197; 74177; A9579

== ENCOUNTER → 2021-07-07 09:52 | Outpatient (CLI) | payer MEDICARE, MEDICAID, SELFPAY ==
[2019-06-07 21:44] VITALS: BMI 34.3
--- NOTE | 2021-07-07 11:28 | DI.CT.S_ITS ---
PROCEDURE: CT CHEST ABD PEL W CON INDICATIONS: LUNG AND COLON CANCER TECHNIQUE: After the administration of oral and intravenous contrast, axial sections acquired from the supraclavicular neck to the pubic symphysis. Coronal and sagittal reformats were performed. For radiation dose reduction, the following was used: automated exposure control, adjustment of mA and/or kV according to patient size. COMPARISON:[facility], NM, NM PET CT FUSION SKULL 2 THIGH, 12/11/2020, 8:33. [facility], CT, CT CHEST ABD PEL W CON, 02/27/2021, 12:24. [facility], CT, CT CHEST WO CON, 02/21/2021, 9:46. [facility], CT, CT CHEST ABD PEL W CON, 04/30/2021, 12:46. FINDINGS: Image quality: Excellent. CHEST: Lower Neck: No enlarged lymph nodes. Thyroid: Within normal limits. Axillae: No enlarged lymph nodes. Chest Wall: Unremarkable. There is gynecomastia. Lungs and Airways: Again noted are multiple lung masses; some are cavitary. Compared to the last exam on 04/30/2019, many lung lesions are increased in size. For example: 1) A 1.9 cm mass in the right lower lobe (series 3 image 110) previously measured 1.5 cm. 2) A 2.1 x 2.4 cm mass in the medial right lower lobe (series 3, image 222) previously measured 1.7 x 2.2 cm. 3) A 1.7 x 3.1 cm subpleural mass in the left lower lobe (series 3, image 118) previously measured 1.6 by 2.6 cm. 4) The dominant left lower lobe mass measures 3.0 x 7.0 cm; previously 2.7 x 6.2 cm. [id number] emphysema. No acute pulmonary opacity. Pleura: There is trace left pleural effusion and pleural thickening in the left hemithorax. No pneumothorax. Heart: Heart size is normal. No pericardial effusion. Moderate coronary artery calcification. Thoracic Vessels: The aorta and pulmonary arteries demonstrate normal size. Mediastinum and Mary: No enlarged lymph nodes. Small mediastinal and hilar lymph nodes are stable in size. Esophagus: No wall thickening. Small hiatal hernia. ABDOMEN: Liver: Multiple hepatic masses are present, decreased in size and less conspicuous when compared to the last exam. Reference lesions are listed in the following: Lesion 1: 1.5 cm; Series 2, image 56; previously 2 cm. Lesion 2: 0.6 cm; series 2, image 59; previously 1.3 cm. Gallbladder: Unremarkable. Biliary ducts: Unremarkable. Pancreas: Unremarkable. Spleen: Persistent splenomegaly. The 1.1 cm low-density nodule in spleen is less conspicuous and appears decreased in size now measuring 0.8 cm. Adrenal Glands: There is a bilobed right adrenal nodule. The dominant component measures 2 cm, previously 1.8 cm. There is left adrenal thickening, slightly more pronounced. Kidneys and Ureters: Unremarkable. Stomach and Bowel: Partial colectomy with a colostomy. There is mild thickening of sigmoid colon and rectum. Diverticulosis without diverticulitis. There is a large amount of stool in colon. Peritoneum: No abnormal intraperitoneal fluid. No free air. Ventral Wall: No hernia. Abdominal Nodes: No retroperitoneal or mesenteric adenopathy by size criteria. Vessels: Aorta and inferior vena cava are normal in size. Moderate atherosclerotic calcifications. PELVIS: Pelvic Organs: Unremarkable. Bladder: Unremarkable. Pelvic Nodes: No enlarged lymph nodes. Miscellaneous: No inguinal hernias are seen. Bones: Unremarkable. IMPRESSION: There is mixed interval change. 1. Pulmonary masses are increased in size. 2. Right adrenal nodules are increased in size. There is also increased left adrenal thickening. 3. Liver lesions are decreased in size and less conspicuous. 4. The splenic lesion is slightly decreased in size. Dictated by: Meenakshi Perdomo M.D. on 07/07/2021 at 17:45 Approved by: Meenakshi Perdomo M.D. on 07/08/2021 at 9:17
== END ==
PROVIDERS: Family Provider Student in an Organized Health Care Education/Training Program; PCP Student in an Organized Health Care Education/Training Program; Referring Provider Internal Medicine Hematology & Oncology; Visit Provider Internal Medicine Hematology & Oncology
DX: C20 Malignant neoplasm of rectum (principal); C34.32 Malignant neoplasm of lower lobe, left bronchus or lung; C78.01 Secondary malignant neoplasm of right lung; C78.7 Secondary malignant neoplasm of liver and intrahepatic bile duct; E27.9 Disorder of adrenal gland, unspecified; D73.9 Disease of spleen, unspecified; R16.1 Splenomegaly, not elsewhere classified; K57.90 Diverticulosis of intestine, part unspecified, without perforation or abscess without bleeding
CPT/HCPCS: 71260; 74177; Q9967

== ENCOUNTER → 2021-08-18 14:40 | Outpatient (CLI) | payer MEDICARE, MEDICAID, SELFPAY ==
[2021-08-18 14:06] VITALS: BMI 34.3
[2021-08-18 15:48] LABS: COVID19 -Nasal RAPID POSITIVE (Negative)
== END ==
PROVIDERS: Family Provider Student in an Organized Health Care Education/Training Program; PCP Student in an Organized Health Care Education/Training Program; Visit Provider Family Medicine Sleep Medicine
DX: Z20.822 Contact with and (suspected) exposure to COVID-19 (principal)
CPT/HCPCS: 87635; C9803

== ENCOUNTER → 2021-08-29 14:29 | Outpatient (CLI) | payer MEDICARE, MEDICAID, SELFPAY ==
[2019-06-07 21:44] VITALS: BMI 34.3
[2021-08-18 14:06] VITALS: BMI 34.3
--- NOTE | 2021-09-05 08:02 | PM.PFT.1 ---
Pulmonary Function Test Referral & Results Date Patient Seen: 08/29/21 Requesting provider: Mary Rust Indication: Lung cancer Results: This is a 6 minute walk test This is a 6 minute walk test performed on 2 L nasal cannula oxygen. Patient's blood pressure baseline was 149/89 an at end of the test was 181/101 and return to 151/915 minutes after completion of test Heart rate was 95 a baseline 108 at end of test and 102 after 5 minutes Oxygen saturation was 97% baseline 96% end of test and 98% after 5 minutes Patient rated dyspnea at 1 (on Mitra scale) baseline and a 5 at end of test and return to a 2 after 5 minutes Patient rated fatigue at 0 1 (on the Mitra Scale) at baseline and a 5 at end of test and return to 1 after 5 minutes Patient's total distance was 450 ft or 137 m, and used a cane for assistance Interpretation: 6 minute walk test as above
== END ==
PROVIDERS: Family Provider Student in an Organized Health Care Education/Training Program; PCP Student in an Organized Health Care Education/Training Program; Referring Provider Internal Medicine Hematology & Oncology; Visit Provider Internal Medicine Hematology & Oncology
DX: C34.32 Malignant neoplasm of lower lobe, left bronchus or lung (principal); C20 Malignant neoplasm of rectum; Z87.891 Personal history of nicotine dependence
CPT/HCPCS: 94010; 94618